=== PATIENT | male | born 1940 | race African-American/Black ===

== ENCOUNTER 2017-08-20 08:08 | Day surgery (SDC) | payer OTHER ==
[2017-08-20 08:36] VITALS: BMI 22.2
[2017-08-20 09:12] VITALS: TEMP 98.6
[2017-08-20 11:31] VITALS: BP 121/60; PULSE 76
== END 2017-08-20 10:40 | disposition home or self-care (01) ==
LOC: JASU-ENDO 08:08
PROVIDERS: ATTEND Internal Medicine Gastroenterology
PROC: 0DJ08ZZ Inspection of Upper Intestinal Tract, Via Natural or Artificial Opening Endoscopic (ICD-10-PCS; principal; 2017-08-20 09:00)
DX: D64.9 Anemia, unspecified (principal); R63.4 Abnormal weight loss; K44.9 Diaphragmatic hernia without obstruction or gangrene

== ENCOUNTER 2018-01-29 10:06 | Inpatient (IN) | payer OTHER ==
--- NOTE | 2018-01-29 10:24 | PDOC ---
History of Present Illness <Yosef Willis - Last Filed: 01/29/18 16:31> - General History Source: Patient Exam Limitations: No Limitations - History of Present Illness Initial Comments: 01/29/18 11:14 The patient is a 77 year old male, with a significant past medical history of BPH, HTN, HIV, anemia, hyperlipidemia, Hepatitis B, enlarged prostate s/p prostate surgery, who presents to the emergency department with hematuria for about 1 day. The patient reports having the onset of hus symptoms after shoveling snow outside. He notes having additional complaints of urinary frequency and urgency. He denies any lower back pain. He denies any recent fevers, chills, headache or dizziness. He denies any recent nausea, vomit, diarrhea or constipation. He denies any recent chest pain or shortness of breath. He denies any recent dysuria. Allergies: NKA Past surgical history: See HPI. 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 ) - Surgical History Abdominal Surgery: No Cardiac Surgery: No Lung Surgery: No Neurologic Surgery: No Orthopedic Surgery: Yes (KNEE ARTHROSCOPY) - Immunization History Immunization Up to Date: Yes - Suicide/Smoking/Psychosocial Hx Smoking History: Current every day smoker Have you smoked in the past 12 months: No Number of Cigarettes Smoked Daily: 4 Cigars Per Day: 0 Information on smoking cessation initiated: No 'Breaking Loose' booklet given: 01/07/18 Hx Alcohol Use: No Drug/Substance Use Hx: No Substance Use Type: None Hx Substance Use Treatment: No <Yosef Willis - Last Filed: 01/29/18 16:31> <Yuan Brewer - Last Filed: 01/29/18 16:43> - Past Medical History Allergies/Adverse Reactions: Allergies Allergy/AdvReac Type Severity Reaction Status Date / Time trimethoprim [From Bactrim] Allergy Mild Verified 01/29/18 10:10 sulfamethoxazole Allergy Verified 01/29/18 10:10 [From Bactrim] Home Medications: Ambulatory Orders Amlodipine Besylate [Norvasc -] 10 mg PO DAILY #30 tablet 12/19/17 Aspirin [ASA -] 81 mg PO DAILY #30 tab.chew 12/19/17 Cholecalciferol (Vitamin D3) [Vitamin D3] 2,000 unit PO DAILY #30 capsule Cyanocobalamin [Vitamin B12 -] 1,000 mcg PO DAILY #30 tablet 12/19/17 Efavirenz/Emtricitab/Tenofovir [Atripla Tablet -] 1 tab PO DAILY #30 tab Losartan Potassium [Cozaar -] 25 mg PO DAILY #30 tablet 12/19/17 Rosuvastatin Calcium [Crestor] 10 mg PO DAILY #30 tablet 12/19/17 Tamsulosin HCl [Flomax -] 0.4 mg PO DAILY #30 cap.er.24h 12/19/17 Review of Systems - Review of Systems Able to Perform ROS?: Yes Comments:: 01/29/18 11:14 CONSTITUTIONAL: No fever, no chills, no fatigue EYES: No visual changes ENT: No ear pain, no sore throat CARDIOVASCULAR: No chest pain, no palpitations RESPIRATORY: No cough, no SOB GI: No abdominal pain, no nausea, no vomiting, no constipation, no diarrhea GENITOURINARY: + hematuria. No dysuria. +frequency. MUSKULOSKELETAL: No backpain, no joint pain, no myalgias SKIN: No rash NEURO: No headache <Yuan Brewer - Last Filed: 01/29/18 16:43> *Physical Exam - Vital Signs Last Vital Signs Temp Pulse Resp BP Pulse Ox 97.4 F L 112 H 15 146/84 98 01/29/18 10:10 01/29/18 10:10 01/29/18 10:10 01/29/18 10:10 01/29/18 10:10 <Yosef Willis - Last Filed: 01/29/18 16:31> - Vital Signs Last Vital Signs Temp Pulse Resp BP Pulse Ox 97.4 F L 112 H 15 146/84 98 01/29/18 10:10 01/29/18 10:10 01/29/18 10:10 01/29/18 10:10 01/29/18 10:10 - Physical Exam Comments: 01/29/18 11:22 CONSTITUTIONAL: Well-appearing; well-nourished; in no apparent distress HEAD: Normocephalic; atraumatic EYES: PERRL; EOM intact ENMT: External appears normal; normal oropharynx NECK: Supple; non-tender; no cervical lymphadenopathy CARD: Normal S1, S2; no murmurs, rubs, or gallops RESP: Normal chest excursion with respiration; breath sounds clear and equal bilaterally; no wheezes, rhonchi, or rales ABD: Soft, non-distended; non-tender; no palpable organomegaly, no palpable hernias EXT: Normal ROM in all four extremities; non-tender to palpation; distal pulses intact SKIN: Warm, dry, no rash NEURO: No focal neurological deficiencies. <Yuan Brewer - Last Filed: 01/29/18 16:43> Heart Score/ECG Review - ECG Impressions Comment:: 01/29/18 16:42 EKG impressions reported by : Normal sinus rhythm at 66bpm NE interval 208 ms QTc 450 ms <Yuan Brewer - Last Filed: 01/29/18 16:43> ED Treatment Course - LABORATORY CBC & Chemistry Diagram: 01/29/18 11:21 01/29/18 11:21 <Yosef Willis - Last Filed: 01/29/18 16:31> - LABORATORY CBC & Chemistry Diagram: 01/29/18 11:21 01/29/18 11:21 <Yuan Brewer - Last Filed: 01/29/18 16:43> *DC/Admit/Observation/Transfer - Discharge Dispostion Admit: Yes <Yosef Willis - Last Filed: 01/29/18 16:31> - Attestations Scribe Attestion: 01/29/18 11:14 Documentation prepared by Yuan Brewer, acting as nurses medical assistants phlebotomists for Yosef Willis MD. <Yuan Brewer - Last Filed: 01/29/18 16:43> Diagnosis at time of Disposition: Bladder mass Urinary tract infection Qualifiers: Urinary tract infection type: acute cystitis Hematuria presence: with hematuria Qualified Code(s): N30.01 - Acute cystitis with hematuria Hematuria Qualifiers: Hematuria type: unspecified type Qualified Code(s): R31.9 - Hematuria, unspecified - Discharge Dispostion Condition at time of disposition: Fair
[2018-01-29] MEDS ORDERED: SODIUM CHLORIDE 1,000 ML IV STA (11:23)
[2018-01-29 12:03] LABS: BASO % 0.8 % (0-2.0); EOS % 0.2 % (0-4.5); HEMATOCRIT 34.6 % (35.4-49); HEMOGLOBIN 11.4 GM/dL (11.7-16.9); LYMPH % 15.6 % (8-40); MCH 27.5 pg (25.7-33.7); MCHC 32.9 g/dl (32.0-35.9); MEAN CELL VOLUME 83.7 fl (80-96); MEAN PLT VOLUME 7.8 fl (7.5-11.1); MONO % 4.5 % (3.8-10.2); NEUT % 78.9 % (42.8-82.8); PLATELET COUNT 187 K/MM3 (134-434); RBC 4.13 M/mm3 (4.00-5.60); WHITE BLOOD COUNT 4.9 K/mm3 (4.0-10.0)
[2018-01-29 12:05] LABS: PH,URINE 6.5 (5.0-8.0); URINE APPEARANCE CLEAR; URINE BILIRUBIN NEGATIVE (NEGATIVE); URINE BLOOD 3+ (NEGATIVE); URINE COLOR DK. RED; URINE GLUCOSE (UA) NEGATIVE (NEGATIVE); URINE KETONE NEGATIVE (NEGATIVE); URINE UROBILINOGEN 0.2 mg/dL (0.2-1.0)
[2018-01-29 12:09] LABS: INR 1.08 (0.82-1.09); PROTHROMBIN TIME (PATIENT) 12.2 SEC (9.98-11.88)
[2018-01-29 12:12] LABS: URINE LEUK ESTERASE 2+ (NEGATIVE); URINE NITRITE POSITIVE (NEGATIVE); URINE PROTEIN 2+ (NEGATIVE)
[2018-01-29 12:21] LABS: ALBUMIN 3.2 g/dl (3.4-5.0); ALK PHOS 71 U/L (45-117); ANION GAP 7 (8-16); BILIRUBIN,TOTAL 0.2 mg/dL (0.2-1.0); BLOOD UREA NITROGEN 27 mg/dL (7-18); CALCIUM 7.9 mg/dL (8.5-10.1); CHLORIDE 109 mmol/L (98-107); CO2 24 mmol/L (21-32); CREATININE 1.6 mg/dL (0.7-1.3); GLUCOSE,RANDOM 93 mg/dL (74-106); SGPT/ALT 17 U/L (12-78); SODIUM 140 mmol/L (136-145); TOT PROT 6.6 g/dl (6.4-8.2)
[2018-01-29 12:45] LABS: POTASSIUM 4.7 mmol/L (3.5-5.1); SGOT/AST 27 U/L (15-37)
[2018-01-29] MEDS ORDERED: CEFTRIAXONE 1 GM in DEXTROSE 5%-WATER - 50 ML IVPB ONE (14:40)
[2018-01-29] MEDS ORDERED: CEFTRIAXONE 1 GM/50 ML BAG ONE (15:27)
--- NOTE | 2018-01-29 16:13 | HP ---
<Kevin Man - Last Filed: 01/29/18 17:45> CHIEF COMPLAINT: blood in the urine PCP: Dr. Holland HISTORY OF PRESENT ILLNESS: The patient is a 77 yo m w/ PMH BPH, HTN, HIV (follows at [facility]) who comes into the ED c/o a 1 day history of hematuria. Patient states he was clearing snow off his car and noticed the blood when he come in to urinate. The patient had a similar episode a few years ago and was diagnosed with BPH. At that time, the patient underwent an unknown prostates surgery. The past episode was a gradual onset, however and the patient states that his current hematuria was acute onset. Patient also endorses urgency and frequency, but states that these symptoms have been present since his prostate surgery. The patient denies any trauma to the area any fevers, chills, Chest pain or shortness of breath. ER course was notable for: (1) Renal/bladder ultrasound showing a bladder mass measuring 3.5x3.2x2 (2) (3) Recent Travel: none PAST MEDICAL HISTORY: HLD Anemia HBV PAST SURGICAL HISTORY: prostate surgery 2 years ago Social History: Smoking: smokes 4 cigs per day x 40 years Alcohol: socially Drugs: denies Family History: none Allergies trimethoprim [From Bactrim] Allergy (Mild, Verified 01/29/18 10:10) VOMITING sulfamethoxazole [From Bactrim] Allergy (Verified 01/29/18 10:10) HOME MEDICATIONS: Home Medications Medication Instructions Recorded Amlodipine Besylate [Norvasc -] 10 mg PO DAILY #30 tablet 12/19/17 Aspirin [ASA -] 81 mg PO DAILY #30 tab.chew 12/19/17 Cholecalciferol (Vitamin D3) 2,000 unit PO DAILY #30 capsule 12/19/17 [Vitamin D3] Cyanocobalamin [Vitamin B12 -] 1,000 mcg PO DAILY #30 tablet 12/19/17 Efavirenz/Emtricitab/Tenofovir 1 tab PO DAILY #30 tab 12/19/17 [Atripla Tablet -] Losartan Potassium [Cozaar -] 25 mg PO DAILY #30 tablet 12/19/17 Rosuvastatin Calcium [Crestor] 10 mg PO DAILY #30 tablet 12/19/17 Tamsulosin HCl [Flomax -] 0.4 mg PO DAILY #30 cap.er.24h 12/19/17 REVIEW OF SYSTEMS CONSTITUTIONAL: Absent: fever, chills, diaphoresis, generalized weakness, malaise, loss of appetite, weight change HEENT: Absent: rhinorrhea, nasal congestion, throat pain, throat swelling, difficulty swallowing, mouth swelling, ear pain, eye pain, visual changes CARDIOVASCULAR: Absent: chest pain, syncope, palpitations, irregular heart rate, lightheadedness , peripheral edema RESPIRATORY: Absent: cough, shortness of breath, dyspnea with exertion, orthopnea, wheezing, stridor, hemoptysis GASTROINTESTINAL: Absent: abdominal pain, abdominal distension, nausea, vomiting, diarrhea, constipation, melena, hematochezia GENITOURINARY: Absent: dysuria, frequency, urgency, hesitancy, flank pain, genital pain MUSCULOSKELETAL: Absent: myalgia, arthralgia, joint swelling, back pain, neck pain SKIN: Absent: rash, itching, pallor HEMATOLOGIC/IMMUNOLOGIC: Absent: easy bleeding, easy bruising, lymphadenopathy, frequent infections ENDOCRINE: Absent: unexplained weight gain, unexplained weight loss, heat intolerance, cold intolerance NEUROLOGIC: Absent: headache, focal weakness or paresthesias, dizziness, unsteady gait, seizure, mental status changes, bladder or bowel incontinence PSYCHIATRIC: Absent: anxiety, depression, suicidal or homicidal ideation, hallucinations. PHYSICAL EXAMINATION Vital Signs - 24 hr 01/29/18 01/29/18 10:10 13:06 Temperature 97.4 F L 98.6 F Pulse Rate 112 H Pulse Rate [ 77 Left Apical] Respiratory 15 18 Rate Blood Pressure 146/84 Blood Pressure 118/67 [Left Arm] O2 Sat by Pulse 98 99 Oximetry (%) GENERAL: Awake, alert, and fully oriented, in no acute distress. HEAD: Normal with no signs of trauma. EYES: Pupils equal, round and reactive to light, extraocular movements intact, sclera anicteric, conjunctiva clear. No lid lag. LUNGS: Breath sounds equal, clear to auscultation bilaterally. No wheezes, and no crackles. No accessory muscle use. HEART: Regular rate and rhythm, normal S1 and S2 without murmur, rub or gallop. ABDOMEN: Soft, nontender, not distended, normoactive bowel sounds, no guarding, no rebound, no masses. No hepatomegaly or splenomegaly. LOWER EXTREMITIES: 2+ pulses, warm, well-perfused. No calf tenderness. No peripheral edema. NEUROLOGICAL: Cranial nerves II-X intact. Normal speech. Normal gait. GENITURINARY: Blood mixed with urine seen over the patient's penis and scrotum. No testicular masses felt. No tenderness to palpation. Genitalia are atraumatic. PSYCHIATRIC: Cooperative. Good eye contact. Appropriate mood and affect. SKIN: Warm, dry, normal turgor, no rashes or lesions noted, normal capillary refill. Laboratory Results - last 24 hr 01/29/18 01/29/18 01/29/18 10:37 11:21 11:21 WBC 4.9 RBC 4.13 Hgb 11.4 L Hct 34.6 L MCV 83.7 MCH 27.5 MCHC 32.9 RDW 17.0 H Plt Count 187 MPV 7.8 Neutrophils % 78.9 Lymphocytes % 15.6 Monocytes % 4.5 Eosinophils % 0.2 Basophils % 0.8 PT with INR 12.20 H INR 1.08 Sodium Potassium Chloride Carbon Dioxide Anion Gap BUN Creatinine Creat Clearance w eGFR Random Glucose Calcium Total Bilirubin AST ALT Alkaline Phosphatase Total Protein Albumin Urine Color Dk. red Urine Appearance Clear Urine pH 6.5 Ur Specific Union 1.025 Urine Protein 2+ H Urine Glucose (UA) Negative Urine Ketones Negative Urine Blood 3+ H Urine Nitrite Positive Urine Bilirubin Negative Urine Urobilinogen 0.2 Ur Leukocyte Esterase 2+ H Urine WBC (Auto) 2-5 Urine RBC (Auto) >100 Blood Type Antibody Screen 01/29/18 01/29/18 01/29/18 11:21 11:21 14:00 WBC RBC Hgb Hct MCV MCH MCHC RDW Plt Count MPV Neutrophils % Lymphocytes % Monocytes % Eosinophils % Basophils % PT with INR INR Sodium 140 Potassium 4.7 Chloride 109 H Carbon Dioxide 24 Anion Gap 7 L BUN 27 H Creatinine 1.6 H Creat Clearance w eGFR 42.35 Random Glucose 93 Calcium 7.9 L Total Bilirubin 0.2 D AST 27 D ALT 17 D Alkaline Phosphatase 71 Total Protein 6.6 Albumin 3.2 L Urine Color Urine Appearance Urine pH Ur Specific Union Urine Protein Urine Glucose (UA) Urine Ketones Urine Blood Urine Nitrite Urine Bilirubin Urine Urobilinogen Ur Leukocyte Esterase Urine WBC (Auto) Urine RBC (Auto) Blood Type Cancelled B POSITIVE Antibody Screen Cancelled Negative ASSESSMENT/PLAN: The patient is a 77 yo m w/ PMH BPH, HIV, HTN being admitted for hematuria and bladder mass #Bladder mass & painless hematuria likely 2/2 malignancy -urology consult -hold ASA -NPO past midnight -Hb at baseline, will monitor -s/p ceftriaxone in ED -patient unsure of home medications; attempted to reach pharmacy x2. Will try again in AM #HTN -normotensive -will restart home losartan 25 -will restart home norvasc 10 #HIV -will restart home atripla #BPH -c/w home flomax #FEN -NS @ 77 -lytes WNL -NPO past midnight #Prophylaxis -hold AC in light of active bleed -SCDs #Dispo -admit to med surg Visit type - Emergency Visit Emergency Visit: Yes Care time: The patient presented to the Emergency Department on the above date and was hospitalized for further evaluation of their emergent condition. - New Patient This patient is new to me today: Yes Date on this admission: 01/29/18 - Critical Care Critical Care patient: No Hospitalist Screening - Colonoscopy Questionnaire Colonoscopy Questionnaire: Colonoscopy Questionnaire - Patient: 50 - 75 years old and never had a screening colonoscopy: Unknown History of colon or rectal polyps, or CA: Unknown History of IBD, Crohn's disease or UC: Unknown History of abdominal radiation therapy as a child: Unknown - Relative: 1 with colon or rectal CA, or polyps at age 60 or younger: Unknown Colon or rectal CA diagnosed at age 45 or younger: Unknown Multiple relatives with colon or rectal CA: Unknown - Outcome: Screening Result: Negative Screen <Madelaine Wells - Last Filed: 01/29/18 20:08> Patient is seen and examined. Presented due to having hematuria, patient goes to HIV clinic [facility]. Urology was consulted. Renal US reported for having intrinsic bladder mass.can't r/o Transitional cell carcinoma since patient is a smoker as well. Vital Signs Temperature 97.7 F 01/29/18 18:58 Pulse Rate 69 01/29/18 18:58 Respiratory Rate 20 01/29/18 18:58 Blood Pressure 145/74 01/29/18 18:58 O2 Sat by Pulse Oximetry (%) 99 01/29/18 16:15 CBCD WBC 4.9 K/mm3 (4.0-10.0) 01/29/18 11:21 RBC 4.13 M/mm3 (4.00-5.60) 01/29/18 11:21 Hgb 11.4 GM/dL (11.7-16.9) L 01/29/18 11:21 Hct 34.6 % (35.4-49) L 01/29/18 11:21 MCV 83.7 fl (80-96) 01/29/18 11:21 MCHC 32.9 g/dl (32.0-35.9) 01/29/18 11:21 RDW 17.0 % (11.9-15.9) H 01/29/18 11:21 Plt Count 187 K/MM3 (134-434) 01/29/18 11:21 MPV 7.8 fl (7.5-11.1) 01/29/18 11:21 CMP Sodium 140 mmol/L (136-145) 01/29/18 11:21 Potassium 4.7 mmol/L (3.5-5.1) 01/29/18 11:21 Chloride 109 mmol/L (98-107) H 01/29/18 11:21 Carbon Dioxide 24 mmol/L (21-32) 01/29/18 11:21 Anion Gap 7 (8-16) L 01/29/18 11:21 BUN 27 mg/dL (7-18) H 01/29/18 11:21 Creatinine 1.6 mg/dL (0.7-1.3) H 01/29/18 11:21 Creat Clearance w eGFR 42.35 (>60) 01/29/18 11:21 Random Glucose 93 mg/dL (74-106) 01/29/18 11:21 Calcium 7.9 mg/dL (8.5-10.1) L 01/29/18 11:21 Total Bilirubin 0.2 mg/dL (0.2-1.0) D 01/29/18 11:21 AST 27 U/L (15-37) D 01/29/18 11:21 ALT 17 U/L (12-78) D 01/29/18 11:21 Alkaline Phosphatase 71 U/L (45-117) 01/29/18 11:21 Total Protein 6.6 g/dl (6.4-8.2) 01/29/18 11:21 Albumin 3.2 g/dl (3.4-5.0) L 01/29/18 11:21 Current Medications Generic Name Dose Route Start Last Admin Trade Name Shaina PRN Reason Stop Dose Admin Amlodipine Besylate 10 mg 01/30/18 10:00 Norvasc - PO DAILY [facility] Cyanocobalamin 1,000 mcg 01/30/18 10:00 Vitamin B12 - PO DAILY [facility] Sodium Chloride 1,000 mls @ 75 mls/hr 01/29/18 16:15 01/29/18 16:30 Normal Saline - IV 75 mls/hr ASDIR [facility] Administration Losartan Potassium 25 mg 01/30/18 10:00 Cozaar - PO DAILY [facility] Non-Formulary Medication 1 tab 01/30/18 10:00 Efavirenz/Emtricitab/Tenofovir PO DAILY [facility] Tamsulosin HCl 0.4 mg 01/30/18 08:30 Flomax - PO DAILY@0830 [facility] Home Medications Medication Instructions Recorded Amlodipine Besylate [Norvasc -] 10 mg PO DAILY #30 tablet 12/19/17 Aspirin [ASA -] 81 mg PO DAILY #30 tab.chew 12/19/17 Cholecalciferol (Vitamin D3) 2,000 unit PO DAILY #30 capsule 12/19/17 [Vitamin D3] Cyanocobalamin [Vitamin B12 -] 1,000 mcg PO DAILY #30 tablet 12/19/17 Efavirenz/Emtricitab/Tenofovir 1 tab PO DAILY #30 tab 12/19/17 [Atripla Tablet -] Losartan Potassium [Cozaar -] 25 mg PO DAILY #30 tablet 12/19/17 Rosuvastatin Calcium [Crestor] 10 mg PO DAILY #30 tablet 12/19/17 Tamsulosin HCl [Flomax -] 0.4 mg PO DAILY #30 cap.er.24h 12/19/17 Hospitalist Screening - Colonoscopy Questionnaire Colonoscopy Questionnaire: Colonoscopy Questionnaire
[2018-01-29] MEDS: SODIUM CHLORIDE 1,000 ML IV SCH (16:30)
[2018-01-29 18:34] VITALS: BMI 21.5
[2018-01-29 20:39] LABS: HEMATOCRIT 33.3 % (35.4-49); HEMOGLOBIN 10.5 GM/dL (11.7-16.9); MCH 26.8 pg (25.7-33.7); MCHC 31.6 g/dl (32.0-35.9); MEAN CELL VOLUME 84.8 fl (80-96); MEAN PLT VOLUME 7.7 fl (7.5-11.1); PLATELET COUNT 163 K/MM3 (134-434); RBC 3.93 M/mm3 (4.00-5.60); RDW 17.3 % (11.9-15.9); WHITE BLOOD COUNT 5.6 K/mm3 (4.0-10.0)
[2018-01-30] MEDS: SODIUM CHLORIDE 1,000 ML IV SCH ×2 (04:36→23:06)
[2018-01-30] MEDS ORDERED: INSULIN (NOVOLOG) ASPART 100 UNITS/ML 10ML VIAL ONE (06:38)
[2018-01-30 07:58] LABS: ALBUMIN 2.5 g/dl (3.4-5.0); ANION GAP 10 (8-16); BLOOD UREA NITROGEN 20 mg/dL (7-18); CALCIUM 7.4 mg/dL (8.5-10.1); CHLORIDE 111 mmol/L (98-107); CO2 22 mmol/L (21-32); CREATININE 1.3 mg/dL (0.7-1.3); GLUCOSE,RANDOM 87 mg/dL (74-106); MAGNESIUM 2.3 mg/dL (1.8-2.4); PHOSPHOROUS 2.4 mg/dL (2.5-4.9); POTASSIUM 4.7 mmol/L (3.5-5.1); SGOT/AST 16 U/L (15-37); SGPT/ALT 15 U/L (12-78); SODIUM 143 mmol/L (136-145)
[2018-01-30 08:00] LABS: INR 1.13 (0.82-1.09); PROTHROMBIN TIME (PATIENT) 12.8 SEC (9.98-11.88)
[2018-01-30 08:03] LABS: ALK PHOS 64 U/L (45-117); BILIRUBIN,TOTAL 0.6 mg/dL (0.2-1.0); TOT PROT 5.8 g/dl (6.4-8.2)
[2018-01-30 08:04] LABS: BASO % 0.5 % (0-2.0); EOS % 0.8 % (0-4.5); HEMATOCRIT 31.9 % (35.4-49); HEMOGLOBIN 10.2 GM/dL (11.7-16.9); LYMPH % 23.2 % (8-40); MCH 26.9 pg (25.7-33.7); MCHC 31.9 g/dl (32.0-35.9); MEAN CELL VOLUME 84.3 fl (80-96); MEAN PLT VOLUME 7.8 fl (7.5-11.1); MONO % 5.1 % (3.8-10.2); NEUT % 70.4 % (42.8-82.8); PLATELET COUNT 179 K/MM3 (134-434); RBC 3.79 M/mm3 (4.00-5.60); RDW 17.1 % (11.9-15.9)
[2018-01-30] MEDS ORDERED: PATIENT'S OWN MEDICATION (NON-FORMULARY) (Efavirenz/Emtricitab/Tenofovir 1 TAB) PO SCH (10:00)
--- NOTE | 2018-01-30 10:42 | CON.GU ---
Consult - History of Present Illness History of Present Illness: 77 yo male with h/o BPH s/p TURP approx 3 yrs ago. Now admitted with gross hematuria after shoveling. No flank pain. Sono shows possible bladder mass. Urine now clear - Past Medical History Cardio/Vascular: Yes: HTN, Hyperlipdemia Pulmonary: Yes: COPD Renal/: Yes: BPH Infectious Disease: Yes: HIV Musculoskeletal: Yes: Other (patella fracture) Endocrine: Yes: Other (thyroid goiter s/p needle aspiration) - Past Surgical History Past Surgical History: Yes: TURP - Alcohol/Substance Use Hx Alcohol Use: No History of Substance Use: reports: None - Smoking History Smoking history: Current every day smoker Have you smoked in the past 12 months: No Aproximately how many cigarettes per day: 4 - Social History Usual Living Arrangement: Other (with sister) ADL: Independent History of Recent Travel: No Home Medications - Allergies Allergies/Adverse Reactions: Allergies Allergy/AdvReac Type Severity Reaction Status Date / Time trimethoprim [From Bactrim] Allergy Mild Verified 01/29/18 10:10 sulfamethoxazole Allergy Verified 01/29/18 10:10 [From Bactrim] - Home Medications Home Medications: Ambulatory Orders Amlodipine Besylate [Norvasc -] 10 mg PO DAILY #30 tablet 12/19/17 Aspirin [ASA -] 81 mg PO DAILY #30 tab.chew 12/19/17 Cholecalciferol (Vitamin D3) [Vitamin D3] 2,000 unit PO DAILY #30 capsule Cyanocobalamin [Vitamin B12 -] 1,000 mcg PO DAILY #30 tablet 12/19/17 Efavirenz/Emtricitab/Tenofovir [Atripla Tablet -] 1 tab PO DAILY #30 tab Losartan Potassium [Cozaar -] 25 mg PO DAILY #30 tablet 12/19/17 Rosuvastatin Calcium [Crestor] 10 mg PO DAILY #30 tablet 12/19/17 Tamsulosin HCl [Flomax -] 0.4 mg PO DAILY #30 cap.er.24h 12/19/17 Review of Systems - Review of Systems Genitourinary: reports: Hematuria Physical Exam- Vital Signs: Vital Signs Temperature 97.5 F L 01/30/18 10:00 Pulse Rate 65 01/30/18 10:00 Respiratory Rate 18 01/30/18 10:00 Blood Pressure 121/57 01/30/18 10:00 O2 Sat by Pulse Oximetry (%) 97 01/29/18 21:00 Kidneys: Yes: WNL Labs: CBC, BMP 01/30/18 07:10 01/30/18 07:10 Imaging - Results Ultrasound: Report Reviewed Problem List - Problems (1) Hematuria Assessment/Plan: CT ordered Code(s): R31.9 - HEMATURIA, UNSPECIFIED Qualifiers: Hematuria type: unspecified type Qualified Code(s): R31.9 - Hematuria, unspecified
[2018-01-30] MEDS: TAMSULOSIN HCL 0.4 MG CAP.ER.24H (FP) PO SCH (14:20)
[2018-01-30] MEDS: CYANOCOBALAMIN 1,000 MCG TABLET (FP) PO SCH (14:20)
[2018-01-30] MEDS: amLODIPine BESYLATE 10 MG TABLET (FP) PO SCH (14:20)
[2018-01-30] MEDS: LOSARTAN POTASSIUM 25 MG TABLET PO SCH (14:20)
--- NOTE | 2018-01-30 17:18 | PN ---
<Kevin Man - Last Filed: 01/30/18 17:20> Physical Exam: SUBJECTIVE: Patient seen and examined at bedside. Patient feels better today. No new complaints. OBJECTIVE: Vital Signs Period Temp Pulse Resp BP Sys/Nunez Pulse Ox Last 24 Hr 97.4 F-98.6 F 65-74 18-20 104-156/50-76 97 GENERAL: The patient is awake, alert, and fully oriented, in no acute distress. NECK: Trachea midline, full range of motion, supple. LUNGS: Breath sounds equal, clear to auscultation bilaterally, no wheezes, no crackles, no accessory muscle use. HEART: Regular rate and rhythm, S1, S2 without murmur, rub or gallop. ABDOMEN: Soft, nontender, nondistended, normoactive bowel sounds, no guarding, no rebound, no hepatosplenomegaly, no masses. EXTREMITIES: 2+ pulses, warm, well-perfused, no edema. NEUROLOGICAL: Cranial nerves II through XII grossly intact. Normal speech, gait not observed. SKIN: Warm, dry, normal turgor, no rashes or lesions noted Laboratory Results - last 24 hr 01/29/18 01/30/18 01/30/18 20:00 07:10 07:10 WBC 5.6 5.0 RBC 3.93 L 3.79 L Hgb 10.5 L 10.2 L Hct 33.3 L 31.9 L MCV 84.8 84.3 MCH 26.8 26.9 MCHC 31.6 L 31.9 L RDW 17.3 H 17.1 H Plt Count 163 179 MPV 7.7 7.8 Neutrophils % 70.4 Lymphocytes % 23.2 D Monocytes % 5.1 Eosinophils % 0.8 D Basophils % 0.5 PT with INR 12.80 H INR 1.13 Sodium Potassium Chloride Carbon Dioxide Anion Gap BUN Creatinine Creat Clearance w eGFR Random Glucose Calcium Phosphorus Magnesium Total Bilirubin AST ALT Alkaline Phosphatase Total Protein Albumin 01/30/18 07:10 WBC RBC Hgb Hct MCV MCH MCHC RDW Plt Count MPV Neutrophils % Lymphocytes % Monocytes % Eosinophils % Basophils % PT with INR INR Sodium 143 Potassium 4.7 Chloride 111 H Carbon Dioxide 22 Anion Gap 10 BUN 20 H D Creatinine 1.3 Creat Clearance w eGFR 53.82 Random Glucose 87 Calcium 7.4 L Phosphorus 2.4 L Magnesium 2.3 Total Bilirubin 0.6 D AST 16 D ALT 15 Alkaline Phosphatase 64 Total Protein 5.8 L Albumin 2.5 L D Active Medications Generic Name Dose Route Start Last Admin Trade Name Shaina PRN Reason Stop Dose Admin Amlodipine Besylate 10 mg 01/30/18 10:00 01/30/18 14:20 Norvasc - PO 10 mg DAILY ELVIS Administration Cyanocobalamin 1,000 mcg 01/30/18 10:00 01/30/18 14:20 Vitamin B12 - PO 1,000 mcg DAILY ELVIS Administration Sodium Chloride 1,000 mls @ 75 mls/hr 01/29/18 16:15 01/30/18 04:36 Normal Saline - IV 75 mls/hr ASDIR ELVIS Administration Losartan Potassium 25 mg 01/30/18 10:00 01/30/18 14:20 Cozaar - PO 25 mg DAILY ELVIS Administration Non-Formulary Medication 1 tab 01/30/18 10:00 Efavirenz/Emtricitab/Tenofovir PO DAILY ELVIS Tamsulosin HCl 0.4 mg 01/30/18 08:30 01/30/18 14:20 Flomax - PO 0.4 mg DAILY@0830 ELVIS Administration ASSESSMENT/PLAN: The patient is a 77 yo m w/ PMH BPH, HIV, HTN being admitted for hematuria and bladder mass #Bladder mass & painless hematuria likely 2/2 malignancy -hold ASA -Hb at baseline, will monitor -CT AP shows enlarged prostate extending into bladder wall. -will f/u urology reccs #HTN -normotensive -will restart home losartan 25 -will restart home norvasc 10 #HIV -will restart home atripla #BPH -c/w home flomax #FEN -NS @ 75 -lytes WNL -sodium controlled diet #Prophylaxis -hold AC in light of active bleed -SCDs #Dispo -admit to med surg Visit type - Emergency Visit Emergency Visit: Yes ED Registration Date: 01/29/18 Care time: The patient presented to the Emergency Department on the above date and was hospitalized for further evaluation of their emergent condition. - New Patient This patient is new to me today: No - Critical Care Critical Care patient: No <Madelaine Wells - Last Filed: 01/30/18 19:27> Physical Exam: Patient seen and examined. Patient has less hematuria today, is ordered CT of abdomen to r/o renal mass/bladder mass. Seen By . Patient feels better today.NAD. Patient has a hx of HIV will get ID to see him, cardio was consulted as per request of for cardiac clearance. Vital Signs Temperature 97.6 F 01/30/18 18:56 Pulse Rate 73 01/30/18 18:56 Respiratory Rate 20 01/30/18 18:56 Blood Pressure 143/73 01/30/18 18:56 O2 Sat by Pulse Oximetry (%) 98 01/30/18 09:00 CBCD WBC 5.0 K/mm3 (4.0-10.0) 01/30/18 07:10 RBC 3.79 M/mm3 (4.00-5.60) L 01/30/18 07:10 Hgb 10.2 GM/dL (11.7-16.9) L 01/30/18 07:10 Hct 31.9 % (35.4-49) L 01/30/18 07:10 MCV 84.3 fl (80-96) 01/30/18 07:10 MCHC 31.9 g/dl (32.0-35.9) L 01/30/18 07:10 RDW 17.1 % (11.9-15.9) H 01/30/18 07:10 Plt Count 179 K/MM3 (134-434) 01/30/18 07:10 MPV 7.8 fl (7.5-11.1) 01/30/18 07:10 CMP Sodium 143 mmol/L (136-145) 01/30/18 07:10 Potassium 4.7 mmol/L (3.5-5.1) 01/30/18 07:10 Chloride 111 mmol/L (98-107) H 01/30/18 07:10 Carbon Dioxide 22 mmol/L (21-32) 01/30/18 07:10 Anion Gap 10 (8-16) 01/30/18 07:10 BUN 20 mg/dL (7-18) H D 01/30/18 07:10 Creatinine 1.3 mg/dL (0.7-1.3) 01/30/18 07:10 Creat Clearance w eGFR 53.82 (>60) 01/30/18 07:10 Random Glucose 87 mg/dL (74-106) 01/30/18 07:10 Calcium 7.4 mg/dL (8.5-10.1) L 01/30/18 07:10 Total Bilirubin 0.6 mg/dL (0.2-1.0) D 01/30/18 07:10 AST 16 U/L (15-37) D 01/30/18 07:10 ALT 15 U/L (12-78) 01/30/18 07:10 Alkaline Phosphatase 64 U/L (45-117) 01/30/18 07:10 Total Protein 5.8 g/dl (6.4-8.2) L 01/30/18 07:10 Albumin 2.5 g/dl (3.4-5.0) L D 01/30/18 07:10 Current Medications Generic Name Dose Route Start Last Admin Trade Name Freq PRN Reason Stop Dose Admin Amlodipine Besylate 10 mg 01/30/18 10:00 01/30/18 14:20 Norvasc - PO 10 mg DAILY ELVIS Administration Cyanocobalamin 1,000 mcg 01/30/18 10:00 01/30/18 14:20 Vitamin B12 - PO 1,000 mcg DAILY ELVIS Administration Sodium Chloride 1,000 mls @ 75 mls/hr 01/29/18 16:15 01/30/18 04:36 Normal Saline - IV 75 mls/hr ASDIR ELVIS Administration Losartan Potassium 25 mg 01/30/18 10:00 01/30/18 14:20 Cozaar - PO 25 mg DAILY ELVIS Administration Non-Formulary Medication 1 tab 01/30/18 10:00 Efavirenz/Emtricitab/Tenofovir PO DAILY [facility] Tamsulosin HCl 0.4 mg 01/30/18 08:30 01/30/18 14:20 Flomax - PO 0.4 mg DAILY@0830 ELVIS Administration Home Medications Medication Instructions Recorded Amlodipine Besylate [Norvasc -] 10 mg PO DAILY #30 tablet 12/19/17 Aspirin [ASA -] 81 mg PO DAILY #30 tab.chew 12/19/17 Cholecalciferol (Vitamin D3) 2,000 unit PO DAILY #30 capsule 12/19/17 [Vitamin D3] Cyanocobalamin [Vitamin B12 -] 1,000 mcg PO DAILY #30 tablet 12/19/17 Efavirenz/Emtricitab/Tenofovir 1 tab PO DAILY #30 tab 12/19/17 [Atripla Tablet -] Losartan Potassium [Cozaar -] 25 mg PO DAILY #30 tablet 12/19/17 Rosuvastatin Calcium [Crestor] 10 mg PO DAILY #30 tablet 12/19/17 Tamsulosin HCl [Flomax -] 0.4 mg PO DAILY #30 cap.er.24h 12/19/17
--- NOTE | 2018-01-31 07:41 | PN ---
Progress Note (short form) - Note Progress Note: ID Consult dictated Painless hematuria Hematuria resolved now Selected Entries 01/31/18 06:00 Temperature 98.0 F Pulse Rate 78 Respiratory 18 Rate Blood Pressure 145/73 Laboratory Tests 12/19/17 12/19/17 01/29/18 13:40 13:40 11:21 WBC Hgb Plt Count BUN Creatinine Creat Clearance w eGFR 42.35 Absolute CD4 [place] 256 L HIV-1 RNA (PCR) <20 01/30/18 01/30/18 07:10 07:10 WBC 5.0 Hgb 10.2 L Plt Count 179 BUN 20 H D Creatinine 1.3 Creat Clearance w eGFR 53.82 Absolute CD4 [place] HIV-1 RNA (PCR) Assessment HIV infection Hematuria resolved no ss lesions HPTN CKD Anemia ?blood loss UTI Plan Treat UTI with Ceftin 500mg bid Cystoscopy per urology Check urine c/s Patient will need to switch off Atripla to another more kidney "friendly" ART Keagan VELASCO Problem List - Problems (1) Hematuria Code(s): R31.9 - HEMATURIA, UNSPECIFIED Qualifiers: Hematuria type: unspecified type Qualified Code(s): R31.9 - Hematuria, unspecified (2) Anemia Code(s): D64.9 - ANEMIA, UNSPECIFIED (3) CKD (chronic kidney disease) Code(s): N18.9 - CHRONIC KIDNEY DISEASE, UNSPECIFIED (4) HIV (human immunodeficiency virus infection) Code(s): Z21 - ASYMPTOMATIC HUMAN IMMUNODEFICIENCY VIRUS INFECTION STATUS
[2018-01-31 08:40] LABS: HEMATOCRIT 32.3 % (35.4-49); HEMOGLOBIN 10.3 GM/dL (11.7-16.9); MCH 26.9 pg (25.7-33.7); MCHC 31.7 g/dl (32.0-35.9); MEAN CELL VOLUME 84.7 fl (80-96); MEAN PLT VOLUME 7.9 fl (7.5-11.1); PLATELET COUNT 176 K/MM3 (134-434); RBC 3.82 M/mm3 (4.00-5.60); RDW 16.8 % (11.9-15.9); WHITE BLOOD COUNT 4.5 K/mm3 (4.0-10.0)
--- NOTE | 2018-01-31 08:56 | CONS ---
DATE OF CONSULTATION: DATE OF DICTATION: 01/31/2018 HISTORY OF PRESENT ILLNESS: This is a 77-year-old male who we follow with known HIV infection for many years who was admitted to the hospital with a 1-day history of painless hematuria. He has an enlarged prostate and when he came in noted gross hematuria associated with urinary frequency and urgency. He has been afebrile here and was seen in consultation by Dr. Robison. A CAT scan of the pelvis showed an enlarged prostate but no mass lesions. Currently he has no Pang in place and seems to be voiding normally. The hematuria has completely cleared. A urine culture has 100,000 colonies of an organism to be determined. Again, he remains afebrile without chills, abdominal pain or other urinary complaints at the present time. PAST MEDICAL HISTORY: Includes BPH, hypertension, HIV, anemia, hyperlipidemia, hepatitis B, fibronodular goiter. ALLERGIES: BACTRIM. MEDICATIONS: Home: Amlodipine, Atripla, losartan, tamsulosin, Crestor. FAMILY HISTORY: Noncontributory. SOCIAL HISTORY: Denies current substance abuse. Current every day smoker. No travel. REVIEW OF SYSTEMS: Respiratory: No cough, shortness of breath. Cardiac: No chest pain, palpitations, syncope. Gastrointestinal: No abdominal pain, nausea, vomiting, weight loss, night sweats. Genitourinary: No dysuria, hematuria, urinary frequency. PHYSICAL EXAMINATION:General: He was an alert male in no acute distress. Vital Signs: Temperature 98.0, pulse 78, blood pressure 145/73, respirations 18. Neck: Supple. No adenopathy. Lungs: Clear to P & A. Heart: S1, S2, regular rhythm. No audible murmur. Abdomen: Soft, nontender, without hepatosplenomegaly. Extremities: No clubbing, cyanosis or edema. LABORATORY DATA: The white count was 5.0, hemoglobin 10.2, hematocrit 32, platelets of 179. BUN of 20, creatinine 1.3. Liver enzymes within normal limits. Recent PSA is 40.8. T-cells of 256. RPR nonreactive. HIV viral load less than 20. ASSESSMENT AND PLAN: A 77-year-old male, known human immunodeficiency virus positive, doing well from that standpoint, admitted with painless hematuria. Has been seen by Dr. Robison. Recent computed tomography scan of the abdomen performed here shows enlarged prostate with no evidence of mass lesions or obstructive uropathy, stones. Elevated prostate-specific antigen noted from August 04. Needs to be followed up. Has bacteria in the urine, possibly hematuria due to urinary tract infection. Would empirically treat him with Ceftin 500 mg p.o. b.i.d. for 14 days. Anemia needs to be followed up. Await Urology recommendations regarding need for cystoscopy in view of the fact that his hematuria has resolved. Will repeat his PSA level. CONSUELO CONNER M.D. [id number]
[2018-01-31 09:03] LABS: ANION GAP 6 (8-16); BLOOD UREA NITROGEN 19 mg/dL (7-18); CALCIUM 7.4 mg/dL (8.5-10.1); CHLORIDE 111 mmol/L (98-107); CO2 24 mmol/L (21-32); GLUCOSE,RANDOM 84 mg/dL (74-106); POTASSIUM 4.4 mmol/L (3.5-5.1); SODIUM 141 mmol/L (136-145)
[2018-01-31 09:09] LABS: CREATININE 1.2 mg/dL (0.7-1.3)
[2018-01-31] MEDS: CYANOCOBALAMIN 1,000 MCG TABLET (FP) PO SCH (09:23)
[2018-01-31] MEDS: TAMSULOSIN HCL 0.4 MG CAP.ER.24H (FP) PO SCH (09:23)
[2018-01-31] MEDS: LOSARTAN POTASSIUM 25 MG TABLET PO SCH (09:23)
[2018-01-31] MEDS: amLODIPine BESYLATE 10 MG TABLET (FP) PO SCH (09:24)
[2018-01-31] MEDS ORDERED: EMTRICITABINE 200MG/TENOFOVIR 300MG PO SCH ×2 (10:00→12:00)
[2018-01-31] MEDS ORDERED: EFAVIRENZ 200 MG CAPSULE PO SCH ×3 (10:00→12:00)
--- NOTE | 2018-01-31 11:22 | PN ---
Physical Exam: SUBJECTIVE: Patient seen and examined at bedside. Patient has no new complaints. He states that his urine continues to clear daily. No serene blood seen today. OBJECTIVE: Vital Signs Period Temp Pulse Resp BP Sys/Nuenz Pulse Ox Last 24 Hr 97.4 F-98.0 F 66-78 18-20 100-156/50-76 97 GENERAL: The patient is awake, alert, and fully oriented, in no acute distress. HEAD: Normal with no signs of trauma. LUNGS: Breath sounds equal, clear to auscultation bilaterally, no wheezes, no crackles, no accessory muscle use. HEART: Regular rate and rhythm, S1, S2 without murmur, rub or gallop. ABDOMEN: Soft, nontender, nondistended, normoactive bowel sounds, no guarding, no rebound, no hepatosplenomegaly, no masses. EXTREMITIES: 2+ pulses, warm, well-perfused, no edema. NEUROLOGICAL: Cranial nerves II through X grossly intact. Normal speech, gait not observed. SKIN: Warm, dry, normal turgor, no rashes or lesions noted Laboratory Results - last 24 hr 01/31/18 01/31/18 08:00 08:00 WBC 4.5 RBC 3.82 L Hgb 10.3 L Hct 32.3 L MCV 84.7 MCH 26.9 MCHC 31.7 L RDW 16.8 H Plt Count 176 MPV 7.9 Sodium 141 Potassium 4.4 Chloride 111 H Carbon Dioxide 24 Anion Gap 6 L BUN 19 H Creatinine 1.2 Random Glucose 84 Calcium 7.4 L Active Medications Generic Name Dose Route Start Last Admin Trade Name Freq PRN Reason Stop Dose Admin Amlodipine Besylate 10 mg 01/30/18 10:00 01/31/18 09:24 Norvasc - PO 10 mg DAILY ELVIS Administration Cefuroxime Axetil 500 mg 01/31/18 11:08 Ceftin - PO BID ELVIS Cyanocobalamin 1,000 mcg 01/30/18 10:00 01/31/18 09:23 Vitamin B12 - PO 1,000 mcg DAILY ELVIS Administration Efavirenz 600 mg 01/31/18 11:15 Sustiva - PO DAILY ELVIS Emtricitabine/Tenofovir 1 tab 01/31/18 12:00 Truvada PO DAILY ELVIS Sodium Chloride 1,000 mls @ 75 mls/hr 01/29/18 16:15 01/30/18 23:06 Normal Saline - IV 75 mls/hr ASDIR ELVIS Administration Losartan Potassium 25 mg 01/30/18 10:00 01/31/18 09:23 Cozaar - PO 25 mg DAILY ELVIS Administration Tamsulosin HCl 0.4 mg 01/30/18 08:30 01/31/18 09:23 Flomax - PO 0.4 mg DAILY@0830 ELVIS Administration ASSESSMENT/PLAN: The patient is a 77 yo m w/ PMH BPH, HIV, HTN being admitted for hematuria and bladder mass #Bladder mass & painless hematuria likely 2/2 malignancy -urine clearing today -CT AP shows enlarged prostate extending into bladder wall. -discussed the case w/ Dr. Robison; Patient ok for outpatient follow up #UTI -Urine culture growing unknown organism; will f/u final culture -ceftin 500 BID #HTN -normotensive -will restart home losartan 25 -will restart home norvasc 10 #HIV -c/w home atripla as per ID #BPH -c/w home flomax #FEN -NS @ 75 -lytes WNL -sodium controlled diet #Prophylaxis -hold AC in light of active bleed -SCDs #Dispo -admit to med surg -discharge planning after urine culture finalized Visit type - Emergency Visit Emergency Visit: Yes ED Registration Date: 01/29/18 Care time: The patient presented to the Emergency Department on the above date and was hospitalized for further evaluation of their emergent condition. - New Patient This patient is new to me today: No - Critical Care Critical Care patient: No
[2018-01-31] MEDS ORDERED: CEFUROXIME AXETIL 500 MG TABLET PO SCH ×2 (11:30→22:00)
--- NOTE | 2018-01-31 11:41 | PN ---
Progress Note (short form) - Note Progress Note: doing well hematuria has resolved Vital Signs Period Temp Pulse Resp BP Sys/Nunez Pulse Ox Last 24 Hr 97.4 F-98.9 F 66-80 18-20 100-156/50-76 97 cor-rrr lungs clear abd soft nt ext no edema CBC, BMP 01/31/18 08:00 01/31/18 08:00 Microbiology 01/29/18 10:37 Urine - Urine Clean Catch Urine Culture - Preliminary Pending Organism ct scan no definitive bladder mass, no stones, large prostate Current Medications Amlodipine Besylate (Norvasc -) 10 mg PO DAILY [facility] Last Admin: 01/31/18 09:24 Dose: 10 mg Cefuroxime Axetil (Ceftin -) 500 mg PO BID [facility] Cyanocobalamin (Vitamin B12 -) 1,000 mcg PO DAILY [facility] Last Admin: 01/31/18 09:23 Dose: 1,000 mcg Efavirenz (Sustiva -) 600 mg PO DAILY [facility] Emtricitabine/Tenofovir (Truvada) 1 tab PO DAILY [facility] Sodium Chloride (Normal Saline -) 1,000 mls @ 75 mls/hr IV ASDIR [facility] Last Admin: 01/30/18 23:06 Dose: 75 mls/hr Losartan Potassium (Cozaar -) 25 mg PO DAILY [facility] Last Admin: 01/31/18 09:23 Dose: 25 mg Tamsulosin HCl (Flomax -) 0.4 mg PO DAILY@0830 [facility] Last Admin: 01/31/18 09:23 Dose: 0.4 mg a/p hematuria- uti- on ceftin bph- he had prostate MRI done as outpt within the last year- followed by Dr Yung awajeffry urology f/u hiv- continue atripla- will plan switch off of viread as outpt in clinic after reviewing prior resistance tests
[2018-01-31] MEDS: SODIUM CHLORIDE 1,000 ML IV SCH (12:38)
[2018-01-31 15:19] VITALS: BP 161/73; PULSE 85; TEMP 98
--- NOTE | 2018-01-31 16:49 | DS ---
Physical Exam: SUBJECTIVE: See progress note from discharge date HOSPITAL COURSE: Date of Admission:01/29/18 The patient is a 77 yo m w/ PMH BPH, HIV, HTN who presented to the ED c/o a 1 day history of painless hematuria. In the ED, a renal/bladder ultrasound showed a possible bladder mass. The patient was admitted to the hospital for further workup. Urology was consulted. A urinalysis showed 3+blood, a positive leukocyte esterase and a positive nitrite. Infectious disease was consulted. The patient was treated with ceftin. A CT abdomen pelvis showed an enlarged prostate extending into the bladder, but no discrete bladder mass. The patient' s hematuria resolved and he was discharged home with Ceftin 500mg BID for 7 days. He was instructed to follow Date of Discharge: 01/31/18 Minutes to complete discharge: 40 <Kevin Man - Last Filed: 01/31/18 17:03> Physical Exam: Patient seen and examined with the resident. No further Hematuria noted. As per , ok to discharge the patient. Patient gets on and off intermittent hematuria, 6 months ago had a MRI of the prostate by Dr. Martinez ,sees in the office, patient has an appointment with this coming and will follow with the urologist office. <Madelaine Wells - Last Filed: 01/31/18 19:16> Discharge Summary Reason For Visit: HEMATURIA Current Active Problems Bladder mass (Acute) Hematuria (Acute) Urinary tract infection (Acute) - Home Medications Comprehensive Discharge Medication List: Ambulatory Orders Amlodipine Besylate [Norvasc -] 10 mg PO DAILY #30 tablet 12/19/17 Aspirin [ASA -] 81 mg PO DAILY #30 tab.chew 12/19/17 Cholecalciferol (Vitamin D3) [Vitamin D3] 2,000 unit PO DAILY #30 capsule Cyanocobalamin [Vitamin B12 -] 1,000 mcg PO DAILY #30 tablet 12/19/17 Efavirenz/Emtricitab/Tenofovir [Atripla Tablet -] 1 tab PO DAILY #30 tab Losartan Potassium [Cozaar -] 25 mg PO DAILY #30 tablet 12/19/17 Rosuvastatin Calcium [Crestor] 10 mg PO DAILY #30 tablet 12/19/17 Tamsulosin HCl [Flomax -] 0.4 mg PO DAILY #30 cap.er.24h 12/19/17 Cefuroxime Axetil [Ceftin -] 500 mg PO BID #15 tablet 01/31/18 <Kevin Man - Last Filed: 01/31/18 17:03> Current Active Problems Bladder mass (Acute) Hematuria (Acute) Urinary tract infection (Acute) - Home Medications Comprehensive Discharge Medication List: Ambulatory Orders Amlodipine Besylate [Norvasc -] 10 mg PO DAILY #30 tablet 12/19/17 Aspirin [ASA -] 81 mg PO DAILY #30 tab.chew 12/19/17 Cholecalciferol (Vitamin D3) [Vitamin D3] 2,000 unit PO DAILY #30 capsule Cyanocobalamin [Vitamin B12 -] 1,000 mcg PO DAILY #30 tablet 12/19/17 Efavirenz/Emtricitab/Tenofovir [Atripla Tablet -] 1 tab PO DAILY #30 tab Losartan Potassium [Cozaar -] 25 mg PO DAILY #30 tablet 12/19/17 Rosuvastatin Calcium [Crestor] 10 mg PO DAILY #30 tablet 12/19/17 Tamsulosin HCl [Flomax -] 0.4 mg PO DAILY #30 cap.er.24h 12/19/17 Cefuroxime Axetil [Ceftin -] 500 mg PO BID #15 tablet 01/31/18 <Madelaine eWlls - Last Filed: 01/31/18 19:16> Condition: Improved - Instructions Diet, Activity, Other Instructions: You were admitted for treatment of your hematuria. You were found to have a urinary tract infection. We are sending you home with a medication to help fight your infection. This medication in called Ceftin. You should take 500mg of this medication daily for the next 7 days. Please take all of your medication for the time study observer it is prescribed, even if you feel better. You can resume taking the rest of your home medications starting tomorrow. While you were in the hospital, you were found to have an enlarged prostate. You should follow up with Dr. Robison, a urologist, within one week of discharge. In formation for his office will be included in your discharge papers. Please call and make an appointment. You should also follow up with your primary care doctor, Dr. Holland, this . If you begin to feel chest pain, shortness of breath, if you develop worsening blood in your urine or burning on urination, please call your doctor or return to the emergency department. Referrals: Gerber Robison MD [Staff Physician] - 1 Week Yennifer Holland MD [Staff Physician] - 02/06/18 Disposition: HOME This patient is new to me today: No Emergency Visit: Yes ED Registration Date: 01/29/18 Care time: The patient presented to the Emergency Department on the above date and was hospitalized for further evaluation of their emergent condition. Critical Care patient: No - Discharge Referral Referred to [facility] Med [facility] No <Kevin Man - Last Filed: 01/31/18 17:03>
--- NOTE | 2018-02-03 12:12 | EKG ---
Test Reason : Blood Pressure : / mmHG Vent. Rate : 066 BPM Atrial Rate : 066 BPM P-R Int : 208 ms QRS Dur : 076 ms QT Int : 430 ms P-R-T Axes : 022 -29 015 degrees QTc Int : 450 ms NORMAL SINUS RHYTHM WITH SINUS ARRHYTHMIA INFERIOR INFARCT (CITED ON OR BEFORE 26-JUL-2014) ABNORMAL ECG WHEN COMPARED WITH ECG OF 26-JUL-2014 13:09, T WAVE VARIATION Confirmed by DOUG VELASCO, ALEJANDRO ([id number]) on 02/03/2018 12:11:56 PM Referred By: Confirmed By:ALEJANDRO CAMACHO MD
== END 2018-01-31 18:46 | disposition home or self-care (01) | DRG 690 ==
LOC: JER 10:06 → JERBED 16:32 → J5S 18:17
PROVIDERS: ADMIT Internal Medicine; ATTEND Internal Medicine
DX: N39.0 Urinary tract infection, site not specified (principal); B19.10 Unspecified viral hepatitis B without hepatic coma; I12.0 Hypertensive chronic kidney disease with stage 5 chronic kidney disease or end stage renal disease; N18.5 Chronic kidney disease, stage 5; D62 Acute posthemorrhagic anemia; N32.89 Other specified disorders of bladder; N40.1 Benign prostatic hyperplasia with lower urinary tract symptoms; H31.9 Unspecified disorder of choroid; N32.9 Bladder disorder, unspecified; Z21 Asymptomatic human immunodeficiency virus [HIV] infection status; N18.9 Chronic kidney disease, unspecified; E78.5 Hyperlipidemia, unspecified; D64.9 Anemia, unspecified; F17.210 Nicotine dependence, cigarettes, uncomplicated; D50.9 Iron deficiency anemia, unspecified; D51.9 Vitamin B12 deficiency anemia, unspecified; E04.9 Nontoxic goiter, unspecified
CPT/HCPCS: 36415; 71045-TC-FY; 74178-TC; 76775-TC; 76856-TC; 80048; 80053; 81003; 81015; 83735; 84100; 85025; 85027; 85610; 86850; 86900; 86901; 87086; 93005; 93010; 99283-25; J7030

== ENCOUNTER 2018-03-02 19:46 | Emergency (ER) | payer OTHER ==
[2018-03-02 20:06] VITALS: BP 113/54; PULSE 75; TEMP 97.6; BMI 18.1
--- NOTE | 2018-03-02 20:13 | PDOC ---
History of Present Illness <Lyn Rivers - Last Filed: 03/02/18 23:15> - General History Source: Patient, Old Records Exam Limitations: No Limitations - History of Present Illness Initial Comments: 03/02/18 20:43 The patient is 77 year old male with history of HIV, BPH, recent hospitalization for complicated UTI, s/p fulguration of the prostate , discharged to [facility] rehab 02/28, with salas catheter in place, who returns to the ED for several days of serene hematuria with associated suprapubic pain and generalized weakness. Pain is ranked 7/10. He denies any fever or chills. He generalized nausea, vomiting, or diarrhea. He denies testicular pain. He denies history of kidney stones. ID: Dr. Holland Urologist: Dr. 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 ) - Surgical History Abdominal Surgery: No Cardiac Surgery: No Lung Surgery: No Neurologic Surgery: No Orthopedic Surgery: Yes (KNEE ARTHROSCOPY) - Immunization History Immunization Up to Date: Yes - Suicide/Smoking/Psychosocial Hx Smoking History: Unknown if ever smoked Have you smoked in the past 12 months: No Number of Cigarettes Smoked Daily: 4 Cigars Per Day: 0 Information on smoking cessation initiated: No 'Breaking Loose' booklet given: 02/13/18 Hx Alcohol Use: No Drug/Substance Use Hx: No Substance Use Type: None Hx Substance Use Treatment: No <Lyn Rivers - Last Filed: 03/02/18 23:15> <Barbara White - Last Filed: 03/02/18 23:39> - Past Medical History Allergies/Adverse Reactions: Allergies Allergy/AdvReac Type Severity Reaction Status Date / Time Sulfa (Sulfonamide Allergy Intermediate Nausea Verified 03/02/18 20:05 Antibiotics) sulfamethoxazole Allergy Intermediate Nausea Verified 03/02/18 20:05 [From Bactrim] trimethoprim [From Bactrim] AdvReac Intermediate Nausea Verified 03/02/18 20:05 Home Medications: Ambulatory Orders Amlodipine Besylate [Norvasc -] 10 mg PO DAILY #30 tablet 12/19/17 Cholecalciferol (Vitamin D3) [Vitamin D3] 2,000 unit PO DAILY #30 capsule Cyanocobalamin [Vitamin B12 -] 1,000 mcg PO DAILY #30 tablet 12/19/17 Efavirenz/Emtricitab/Tenofovir [Atripla Tablet -] 1 tab PO DAILY #30 tab Losartan Potassium [Cozaar -] 25 mg PO DAILY #30 tablet 12/19/17 Rosuvastatin Calcium [Crestor] 10 mg PO DAILY #30 tablet 12/19/17 Tamsulosin HCl [Flomax -] 0.4 mg PO DAILY #30 cap.er.24h 12/19/17 levoFLOXacin [Levaquin -] 500 mg PO DAILY #7 tablet 03/02/18 Review of Systems - Review of Systems Able to Perform ROS?: Yes Comments:: 03/02/18 20:57 GENERAL/CONSTITUTIONAL: No fever or chills. HEAD, EYES, EARS, NOSE AND THROAT: No change in vision. No ear pain or discharge. No sore throat. CARDIOVASCULAR: No chest pain or shortness of breath. RESPIRATORY: No cough, wheezing, or hemoptysis. GASTROINTESTINAL: No nausea, vomiting, diarrhea or constipation. GENITOURINARY: +Suprapubic pain, hematuria. No dysuria, frequency. MUSCULOSKELETAL: No joint or muscle swelling or pain. No neck or back pain. SKIN: No rash NEUROLOGIC: No headache, vertigo, loss of consciousness, or change in strength/ sensation. ENDOCRINE: No increased thirst. No abnormal weight change. HEMATOLOGIC/LYMPHATIC: No anemia, easy bleeding, or history of blood clots. ALLERGIC/IMMUNOLOGIC: No hives or skin allergy. <Barbara White - Last Filed: 03/02/18 23:39> *Physical Exam - Vital Signs Last Vital Signs Temp Pulse Resp BP Pulse Ox 97.6 F 75 20 113/54 99 03/02/18 20:05 03/02/18 20:05 03/02/18 20:05 03/02/18 20:05 03/02/18 20:05 <Lyn Rivers - Last Filed: 03/02/18 23:15> - Vital Signs Last Vital Signs Temp Pulse Resp BP Pulse Ox 97.6 F 75 20 113/54 99 03/02/18 20:05 03/02/18 20:05 03/02/18 20:05 03/02/18 20:05 03/02/18 20:05 - Physical Exam Comments: 03/02/18 20:59 GENERAL: Awake, alert, and fully oriented, in no acute distress HEAD: No signs of trauma EYES: PERRLA, EOMI, sclera anicteric, conjunctiva clear ENT: Auricles normal inspection, hearing grossly normal, nares patent, oropharynx clear without exudates. Moist mucosa NECK: Normal ROM, supple, no lymphadenopathy, JVD, or masses LUNGS: Breath sounds equal, clear to auscultation bilaterally. No wheezes, and no crackles HEART: Regular rate and rhythm, normal S1 and S2, no murmurs, rubs or gallops ABDOMEN: +Suprapubic tenderness to palpation. Soft, normoactive bowel sounds. No guarding, no rebound. No masses. Serene hematuria coming from catheter. EXTREMITIES: Normal range of motion, no edema. No clubbing or cyanosis. No cords, erythema, or tenderness NEUROLOGICAL: Cranial nerves II through XII grossly intact. Normal speech, gait deferred. SKIN: Warm, Dry, normal turgor, no rashes or lesions noted. <Barbara White - Last Filed: 03/02/18 23:39> ED Treatment Course - LABORATORY CBC & Chemistry Diagram: 03/02/18 20:51 03/02/18 21:25 <Lyn Rivers - Last Filed: 03/02/18 23:15> - LABORATORY CBC & Chemistry Diagram: 03/02/18 20:51 03/02/18 21:25 <Barbara White - Last Filed: 03/02/18 23:39> Medical Decision Making - Medical Decision Making 03/02/18 20:27 Pt comes with hematuria from the [facility]. He has had this in the past. He was in our ER. Pt's hx is significant for HIV and enlarged prostate and fulguration procedure of the prostate on February 19 2018. Pt was placed in [facility] after the procedure. Pt is A+Ox3. He tells me that he is not sure what is causing the hematuria. He has slight burning and cystitis pain. He has no flank pain. He has no PMHx of kidney stones. We will check basic labs and UA and UCx Pt will either be admitted for consult in the AM, and treatment for UTI, or hw will return to [facility] id all lab testing is normal. 03/02/18 23:15 Pt's Hb/HCT stable. We will d/c pt back to the [facility] with levaquin, as he has an indwelling salas; he will follow at office. <Lyn Rivers - Last Filed: 03/02/18 23:15> - Medical Decision Making 03/02/18 22:19 Placed call to patient's urologist, Dr. Garzon, at [phone]. Awaiting callback. 03/02/18 22:53 Normal sinus rhythm at 61 bpm. Normal EKG. 03/02/18 23:[address] Cook, covering for Dr. Garzon <Barbara White - Last Filed: 03/02/18 23:39> *DC/Admit/Observation/Transfer - Discharge Dispostion Admit: No <Lyn Rivers - Last Filed: 03/02/18 23:15> - Attestations Scribe Attestion: 03/02/18 21:01 Documentation prepared by Barbara White, acting as phlebotomist medical lab assistant for Lyn Rivers MD. <Barbara White - Last Filed: 03/02/18 23:39> Diagnosis at time of Disposition: Hematuria, HIV (human immunodeficiency virus infection), Cystitis, Indwelling Salas catheter present - Discharge Dispostion Disposition: CARE HOME FACILITY Condition at time of disposition: Stable - Prescriptions Prescriptions: levoFLOXacin [Levaquin -] 500 mg PO DAILY #7 tablet - Referrals Referrals: Yennifer Holland MD [Primary Care Provider] -
[2018-03-02 20:57] LABS: BASO % 0.6 % (0-2.0); EOS % 1.5 % (0-4.5); HEMATOCRIT 29.5 % (35.4-49); HEMOGLOBIN 9.7 GM/dL (11.7-16.9); LYMPH % 12.7 % (8-40); MCH 28.5 pg (25.7-33.7); MCHC 32.9 g/dl (32.0-35.9); MEAN CELL VOLUME 86.7 fl (80-96); MEAN PLT VOLUME 7.5 fl (7.5-11.1); MONO % 4.2 % (3.8-10.2); PLATELET COUNT 369 K/MM3 (134-434); WHITE BLOOD COUNT 7.9 K/mm3 (4.0-10.0)
[2018-03-02 20:58] LABS: URINE APPEARANCE CLOUDY; URINE BILIRUBIN NEGATIVE (<2.0 mg/dL); URINE BLOOD 2+ (NEGATIVE); URINE COLOR RED; URINE GLUCOSE (UA) 1+ (NEGATIVE); URINE KETONE TRACE (NEGATIVE); URINE NITRITE NEGATIVE (NEGATIVE); URINE UROBILINOGEN NEGATIVE mg/dL (0.2-1.0)
[2018-03-02 20:59] LABS: URINE LEUK ESTERASE 1+ (NEGATIVE); URINE PROTEIN 2+ (NEGATIVE)
[2018-03-02 21:24] LABS: INR 1.12 (0.82-1.09); PROTHROMBIN TIME (PATIENT) 12.6 SEC (9.98-11.88)
[2018-03-02 21:58] LABS: ALBUMIN 1.8 g/dl (3.4-5.0); ALK PHOS 82 U/L (45-117); ANION GAP 5 (8-16); BLOOD UREA NITROGEN 22 mg/dL (7-18); CALCIUM 7.2 mg/dL (8.5-10.1); CHLORIDE 112 mmol/L (98-107); CO2 24 mmol/L (21-32); CREATININE 1.1 mg/dL (0.7-1.3); GLUCOSE,RANDOM 112 mg/dL (74-106); POTASSIUM 4.1 mmol/L (3.5-5.1); SGOT/AST 27 U/L (15-37); SGPT/ALT 28 U/L (12-78); SODIUM 141 mmol/L (136-145)
[2018-03-02 22:00] LABS: BILIRUBIN,TOTAL < 0.1 mg/dL (0.2-1.0)
[2018-03-02] MEDS ORDERED: SODIUM CHLORIDE 0.9% 500 ML INFUS.BAG IV ONE (22:18)
--- NOTE | 2018-03-06 07:42 | PDOC ---
Patient Follow-up (Call Back) - Post ED Follow - Up Condition at time of discharge: Stable Disposition at time of original discharge: RESIDENTIAL FACILITY Reason for Call Back: Abnwl. Microbiology (Urine culture shows enterococcal faecalis. Patient on Levaquin which is sensitive to the above. No further actions needed.)
== END 2018-03-03 00:41 ==
LOC: JER 19:46 → SUPCPDRO 19:46 → JER 03-03 00:41
DX: N30.01 Acute cystitis with hematuria (principal); Z21 Asymptomatic human immunodeficiency virus [HIV] infection status; Z96.0 Presence of urogenital implants; E53.8 Deficiency of other specified B group vitamins; Z87.440 Personal history of urinary (tract) infections; E04.9 Nontoxic goiter, unspecified
CPT/HCPCS: 36415; 71045-TC-FY; 80053; 81003; 81015; 85025; 85610; 85730; 87086; 87186; 99282-25

== ENCOUNTER 2018-03-09 18:00 | Inpatient (IN) | payer OTHER ==
--- NOTE | 2018-03-09 18:05 | PDOC ---
History of Present Illness <Jodi Hill - Last Filed: 03/09/18 23:43> - History of Present Illness Initial Comments: 03/09/18 18:10 Mr. Byers is a 77 yo male w/ pmh of HIV, BPH, HTN, HLD, recent visit for urinary bleeding 03/02, recent hospitalization for complicated UTI s/p fulguration of the prostate 02/19/18, discharged to [facility] rehab 02/28 with salas catheter in place who presents w/ serene painless bleeding into his catheter bag for the last day. He reports he otherwise feels fine and has no complaints. The patient denies chest pain, shortness of breath, headache and dizziness. Denies fever, chills, nausea, vomit, diarrhea and constipation. 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 ) - Surgical History Abdominal Surgery: No Cardiac Surgery: No Lung Surgery: No Neurologic Surgery: No Orthopedic Surgery: Yes (KNEE ARTHROSCOPY) - Immunization History Immunization Up to Date: Yes - Suicide/Smoking/Psychosocial Hx Smoking History: Unknown if ever smoked Have you smoked in the past 12 months: No Number of Cigarettes Smoked Daily: 4 Cigars Per Day: 0 'Breaking Loose' booklet given: 02/13/18 Hx Alcohol Use: No Drug/Substance Use Hx: No Substance Use Type: None Hx Substance Use Treatment: No <Angelo Rutledge - Last Filed: 03/09/18 23:48> - Past Medical History Allergies/Adverse Reactions: Allergies Allergy/AdvReac Type Severity Reaction Status Date / Time Sulfa (Sulfonamide Allergy Intermediate Nausea Verified 03/09/18 18:06 Antibiotics) sulfamethoxazole Allergy Intermediate Nausea Verified 03/09/18 18:06 [From Bactrim] trimethoprim [From Bactrim] AdvReac Intermediate Nausea Verified 03/09/18 18:06 Home Medications: Ambulatory Orders Amlodipine Besylate [Norvasc -] 10 mg PO DAILY 03/09/18 Cholecalciferol (Vitamin D3) [Vitamin D] 2,000 unit PO DAILY 03/09/18 Cran/Vitc/Mannose/Fos/Bromeln [Uti-Stat Liquid] 30 ml PO DAILY 03/09/18 Cyanocobalamin (Vitamin B-12) [Vitamin B12] 1,000 mcg PO DAILY 03/09/18 Efavirenz/Emtricitab/Tenofovir [Atripla -] 1 tab PO DAILY 03/09/18 Lactobacillus Acidophilus [Bacid -] 1 each PO TID 03/09/18 Losartan Potassium 25 mg PO DAILY 03/09/18 Rosuvastatin Calcium [Crestor] 10 mg PO DAILY 03/09/18 Tamsulosin HCl [Flomax] 0.4 mg PO DAILY 03/09/18 Review of Systems - Review of Systems Comments:: 03/09/18 22:56 GENERAL/CONSTITUTIONAL: No fever or chills. No weakness. HEAD, EYES, EARS, NOSE AND THROAT: No change in vision. No ear pain or discharge. No sore throat. CARDIOVASCULAR: No chest pain or shortness of breath RESPIRATORY: No cough, wheezing, or hemoptysis. GASTROINTESTINAL: No nausea, vomiting, diarrhea or constipation. GENITOURINARY: +Painless blood in to catheter as described. MUSCULOSKELETAL: No joint or muscle swelling or pain. No neck or back pain. SKIN: No rash NEUROLOGIC: No headache, vertigo, loss of consciousness, or change in strength/ sensation. ENDOCRINE: No increased thirst. No abnormal weight change ALLERGIC/IMMUNOLOGIC: No hives or skin allergy. <Angelo Rutledge - Last Filed: 03/09/18 23:48> *Physical Exam - Vital Signs Last Vital Signs Temp Pulse Resp BP Pulse Ox 98 F 95 H 18 107/58 100 03/09/18 18:05 03/09/18 18:05 03/09/18 18:05 03/09/18 18:05 03/09/18 18:05 <Jodi Hill - Last Filed: 03/09/18 23:43> - Physical Exam Comments: 03/09/18 22:59 GENERAL: Awake, alert, and fully oriented, in no acute distress HEAD: No signs of trauma, normocephalic, atraumatic EYES: PERRLA, EOMI, sclera anicteric, conjunctiva clear ENT: Auricles normal inspection, hearing grossly normal, nares patent, oropharynx clear without exudates. Moist mucosa NECK: Normal ROM, supple, no lymphadenopathy, JVD, or masses LUNGS: No distress, speaks full sentences, clear to auscultation bilaterally HEART: Regular rate and rhythm, normal S1 and S2, no murmurs, rubs or gallops, peripheral pulses normal and equal bilaterally. ABDOMEN: Soft, nontender, normoactive bowel sounds. No guarding, no rebound. No masses EXTREMITIES: Normal inspection, Normal range of motion, no edema. No clubbing or cyanosis. NEUROLOGICAL: Cranial nerves II through XII grossly intact. Normal speech, no focal sensorimotor deficits SKIN: Warm, Dry, normal turgor, no rashes or lesions noted. : Serene blood noted in catheter leg bag. <Angelo Rutledge - Last Filed: 03/09/18 23:48> ED Treatment Course - LABORATORY CBC & Chemistry Diagram: 03/09/18 19:05 03/09/18 19:05 - ADDITIONAL ORDERS Additional order review: Laboratory Results 03/09/18 03/09/18 21:00 19:05 Sodium 141 Potassium 5.2 H D Chloride 109 H Carbon Dioxide 24 Anion Gap 8 BUN 29 H D Creatinine 1.5 H D Creat Clearance w eGFR 45.62 Random Glucose 115 H Calcium 7.7 L Total Bilirubin 0.1 L AST 21 D ALT 24 Alkaline Phosphatase 94 Total Protein 5.6 L Albumin 1.9 L Blood Type B POSITIVE Antibody Screen Negative Crossmatch See Detail 03/09/18 19:05 RBC 2.58 L D MCV 82.9 MCHC 32.2 RDW 17.1 H MPV 7.0 L Neutrophils % 81.2 Lymphocytes % 11.8 Monocytes % 5.7 Eosinophils % 0.8 Basophils % 0.5 <Jodi Hill - Last Filed: 03/09/18 23:43> - LABORATORY CBC & Chemistry Diagram: 03/09/18 19:05 03/09/18 19:05 <Angelo Rutledge - Last Filed: 03/09/18 23:48> Medical Decision Making - Medical Decision Making 03/09/18 23:00 Mr. Byers is a 77 yo male w/ pmh as described who presents with serene blood in catheter. Attempted to irrigate bladder without success. Catheter changed. Basic labs ordered which revealed severe anemia as below to 6.9/21.4. Blood typed and patient consented for 2 units PRBCs for transfusion. Patient's urologist paged as well. 03/09/18 23:[address] Onofre's surface, discussed case with Dr. Doherty. Dr. Doherty aware and agreed with catheter change. Dr. Onofre will evaluate in AM. Admitting to hospitalist for further care. Laboratory Results - last 24 hr 03/09/18 03/09/18 03/09/18 19:05 19:05 21:00 WBC 10.4 H D RBC 2.58 L D Hgb 6.9 L* D Hct 21.4 L D MCV 82.9 MCH 26.7 MCHC 32.2 RDW 17.1 H Plt Count 467 H D MPV 7.0 L Neutrophils % 81.2 Lymphocytes % 11.8 Monocytes % 5.7 Eosinophils % 0.8 Basophils % 0.5 Sodium 141 Potassium 5.2 H D Chloride 109 H Carbon Dioxide 24 Anion Gap 8 BUN 29 H D Creatinine 1.5 H D Creat Clearance w eGFR 45.62 Random Glucose 115 H Calcium 7.7 L Total Bilirubin 0.1 L AST 21 D ALT 24 Alkaline Phosphatase 94 Total Protein 5.6 L Albumin 1.9 L Blood Type B POSITIVE Antibody Screen Negative Crossmatch See Detail 03/09/18 23:24 <Angelo Rutledge - Last Filed: 03/09/18 23:48> *DC/Admit/Observation/Transfer - Discharge Dispostion Admit: Yes <Jodi Hill - Last Filed: 03/09/18 23:43> - Discharge Dispostion Admit: Yes <Angelo Rutledge - Last Filed: 03/09/18 23:48> Diagnosis at time of Disposition: Indwelling Salas catheter present Hematuria Qualifiers: Hematuria type: gross Qualified Code(s): R31.0 - Gross hematuria Anemia Qualifiers: Anemia type: unspecified type Qualified Code(s): D64.9 - Anemia, unspecified - Referrals Referrals: Sheri Keita MD [Primary Care Provider] -
[2018-03-09 18:23] VITALS: BMI 20.1
[2018-03-09 19:41] LABS: BASO % 0.5 % (0-2.0); EOS % 0.8 % (0-4.5); HEMATOCRIT 21.4 % (35.4-49); LYMPH % 11.8 % (8-40); MCH 26.7 pg (25.7-33.7); MCHC 32.2 g/dl (32.0-35.9); MEAN CELL VOLUME 82.9 fl (80-96); MONO % 5.7 % (3.8-10.2); NEUT % 81.2 % (42.8-82.8); PLATELET COUNT 467 K/MM3 (134-434); RBC 2.58 M/mm3 (4.00-5.60); RDW 17.1 % (11.9-15.9); WHITE BLOOD COUNT 10.4 K/mm3 (4.0-10.0)
[2018-03-09 19:42] LABS: HEMOGLOBIN 6.9 GM/dL (11.7-16.9)
[2018-03-09 19:58] LABS: ALBUMIN 1.9 g/dl (3.4-5.0); ANION GAP 8 (8-16); BILIRUBIN,TOTAL 0.1 mg/dL (0.2-1.0); BLOOD UREA NITROGEN 29 mg/dL (7-18); CALCIUM 7.7 mg/dL (8.5-10.1); CHLORIDE 109 mmol/L (98-107); CO2 24 mmol/L (21-32); CREATININE 1.5 mg/dL (0.7-1.3); GLUCOSE,RANDOM 115 mg/dL (74-106); POTASSIUM 5.2 mmol/L (3.5-5.1); SGOT/AST 21 U/L (15-37); SGPT/ALT 24 U/L (12-78); SODIUM 141 mmol/L (136-145); TOT PROT 5.6 g/dl (6.4-8.2)
[2018-03-09 19:59] LABS: ALK PHOS 94 U/L (45-117)
[2018-03-09] MEDS ORDERED: LIDOCAINE HCL 2% JELLY (5 ML/TUBE) ONE ×2 (20:14→20:16)
--- NOTE | 2018-03-10 00:21 | PN ---
Teaching Attending Note Name of Resident: Frank Man ATTENDING PHYSICIAN STATEMENT I saw and evaluated the patient. I reviewed the resident's note and discussed the case with the resident. I agree with the resident's findings and plan as documented. SUBJECTIVE: 77 yo F with pmhx. of BPH, HTN, HIV ([facility]), HBV, Anemia, and HLD who presents with hematuria. States he has had bright red blood in his pang. Notes he saw urology last week. At that point, he stated he was told he has clots, but was unsure of why. Denies any lightheadedness, dizziness, or chest pain, pressure. No shortness of breath. No N, V, D. No fevers or chills. No Pelvic, flank pain. No abdominal pain, No black or bloody stools. OBJECTIVE: Physical: VS: Vital Signs Period Temp Pulse Resp BP Sys/Nunez Pulse Ox Last 24 Hr 98 F 95 18 107/58 100 GEN: NAD, Resting in bed, AA0X3 HEENT: NCAT, PERRL, Throat without erythema or exudates CARD: RRR S1, S2 RESP: CTAB ABD: BSx4, NTD to palpation EXT: - C/C/E : Pang in place draining bright red blood RECTAL: Deferred 1 CBCD WBC 10.4 K/mm3 (4.0-10.0) H D 03/09/18 19:05 RBC 2.58 M/mm3 (4.00-5.60) L D 03/09/18 19:05 Hgb 6.9 GM/dL (11.7-16.9) L* D 03/09/18 19:05 Hct 21.4 % (35.4-49) L D 03/09/18 19:05 MCV 82.9 fl (80-96) 03/09/18 19:05 MCHC 32.2 g/dl (32.0-35.9) 03/09/18 19:05 RDW 17.1 % (11.9-15.9) H 03/09/18 19:05 Plt Count 467 K/MM3 (134-434) H D 03/09/18 19:05 MPV 7.0 fl (7.5-11.1) L 03/09/18 19:05 CMP Sodium 141 mmol/L (136-145) 03/09/18 19:05 Potassium 5.2 mmol/L (3.5-5.1) H D 03/09/18 19:05 Chloride 109 mmol/L (98-107) H 03/09/18 19:05 Carbon Dioxide 24 mmol/L (21-32) 03/09/18 19:05 Anion Gap 8 (8-16) 03/09/18 19:05 BUN 29 mg/dL (7-18) H D 03/09/18 19:05 Creatinine 1.5 mg/dL (0.7-1.3) H D 03/09/18 19:05 Creat Clearance w eGFR 45.62 (>60) 03/09/18 19:05 Random Glucose 115 mg/dL (74-106) H 03/09/18 19:05 Calcium 7.7 mg/dL (8.5-10.1) L 03/09/18 19:05 Total Bilirubin 0.1 mg/dL (0.2-1.0) L 03/09/18 19:05 AST 21 U/L (15-37) D 03/09/18 19:05 ALT 24 U/L (12-78) 03/09/18 19:05 Alkaline Phosphatase 94 U/L (45-117) 03/09/18 19:05 Total Protein 5.6 g/dl (6.4-8.2) L 03/09/18 19:05 Albumin 1.9 g/dl (3.4-5.0) L 03/09/18 19:05 UA- PENDING EKG- PENDING Home Medications Medication Instructions Recorded Amlodipine Besylate [Norvasc -] 10 mg PO DAILY 03/09/18 Cholecalciferol (Vitamin D3) 2,000 unit PO DAILY 03/09/18 [Vitamin D] Cran/Vitc/Mannose/Fos/Bromeln 30 ml PO DAILY 03/09/18 [Uti-Stat Liquid] Cyanocobalamin (Vitamin B-12) 1,000 mcg PO DAILY 03/09/18 [Vitamin B12] Efavirenz/Emtricitab/Tenofovir 1 tab PO DAILY 03/09/18 [Atripla -] Lactobacillus Acidophilus [Bacid -] 1 each PO TID 03/09/18 Losartan Potassium 25 mg PO DAILY 03/09/18 Rosuvastatin Calcium [Crestor] 10 mg PO DAILY 03/09/18 Tamsulosin HCl [Flomax] 0.4 mg PO DAILY 03/09/18 ASSESSMENT AND PLAN: 77 yo F with pmhx. of BPH, HTN, HIV ([facility]), HBV, Anemia, and HLD who presents with hematuria. 1.) Normocytic Anemia/Hematuria - STAT Type & Screen - PRBC to keep HgB >7 - CBC Q 6 - Coags - HOLD ALL BP MEDS - consult 2.) HyperKalemia - Hold ARB - Monitor 3.) PING? CKD - U lytes - UA, UCX - Trend - Hold ARB 4.) HIV on HAART - Continue 5.) HLD - C/W Statin 6.) DVt PPx - Scds Place in Med-Tele
[2018-03-10] MEDS ORDERED: SODIUM POLYSTYRENE SULFONATE 15 GM/60 ML BOTTLE PO ONE (00:33)
--- NOTE | 2018-03-10 00:40 | HP ---
CHIEF COMPLAINT: hematuria HISTORY OF PRESENT ILLNESS: 77 yo F with pmhx. of BPH, HTN, HIV ([facility]), HBV, Anemia, HLD, and recent admission for complicated UTI, who presented from [facility] with serene, painless hematuria in salas bag. The patient is s/p flugration of the prostate with Dr. Garzon on 02/19. The patient's last hospital course was complicated by persistent hematuria and passage of numerous clots causing blockage of salas catheters leading to bladder distension. The patient required frequent irrigation of his catheter and several catheter replacements. In the ER he was found to have Hgb of 6.9. Patient's urologist was notified in the ED and patient had catheter changed. Patient denies dizziness, sob, chest pain, urinary symptoms, fevers, chills, nausea, vomiting. ER course was notable for: (1) 1 PRBC Recent Travel: n/a PAST MEDICAL HISTORY: per HPI Social History: Smokin cigs a day Alcohol: denies Drugs: denies Family History: Allergies Sulfa (Sulfonamide Antibiotics) Allergy (Intermediate, Verified 03/09/18 18:06) Nausea sulfamethoxazole [From Bactrim] Allergy (Intermediate, Verified 03/09/18 18:06) Nausea trimethoprim [From Bactrim] Adverse Reaction (Intermediate, Verified 03/09/18 18 :06) Nausea VOMITING HOME MEDICATIONS: Home Medications Medication Instructions Recorded Amlodipine Besylate [Norvasc -] 10 mg PO DAILY 03/09/18 Cholecalciferol (Vitamin D3) 2,000 unit PO DAILY 03/09/18 [Vitamin D] Cran/Vitc/Mannose/Fos/Bromeln 30 ml PO DAILY 03/09/18 [Uti-Stat Liquid] Cyanocobalamin (Vitamin B-12) 1,000 mcg PO DAILY 03/09/18 [Vitamin B12] Efavirenz/Emtricitab/Tenofovir 1 tab PO DAILY 03/09/18 [Atripla -] Lactobacillus Acidophilus [Bacid -] 1 each PO TID 03/09/18 Losartan Potassium 25 mg PO DAILY 03/09/18 Rosuvastatin Calcium [Crestor] 10 mg PO DAILY 03/09/18 Tamsulosin HCl [Flomax] 0.4 mg PO DAILY 03/09/18 REVIEW OF SYSTEMS CONSTITUTIONAL: Absent: fever, chills, diaphoresis, generalized weakness, malaise, loss of appetite, weight change HEENT: Absent: rhinorrhea, nasal congestion, throat pain, throat swelling, difficulty swallowing, mouth swelling, ear pain, eye pain, visual changes CARDIOVASCULAR: Absent: chest pain, syncope, palpitations, irregular heart rate, lightheadedness , peripheral edema RESPIRATORY: Absent: cough, shortness of breath, dyspnea with exertion, orthopnea, wheezing, stridor, hemoptysis GASTROINTESTINAL: Absent: abdominal pain, abdominal distension, nausea, vomiting, diarrhea, constipation, melena, hematochezia GENITOURINARY: Absent: dysuria, frequency, urgency, hesitancy, flank pain, genital pain MUSCULOSKELETAL: Absent: myalgia, arthralgia, joint swelling, back pain, neck pain SKIN: Absent: rash, itching, pallor HEMATOLOGIC/IMMUNOLOGIC: Absent: easy bleeding, easy bruising, lymphadenopathy, frequent infections ENDOCRINE: Absent: unexplained weight gain, unexplained weight loss, heat intolerance, cold intolerance NEUROLOGIC: Absent: headache, focal weakness or paresthesias, dizziness, unsteady gait, seizure, mental status changes, bladder or bowel incontinence PSYCHIATRIC: Absent: anxiety, depression, suicidal or homicidal ideation, hallucinations. PHYSICAL EXAMINATION Vital Signs - 24 hr 03/09/18 03/09/18 03/10/18 18:05 23:45 00:15 Temperature 98 F 97.7 F 97.6 F Pulse Rate 95 H Pulse Rate [ 101 H 93 H Left Radial] Respiratory 18 18 18 Rate Blood Pressure 107/58 Blood Pressure 114/61 112/56 [Left Arm] O2 Sat by Pulse 100 100 100 Oximetry (%) GENERAL: Awake, alert, and fully oriented, in no acute distress. EYES: extraocular movements intact, sclera anicteric, conjunctiva clear. EARS, NOSE, THROAT: oropharynx clear without exudates. Moist mucous membranes. NECK: supple without lymphadenopathy, JVD, or masses. LUNGS: Breath sounds equal, clear to auscultation bilaterally. No wheezes, and no crackles. HEART: Regular rate and rhythm, normal S1 and S2 without murmur, rub or gallop. ABDOMEN: Soft, nontender, not distended, normoactive bowel sounds, no guarding, no rebound, no masses. No hepatomegaly or splenomegaly. LOWER EXTREMITIES: 2+ pulses, warm, well-perfused. No calf tenderness. No peripheral edema. PSYCHIATRIC: Cooperative. Good eye contact. Appropriate mood and affect. Laboratory Results - last 24 hr 03/09/18 03/09/18 03/09/18 19:05 19:05 21:00 WBC 10.4 H D RBC 2.58 L D Hgb 6.9 L* D Hct 21.4 L D MCV 82.9 MCH 26.7 MCHC 32.2 RDW 17.1 H Plt Count 467 H D MPV 7.0 L Neutrophils % 81.2 Lymphocytes % 11.8 Monocytes % 5.7 Eosinophils % 0.8 Basophils % 0.5 Sodium 141 Potassium 5.2 H D Chloride 109 H Carbon Dioxide 24 Anion Gap 8 BUN 29 H D Creatinine 1.5 H D Creat Clearance w eGFR 45.62 Random Glucose 115 H Calcium 7.7 L Total Bilirubin 0.1 L AST 21 D ALT 24 Alkaline Phosphatase 94 Total Protein 5.6 L Albumin 1.9 L Blood Type B POSITIVE Antibody Screen Negative Crossmatch See Detail ASSESSMENT/PLAN: 77 yo F with pmhx. of BPH, HTN, HIV ([facility]), HBV, Anemia, and HLD who presents with hematuria. #Hematuria/Normocytic Anemia -2 units PRBC -PT/INR -Type and Screen -Urology consulted -Hematology consulted -FU am labs -FU U/A #PING -Gentle hydration -Urine lytes -FU U/A -Avoid nephrotoxins -hold ARB #Hyperkalemia -No EKG changes -Kayexlate -follow am Labs -Will monitor #HIV -cont HAART #HLD -Cont. statin #DVT Ppx - Scds Med-Tele Visit type - Emergency Visit Emergency Visit: Yes ED Registration Date: 03/09/18 Care time: The patient presented to the Emergency Department on the above date and was hospitalized for further evaluation of their emergent condition. - New Patient This patient is new to me today: Yes Date on this admission: 03/10/18 - Critical Care Critical Care patient: No Hospitalist Screening - Colonoscopy Questionnaire Colonoscopy Questionnaire: Colonoscopy Questionnaire - Patient: 50 - 75 years old and never had a screening colonoscopy: Unknown History of colon or rectal polyps, or CA: Unknown History of IBD, Crohn's disease or UC: Unknown History of abdominal radiation therapy as a child: Unknown - Relative: 1 with colon or rectal CA, or polyps at age 60 or younger: Unknown Colon or rectal CA diagnosed at age 45 or younger: Unknown Multiple relatives with colon or rectal CA: Unknown - Outcome: Screening Result: Negative Screen
[2018-03-10 01:09] LABS: INR 1.23 (0.82-1.09); PROTHROMBIN TIME (PATIENT) 13.9 SEC (9.98-11.88)
[2018-03-10 01:29] LABS: URINE APPEARANCE HAZY
[2018-03-10 01:32] LABS: URINE COLOR RED
[2018-03-10] MEDS: LACTOBACILLUS ACIDOPHILUS 1 TABLET PO SCH ×3 (06:15→20:59)
[2018-03-10] MEDS: TAMSULOSIN HCL 0.4 MG CAP.ER.24H (FP) PO SCH (08:32)
[2018-03-10] MEDS: CYANOCOBALAMIN 1,000 MCG TABLET (FP) PO SCH (09:25)
[2018-03-10] MEDS: CHOLECALCIFEROL (VITAMIN D3) 1,000 UNIT TABLET (FP) PO SCH (09:25)
[2018-03-10] MEDS ORDERED: PATIENT'S OWN MEDICATION (NON-FORMULARY) (Efavirenz/Emtricitab/Tenofovir 1 TAB) PO SCH (10:00)
[2018-03-10] MEDS ORDERED: PATIENT'S OWN MEDICATION (NON-FORMULARY) (Cran/Vitc/Mannose/Fos/Bromeln [Uti-Stat Liquid] PO SCH (10:00)
[2018-03-10 11:00] LABS: HEMATOCRIT 26.6 % (35.4-49); HEMOGLOBIN 8.9 GM/dL (11.7-16.9); MCH 28.3 pg (25.7-33.7); MCHC 33.3 g/dl (32.0-35.9); MEAN CELL VOLUME 84.8 fl (80-96); MEAN PLT VOLUME 7.2 fl (7.5-11.1); PLATELET COUNT 397 K/MM3 (134-434); RBC 3.13 M/mm3 (4.00-5.60); RDW 16.2 % (11.9-15.9)
--- NOTE | 2018-03-10 11:06 | EKG ---
Test Reason : Blood Pressure : / mmHG Vent. Rate : 093 BPM Atrial Rate : 093 BPM P-R Int : 176 ms QRS Dur : 080 ms QT Int : 384 ms P-R-T Axes : 019 -14 031 degrees QTc Int : 477 ms NORMAL SINUS RHYTHM INFERIOR INFARCT , AGE UNDETERMINED ANTERIOR INFARCT (CITED ON OR BEFORE 13-FEB-2018) ABNORMAL ECG WHEN COMPARED WITH ECG OF 13-FEB-2018 08:29, NO SIGNIFICANT CHANGE WAS FOUND Confirmed by ALEJANDRO CAMACHO MD ([id number]) on 03/10/2018 11:05:29 AM Referred By: Confirmed By:ALEJANDRO CAMACHO MD
[2018-03-10 11:13] LABS: INR 1.12 (0.82-1.09); PROTHROMBIN TIME (PATIENT) 12.7 SEC (9.98-11.88)
[2018-03-10] MEDS: EMTRICITABINE 200MG/TENOFOVIR 300MG PO SCH (11:17)
[2018-03-10 11:20] LABS: ACTIVATED PTT 16.6 SECONDS (26.9-34.4); ALBUMIN 1.9 g/dl (3.4-5.0); ANION GAP 10 (8-16); BLOOD UREA NITROGEN 31 mg/dL (7-18); CALCIUM 7.6 mg/dL (8.5-10.1); CHLORIDE 108 mmol/L (98-107); CO2 24 mmol/L (21-32); GLUCOSE,RANDOM 105 mg/dL (74-106); POTASSIUM 4.5 mmol/L (3.5-5.1); SODIUM 142 mmol/L (136-145)
[2018-03-10 11:23] LABS: ALK PHOS 94 U/L (45-117); BILIRUBIN,TOTAL 0.4 mg/dL (0.2-1.0); CREATININE 1.6 mg/dL (0.7-1.3); SGOT/AST 18 U/L (15-37); SGPT/ALT 22 U/L (12-78); TOT PROT 5.4 g/dl (6.4-8.2)
--- NOTE | 2018-03-10 12:13 | PN ---
Teaching Attending Note Name of Resident: Kevin Man ATTENDING PHYSICIAN STATEMENT I saw and evaluated the patient. I reviewed the resident's note and discussed the case with the resident. I agree with the resident's findings and plan as documented. SUBJECTIVE: No fever or chill. No abd pain, no N/V. denies using ASA after dc form [facility] last time. OBJECTIVE: NAD, AAOx3. slightly dry MM. no thrush. Cv: RRR, no MRG Lungs: CTAB Abd: soft, NT, ND , NL BS , bladder ball is palpated and percussed in suprapubic area. Ext: no edema salas with dark red blood ASSESSMENT AND PLAN: 77 y/o man with h/o HTN, BPH, HIV, HLP and recent admission for hematuria s/p cystoscopy and prostate fulguration and urinary retention who presented again form [place] with hematuria and light headedness and was found to have acute blood loss anemia 1- Acute symptomatic blood loss anemia: responded to transfusion . will monitor Hb this afternoon . 2- Hematuria : severe enough to cause acute drop in HB. Will need more details about possible prostate bx in past , PSA , findings on previous cystoscopy. - cont salas - uro consult - monitor Hb - bladder is palpated and percussed on exm. ? clogged salas, will bladder scan and flush - ? Amicar use again. - IVF - cont flomax 3- h/o HTN : hold losartan and norvasc as BP onlower side and with EFE 4- Efe: likely due to obstruction with clots and hypovolemia. - IVF , transfusion as needed. - cont salas 5- HIV: cont home meds 6- DVT PX : SCDs
--- NOTE | 2018-03-10 13:14 | PN ---
Progress Note (short form) - Note Progress Note: salas cath changed to [address], irrigated to clear. for OR 03/11/18
[2018-03-10] MEDS: SODIUM CHLORIDE 1,000 ML IV SCH (13:44)
--- NOTE | 2018-03-10 13:45 | PN ---
Physical Exam: SUBJECTIVE: Patient seen and examined at bedside. No new complaints. No events overnight. Pang bag with serene blood in it. OBJECTIVE: Vital Signs Period Temp Pulse Resp BP Sys/Nunez Pulse Ox Last 24 Hr 97.6 F-98.6 F 90-101 18-18 100-135/54-61 100-100 GENERAL: The patient is awake, alert, and fully oriented, in no acute distress. HEAD: Normal with no signs of trauma. NECK: Trachea midline, full range of motion, supple. LUNGS: Breath sounds equal, clear to auscultation bilaterally, no wheezes, no crackles, no accessory muscle use. HEART: Regular rate and rhythm, S1, S2 without murmur, rub or gallop. ABDOMEN: Soft, nontender, nondistended, normoactive bowel sounds, no guarding, no rebound. mild discomfort to palpation in suprapubic area. EXTREMITIES: 2+ pulses, warm, well-perfused, no edema. NEUROLOGICAL: Cranial nerves II through X grossly intact. Normal speech, gait not observed. PSYCH: Normal mood, normal affect. SKIN: Warm, dry, normal turgor, no rashes or lesions noted Laboratory Results - last 24 hr 03/09/18 03/09/18 03/09/18 19:05 19:05 21:00 WBC 10.4 H D RBC 2.58 L D Hgb 6.9 L* D Hct 21.4 L D MCV 82.9 MCH 26.7 MCHC 32.2 RDW 17.1 H Plt Count 467 H D MPV 7.0 L Neutrophils % 81.2 Lymphocytes % 11.8 Monocytes % 5.7 Eosinophils % 0.8 Basophils % 0.5 PT with INR INR PTT (Actin FS) Fibrinogen Sodium 141 Potassium 5.2 H D Chloride 109 H Carbon Dioxide 24 Anion Gap 8 BUN 29 H D Creatinine 1.5 H D Creat Clearance w eGFR 45.62 Random Glucose 115 H Calcium 7.7 L Total Bilirubin 0.1 L AST 21 D ALT 24 Alkaline Phosphatase 94 Total Protein 5.6 L Albumin 1.9 L Urine Color Urine Appearance Urine pH Ur Specific [place] Urine Protein Urine Glucose (UA) Urine Ketones Urine Blood Urine Nitrite Urine Bilirubin Urine Urobilinogen Ur Leukocyte Esterase Blood Type B POSITIVE Antibody Screen Negative Crossmatch See Detail 03/10/18 03/10/18 03/10/18 00:40 00:52 10:27 WBC 10.0 RBC 3.13 L D Hgb 8.9 L D Hct 26.6 L D MCV 84.8 MCH 28.3 MCHC 33.3 RDW 16.2 H Plt Count 397 MPV 7.2 L Neutrophils % Lymphocytes % Monocytes % Eosinophils % Basophils % PT with INR 13.90 H INR 1.23 H PTT (Actin FS) Fibrinogen Sodium Potassium Chloride Carbon Dioxide Anion Gap BUN Creatinine Creat Clearance w eGFR Random Glucose Calcium Total Bilirubin AST ALT Alkaline Phosphatase Total Protein Albumin Urine Color Red Urine Appearance Hazy Urine pH Ur Specific [place] Urine Protein Urine Glucose (UA) Urine Ketones Urine Blood Urine Nitrite Urine Bilirubin Urine Urobilinogen Ur Leukocyte Esterase Blood Type Antibody Screen Crossmatch 03/10/18 03/10/18 10:27 10:27 WBC RBC Hgb Hct MCV MCH MCHC RDW Plt Count MPV Neutrophils % Lymphocytes % Monocytes % Eosinophils % Basophils % PT with INR 12.70 H INR 1.12 PTT (Actin FS) 16.6 L D Fibrinogen 503.0 H Sodium 142 Potassium 4.5 Chloride 108 H Carbon Dioxide 24 Anion Gap 10 BUN 31 H Creatinine 1.6 H Creat Clearance w eGFR 42.35 Random Glucose 105 Calcium 7.6 L Total Bilirubin 0.4 D AST 18 ALT 22 Alkaline Phosphatase 94 Total Protein 5.4 L Albumin 1.9 L Urine Color Urine Appearance Urine pH Ur Specific [place] Urine Protein Urine Glucose (UA) Urine Ketones Urine Blood Urine Nitrite Urine Bilirubin Urine Urobilinogen Ur Leukocyte Esterase Blood Type Antibody Screen Crossmatch Active Medications Generic Name Dose Route Start Last Admin Trade Name Freq PRN Reason Stop Dose Admin Cholecalciferol 2,000 unit 03/10/18 10:00 03/10/18 09:25 Vitamin D3 - PO 2,000 unit DAILY ELVIS Administration Cyanocobalamin 1,000 mcg 03/10/18 10:00 03/10/18 09:25 Vitamin B12 - PO 1,000 mcg DAILY ELVIS Administration Efavirenz 600 mg 03/10/18 22:00 Sustiva - PO HS ELVIS Emtricitabine/Tenofovir 1 tab 03/10/18 10:00 03/10/18 11:17 Truvada PO 1 tab DAILY ELVIS Administration Sodium Chloride 1,000 mls @ 42 mls/hr 03/10/18 00:30 Normal Saline - IV ASDIR ELVIS Lactobacillus Acidophilus 1 tab 03/10/18 06:00 03/10/18 06:15 Bacid - PO 1 tab TID ELVIS Administration Rosuvastatin Calcium 10 mg 03/10/18 22:00 Crestor - PO HS ELVIS Tamsulosin HCl 0.4 mg 03/10/18 08:30 03/10/18 08:32 Flomax - PO 0.4 mg DAILY@0830 ELVIS Administration ASSESSMENT/PLAN: The patient is a 77 yo m w/ PMH BPH, HTN, HIV, previous episodes of hematuria s/ p flugration of the prostate who presents with serene painless hematuria again. #Hematuria/Acute blood loss anemia -s/p 2 units PRBC w/ adequate response -Per Dr. Watt: CBI placed and patient for OR 03/11 -Hematology consulted -UA has too much blood for adequate analysis. -NPO past midnight. #PING -NS @42 -Avoid nephrotoxic meds -Holding home Losartan 25mg #Hyperkalemia- resolved -K+ WNL on post transfusion labs #HIV -c/w home Atripla #HLD -c/w home crestor #Prophylaxis - SCDs #FEN -NS @ 42 -monitor lytes -Sodium controlled diet -NPO past midnight #Dispo -admit to tele; will transfer to med-surg as Hb stable. Visit type - Emergency Visit Emergency Visit: Yes ED Registration Date: 03/09/18 Care time: The patient presented to the Emergency Department on the above date and was hospitalized for further evaluation of their emergent condition. - New Patient This patient is new to me today: Yes Date on this admission: 03/10/18 - Critical Care Critical Care patient: No
--- NOTE | 2018-03-10 14:08 | CONSULT ---
Consult - text type - Consultation Consultation Note: Patient seen and examined 77 yo male w/ pmh of HIV, BPH, HTN, HLD, recent admission for hematuria 03/02, recent hospitalization for complicated UTI s/p fulguration of the prostate , discharged to [facility] rehab 02/28 with salas catheter in place who presents w/ serene painless bleeding for 1 day. He reports he otherwise feels fine and has no complaints. The patient denies chest pain, shortness of breath, headache and dizziness. Denies fever, chills, nausea, vomit, diarrhea and constipation. Allergies: Sulfa drugs, bactrim - Past Medical History Anemia: Yes (B12 DEFICIENCY,IRON DEFICIENCY ANEMIA) Disorders: Yes (PROSTATE) HTN: Yes Hypercholesterolemia: Yes Liver Disease: (HEP B) Thyroid Disease: Yes (goiter- s/p FNA- benign nodular goiter with cystic changes ) - Surgical History Orthopedic Surgery: Yes (KNEE ARTHROSCOPY) - Immunization History Immunization Up to Date: Yes - Suicide/Smoking/Psychosocial Hx Smoking History: Unknown if ever smoked - Past Medical History Allergies/Adverse Reactions: Allergies Allergy/AdvReac Type Severity Reaction Status Date / Time Sulfa (Sulfonamide Allergy Intermediate Nausea Verified 03/09/18 18:06 Antibiotics) sulfamethoxazole Allergy Intermediate Nausea Verified 03/09/18 18:06 [From Bactrim] trimethoprim [From Bactrim] AdvReac Intermediate Nausea Verified 03/09/18 18:06 Home Medications: Ambulatory Orders Amlodipine Besylate [Norvasc -] 10 mg PO DAILY 03/09/18 Cholecalciferol (Vitamin D3) [Vitamin D] 2,000 unit PO DAILY 03/09/18 Cran/Vitc/Mannose/Fos/Bromeln [Uti-Stat Liquid] 30 ml PO DAILY 03/09/18 Cyanocobalamin (Vitamin B-12) [Vitamin B12] 1,000 mcg PO DAILY 03/09/18 Efavirenz/Emtricitab/Tenofovir [Atripla -] 1 tab PO DAILY 03/09/18 Lactobacillus Acidophilus [Bacid -] 1 each PO TID 03/09/18 Losartan Potassium 25 mg PO DAILY 03/09/18 Rosuvastatin Calcium [Crestor] 10 mg PO DAILY 03/09/18 Tamsulosin HCl [Flomax] 0.4 mg PO DAILY 03/09/18 Active Medications Generic Name Dose Route Start Last Admin Trade Name Shaina PRN Reason Stop Dose Admin Aminocaproic Acid 4 gm 03/10/18 14:52 Amicar Injection - IVPB 03/10/18 14:53 ONCE ONE Aminocaproic Acid 1 gm 03/10/18 14:54 Amicar Injection - IVPB 03/10/18 14:55 ONCE ONE Cholecalciferol 2,000 unit 03/10/18 10:00 03/10/18 09:25 Vitamin D3 - PO 2,000 unit DAILY ELVIS Administration Cyanocobalamin 1,000 mcg 03/10/18 10:00 03/10/18 09:25 Vitamin B12 - PO 1,000 mcg DAILY ELVIS Administration Efavirenz 600 mg 03/10/18 22:00 Sustiva - PO HS ELVIS Emtricitabine/Tenofovir 1 tab 03/10/18 10:00 03/10/18 11:17 Truvada PO 1 tab DAILY ELVIS Administration Sodium Chloride 1,000 mls @ 42 mls/hr 03/10/18 00:30 03/10/18 13:44 Normal Saline - IV 42 mls/hr ASDIR ELVIS Administration Lactobacillus Acidophilus 1 tab 03/10/18 06:00 03/10/18 13:43 Bacid - PO 1 tab TID ELVIS Administration Rosuvastatin Calcium 10 mg 03/10/18 22:00 Crestor - PO HS ELVIS Tamsulosin HCl 0.4 mg 03/10/18 08:30 03/10/18 08:32 Flomax - PO 0.4 mg DAILY@0830 ELVIS Administration Last Vital Signs Temp Pulse Resp BP Pulse Ox 98.1 F 92 H 18 109/56 100 03/10/18 07:15 03/10/18 07:15 03/10/18 07:22 03/10/18 07:15 03/10/18 07:22 Cor: RSR, No murmurs, No gallops Lungs: Clear to P&A Abd: Soft, Normal bowel sounds, No organomegaly Ext:No significant edema Abnormal Lab Results 03/09/18 03/09/18 03/09/18 19:05 19:05 21:00 WBC 10.4 H D RBC 2.58 L D Hgb 6.9 L* D Hct 21.4 L D RDW 17.1 H Plt Count 467 H D MPV 7.0 L PT with INR INR PTT (Actin FS) Fibrinogen Potassium 5.2 H D Chloride 109 H BUN 29 H D Creatinine 1.5 H D Random Glucose 115 H Calcium 7.7 L Total Bilirubin 0.1 L Total Protein 5.6 L Albumin 1.9 L Crossmatch See Detail 03/10/18 03/10/18 03/10/18 00:40 10:27 10:27 WBC RBC 3.13 L D Hgb 8.9 L D Hct 26.6 L D RDW 16.2 H Plt Count MPV 7.2 L PT with INR 13.90 H INR 1.23 H PTT (Actin FS) Fibrinogen Potassium Chloride 108 H BUN 31 H Creatinine 1.6 H Random Glucose Calcium 7.6 L Total Bilirubin Total Protein 5.4 L Albumin 1.9 L Crossmatch 03/10/18 10:27 WBC RBC Hgb Hct RDW Plt Count MPV PT with INR 12.70 H INR PTT (Actin FS) 16.6 L D Fibrinogen 503.0 H Potassium Chloride BUN Creatinine Random Glucose Calcium Total Bilirubin Total Protein Albumin Crossmatch A/P 77 y/o patient with HIV, BPH, HTN, hyperlipidemia, comes in with recurrent hematuria Discussed with urology team To start amicar 4grams loading dose then 1g/hr. for 16 hrs. For OR possibly tomorrow discussed pros/cons of amicar with patient---rare theorteic risk of thrombotic complications with patient Given benefits/risks will proceed with amicar s/p 2 units PRBCs
[2018-03-10] MEDS ORDERED: AMINOCAPROIC ACID 5 GM/20 ML VIAL IVPB ONE ×2 (14:52→14:54)
[2018-03-10] MEDS ORDERED: SODIUM CHLORIDE IVPB ONE ×4 (16:00→17:00)
[2018-03-10] MEDS ORDERED: AMIKACIN SULFATE IVPB ONE (16:00)
[2018-03-10] MEDS ORDERED: AMINOCAPROIC ACID IVPB ONE ×3 (16:00→17:00)
[2018-03-10] MEDS ORDERED: PT OWN MED DRAWER 7, Y5N ONE (20:55)
[2018-03-10] MEDS ORDERED: ROSUVASTATIN CA 10 MG TABLET (FP) PO SCH (22:00)
[2018-03-10] MEDS ORDERED: EFAVIRENZ 600 MG TABLET PO SCH (22:00)
[2018-03-11] MEDS: LACTOBACILLUS ACIDOPHILUS 1 TABLET PO SCH ×2 (05:47→21:21)
[2018-03-11] MEDS: SODIUM CHLORIDE 1,000 ML IV SCH (05:51)
[2018-03-11 07:30] LABS: HEMATOCRIT 24.5 % (35.4-49); HEMOGLOBIN 8.2 GM/dL (11.7-16.9); MCH 28.1 pg (25.7-33.7); MCHC 33.5 g/dl (32.0-35.9); MEAN CELL VOLUME 84.1 fl (80-96); MEAN PLT VOLUME 6.8 fl (7.5-11.1); PLATELET COUNT 374 K/MM3 (134-434); RBC 2.91 M/mm3 (4.00-5.60); RDW 16.2 % (11.9-15.9); WHITE BLOOD COUNT 8.6 K/mm3 (4.0-10.0)
[2018-03-11 07:45] LABS: INR 1.18 (0.82-1.09); PROTHROMBIN TIME (PATIENT) 13.3 SEC (9.7-13.0)
[2018-03-11 07:48] LABS: ACTIVATED PTT 26.3 SECONDS (26.9-34.4)
[2018-03-11 07:59] LABS: CHLORIDE 114 mmol/L (98-107); POTASSIUM 4.3 mmol/L (3.5-5.1); SODIUM 144 mmol/L (136-145)
[2018-03-11 08:06] LABS: ALBUMIN 1.7 g/dl (3.4-5.0); ALK PHOS 85 U/L (45-117); ANION GAP 6 (8-16); BILIRUBIN,TOTAL 0.2 mg/dL (0.2-1.0); BLOOD UREA NITROGEN 26 mg/dL (7-18); CALCIUM 7.1 mg/dL (8.5-10.1); CO2 24 mmol/L (21-32); CREATININE 1.2 mg/dL (0.7-1.3); GLUCOSE,RANDOM 93 mg/dL (74-106); SGOT/AST 16 U/L (15-37); SGPT/ALT 18 U/L (12-78); TOT PROT 4.8 g/dl (6.4-8.2)
[2018-03-11] MEDS: CYANOCOBALAMIN 1,000 MCG TABLET (FP) PO SCH (09:26)
[2018-03-11] MEDS: EMTRICITABINE 200MG/TENOFOVIR 300MG PO SCH (09:26)
[2018-03-11] MEDS: TAMSULOSIN HCL 0.4 MG CAP.ER.24H (FP) PO SCH (09:26)
[2018-03-11] MEDS: CHOLECALCIFEROL (VITAMIN D3) 1,000 UNIT TABLET (FP) PO SCH (09:27)
[2018-03-11] MEDS ORDERED: LIDOCAINE HCL/PF 2% SDV 5ML VIAL ONE (12:54)
[2018-03-11] MEDS ORDERED: PROPOFOL 20 ML ONE (12:55)
[2018-03-11] MEDS ORDERED: ceFAZolin SODIUM 1 GM VIAL IVPB ONE (13:05)
[2018-03-11] MEDS ORDERED: ceFAZolin SODIUM 1 GM VIAL ONE (13:05)
[2018-03-11] MEDS ORDERED: DEXAMETHASONE SOD PHOSPHATE 4 MG/1 ML VIAL ONE (13:16)
[2018-03-11] MEDS ORDERED: PHENYLEPHRINE HCL 10 MG/1 ML SINGLE DOSE VIAL ONE (13:19)
[2018-03-11] MEDS ORDERED: SODIUM CHLORIDE 1,000 ML IV SCH (14:36)
[2018-03-11] MEDS ORDERED: AMINOCAPROIC ACID 5 GM/20 ML VIAL IVPB SCH ×2 (16:00)
[2018-03-11 16:07] LABS: BASO % 0.5 % (0-2.0); EOS % 0.5 % (0-4.5); HEMATOCRIT 26.5 % (35.4-49); HEMOGLOBIN 8.6 GM/dL (11.7-16.9); LYMPH % 7.9 % (8-40); MCH 27.6 pg (25.7-33.7); MCHC 32.4 g/dl (32.0-35.9); MEAN CELL VOLUME 85.2 fl (80-96); MEAN PLT VOLUME 7.1 fl (7.5-11.1); MONO % 2.7 % (3.8-10.2); NEUT % 88.4 % (42.8-82.8); PLATELET COUNT 367 K/MM3 (134-434); RBC 3.11 M/mm3 (4.00-5.60); RDW 16.3 % (11.9-15.9); WHITE BLOOD COUNT 12.6 K/mm3 (4.0-10.0)
[2018-03-11 16:45] LABS: ANION GAP 5 (8-16); BLOOD UREA NITROGEN 23 mg/dL (7-18); CALCIUM 7.2 mg/dL (8.5-10.1); CHLORIDE 114 mmol/L (98-107); CO2 23 mmol/L (21-32); GLUCOSE,RANDOM 111 mg/dL (74-106); POTASSIUM 4.4 mmol/L (3.5-5.1); SODIUM 142 mmol/L (136-145)
[2018-03-11 16:46] LABS: CREATININE 1.2 mg/dL (0.7-1.3)
[2018-03-11] MEDS ORDERED: SODIUM CHLORIDE IVPB ONE ×2 (18:00→18:15)
[2018-03-11] MEDS ORDERED: AMINOCAPROIC ACID IVPB ONE ×2 (18:00→18:15)
[2018-03-11] MEDS: DEXTROSE 5%-0.45% SALINE 1,000 ML IV SCH (18:10)
--- NOTE | 2018-03-11 18:14 | PN ---
Teaching Attending Note Name of Resident: Kevin Man ATTENDING PHYSICIAN STATEMENT I saw and evaluated the patient. I reviewed the resident's note and discussed the case with the resident. I agree with the resident's findings and plan as documented. SUBJECTIVE: No fever or chills. no abd pain, no N/V OBJECTIVE: NAD, AAOx3. Cv: RRR, no MRG Lungs: CTAB Abd: soft, ND , NL BS , TTP in LLQ and suprapubic area. no rebound tenderness or guarding Ext: no edema salas with pink urine ASSESSMENT AND PLAN: 77 y/o man with h/o HTN, BPH, HIV, HLP and recent admission for hematuria s/p cystoscopy and prostate fulguration and urinary retention who presented again form [place] with hematuria and light headedness and was found to have acute blood loss anemia 1- Acute symptomatic blood loss anemia: responded to transfusion . stable HB 2- Hematuria : s/p cystocopy today and shaving of prostate. no h/o prostate cancer on previous biopsies. - cont salas - on Amicar - monitor Hb - gentle hydration 3- h/o HTN : cont to hold losartan and norvasc. can resume norvasc in am if BP rises . 4- Efe: likely due to obstruction with clots and hypovolemia. - IVF , transfusion as needed. - cont salas 5- HIV: cont home meds 6- DVT PX : SCDs DC tele DISPO: HLOC.
--- NOTE | 2018-03-11 19:57 | PN ---
Physical Exam: SUBJECTIVE: Patient seen and examined at bedside. No new complaints. Pang draining cranberry-juice colored urine. OBJECTIVE: Vital Signs Period Temp Pulse Resp BP Sys/Nunez Pulse Ox Last 24 Hr 97 F-98.3 F 72-94 15-20 100-155/54-78 95-100 GENERAL: The patient is awake, alert, and fully oriented, in no acute distress. HEAD: Normal with no signs of trauma. NECK: Trachea midline, full range of motion, supple. LUNGS: Breath sounds equal, clear to auscultation bilaterally, no wheezes, no crackles, no accessory muscle use. HEART: Regular rate and rhythm, S1, S2 without murmur, rub or gallop. ABDOMEN: Soft, nontender, nondistended, normoactive bowel sounds, no guarding, no rebound. mild discomfort to palpation in suprapubic area. EXTREMITIES: 2+ pulses, warm, well-perfused, no edema. NEUROLOGICAL: Cranial nerves II through X grossly intact. Normal speech, gait not observed. PSYCH: Normal mood, normal affect. SKIN: Warm, dry, normal turgor, no rashes or lesions noted Laboratory Results - last 24 hr 03/11/18 03/11/18 03/11/18 07:10 07:10 07:10 WBC 8.6 RBC 2.91 L Hgb 8.2 L Hct 24.5 L MCV 84.1 MCH 28.1 MCHC 33.5 RDW 16.2 H Plt Count 374 MPV 6.8 L Neutrophils % Lymphocytes % Monocytes % Eosinophils % Basophils % PT with INR 13.30 H INR 1.18 H PTT (Actin FS) 26.3 L D Sodium 144 Potassium 4.3 Chloride 114 H Carbon Dioxide 24 Anion Gap 6 L BUN 26 H Creatinine 1.2 D Creat Clearance w eGFR 59.02 Random Glucose 93 Calcium 7.1 L Total Bilirubin 0.2 D AST 16 ALT 18 Alkaline Phosphatase 85 Total Protein 4.8 L Albumin 1.7 L 03/11/18 03/11/18 15:10 15:10 WBC 12.6 H D RBC 3.11 L Hgb 8.6 L Hct 26.5 L MCV 85.2 MCH 27.6 MCHC 32.4 RDW 16.3 H Plt Count 367 MPV 7.1 L Neutrophils % 88.4 H Lymphocytes % 7.9 L D Monocytes % 2.7 L Eosinophils % 0.5 Basophils % 0.5 PT with INR INR PTT (Actin FS) Sodium 142 Potassium 4.4 Chloride 114 H Carbon Dioxide 23 Anion Gap 5 L BUN 23 H Creatinine 1.2 Creat Clearance w eGFR Random Glucose 111 H Calcium 7.2 L Total Bilirubin AST ALT Alkaline Phosphatase Total Protein Albumin Active Medications Generic Name Dose Route Start Last Admin Trade Name Freq PRN Reason Stop Dose Admin Cholecalciferol 2,000 unit 03/12/18 10:00 Vitamin D3 - PO DAILY [facility] Cyanocobalamin 1,000 mcg 03/12/18 10:00 Vitamin B12 - PO DAILY ELVIS Efavirenz 600 mg 03/11/18 22:00 Sustiva - PO HS [facility] Emtricitabine/Tenofovir 1 tab 03/12/18 10:00 Truvada PO DAILY [facility] Fentanyl 25 mcg 03/11/18 14:36 Sublimaze Injection - IVPUSH [id number] PRN PAIN-PACU ORDER X 4 DOSES ONLY Dextrose/Sodium Chloride 1,000 mls @ 125 mls/hr 03/11/18 14:30 03/11/18 18:10 D5-1/2ns - IV 125 mls/hr ASDIR ELVIS Administration Aminocaproic Acid 12 gm/ 1,048 mls @ 87.333 mls/hr 03/12/18 12:00 Sodium Chloride IVPB 03/12/18 23:59 ONCE ONE Aminocaproic Acid 16 gm/ 1,064 mls @ 66.5 mls/hr 03/11/18 18:15 Sodium Chloride IVPB 03/12/18 10:14 ONCE ONE Lactobacillus Acidophilus 1 tab 03/11/18 22:00 Bacid - PO TID ELVIS Rosuvastatin Calcium 10 mg 03/11/18 22:00 Crestor - PO HS ELVIS Tamsulosin HCl 0.4 mg 03/12/18 08:30 Flomax - PO DAILY@0830 [facility] ASSESSMENT/PLAN: The patient is a 77 yo m w/ PMH BPH, HTN, HIV, previous episodes of hematuria s/ p flugration of the prostate who presents with serene painless hematuria again. #Hematuria/Acute blood loss anemia -s/p cystoscopy w/ shaving of the prostate w/ Dr. Lobato. -Hematology consulted, started Amicar as this helped last admission -f/u AM CBC #PING- resolving -NS @42 -Avoid nephrotoxic meds -Holding home Losartan 25mg -will restart if patient becomes hypertensive #Hyperkalemia- resolved -K+ WNL on post transfusion labs #HIV -c/w home Atripla #HLD -c/w home crestor #Prophylaxis - SCDs #FEN -D5 1/2NS @125 -monitor lytes -regular diet #Dispo -admit to med-surg. Visit type - Emergency Visit Emergency Visit: Yes ED Registration Date: 03/09/18 Care time: The patient presented to the Emergency Department on the above date and was hospitalized for further evaluation of their emergent condition. - New Patient This patient is new to me today: No - Critical Care Critical Care patient: No - Discharge Referral Referred to [facility] Med P.C[facility] No
--- NOTE | 2018-03-11 20:17 | PN ---
Progress Note (short form) - Note Progress Note: Patient seen and examined c/o rigors/chills Last Vital Signs Temp Pulse Resp BP Pulse Ox 97 F L 83 20 132/68 95 03/11/18 17:51 03/11/18 17:51 03/11/18 17:51 03/11/18 17:51 03/11/18 17:51 Cor: RSR, No murmurs, No gallops Lungs: Clear to P&A Abd: Soft, Normal bowel sounds, No organomegaly Ext:No significant edema Abnormal Lab Results 03/11/18 03/11/18 03/11/18 07:10 07:10 07:10 WBC RBC 2.91 L Hgb 8.2 L Hct 24.5 L RDW 16.2 H MPV 6.8 L Neutrophils % Lymphocytes % Monocytes % PT with INR 13.30 H INR 1.18 H PTT (Actin FS) 26.3 L D Chloride 114 H Anion Gap 6 L BUN 26 H Random Glucose Calcium 7.1 L Total Protein 4.8 L Albumin 1.7 L 03/11/18 03/11/18 15:10 15:10 WBC 12.6 H D RBC 3.11 L Hgb 8.6 L Hct 26.5 L RDW 16.3 H MPV 7.1 L Neutrophils % 88.4 H Lymphocytes % 7.9 L D Monocytes % 2.7 L PT with INR INR PTT (Actin FS) Chloride 114 H Anion Gap 5 L BUN 23 H Random Glucose 111 H Calcium 7.2 L Total Protein Albumin Active Medications Generic Name Dose Route Start Last Admin Trade Name Freq PRN Reason Stop Dose Admin Cholecalciferol 2,000 unit 03/12/18 10:00 Vitamin D3 - PO DAILY ELVIS Cyanocobalamin 1,000 mcg 03/12/18 10:00 Vitamin B12 - PO DAILY ELVIS Efavirenz 600 mg 03/11/18 22:00 Sustiva - PO HS ELVIS Emtricitabine/Tenofovir 1 tab 03/12/18 10:00 Truvada PO DAILY ELVIS Fentanyl 25 mcg 03/11/18 14:36 Sublimaze Injection - IVPUSH [id number] PRN PAIN-PACU ORDER X 4 DOSES ONLY Dextrose/Sodium Chloride 1,000 mls @ 125 mls/hr 03/11/18 14:30 03/11/18 18:10 D5-1/2ns - IV 125 mls/hr ASDIR ELVIS Administration Aminocaproic Acid 12 gm/ 1,048 mls @ 87.333 mls/hr 03/12/18 12:00 Sodium Chloride IVPB 03/12/18 23:59 ONCE ONE Aminocaproic Acid 16 gm/ 1,064 mls @ 66.5 mls/hr 03/11/18 18:15 Sodium Chloride IVPB 03/12/18 10:14 ONCE ONE Lactobacillus Acidophilus 1 tab 03/11/18 22:00 Bacid - PO TID ELVIS Rosuvastatin Calcium 10 mg 03/11/18 22:00 Crestor - PO HS ELVIS Tamsulosin HCl 0.4 mg 03/12/18 08:30 Flomax - PO DAILY@0830 ELVIS A/P 77 y/o patient with HIV, BPH, HTN, hyperlipidemia, comes in with recurrent hematuria s/p cystoscopy/TURP today continue amicar chills/shakes --check cultures/ID consult/empiric zosyn
[2018-03-11 20:25] LABS: HEMATOCRIT 25.2 % (35.4-49); HEMOGLOBIN 8.2 GM/dL (11.7-16.9); MCH 27.8 pg (25.7-33.7); MCHC 32.7 g/dl (32.0-35.9); PLATELET COUNT 395 K/MM3 (134-434); RBC 2.97 M/mm3 (4.00-5.60); RDW 16.5 % (11.9-15.9); WHITE BLOOD COUNT 13.4 K/mm3 (4.0-10.0)
[2018-03-11] MEDS ORDERED: PIPERACILLIN/TAZOB 3.375 GM 3.375 GM in DEXTROSE 5%-WATER - 50 ML IVPB SCH (20:30)
[2018-03-11] MEDS ORDERED: PT OWN MED DRAWER 7, Y5N ONE (21:08)
[2018-03-11] MEDS ORDERED: PIPERACILLIN/TAZOBACTAM 3.375 GM VIAL IVPB ONE (21:09)
[2018-03-11] MEDS ORDERED: DEXTROSE 5%-WATER - 50 ML IVPB ONE (21:09)
[2018-03-11] MEDS: ROSUVASTATIN CA 10 MG TABLET (FP) PO SCH (21:21)
[2018-03-11] MEDS: PIPERACILLIN/TAZOB 3.375 GM 3.375 GM in DEXTROSE 5%-WATER - 50 ML IVPB SCH (21:21)
[2018-03-11] MEDS: EFAVIRENZ 600 MG TABLET PO SCH (21:22)
[2018-03-12] MEDS ORDERED: DEXTROSE 5%-WATER - 50 ML IVPB ONE (00:58)
[2018-03-12] MEDS ORDERED: PIPERACILLIN/TAZOBACTAM 3.375 GM VIAL IVPB ONE (00:58)
[2018-03-12] MEDS: PIPERACILLIN/TAZOB 3.375 GM 3.375 GM in DEXTROSE 5%-WATER - 50 ML IVPB SCH (01:26)
[2018-03-12] MEDS: LACTOBACILLUS ACIDOPHILUS 1 TABLET PO SCH ×3 (05:45→22:39)
[2018-03-12 08:14] LABS: BASO % 0.3 % (0-2.0); EOS % 0.4 % (0-4.5); HEMATOCRIT 23.1 % (35.4-49); HEMOGLOBIN 7.6 GM/dL (11.7-16.9); LYMPH % 7.8 % (8-40); MCH 27.8 pg (25.7-33.7); MCHC 32.7 g/dl (32.0-35.9); MEAN PLT VOLUME 6.8 fl (7.5-11.1); MONO % 5.3 % (3.8-10.2); NEUT % 86.2 % (42.8-82.8); PLATELET COUNT 342 K/MM3 (134-434); RBC 2.72 M/mm3 (4.00-5.60); RDW 16.6 % (11.9-15.9); WHITE BLOOD COUNT 11.6 K/mm3 (4.0-10.0)
[2018-03-12 08:26] LABS: ANION GAP 5 (8-16); BLOOD UREA NITROGEN 21 mg/dL (7-18); CALCIUM 7.1 mg/dL (8.5-10.1); CHLORIDE 115 mmol/L (98-107); CO2 22 mmol/L (21-32); GLUCOSE,RANDOM 98 mg/dL (74-106); POTASSIUM 4.5 mmol/L (3.5-5.1); SODIUM 142 mmol/L (136-145)
[2018-03-12 08:27] LABS: CREATININE 1.4 mg/dL (0.7-1.3)
--- NOTE | 2018-03-12 08:45 | PN ---
Progress Note (short form) - Note Progress Note: ID Full note dictated Hematuria post recent fulguration prostate Hematology note seen Selected Entries 03/12/18 06:06 Temperature 98.5 F Pulse Rate 90 Respiratory 20 Rate Blood Pressure 113/63 Laboratory Tests 12/19/17 12/19/17 03/11/18 13:40 13:40 15:10 WBC Hgb Hct Plt Count BUN 23 H Creatinine 1.2 Absolute CD4 [place] 256 L HIV-1 RNA (PCR) <20 03/12/18 03/12/18 07:40 07:40 WBC 11.6 H Hgb 7.6 L Hct 23.1 L Plt Count 342 BUN Pending Creatinine Pending Absolute CD4 [place] HIV-1 RNA (PCR) Assessment HIV infected male on ART painless hematuria post procedure. Unsure if infection an issue now but reasonable to treat until we get urine culture back. Avoid Zosyn secondary bleeding risk Cefepime instead Keagan VELASCO Problem List - Problems (1) Hematuria Code(s): R31.9 - HEMATURIA, UNSPECIFIED Qualifiers: Hematuria type: gross Qualified Code(s): R31.0 - Gross hematuria (2) Indwelling Pang catheter present Code(s): Z96.0 - PRESENCE OF UROGENITAL IMPLANTS (3) Urinary tract infection Code(s): N39.0 - URINARY TRACT INFECTION, SITE NOT SPECIFIED Qualifiers: Urinary tract infection type: acute cystitis Hematuria presence: with hematuria Qualified Code(s): N30.01 - Acute cystitis with hematuria (4) HIV (human immunodeficiency virus infection) Code(s): Z21 - ASYMPTOMATIC HUMAN IMMUNODEFICIENCY VIRUS INFECTION STATUS
--- NOTE | 2018-03-12 09:30 | CONS ---
DATE OF CONSULTATION: DATE OF DICTATION: 03/12/2018 HISTORY OF PRESENT ILLNESS: This is a 77-year-old male with known longstanding HIV infection who was admitted with the chief complaint of gross hematuria through a Pang catheter. The patient has a history of BPH, hypertension, HIV, hyperlipidemia and is status post a recent admission for hematuria earlier in February. He had been seen by our service and empirically treated with oral antibiotics at that time. A urine culture was contaminated and blood cultures were no growth. Subsequently had fulguration of the prostate on February 19, 2018, and had been discharged to [facility] on February 28 with a Pang catheter in place. He is brought now with a 1- to 2-day history of gross painless hematuria through the catheter. He has been seen by Dr. Guevara of Hematology and is placed on Amicar. He has no fever. He was also placed on Zosyn by Dr. Guevara and I am asked to see him for treatment of possible urinary tract infection. PAST MEDICAL HISTORY: Includes HIV, on Atripla, undetectable viral load, December 2017, with T-cells above 200, hyperlipidemia, history of benign nodular goiter, iron deficiency anemia. MEDICATIONS: Amlodipine; Atripla; losartan; Crestor; Flomax. ALLERGIES: To SULFA. SOCIAL HISTORY: Former smoker. No history of ETOH. FAMILY HISTORY: Reviewed and noncontributory. REVIEW OF SYSTEMS:Respiratory: No cough, shortness of breath. Cardiac: No chest pain, palpitations, syncope. Gastrointestinal: No abdominal pain, nausea, vomiting, diarrhea. Genitourinary: Gross hematuria through the Pang catheter. PHYSICAL EXAMINATION:General: Revealed an alert male who was ill appearing, though afebrile. Vital Signs: His temperature was 98.5, pulse 90, blood pressure 130/63, respirations 20. Neck: Supple without adenopathy. Lungs: Clear to percussion and auscultation. Heart: S1, S2. Regular rhythm without audible murmur. Abdomen: Positive bowel sounds, soft, nontender, without organomegaly. Some mild lower quadrant suprapubic tenderness noted. ASSESSMENT: A 77-year-old male, HIV infection well treated with current antiretroviral therapy, presents with gross hematuria through his Pang catheter following recent prostate fulguration, early February. The patient is afebrile. Minimally elevated white blood cell count may be secondary to urinary bleeding itself. Dr. Guevara has started him on Zosyn. RECOMMENDATIONS: I will discontinue the Zosyn and will treat him empirically for possible UTI with cefepime and await urine culture. He probably can be switched to oral antibiotic. Note that his most recent urine culture dated March 02 had Enterococcus faecalis. Will place him on a combination of cefepime and oral amoxicillin. CONSUELO CONNER M.D. SHUKRI/[id number]
[2018-03-12] MEDS ORDERED: PT OWN MED DRAWER 7, Y5N ONE ×2 (10:26→22:35)
[2018-03-12] MEDS: CEFEPIME HCL/D5W 1 GM/50 ML BAG IVPB SCH ×2 (10:36→18:38)
[2018-03-12] MEDS: TAMSULOSIN HCL 0.4 MG CAP.ER.24H (FP) PO SCH (10:36)
[2018-03-12] MEDS: CHOLECALCIFEROL (VITAMIN D3) 1,000 UNIT TABLET (FP) PO SCH (10:37)
[2018-03-12] MEDS: AMOXICILLIN 250 MG CAPSULE PO SCH ×2 (10:38→22:47)
[2018-03-12] MEDS: CYANOCOBALAMIN 1,000 MCG TABLET (FP) PO SCH (10:38)
[2018-03-12] MEDS: EMTRICITABINE 200MG/TENOFOVIR 300MG PO SCH (10:38)
--- NOTE | 2018-03-12 11:35 | PN ---
Progress Note (short form) - Note Progress Note: urine clear on cbi continue cbi possible trial of void 03/13
[2018-03-12] MEDS ORDERED: AMINOCAPROIC ACID IVPB ONE (12:00)
[2018-03-12] MEDS ORDERED: SODIUM CHLORIDE IVPB ONE (12:00)
--- NOTE | 2018-03-12 12:58 | PN ---
Teaching Attending Note Name of Resident: Kevin Man ATTENDING PHYSICIAN STATEMENT I saw and evaluated the patient. I reviewed the resident's note and discussed the case with the resident. I agree with the resident's findings and plan as documented. SUBJECTIVE: Patient has no complaints. OBJECTIVE: Vital Signs Period Temp Pulse Resp BP Sys/Nunez Pulse Ox Last 24 Hr 97 F-98.5 F 72-93 15-20 113-155/58-78 95-100 HEART: S1S2, RRR LUNGS: Clear ABDOMEN: Soft, non-tender, non-distended, normal BS EXTREMITIES: No edema Laboratory Results - last 24 hr 03/11/18 03/11/18 03/11/18 15:10 15:10 18:50 WBC 12.6 H D 13.4 H RBC 3.11 L 2.97 L Hgb 8.6 L 8.2 L Hct 26.5 L 25.2 L MCV 85.2 85.0 MCH 27.6 27.8 MCHC 32.4 32.7 RDW 16.3 H 16.5 H Plt Count 367 395 MPV 7.1 L 7.0 L Neutrophils % 88.4 H Lymphocytes % 7.9 L D Monocytes % 2.7 L Eosinophils % 0.5 Basophils % 0.5 Sodium 142 Potassium 4.4 Chloride 114 H Carbon Dioxide 23 Anion Gap 5 L BUN 23 H Creatinine 1.2 Random Glucose 111 H Calcium 7.2 L 03/12/18 03/12/18 07:40 07:40 WBC 11.6 H RBC 2.72 L Hgb 7.6 L Hct 23.1 L MCV 85.0 MCH 27.8 MCHC 32.7 RDW 16.6 H Plt Count 342 MPV 6.8 L Neutrophils % 86.2 H Lymphocytes % 7.8 L Monocytes % 5.3 D Eosinophils % 0.4 Basophils % 0.3 Sodium 142 Potassium 4.5 Chloride 115 H Carbon Dioxide 22 Anion Gap 5 L BUN 21 H Creatinine 1.4 H Random Glucose 98 Calcium 7.1 L Current Medications Generic Name Dose Route Start Last Admin Trade Name Freq PRN Reason Stop Dose Admin Amoxicillin 750 mg 03/12/18 10:00 03/12/18 10:38 Amoxicillin - PO 750 mg BID ELVIS Administration Cholecalciferol 2,000 unit 03/12/18 10:00 03/12/18 10:37 Vitamin D3 - PO 2,000 unit DAILY ELVIS Administration Cyanocobalamin 1,000 mcg 03/12/18 10:00 03/12/18 10:38 Vitamin B12 - PO 1,000 mcg DAILY ELVIS Administration Efavirenz 600 mg 03/11/18 22:00 03/11/18 21:22 Sustiva - PO 600 mg HS ELVIS Administration Emtricitabine/Tenofovir 1 tab 03/12/18 10:00 03/12/18 10:38 Truvada PO 1 tab DAILY ELVIS Administration Dextrose/Sodium Chloride 1,000 mls @ 125 mls/hr 03/11/18 14:30 03/11/18 18:10 D5-1/2ns - IV 125 mls/hr ASDIR ELVIS Administration Aminocaproic Acid 12 gm/ 1,048 mls @ 87.333 mls/hr 03/12/18 12:00 Sodium Chloride IVPB 03/12/18 23:59 ONCE ONE Cefepime HCl 1 gm in 50 mls @ 100 mls/hr 03/12/18 10:00 03/12/18 10:36 Maxipime 1 Gm Premix Ivpb IVPB 100 mls/hr Q8H-IV ELVIS Administration Protocol Lactobacillus Acidophilus 1 tab 03/11/18 22:00 03/12/18 05:45 Bacid - PO 1 tab TID ELVIS Administration Rosuvastatin Calcium 10 mg 03/11/18 22:00 03/11/18 21:21 Crestor - PO 10 mg HS ELVIS Administration Tamsulosin HCl 0.4 mg 03/12/18 08:30 03/12/18 10:36 Flomax - PO 0.4 mg DAILY@0830 ELVIS Administration ASSESSMENT AND PLAN: This is a 77 year old man with a history of hematuria, BPH, HTN, hyperlipidemia , HIV, recent fulguration of prostate who presented to the ED with hematuria. 1. Hematuria secondary to prostate bleeding - s/p fulguration of prostate 02/19 - s/p TURP 03/11 - Continue CBI - urine is clearing - Continue Amicar - Trial of void tomorrow 2. Acute blood loss anemia secondary to hematuria - Transfused 2 units PRBCs - Continue to monitor hemoglobin 3. Possible UTI - Continue Cefepime, Amoxicillin 4. BPH - Continue Flomax 5. Acute kidney injury - Creatinine stable 6. HIV - Continue Truvada, Sustiva 7. HTN - Cozaar held secondary to PING, hypotesion - Norvasc held secondary to hypotension 8. Hyperlipidemia - Continue Crestor
--- NOTE | 2018-03-12 15:34 | PN ---
Progress Note (short form) - Note Progress Note: Post op day#1.S/p Cystoscopy with TURP under [place] uneventful.Patient stable.No any anesthesia related problem.Patient Dc from the anesthesia care.
[2018-03-12] MEDS: DEXTROSE 5%-0.45% SALINE 1,000 ML IV SCH (16:01)
--- NOTE | 2018-03-12 21:01 | PN ---
Physical Exam: SUBJECTIVE: Patient seen and examined at bedside. s/p shaving of the prostate . No new complaints. Pain controlled. Urine pink in salas bag. OBJECTIVE: Vital Signs Period Temp Pulse Resp BP Sys/Nunez Pulse Ox Last 24 Hr 97.7 F-98.5 F 80-90 18-20 103-120/45-82 96-96 GENERAL: The patient is awake, alert, and fully oriented, in no acute distress. HEAD: Normal with no signs of trauma. NECK: Trachea midline, full range of motion, supple. LUNGS: Breath sounds equal, clear to auscultation bilaterally, no wheezes, no crackles, no accessory muscle use. HEART: Regular rate and rhythm, S1, S2 without murmur, rub or gallop. ABDOMEN: Soft, nontender, nondistended, normoactive bowel sounds, no guarding, no rebound. mild discomfort to palpation in suprapubic area. EXTREMITIES: 2+ pulses, warm, well-perfused, no edema. NEUROLOGICAL: Cranial nerves II through X grossly intact. Normal speech, gait not observed. PSYCH: Normal mood, normal affect. SKIN: Warm, dry, normal turgor, no rashes or lesions noted Laboratory Results - last 24 hr 03/12/18 03/12/18 07:40 07:40 WBC 11.6 H RBC 2.72 L Hgb 7.6 L Hct 23.1 L MCV 85.0 MCH 27.8 MCHC 32.7 RDW 16.6 H Plt Count 342 MPV 6.8 L Neutrophils % 86.2 H Lymphocytes % 7.8 L Monocytes % 5.3 D Eosinophils % 0.4 Basophils % 0.3 Sodium 142 Potassium 4.5 Chloride 115 H Carbon Dioxide 22 Anion Gap 5 L BUN 21 H Creatinine 1.4 H Random Glucose 98 Calcium 7.1 L Active Medications Generic Name Dose Route Start Last Admin Trade Name Freq PRN Reason Stop Dose Admin Amoxicillin 750 mg 03/12/18 10:03/12/18 10:38 Amoxicillin - PO 750 mg BID ELVIS Administration Cholecalciferol 2,000 unit 03/12/18 10:03/12/18 10:37 Vitamin D3 - PO 2,000 unit DAILY ELVIS Administration Cyanocobalamin 1,000 mcg 03/12/18 10:03/12/18 10:38 Vitamin B12 - PO 1,000 mcg DAILY ELVIS Administration Efavirenz 600 mg 03/11/18 22:00 03/11/18 21:22 Sustiva - PO 600 mg HS ELVIS Administration Emtricitabine/Tenofovir 1 tab 03/12/18 10:00 03/12/18 10:38 Truvada PO 1 tab DAILY ELVIS Administration Dextrose/Sodium Chloride 1,000 mls @ 125 mls/hr 03/11/18 14:30 03/12/18 16:01 D5-1/2ns - IV Not Given ASDIR ELVIS Aminocaproic Acid 12 gm/ 1,048 mls @ 87.333 mls/hr 03/12/18 12:00 03/12/18 16 :01 Sodium Chloride IVPB 03/12/18 23:59 87.333 mls/hr ONCE ONE Administration Cefepime HCl 1 gm in 50 mls @ 100 mls/hr 03/12/18 10:00 03/12/18 18:38 Maxipime 1 Gm Premix Ivpb IVPB 100 mls/hr Q8H-IV ELVIS Administration Protocol Lactobacillus Acidophilus 1 tab 03/11/18 22:00 03/12/18 14:01 Bacid - PO 1 tab TID ELVIS Administration Rosuvastatin Calcium 10 mg 03/11/18 22:00 03/11/18 21:21 Crestor - PO 10 mg HS ELVIS Administration Tamsulosin HCl 0.4 mg 03/12/18 08:30 03/12/18 10:36 Flomax - PO 0.4 mg DAILY@0830 ELVIS Administration ASSESSMENT/PLAN: The patient is a 77 yo m w/ PMH BPH, HTN, HIV, previous episodes of hematuria s/ p flugration of the prostate who presents with serene painless hematuria again. #Hematuria/Acute blood loss anemia -s/p cystoscopy w/ shaving of the prostate w/ Dr. Lobato. -Hematology consulted, started Amicar as this helped last admission -monitor H/H closely #PING- resolving -IVF -Avoid nephrotoxic meds -Holding home Losartan 25mg -will restart if patient becomes hypertensive #Hyperkalemia- resolved #HIV -c/w home Atripla #HLD -c/w home crestor #Prophylaxis - SCDs #FEN -D5 1/2NS @125 -monitor lytes -regular diet #Dispo -admit to med-surg. Visit type - Emergency Visit Emergency Visit: Yes ED Registration Date: 03/09/18 Care time: The patient presented to the Emergency Department on the above date and was hospitalized for further evaluation of their emergent condition. - New Patient This patient is new to me today: No - Critical Care Critical Care patient: No
--- NOTE | 2018-03-12 21:46 | PN ---
Progress Note (short form) - Note Progress Note: Patient seen and examined Continues on CBI and amicar Decrease hematuria Last Vital Signs Temp Pulse Resp BP Pulse Ox 98.4 F 80 20 120/82 96 03/12/18 19:20 03/12/18 19:20 03/12/18 19:20 03/12/18 19:20 03/12/18 09:00 Cor: RSR, No murmurs, No gallops Lungs: decreased breath sounds and poor inspiratory effort Abd: Soft, Normal bowel sounds, No organomegaly Ext:No significant edema Skin: No rashes, Integument intact salas catheter - no fresh blood, dried blood along catheter edges CBC, BMP 03/12/18 07:40 03/12/18 07:40 Current Medications Generic Name Dose Route Start Last Admin Trade Name Freq PRN Reason Stop Dose Admin Amoxicillin 750 mg 03/12/18 10:00 03/12/18 10:38 Amoxicillin - PO 750 mg BID ELVIS Administration Cholecalciferol 2,000 unit 03/12/18 10:00 03/12/18 10:37 Vitamin D3 - PO 2,000 unit DAILY ELVIS Administration Cyanocobalamin 1,000 mcg 03/12/18 10:00 03/12/18 10:38 Vitamin B12 - PO 1,000 mcg DAILY ELVIS Administration Efavirenz 600 mg 03/11/18 22:00 03/11/18 21:22 Sustiva - PO 600 mg HS ELVIS Administration Emtricitabine/Tenofovir 1 tab 03/12/18 10:00 03/12/18 10:38 Truvada PO 1 tab DAILY ELVIS Administration Dextrose/Sodium Chloride 1,000 mls @ 125 mls/hr 03/11/18 14:30 03/12/18 16:01 D5-1/2ns - IV Not Given ASDIR ELVIS Aminocaproic Acid 12 gm/ 1,048 mls @ 87.333 mls/hr 03/12/18 12:00 03/12/18 16 :01 Sodium Chloride IVPB 03/12/18 23:59 87.333 mls/hr ONCE ONE Administration Cefepime HCl 1 gm in 50 mls @ 100 mls/hr 03/12/18 10:00 03/12/18 18:38 Maxipime 1 Gm Premix Ivpb IVPB 100 mls/hr Q8H-IV ELVIS Administration Protocol Lactobacillus Acidophilus 1 tab 03/11/18 22:00 03/12/18 14:01 Bacid - PO 1 tab TID ELVIS Administration Rosuvastatin Calcium 10 mg 03/11/18 22:00 03/11/18 21:21 Crestor - PO 10 mg HS ELVIS Administration Tamsulosin HCl 0.4 mg 03/12/18 08:30 03/12/18 10:36 Flomax - PO 0.4 mg DAILY@0830 ELVIS Administration Impression: Hematuria Amicar drip Anemia Suggest decrease Amicar drip to 8mg daily ( or 2 mg p.o. qid) Transfuse packed cells if furter decrease in Hct.
[2018-03-12] MEDS: ROSUVASTATIN CA 10 MG TABLET (FP) PO SCH (22:39)
[2018-03-12] MEDS: EFAVIRENZ 600 MG TABLET PO SCH (22:40)
[2018-03-13] MEDS: CEFEPIME HCL/D5W 1 GM/50 ML BAG IVPB SCH ×2 (02:17→10:39)
[2018-03-13] MEDS: DEXTROSE 5%-0.45% SALINE 1,000 ML IV SCH ×2 (05:49→22:30)
[2018-03-13] MEDS: LACTOBACILLUS ACIDOPHILUS 1 TABLET PO SCH ×3 (05:55→21:08)
[2018-03-13 08:26] LABS: HEMATOCRIT 20.9 % (35.4-49); MCH 28.1 pg (25.7-33.7); MEAN CELL VOLUME 85.1 fl (80-96); MEAN PLT VOLUME 6.6 fl (7.5-11.1); PLATELET COUNT 306 K/MM3 (134-434); RBC 2.46 M/mm3 (4.00-5.60); RDW 16.6 % (11.9-15.9); WHITE BLOOD COUNT 9.6 K/mm3 (4.0-10.0)
[2018-03-13 08:39] LABS: HEMOGLOBIN 6.9 GM/dL (11.7-16.9)
--- NOTE | 2018-03-13 08:55 | PN ---
Progress Note (short form) - Note Progress Note: POD #2 Alert. Resting in position of comfort. eating breakfast. CBI held. Urine in line remains clear. Denies n/v/f/c, CP, SOB, flank pain. Last Vital Signs Temp Pulse Resp BP Pulse Ox 98.7 F 84 21 100/60 97 03/13/18 02:00 03/13/18 02:00 03/13/18 02:00 03/13/18 02:00 03/12/18 22:00 CBC 03/13/18 07:00 Gen: nad Abd: soft. nt. nd. Neg CVAT : 3-way CBI in place. Line clear. Problem List - Problems (1) BPH with elevated PSA Assessment/Plan: POD #2 s/p Cysto/TURP 3-way salas/cbi discontinued Trial of void in progress Transfuse 2 PRBC (ordered) Monitor H/H No further Urology intervention - reconsult PRN Cont medical management Above plan discussed with Dr. Lobato and agrees. Code(s): N40.0 - BENIGN PROSTATIC HYPERPLASIA WITHOUT LOWER URINRY TRACT SYMP; R97.2 - ELEVATED PROSTATE SPECIFIC ANTIGEN [PSA] * DO NOT USE * (2) Hematuria Code(s): R31.9 - HEMATURIA, UNSPECIFIED Qualifiers: Hematuria type: gross Qualified Code(s): R31.0 - Gross hematuria
[2018-03-13 09:04] LABS: ANION GAP 5 (8-16); BLOOD UREA NITROGEN 16 mg/dL (7-18); CALCIUM 7.5 mg/dL (8.5-10.1); CHLORIDE 114 mmol/L (98-107); CO2 21 mmol/L (21-32); CREATININE 1.1 mg/dL (0.7-1.3); GLUCOSE,RANDOM 104 mg/dL (74-106); POTASSIUM 4.4 mmol/L (3.5-5.1); SODIUM 140 mmol/L (136-145)
[2018-03-13] MEDS ORDERED: SODIUM CHLORIDE IVPB STA (09:36)
[2018-03-13] MEDS ORDERED: AMINOCAPROIC ACID IVPB STA (09:36)
[2018-03-13] MEDS: TAMSULOSIN HCL 0.4 MG CAP.ER.24H (FP) PO SCH (09:41)
[2018-03-13] MEDS: CHOLECALCIFEROL (VITAMIN D3) 1,000 UNIT TABLET (FP) PO SCH (09:41)
[2018-03-13] MEDS: CYANOCOBALAMIN 1,000 MCG TABLET (FP) PO SCH (09:42)
[2018-03-13] MEDS: EMTRICITABINE 200MG/TENOFOVIR 300MG PO SCH (09:42)
[2018-03-13] MEDS: AMOXICILLIN 250 MG CAPSULE PO SCH ×2 (09:44→21:06)
--- NOTE | 2018-03-13 11:05 | PN ---
Progress Note, Physician Chief Complaint: ID Day 2 surgery TURP Pang removed ( 3way) - Current Medication List Current Medications: Active Medications Amoxicillin (Amoxicillin -) 750 mg PO BID [facility] Last Admin: 03/13/18 09:44 Dose: 750 mg Cholecalciferol (Vitamin D3 -) 2,000 unit PO DAILY [facility] Last Admin: 03/13/18 09:41 Dose: 2,000 unit Cyanocobalamin (Vitamin B12 -) 1,000 mcg PO DAILY [facility] Last Admin: 03/13/18 09:42 Dose: 1,000 mcg Efavirenz (Sustiva -) [address] [facility] Last Admin: 03/12/18 22:40 Dose: 600 mg Emtricitabine/Tenofovir (Truvada) 1 tab PO DAILY [facility] Last Admin: 03/13/18 09:42 Dose: 1 tab Dextrose/Sodium Chloride (D5-1/2ns -) 1,000 mls @ 125 mls/hr IV ASDIR [facility] Last Admin: 03/13/18 05:49 Dose: 125 mls/hr Cefepime HCl (Maxipime 1 Gm Premix Ivpb) 1 gm in 50 mls @ 100 mls/hr IVPB Q8H- IV [facility] PRN Reason: Protocol Last Admin: 03/13/18 10:39 Dose: 100 mls/hr Aminocaproic Acid 8 gm/ Sodium (Chloride) 532 mls @ 66.5 mls/hr IVPB ASDIR STA Stop: 03/13/18 17:35 Lactobacillus Acidophilus (Bacid -) 1 tab PO TID [facility] Last Admin: 03/13/18 05:55 Dose: 1 tab Rosuvastatin Calcium (Crestor -) [address] [facility] Last Admin: 03/12/18 22:39 Dose: 10 mg Tamsulosin HCl (Flomax -) 0.4 mg PO DAILY@0830 [facility] Last Admin: 03/13/18 09:41 Dose: 0.4 mg - Objective Vital Signs: Vital Signs Temperature 98.7 F 03/13/18 02:00 Pulse Rate 84 03/13/18 02:00 Respiratory Rate 21 03/13/18 02:00 Blood Pressure 100/60 03/13/18 02:00 O2 Sat by Pulse Oximetry (%) 97 03/12/18 22:00 HENT: Yes: WNL, Atraumatic Neck: Yes: Supple Cardiovascular: Yes: S1, S2 Respiratory: Yes: WNL, Regular, CTA Bilaterally Gastrointestinal: Yes: Soft. No: Tenderness Labs: CBC, BMP 03/13/18 07:00 03/13/18 07:00 INR, PTT INR 1.18 (0.82-1.09) H 03/11/18 07:10 Fibrinogen 503.0 mg/dL (238-498) H 03/10/18 10:27 Problem List - Problems (1) Hematuria Code(s): R31.9 - HEMATURIA, UNSPECIFIED Qualifiers: Hematuria type: gross Qualified Code(s): R31.0 - Gross hematuria (2) Indwelling Pang catheter present Code(s): Z96.0 - PRESENCE OF UROGENITAL IMPLANTS (3) Urinary tract infection Code(s): N39.0 - URINARY TRACT INFECTION, SITE NOT SPECIFIED Qualifiers: Urinary tract infection type: acute cystitis Hematuria presence: with hematuria Qualified Code(s): N30.01 - Acute cystitis with hematuria (4) HIV (human immunodeficiency virus infection) Code(s): Z21 - ASYMPTOMATIC HUMAN IMMUNODEFICIENCY VIRUS INFECTION STATUS Assessment/Plan Assessment S/P fulgaration of prostate presents with bleeding to [facility] Had TURP 2 days ago NO sign of infection though no urine c/s obtained Plan Can change to oral antibiotic ceftin 500mg bid for 5 days Keagan VELASCO
[2018-03-13 16:19] LABS: URINE APPEARANCE SLCLOUDY; URINE BILIRUBIN NEGATIVE (<2.0 mg/dL); URINE BLOOD 3+ (NEGATIVE); URINE COLOR LTYELLOW; URINE GLUCOSE (UA) 1+ (NEGATIVE); URINE KETONE NEGATIVE (NEGATIVE); URINE NITRITE NEGATIVE (NEGATIVE); URINE UROBILINOGEN NEGATIVE mg/dL (0.2-1.0)
[2018-03-13 16:21] LABS: URINE LEUK ESTERASE 3+ (NEGATIVE); URINE PROTEIN 2+ (NEGATIVE)
[2018-03-13 16:25] LABS: EPI CELLS RARE /HPF (FEW); URINE BACTERIA RARE /hpf (NONE SEEN); URINE MUCUS RARE; YEAST RARE
[2018-03-13] MEDS ORDERED: AMINOCAPROIC ACID IVPB ONE (18:00)
[2018-03-13] MEDS ORDERED: AMINOCAPROIC ACID 500 MG TABLET PO SCH (18:00)
[2018-03-13] MEDS ORDERED: SODIUM CHLORIDE IVPB ONE (18:00)
--- NOTE | 2018-03-13 19:01 | PN ---
Teaching Attending Note Name of Resident: Kevin Man ATTENDING PHYSICIAN STATEMENT I saw and evaluated the patient. I reviewed the resident's note and discussed the case with the resident. I agree with the resident's findings and plan as documented. SUBJECTIVE: Patient reports having diarrhea. OBJECTIVE: Vital Signs Period Temp Pulse Resp BP Sys/Nunez Pulse Ox Last 24 Hr 97.9 F-98.7 F 78-86 18-21 100-121/56-82 97 HEART: S1S2, RRR LUNGS: Clear ABDOMEN: Soft, non-tender, non-distended, normal BS EXTREMITIES: No edema Laboratory Results - last 24 hr 03/09/18 03/13/18 03/13/18 21:00 07:00 07:00 WBC 9.6 RBC 2.46 L Hgb 6.9 L* Hct 20.9 L MCV 85.1 MCH 28.1 MCHC 33.0 RDW 16.6 H Plt Count 306 MPV 6.6 L Sodium 140 Potassium 4.4 Chloride 114 H Carbon Dioxide 21 Anion Gap 5 L BUN 16 D Creatinine 1.1 D Random Glucose 104 Calcium 7.5 L Urine Color Urine Appearance Urine pH Ur Specific [place] Urine Protein Urine Glucose (UA) Urine Ketones Urine Blood Urine Nitrite Urine Bilirubin Urine Urobilinogen Ur Leukocyte Esterase Urine WBC (Auto) Urine RBC (Auto) Ur Epithelial Cells Urine Bacteria Urine Mucus Urine Yeast Blood Type B POSITIVE Antibody Screen Negative Crossmatch See Detail 03/13/18 03/13/18 09:35 15:00 WBC RBC Hgb Hct MCV MCH MCHC RDW Plt Count MPV Sodium Potassium Chloride Carbon Dioxide Anion Gap BUN Creatinine Random Glucose Calcium Urine Color Ltyellow Urine Appearance Slcloudy Urine pH 6.0 Ur Specific [place] 1.014 Urine Protein 2+ H Urine Glucose (UA) 1+ H Urine Ketones Negative Urine Blood 3+ H Urine Nitrite Negative Urine Bilirubin Negative Urine Urobilinogen Negative Ur Leukocyte Esterase 3+ H D Urine WBC (Auto) 161 Urine RBC (Auto) 214 Ur Epithelial Cells Rare Urine Bacteria Rare Urine Mucus Rare Urine Yeast Rare Blood Type B POSITIVE Antibody Screen Negative Crossmatch See Detail Current Medications Generic Name Dose Route Start Last Admin Trade Name Freq PRN Reason Stop Dose Admin Aminocaproic Acid 2,000 mg 03/13/18 18:00 Amicar - PO Q6HPO ELVIS Amoxicillin 750 mg 03/12/18 10:00 03/13/18 09:44 Amoxicillin - PO 750 mg BID ELVIS Administration Cefuroxime Axetil 500 mg 03/13/18 22:00 Ceftin - PO BID ELVIS Cholecalciferol 2,000 unit 03/12/18 10:00 03/13/18 09:41 Vitamin D3 - PO 2,000 unit DAILY ELVIS Administration Cyanocobalamin 1,000 mcg 03/12/18 10:00 03/13/18 09:42 Vitamin B12 - PO 1,000 mcg DAILY ELVIS Administration Efavirenz 600 mg 03/11/18 22:00 03/12/18 22:40 Sustiva - PO 600 mg HS ELVIS Administration Emtricitabine/Tenofovir 1 tab 03/12/18 10:00 03/13/18 09:42 Truvada PO 1 tab DAILY ELVIS Administration Dextrose/Sodium Chloride 1,000 mls @ 125 mls/hr 03/11/18 14:30 03/13/18 05:49 D5-1/2ns - IV 125 mls/hr ASDIR ELVIS Administration Lactobacillus Acidophilus 1 tab 03/11/18 22:00 03/13/18 13:48 Bacid - PO 1 tab TID ELVIS Administration Rosuvastatin Calcium 10 mg 03/11/18 22:00 03/12/18 22:39 Crestor - PO 10 mg HS ELVIS Administration Tamsulosin HCl 0.4 mg 03/12/18 08:30 03/13/18 09:41 Flomax - PO 0.4 mg DAILY@0830 ELVIS Administration ASSESSMENT AND PLAN: This is a 77 year old man with a history of hematuria, BPH, HTN, hyperlipidemia , HIV, recent fulguration of prostate who presented to the ED with hematuria. 1. Acute blood loss anemia secondary to hematuria from prostate bleeding - s/p fulguration of prostate 02/19 - s/p TURP 03/11 - CBI discontinued and catheter removed - Transfused 2 units PRBCs this admission - Being transfused additional 2 units PRBCs today - Continue Amicar 2. Possible UTI - Antibiotics changed to Ceftin 4. BPH - Continue Flomax 5. Acute kidney injury - Improved 6. Stage 3 CKD 7. HIV - Continue Truvada, Sustiva 8. HTN - Cozaar held secondary to PING, hypotesion - Norvasc held secondary to hypotension 9. Hyperlipidemia - Continue Crestor 10. Disposition - Plan for discharge to subacute rehab (? return to [facility]) possibly tomorrow
[2018-03-13] MEDS: AMINOCAPROIC ACID 500 MG TABLET PO SCH (19:13)
[2018-03-13 19:35] LABS: MAGNESIUM 1.9 mg/dL (1.8-2.4); POTASSIUM 4.3 mmol/L (3.5-5.1)
--- NOTE | 2018-03-13 20:44 | PN ---
Physical Exam: SUBJECTIVE: Patient seen and examined at bedside. no new complaints. No events overnight. urology removed Pang this AM. Will start voiding trial. OBJECTIVE: Vital Signs Period Temp Pulse Resp BP Sys/Nunez Pulse Ox Last 24 Hr 97.9 F-98.7 F 78-86 18-21 100-121/56-76 97 GENERAL: The patient is awake, alert, and fully oriented, in no acute distress. HEAD: Normal with no signs of trauma. NECK: Trachea midline, full range of motion, supple. LUNGS: Breath sounds equal, clear to auscultation bilaterally, no wheezes, no crackles, no accessory muscle use. HEART: Regular rate and rhythm, S1, S2 without murmur, rub or gallop. ABDOMEN: Soft, nontender, nondistended, normoactive bowel sounds, no guarding, no rebound. mild discomfort to palpation in suprapubic area. EXTREMITIES: 2+ pulses, warm, well-perfused, no edema. NEUROLOGICAL: Cranial nerves II through X grossly intact. Normal speech, gait not observed. PSYCH: Normal mood, normal affect. SKIN: Warm, dry, normal turgor, no rashes or lesions noted Laboratory Results - last 24 hr 03/09/18 03/13/18 03/13/18 21:00 07:00 07:00 WBC 9.6 RBC 2.46 L Hgb 6.9 L* Hct 20.9 L MCV 85.1 MCH 28.1 MCHC 33.0 RDW 16.6 H Plt Count 306 MPV 6.6 L Sodium 140 Potassium 4.4 Chloride 114 H Carbon Dioxide 21 Anion Gap 5 L BUN 16 D Creatinine 1.1 D Random Glucose 104 Calcium 7.5 L Magnesium Urine Color Urine Appearance Urine pH Ur Specific [place] Urine Protein Urine Glucose (UA) Urine Ketones Urine Blood Urine Nitrite Urine Bilirubin Urine Urobilinogen Ur Leukocyte Esterase Urine WBC (Auto) Urine RBC (Auto) Ur Epithelial Cells Urine Bacteria Urine Mucus Urine Yeast Blood Type B POSITIVE Antibody Screen Negative Crossmatch See Detail 03/13/18 03/13/18 03/13/18 09:35 15:00 18:50 WBC RBC Hgb Hct MCV MCH MCHC RDW Plt Count MPV Sodium Potassium 4.3 Chloride Carbon Dioxide Anion Gap BUN Creatinine Random Glucose Calcium Magnesium 1.9 Urine Color Ltyellow Urine Appearance Slcloudy Urine pH 6.0 Ur Specific [place] 1.014 Urine Protein 2+ H Urine Glucose (UA) 1+ H Urine Ketones Negative Urine Blood 3+ H Urine Nitrite Negative Urine Bilirubin Negative Urine Urobilinogen Negative Ur Leukocyte Esterase 3+ H D Urine WBC (Auto) 161 Urine RBC (Auto) 214 Ur Epithelial Cells Rare Urine Bacteria Rare Urine Mucus Rare Urine Yeast Rare Blood Type B POSITIVE Antibody Screen Negative Crossmatch See Detail Active Medications Generic Name Dose Route Start Last Admin Trade Name Freq PRN Reason Stop Dose Admin Aminocaproic Acid 2,000 mg 03/13/18 18:00 03/13/18 19:13 Amicar - PO 2,000 mg Q6HPO ELVIS Administration Amoxicillin 750 mg 03/12/18 10:00 03/13/18 09:44 Amoxicillin - PO 750 mg BID ELVIS Administration Cefuroxime Axetil 500 mg 03/13/18 22:00 Ceftin - PO BID ELVIS Cholecalciferol 2,000 unit 03/12/18 10:00 03/13/18 09:41 Vitamin D3 - PO 2,000 unit DAILY ELVIS Administration Cyanocobalamin 1,000 mcg 03/12/18 10:00 03/13/18 09:42 Vitamin B12 - PO 1,000 mcg DAILY ELVIS Administration Efavirenz 600 mg 03/11/18 22:00 03/12/18 22:40 Sustiva - PO 600 mg HS ELVIS Administration Emtricitabine/Tenofovir 1 tab 03/12/18 10:00 03/13/18 09:42 Truvada PO 1 tab DAILY ELVIS Administration Dextrose/Sodium Chloride 1,000 mls @ 125 mls/hr 03/11/18 14:30 03/13/18 05:49 D5-1/2ns - IV 125 mls/hr ASDIR ELVIS Administration Lactobacillus Acidophilus 1 tab 03/11/18 22:00 03/13/18 13:48 Bacid - PO 1 tab TID ELVIS Administration Rosuvastatin Calcium 10 mg 03/11/18 22:00 03/12/18 22:39 Crestor - PO 10 mg HS ELVIS Administration Tamsulosin HCl 0.4 mg 03/12/18 08:30 03/13/18 09:41 Flomax - PO 0.4 mg DAILY@0830 ELVIS Administration ASSESSMENT/PLAN: The patient is a 77 yo m w/ PMH BPH, HTN, HIV, previous episodes of hematuria s/ p flugration of the prostate who presents with serene painless hematuria again. #Hematuria/Acute blood loss anemia -s/p cystoscopy w/ shaving of the prostate w/ Dr. Lobato (POD1). -Hematology consulted, On Amicar 8G PO Q6H. Plan to taper dose 8g -> 6g ->4g -AM Hb 6.8. s/p 2 units prbc (4 units total this admission) #PING- resolved -IVF -Avoid nephrotoxic meds -Holding home Losartan 25mg -will restart if patient becomes hypertensive #Hyperkalemia- resolved #HIV -c/w home Atripla #HLD -c/w home crestor #Prophylaxis - SCDs #FEN -D5 1/2NS @125 -monitor lytes -regular diet #Dispo -admit to med-surg. Visit type - Emergency Visit Emergency Visit: Yes ED Registration Date: 03/09/18 Care time: The patient presented to the Emergency Department on the above date and was hospitalized for further evaluation of their emergent condition. - New Patient This patient is new to me today: No - Critical Care Critical Care patient: No
[2018-03-13] MEDS ORDERED: PT OWN MED DRAWER 7, Y5N ONE (20:50)
[2018-03-13] MEDS: EFAVIRENZ 600 MG TABLET PO SCH (21:07)
[2018-03-13] MEDS: ROSUVASTATIN CA 10 MG TABLET (FP) PO SCH (21:07)
[2018-03-13] MEDS: CEFUROXIME AXETIL 500 MG TABLET PO SCH (21:12)
--- NOTE | 2018-03-13 23:42 | PN ---
Progress Note (short form) - Note Progress Note: Patient seen and examined feels better Last Vital Signs Temp Pulse Resp BP Pulse Ox 98 F 63 20 120/60 99 03/13/18 22:43 03/13/18 22:43 03/13/18 22:43 03/13/18 22:43 03/13/18 21:00 Cor: RSR, No murmurs, No gallops Lungs: Clear to P&A Abd: Soft, Normal bowel sounds, No organomegaly Ext:No significant edema Abnormal Lab Results 03/09/18 03/13/18 03/13/18 21:00 07:00 07:00 RBC 2.46 L Hgb 6.9 L* Hct 20.9 L RDW 16.6 H MPV 6.6 L Chloride 114 H Anion Gap 5 L Calcium 7.5 L Urine Protein Urine Glucose (UA) Urine Blood Ur Leukocyte Esterase Crossmatch See Detail 03/13/18 03/13/18 09:35 15:00 RBC Hgb Hct RDW MPV Chloride Anion Gap Calcium Urine Protein 2+ H Urine Glucose (UA) 1+ H Urine Blood 3+ H Ur Leukocyte Esterase 3+ H D Crossmatch See Detail Home Medication List Medication Instructions Recorded Confirmed Type Amlodipine Besylate [Norvasc -] 10 mg PO DAILY 03/09/18 03/09/18 History Cholecalciferol (Vitamin D3) 2,000 unit PO DAILY 03/09/18 03/09/18 History [Vitamin D] Cran/Vitc/Mannose/Fos/Bromeln 30 ml PO DAILY 03/09/18 03/09/18 History [Uti-Stat Liquid] Cyanocobalamin (Vitamin B-12) 1,000 mcg PO DAILY 03/09/18 03/09/18 History [Vitamin B12] Efavirenz/Emtricitab/Tenofovir 1 tab PO DAILY 03/09/18 03/09/18 History [Atripla -] Lactobacillus Acidophilus [Bacid -] 1 each PO TID 03/09/18 03/09/18 History Losartan Potassium 25 mg PO DAILY 03/09/18 03/09/18 History Rosuvastatin Calcium [Crestor] 10 mg PO DAILY 03/09/18 03/09/18 History Tamsulosin HCl [Flomax] 0.4 mg PO DAILY 03/09/18 03/09/18 History Active Medications Generic Name Dose Route Start Last Admin Trade Name Shaina PRN Reason Stop Dose Admin Aminocaproic Acid 2,000 mg 03/13/18 18:00 03/13/18 19:13 Amicar - PO 2,000 mg Q6HPO ELVIS Administration Amoxicillin 750 mg 03/12/18 10:00 03/13/18 21:06 Amoxicillin - PO 750 mg BID ELVIS Administration Cefuroxime Axetil 500 mg 03/13/18 22:00 03/13/18 21:12 Ceftin - PO 500 mg BID ELVIS Administration Cholecalciferol 2,000 unit 03/12/18 10:00 03/13/18 09:41 Vitamin D3 - PO 2,000 unit DAILY ELVIS Administration Cyanocobalamin 1,000 mcg 03/12/18 10:00 03/13/18 09:42 Vitamin B12 - PO 1,000 mcg DAILY ELVIS Administration Efavirenz 600 mg 03/11/18 22:00 03/13/18 21:07 Sustiva - PO 600 mg HS ELVIS Administration Emtricitabine/Tenofovir 1 tab 03/12/18 10:00 03/13/18 09:42 Truvada PO 1 tab DAILY ELVIS Administration Dextrose/Sodium Chloride 1,000 mls @ 125 mls/hr 03/11/18 14:30 03/13/18 05:49 D5-1/2ns - IV 125 mls/hr ASDIR ELVIS Administration Lactobacillus Acidophilus 1 tab 03/11/18 22:00 03/13/18 21:08 Bacid - PO 1 tab TID ELVIS Administration Rosuvastatin Calcium 10 mg 03/11/18 22:00 03/13/18 21:07 Crestor - PO 10 mg HS ELVIS Administration Tamsulosin HCl 0.4 mg 03/12/18 08:30 03/13/18 09:41 Flomax - PO 0.4 mg DAILY@0830 ELVIS Administration A/P 77 y/o patient with HIV, BPH, HTN, hyperlipidemia, comes in with recurrent hematuria s/p cystoscopy/TURP continue amicar---switched to PO 2g continue ceftin
[2018-03-14] MEDS ORDERED: PT OWN MED DRAWER 7, Y5N ONE ×7 (00:42→21:08)
[2018-03-14] MEDS: AMINOCAPROIC ACID 500 MG TABLET PO SCH ×4 (00:48→17:49)
[2018-03-14 02:21] LABS: HEMATOCRIT 27.2 % (35.4-49); HEMOGLOBIN 9.3 GM/dL (11.7-16.9); MCHC 34.1 g/dl (32.0-35.9); MEAN PLT VOLUME 6.9 fl (7.5-11.1); PLATELET COUNT 287 K/MM3 (134-434); RBC 3.32 M/mm3 (4.00-5.60); RDW 16.9 % (11.9-15.9); WHITE BLOOD COUNT 8.1 K/mm3 (4.0-10.0)
[2018-03-14] MEDS: LACTOBACILLUS ACIDOPHILUS 1 TABLET PO SCH ×3 (06:20→21:10)
[2018-03-14] MEDS: DEXTROSE 5%-0.45% SALINE 1,000 ML IV SCH ×2 (06:26→17:49)
[2018-03-14 08:16] LABS: BASO % 0.3 % (0-2.0); EOS % 3.7 % (0-4.5); HEMATOCRIT 28.3 % (35.4-49); HEMOGLOBIN 9.5 GM/dL (11.7-16.9); MCH 27.4 pg (25.7-33.7); MCHC 33.6 g/dl (32.0-35.9); MEAN CELL VOLUME 81.7 fl (80-96); MEAN PLT VOLUME 6.5 fl (7.5-11.1); MONO % 5.9 % (3.8-10.2); NEUT % 78.1 % (42.8-82.8); PLATELET COUNT 294 K/MM3 (134-434); RBC 3.46 M/mm3 (4.00-5.60); RDW 17.1 % (11.9-15.9); WHITE BLOOD COUNT 7.3 K/mm3 (4.0-10.0)
[2018-03-14 08:28] LABS: INR 1.24 (0.82-1.09)
[2018-03-14 08:31] LABS: ACTIVATED PTT 28.7 SECONDS (26.9-34.4)
[2018-03-14] MEDS: TAMSULOSIN HCL 0.4 MG CAP.ER.24H (FP) PO SCH (08:33)
[2018-03-14 08:59] LABS: ANION GAP 6 (8-16); BLOOD UREA NITROGEN 13 mg/dL (7-18); CALCIUM 7.4 mg/dL (8.5-10.1); CHLORIDE 109 mmol/L (98-107); CO2 22 mmol/L (21-32); GLUCOSE,RANDOM 97 mg/dL (74-106); POTASSIUM 3.9 mmol/L (3.5-5.1); SODIUM 137 mmol/L (136-145)
[2018-03-14] MEDS: AMOXICILLIN 250 MG CAPSULE PO SCH (10:11)
[2018-03-14] MEDS: CYANOCOBALAMIN 1,000 MCG TABLET (FP) PO SCH (10:11)
[2018-03-14] MEDS: CHOLECALCIFEROL (VITAMIN D3) 1,000 UNIT TABLET (FP) PO SCH (10:11)
[2018-03-14] MEDS: EMTRICITABINE 200MG/TENOFOVIR 300MG PO SCH (10:11)
[2018-03-14] MEDS: CEFUROXIME AXETIL 500 MG TABLET PO SCH ×2 (10:12→21:12)
--- NOTE | 2018-03-14 12:36 | PN ---
Progress Note (short form) - Note Progress Note: Patient seen and examined Pang out Small volumes of relatively clear urine No significant pain or dysuria Last Vital Signs Temp Pulse Resp BP Pulse Ox 97.6 F 72 16 130/65 99 03/14/18 08:25 03/14/18 08:25 03/14/18 08:25 03/14/18 08:25 03/13/18 21:00 Edentulous Lungs- poor inspiratory effort Cor-RSR Abdomen soft Ext- negative CBC, BMP 03/14/18 07:25 03/14/18 07:25 Current Medications Generic Name Dose Route Start Last Admin Trade Name Freq PRN Reason Stop Dose Admin Aminocaproic Acid 2,000 mg 03/13/18 18:00 03/14/18 06:21 Amicar - PO 2,000 mg Q6HPO ELVIS Administration Amoxicillin 750 mg 03/12/18 10:00 03/14/18 10:11 Amoxicillin - PO 750 mg BID ELVIS Administration Cefuroxime Axetil 500 mg 03/13/18 22:00 03/14/18 10:12 Ceftin - PO 500 mg BID ELVIS Administration Cholecalciferol 2,000 unit 03/12/18 10:00 03/14/18 10:11 Vitamin D3 - PO 2,000 unit DAILY ELVIS Administration Cyanocobalamin 1,000 mcg 03/12/18 10:00 03/14/18 10:11 Vitamin B12 - PO 1,000 mcg DAILY ELVIS Administration Efavirenz 600 mg 03/11/18 22:00 03/13/18 21:07 Sustiva - PO 600 mg HS ELVIS Administration Emtricitabine/Tenofovir 1 tab 03/12/18 10:00 03/14/18 10:11 Truvada PO 1 tab DAILY ELVIS Administration Dextrose/Sodium Chloride 1,000 mls @ 125 mls/hr 03/11/18 14:30 03/14/18 06:26 D5-1/2ns - IV 125 mls/hr ASDIR ELVIS Administration Lactobacillus Acidophilus 1 tab 03/11/18 22:00 03/14/18 06:20 Bacid - PO 1 tab TID ELVIS Administration Rosuvastatin Calcium 10 mg 03/11/18 22:00 03/13/18 21:07 Crestor - PO 10 mg HS ELVIS Administration Tamsulosin HCl 0.4 mg 03/12/18 08:30 03/14/18 08:33 Flomax - PO 0.4 mg DAILY@0830 ELVIS Administration Impression: s/p cysto Hematuria Anemia HIV HPL Antibiotics Plan: Continue taper of amicar--2 gm q 8h beginning on .
--- NOTE | 2018-03-14 15:26 | PATH ---
Surgical Pathology Report Patient Name: REGINA AYALA Med. Rec. #: [id number] /Age/Gender: 1940 (Age: 77) / M Account: [id number] Location: [address] [place] [address] Taken: 03/11/2018 Received: 03/12/2018 Reported: 03/14/2018 Physicians: Richard Reddy M.D. Specimen(s) Received TISSUE OF PROSTATE Clinical History Hematuria Final Diagnosis PROSTATE, TRANSURETHRAL RESECTION OF PROSTATE: BENIGN PROSTATIC TISSUE WITH MARKED ACUTE AND CHRONIC INFLAMMATION, SQUAMOUS METAPLASIA, REACTIVE CHANGES, GLANDULAR AND STROMAL HYPERPLASIA. Electronically Signed Cecy Odonnell M.D. Gross Description Received in formalin labeled "prostate tissue," is a 10 g, 7.5 x 6.5 x 0.6 cm aggregate of neal, irregular, firm to rubbery portion of tissue admixed with blood clot, consistent with prostate tissue. A sales representative leather goods portion is submitted in 8 cassettes. /03/12/2018 [facility]03/12/2018
--- NOTE | 2018-03-14 18:26 | PN ---
Teaching Attending Note Name of Resident: Kevin Man ATTENDING PHYSICIAN STATEMENT I saw and evaluated the patient. I reviewed the resident's note and discussed the case with the resident. I agree with the resident's findings and plan as documented. SUBJECTIVE: Patient is happy that he has no further blood in the urine. He denies any complaints. He had an episode of diarrhea yesterday but that has resolved. OBJECTIVE: Last Vital Signs Temp Pulse Resp BP Pulse Ox 97.5 F L 71 18 127/63 99 03/14/18 18:00 03/14/18 18:00 03/14/18 18:00 03/14/18 18:00 03/14/18 09:00 Awake, alert, oriented, NAD chest clear heart rr no M abd soft and NT extrem no edema Laboratory Results - last 24 hr 03/13/18 03/14/18 03/14/18 18:50 01:50 07:25 WBC 8.1 7.3 RBC 3.32 L D 3.46 L Hgb 9.3 L D 9.5 L Hct 27.2 L D 28.3 L MCV 82.0 81.7 MCH 28.0 27.4 MCHC 34.1 33.6 RDW 16.9 H 17.1 H Plt Count 287 294 MPV 6.9 L 6.5 L Neutrophils % 78.1 Lymphocytes % 12.0 D Monocytes % 5.9 Eosinophils % 3.7 D Basophils % 0.3 PT with INR INR PTT (Actin FS) Sodium Potassium 4.3 Chloride Carbon Dioxide Anion Gap BUN Creatinine Random Glucose Calcium Magnesium 1.9 03/14/18 03/14/18 07:25 07:25 WBC RBC Hgb Hct MCV MCH MCHC RDW Plt Count MPV Neutrophils % Lymphocytes % Monocytes % Eosinophils % Basophils % PT with INR 14.00 H INR 1.24 H PTT (Actin FS) 28.7 Sodium 137 Potassium 3.9 Chloride 109 H Carbon Dioxide 22 Anion Gap 6 L BUN 13 Creatinine 1.0 Random Glucose 97 Calcium 7.4 L Magnesium Current Medications Generic Name Dose Route Start Last Admin Trade Name Freq PRN Reason Stop Dose Admin Aminocaproic Acid 2,000 mg 03/13/18 18:00 03/14/18 17:49 Amicar - PO 2,000 mg Q6HPO ELVIS Administration Cefuroxime Axetil 500 mg 03/13/18 22:00 03/14/18 10:12 Ceftin - PO 500 mg BID ELVIS Administration Cholecalciferol 2,000 unit 03/12/18 10:00 03/14/18 10:11 Vitamin D3 - PO 2,000 unit DAILY ELVIS Administration Cyanocobalamin 1,000 mcg 03/12/18 10:00 03/14/18 10:11 Vitamin B12 - PO 1,000 mcg DAILY ELVIS Administration Efavirenz 600 mg 03/11/18 22:00 03/13/18 21:07 Sustiva - PO 600 mg HS ELVIS Administration Emtricitabine/Tenofovir 1 tab 03/12/18 10:00 03/14/18 10:11 Truvada PO 1 tab DAILY ELVIS Administration Dextrose/Sodium Chloride 1,000 mls @ 125 mls/hr 03/11/18 14:30 03/14/18 17:49 D5-1/2ns - IV Not Given ASDIR ELVIS Lactobacillus Acidophilus 1 tab 03/11/18 22:00 03/14/18 13:45 Bacid - PO 1 tab TID ELVIS Administration Rosuvastatin Calcium 10 mg 03/11/18 22:00 03/13/18 21:07 Crestor - PO 10 mg HS ELVIS Administration Tamsulosin HCl 0.4 mg 03/12/18 08:30 03/14/18 08:33 Flomax - PO 0.4 mg DAILY@0830 ELVIS Administration ASSESSMENT AND PLAN: 77 y/o man with admission for recurrent hematuria. Now doing much better post TURP and on amicar. Pang has been out and he is passing clear urine. 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
--- NOTE | 2018-03-14 20:57 | PN ---
Physical Exam: SUBJECTIVE: Patient seen and examined at bedside. No new complaints, no events overnight. OBJECTIVE: Vital Signs Period Temp Pulse Resp BP Sys/Nunez Pulse Ox Last 24 Hr 97.5 F-98.1 F 63-74 16-20 112-130/52-65 99-99 GENERAL: The patient is awake, alert, and fully oriented, in no acute distress. HEAD: Normal with no signs of trauma. NECK: Trachea midline, full range of motion, supple. LUNGS: Breath sounds equal, clear to auscultation bilaterally, no wheezes, no crackles, no accessory muscle use. HEART: Regular rate and rhythm, S1, S2 without murmur, rub or gallop. ABDOMEN: Soft, nontender, nondistended, normoactive bowel sounds, no guarding, no rebound. mild discomfort to palpation in suprapubic area. EXTREMITIES: 2+ pulses, warm, well-perfused, no edema. NEUROLOGICAL: Cranial nerves II through X grossly intact. Normal speech, gait not observed. PSYCH: Normal mood, normal affect. SKIN: Warm, dry, normal turgor, no rashes or lesions noted Laboratory Results - last 24 hr 03/14/18 03/14/18 03/14/18 01:50 07:25 07:25 WBC 8.1 7.3 RBC 3.32 L D 3.46 L Hgb 9.3 L D 9.5 L Hct 27.2 L D 28.3 L MCV 82.0 81.7 MCH 28.0 27.4 MCHC 34.1 33.6 RDW 16.9 H 17.1 H Plt Count 287 294 MPV 6.9 L 6.5 L Neutrophils % 78.1 Lymphocytes % 12.0 D Monocytes % 5.9 Eosinophils % 3.7 D Basophils % 0.3 PT with INR 14.00 H INR 1.24 H PTT (Actin FS) 28.7 Sodium Potassium Chloride Carbon Dioxide Anion Gap BUN Creatinine Random Glucose Calcium 03/14/18 07:25 WBC RBC Hgb Hct MCV MCH MCHC RDW Plt Count MPV Neutrophils % Lymphocytes % Monocytes % Eosinophils % Basophils % PT with INR INR PTT (Actin FS) Sodium 137 Potassium 3.9 Chloride 109 H Carbon Dioxide 22 Anion Gap 6 L BUN 13 Creatinine 1.0 Random Glucose 97 Calcium 7.4 L Active Medications Generic Name Dose Route Start Last Admin Trade Name Freq PRN Reason Stop Dose Admin Aminocaproic Acid 2,000 mg 03/13/18 18:00 03/14/18 17:49 Amicar - PO 2,000 mg Q6HPO ELVIS Administration Cefuroxime Axetil 500 mg 03/13/18 22:00 03/14/18 10:12 Ceftin - PO 500 mg BID ELVIS Administration Cholecalciferol 2,000 unit 03/12/18 10:00 03/14/18 10:11 Vitamin D3 - PO 2,000 unit DAILY ELVIS Administration Cyanocobalamin 1,000 mcg 03/12/18 10:00 03/14/18 10:11 Vitamin B12 - PO 1,000 mcg DAILY ELVIS Administration Efavirenz 600 mg 03/11/18 22:00 03/13/18 21:07 Sustiva - PO 600 mg HS ELVIS Administration Emtricitabine/Tenofovir 1 tab 03/12/18 10:00 03/14/18 10:11 Truvada PO 1 tab DAILY ELVIS Administration Dextrose/Sodium Chloride 1,000 mls @ 125 mls/hr 03/11/18 14:30 03/14/18 17:49 D5-1/2ns - IV Not Given ASDIR ELVIS Lactobacillus Acidophilus 1 tab 03/11/18 22:00 03/14/18 13:45 Bacid - PO 1 tab TID ELVIS Administration Rosuvastatin Calcium 10 mg 03/11/18 22:00 03/13/18 21:07 Crestor - PO 10 mg HS ELVIS Administration Tamsulosin HCl 0.4 mg 03/12/18 08:30 03/14/18 08:33 Flomax - PO 0.4 mg DAILY@0830 ELVIS Administration ASSESSMENT/PLAN: The patient is a 77 yo m w/ PMH BPH, HTN, HIV, previous episodes of hematuria s/ p flugration of the prostate who presents with serene painless hematuria again. #Hematuria/Acute blood loss anemia -s/p cystoscopy w/ shaving of the prostate w/ Dr. Lobato (POD2). -Hematology consulted, On Amicar 2g PO Q6H. Will taper to 2g TID tomorrow for 2 days, Then 2g BID for 2 days, Then 2g daily for 2 days. -AM Hb 6.8. s/p 2 units prbc (4 units total this admission) #PING- resolved -IVF -Avoid nephrotoxic meds -Holding home Losartan 25mg -will restart if patient becomes hypertensive #Hyperkalemia- resolved #HIV -c/w home Atripla #HLD -c/w home crestor #Prophylaxis - SCDs #FEN -D5 1/2NS @125 -monitor lytes -regular diet #Dispo -admit to med-surg. Visit type - Emergency Visit Emergency Visit: Yes ED Registration Date: 03/09/18 Care time: The patient presented to the Emergency Department on the above date and was hospitalized for further evaluation of their emergent condition. - New Patient This patient is new to me today: No - Critical Care Critical Care patient: No
[2018-03-14] MEDS: ROSUVASTATIN CA 10 MG TABLET (FP) PO SCH (21:11)
[2018-03-14] MEDS: EFAVIRENZ 600 MG TABLET PO SCH (21:12)
[2018-03-15] MEDS: AMINOCAPROIC ACID 500 MG TABLET PO SCH ×4 (00:05→22:18)
[2018-03-15] MEDS: DEXTROSE 5%-0.45% SALINE 1,000 ML IV SCH (00:09)
[2018-03-15] MEDS ORDERED: PT OWN MED DRAWER 7, Y5N ONE ×5 (05:49→22:51)
[2018-03-15] MEDS: LACTOBACILLUS ACIDOPHILUS 1 TABLET PO SCH ×3 (05:58→22:17)
[2018-03-15 06:53] LABS: HEMATOCRIT 27.3 % (35.4-49); HEMOGLOBIN 9.5 GM/dL (11.7-16.9); MCH 28.2 pg (25.7-33.7); MCHC 34.9 g/dl (32.0-35.9); MEAN PLT VOLUME 6.7 fl (7.5-11.1); PLATELET COUNT 289 K/MM3 (134-434); RBC 3.37 M/mm3 (4.00-5.60); RDW 17.3 % (11.9-15.9); WHITE BLOOD COUNT 8.1 K/mm3 (4.0-10.0)
[2018-03-15 07:20] LABS: ANION GAP 5 (8-16); BLOOD UREA NITROGEN 12 mg/dL (7-18); CALCIUM 7.1 mg/dL (8.5-10.1); CHLORIDE 113 mmol/L (98-107); CO2 21 mmol/L (21-32); GLUCOSE,RANDOM 99 mg/dL (74-106); MAGNESIUM 1.7 mg/dL (1.8-2.4); SODIUM 139 mmol/L (136-145)
[2018-03-15 07:23] LABS: CREATININE 0.8 mg/dL (0.7-1.3)
--- NOTE | 2018-03-15 09:45 | PN ---
Physical Exam: SUBJECTIVE: Patient seen and examined Patient is comfortable, wants to go home, no further bleed. OBJECTIVE: Vital Signs Temperature 97.4 F L 03/15/18 06:00 Pulse Rate 71 03/15/18 06:00 Respiratory Rate 18 03/15/18 06:00 Blood Pressure 112/57 03/15/18 06:00 O2 Sat by Pulse Oximetry (%) 98 03/14/18 22:00 GENERAL: The patient is awake, alert, and fully oriented, in no acute distress. HEAD: Normal with no signs of trauma. EYES: PERRL, extraocular movements intact, sclera anicteric, conjunctiva clear. ENT: Ears normal, oropharynx clear without exudates, moist mucous membranes. NECK: Trachea midline, full range of motion, supple. LUNGS: Breath sounds equal, clear to auscultation bilaterally, no wheezes, no crackles, no accessory muscle use. HEART: Regular rate and rhythm, S1, S2 without murmur, rub or gallop. ABDOMEN: Soft, nontender, nondistended, normoactive bowel sounds, no guarding, no rebound, no hepatosplenomegaly, no masses. EXTREMITIES: 2+ pulses, warm, well-perfused, no edema. NEUROLOGICAL: Cranial nerves II through XII grossly intact. Normal speech, gait not observed. PSYCH: Normal mood, normal affect. SKIN: Warm, dry, normal turgor, no rashes or lesions noted CBCD WBC 8.1 K/mm3 (4.0-10.0) 03/15/18 06:20 RBC 3.37 M/mm3 (4.00-5.60) L 03/15/18 06:20 Hgb 9.5 GM/dL (11.7-16.9) L 03/15/18 06:20 Hct 27.3 % (35.4-49) L 03/15/18 06:20 MCV 81.0 fl (80-96) 03/15/18 06:20 MCHC 34.9 g/dl (32.0-35.9) 03/15/18 06:20 RDW 17.3 % (11.9-15.9) H 03/15/18 06:20 Plt Count 289 K/MM3 (134-434) 03/15/18 06:20 MPV 6.7 fl (7.5-11.1) L 03/15/18 06:20 CMP Sodium 139 mmol/L (136-145) 03/15/18 06:20 Potassium 4.0 mmol/L (3.5-5.1) 03/15/18 06:20 Chloride 113 mmol/L (98-107) H 03/15/18 06:20 Carbon Dioxide 21 mmol/L (21-32) 03/15/18 06:20 Anion Gap 5 (8-16) L 03/15/18 06:20 BUN 12 mg/dL (7-18) 03/15/18 06:20 Creatinine 0.8 mg/dL (0.7-1.3) 03/15/18 06:20 Creat Clearance w eGFR 59.02 (>60) 03/11/18 07:10 Random Glucose 99 mg/dL (74-106) 03/15/18 06:20 Calcium 7.1 mg/dL (8.5-10.1) L 03/15/18 06:20 Total Bilirubin 0.2 mg/dL (0.2-1.0) D 03/11/18 07:10 AST 16 U/L (15-37) 03/11/18 07:10 ALT 18 U/L (12-78) 03/11/18 07:10 Alkaline Phosphatase 85 U/L (45-117) 03/11/18 07:10 Total Protein 4.8 g/dl (6.4-8.2) L 03/11/18 07:10 Albumin 1.7 g/dl (3.4-5.0) L 03/11/18 07:10 Active Medications Generic Name Dose Route Start Last Admin Trade Name Freq PRN Reason Stop Dose Admin Aminocaproic Acid 2,000 mg 03/15/18 06:00 03/15/18 05:58 Amicar - PO 03/16/18 22:01 2,000 mg TID ELVIS Administration Cefuroxime Axetil 500 mg 03/13/18 22:00 03/14/18 21:12 Ceftin - PO 500 mg BID ELVIS Administration Cholecalciferol 2,000 unit 03/12/18 10:00 03/14/18 10:11 Vitamin D3 - PO 2,000 unit DAILY ELVIS Administration Cyanocobalamin 1,000 mcg 03/12/18 10:00 03/14/18 10:11 Vitamin B12 - PO 1,000 mcg DAILY ELVIS Administration Efavirenz 600 mg 03/11/18 22:00 03/14/18 21:12 Sustiva - PO 600 mg HS ELVIS Administration Emtricitabine/Tenofovir 1 tab 03/12/18 10:00 03/14/18 10:11 Truvada PO 1 tab DAILY ELVIS Administration Dextrose/Sodium Chloride 1,000 mls @ 125 mls/hr 03/11/18 14:30 03/15/18 00:09 D5-1/2ns - IV 125 mls/hr ASDIR ELVIS Administration Lactobacillus Acidophilus 1 tab 03/11/18 22:00 03/15/18 05:58 Bacid - PO 1 tab TID ELVIS Administration Rosuvastatin Calcium 10 mg 03/11/18 22:00 03/14/18 21:11 Crestor - PO 10 mg HS ELVIS Administration Tamsulosin HCl 0.4 mg 03/12/18 08:30 03/14/18 08:33 Flomax - PO 0.4 mg DAILY@0830 ELVIS Administration Microbiology 03/11/18 21:24 Blood - Peripheral Venous Blood Culture - Preliminary NO GROWTH OBTAINED AFTER 96 HOURS, INCUBATION TO CONTINUE FOR 1 DAYS. 03/11/18 20:50 Blood - Peripheral Venous Blood Culture - Preliminary NO GROWTH OBTAINED AFTER 96 HOURS, INCUBATION TO CONTINUE FOR 1 DAYS. 03/13/18 15:00 Urine - Urine Clean Catch Urine Culture - Final Contaminated: Please Repeat ASSESSMENT AND PLAN: 77 y/o man with admission for recurrent hematuria. Now doing much better post TURP and on amicar. Pang has been out and he is passing clear urine. # Acute blood loss anemia due to having hematuria s/p 2 units of PRBCs , on amicar for control of hematuria, will taper over the next 6 days at home, 2g tid x 2 d, than bid x 2 d, then qd x 2d # UTI, repaet UA with many WBC, 3+ LE , await culture results # BPH on flomax # PING improved, creat down to 1.0 # HIV controlled follow with Dr. Holland # HTN meds held in setting of bleed, can restart on discharge # HLD on crestor Patient requesting discharge home rather than to SNF will get PT to reevaluate the patient, and VNS Visit type - Emergency Visit Emergency Visit: Yes ED Registration Date: 03/09/18 Care time: The patient presented to the Emergency Department on the above date and was hospitalized for further evaluation of their emergent condition. - New Patient This patient is new to me today: Yes Date on this admission: 03/15/18 - Critical Care Critical Care patient: No - Discharge Referral Referred to [facility] No
[2018-03-15] MEDS: CYANOCOBALAMIN 1,000 MCG TABLET (FP) PO SCH (10:14)
[2018-03-15] MEDS: EMTRICITABINE 200MG/TENOFOVIR 300MG PO SCH (10:14)
[2018-03-15] MEDS: CHOLECALCIFEROL (VITAMIN D3) 1,000 UNIT TABLET (FP) PO SCH (10:14)
[2018-03-15] MEDS: TAMSULOSIN HCL 0.4 MG CAP.ER.24H (FP) PO SCH (10:14)
[2018-03-15] MEDS: CEFUROXIME AXETIL 500 MG TABLET PO SCH ×2 (10:15→22:18)
--- NOTE | 2018-03-15 12:28 | PN ---
Progress Note (short form) - Note Progress Note: Patient seen and examined Pang out he reports clear urine No blood Vital Signs Period Temp Pulse Resp BP Sys/Nunez Pulse Ox Last 24 Hr 97.4 F-98.4 F 71-76 18-18 112-138/57-67 98 Edentulous Lungs- poor inspiratory effort Abdomen soft Ext- negative CBC, BMP 03/15/18 06:20 03/15/18 06:20 Current Medications Generic Name Dose Route Start Last Admin Trade Name Freq PRN Reason Stop Dose Admin Aminocaproic Acid 2,000 mg 03/15/18 06:00 03/15/18 05:58 Amicar - PO 03/16/18 22:01 2,000 mg TID ELVIS Administration Cefuroxime Axetil 500 mg 03/13/18 22:00 03/15/18 10:15 Ceftin - PO 500 mg BID ELVIS Administration Cholecalciferol 2,000 unit 03/12/18 10:00 03/15/18 10:14 Vitamin D3 - PO 2,000 unit DAILY ELVIS Administration Cyanocobalamin 1,000 mcg 03/12/18 10:00 03/15/18 10:14 Vitamin B12 - PO 1,000 mcg DAILY ELVIS Administration Efavirenz 600 mg 03/11/18 22:00 03/14/18 21:12 Sustiva - PO 600 mg HS ELVIS Administration Emtricitabine/Tenofovir 1 tab 03/12/18 10:00 03/15/18 10:14 Truvada PO 1 tab DAILY ELVIS Administration Dextrose/Sodium Chloride 1,000 mls @ 125 mls/hr 03/11/18 14:30 03/15/18 00:09 D5-1/2ns - IV 125 mls/hr ASDIR ELVIS Administration Lactobacillus Acidophilus 1 tab 03/11/18 22:00 03/15/18 05:58 Bacid - PO 1 tab TID ELVIS Administration Rosuvastatin Calcium 10 mg 03/11/18 22:00 03/14/18 21:11 Crestor - PO 10 mg HS ELVIS Administration Tamsulosin HCl 0.4 mg 03/12/18 08:30 03/15/18 10:14 Flomax - PO 0.4 mg DAILY@0830 ELVIS Administration Impression: s/p cysto Hematuria Anemia HIV HPL Antibiotics Plan: Continue taper of amicar--2 gm q 8h beginning on .
[2018-03-15] MEDS: ROSUVASTATIN CA 10 MG TABLET (FP) PO SCH (22:17)
[2018-03-15] MEDS: EFAVIRENZ 600 MG TABLET PO SCH (22:19)
[2018-03-16] MEDS ORDERED: PT OWN MED DRAWER 7, Y5N ONE ×2 (05:41→09:53)
[2018-03-16] MEDS: LACTOBACILLUS ACIDOPHILUS 1 TABLET PO SCH ×3 (06:10→22:36)
[2018-03-16] MEDS: AMINOCAPROIC ACID 500 MG TABLET PO SCH ×3 (06:11→22:36)
[2018-03-16 08:45] LABS: BASO % 0.5 % (0-2.0); EOS % 5.4 % (0-4.5); HEMATOCRIT 29.5 % (35.4-49); HEMOGLOBIN 10.1 GM/dL (11.7-16.9); LYMPH % 16.1 % (8-40); MCH 28.1 pg (25.7-33.7); MCHC 34.1 g/dl (32.0-35.9); MEAN CELL VOLUME 82.2 fl (80-96); MEAN PLT VOLUME 6.5 fl (7.5-11.1); MONO % 5.9 % (3.8-10.2); NEUT % 72.1 % (42.8-82.8); PLATELET COUNT 324 K/MM3 (134-434); RBC 3.59 M/mm3 (4.00-5.60); RDW 16.7 % (11.9-15.9); WHITE BLOOD COUNT 7.9 K/mm3 (4.0-10.0)
[2018-03-16] MEDS: CHOLECALCIFEROL (VITAMIN D3) 1,000 UNIT TABLET (FP) PO SCH (10:06)
[2018-03-16] MEDS: TAMSULOSIN HCL 0.4 MG CAP.ER.24H (FP) PO SCH (10:06)
[2018-03-16] MEDS: CYANOCOBALAMIN 1,000 MCG TABLET (FP) PO SCH (10:06)
[2018-03-16] MEDS: EMTRICITABINE 200MG/TENOFOVIR 300MG PO SCH (10:07)
[2018-03-16] MEDS: CEFUROXIME AXETIL 500 MG TABLET PO SCH ×2 (10:07→22:36)
--- NOTE | 2018-03-16 18:13 | PN ---
Progress Note (short form) - Note Progress Note: Patient is comfortable with no acute distress. No further Hematuria Vital Signs Temperature 98.6 F 03/16/18 13:47 Pulse Rate 88 03/16/18 13:47 Respiratory Rate 20 03/16/18 06:00 Blood Pressure 111/63 03/16/18 13:47 O2 Sat by Pulse Oximetry (%) 98 03/15/18 21:00 GENERAL: The patient is awake, alert, and fully oriented, in no acute distress. HEAD: Normal with no signs of trauma. EYES: PERRL, extraocular movements intact, sclera anicteric, conjunctiva clear. ENT: Ears normal, oropharynx clear without exudates, moist mucous membranes. NECK: Trachea midline, full range of motion, supple. LUNGS: Breath sounds equal, clear to auscultation bilaterally, no wheezes, no crackles, no accessory muscle use. HEART: Regular rate and rhythm, S1, S2 without murmur, rub or gallop. ABDOMEN: Soft, nontender, nondistended, normoactive bowel sounds, no guarding, no rebound, no hepatosplenomegaly, no masses. EXTREMITIES: 2+ pulses, warm, well-perfused, no edema. NEUROLOGICAL: Cranial nerves II through XII grossly intact. Normal speech, gait not observed. PSYCH: Normal mood, normal affect. SKIN: Warm, dry, normal turgor, no rashes or lesions noted CBCD WBC 7.9 K/mm3 (4.0-10.0) 03/16/18 08:23 RBC 3.59 M/mm3 (4.00-5.60) L 03/16/18 08:23 Hgb 10.1 GM/dL (11.7-16.9) L 03/16/18 08:23 Hct 29.5 % (35.4-49) L 03/16/18 08:23 MCV 82.2 fl (80-96) 03/16/18 08:23 MCHC 34.1 g/dl (32.0-35.9) 03/16/18 08:23 RDW 16.7 % (11.9-15.9) H 03/16/18 08:23 Plt Count 324 K/MM3 (134-434) 03/16/18 08:23 MPV 6.5 fl (7.5-11.1) L 03/16/18 08:23 CMP Sodium 139 mmol/L (136-145) 03/15/18 06:20 Potassium 4.0 mmol/L (3.5-5.1) 03/15/18 06:20 Chloride 113 mmol/L (98-107) H 03/15/18 06:20 Carbon Dioxide 21 mmol/L (21-32) 03/15/18 06:20 Anion Gap 5 (8-16) L 03/15/18 06:20 BUN 12 mg/dL (7-18) 03/15/18 06:20 Creatinine 0.8 mg/dL (0.7-1.3) 03/15/18 06:20 Creat Clearance w eGFR 59.02 (>60) 03/11/18 07:10 Random Glucose 99 mg/dL (74-106) 03/15/18 06:20 Calcium 7.1 mg/dL (8.5-10.1) L 03/15/18 06:20 Total Bilirubin 0.2 mg/dL (0.2-1.0) D 03/11/18 07:10 AST 16 U/L (15-37) 03/11/18 07:10 ALT 18 U/L (12-78) 03/11/18 07:10 Alkaline Phosphatase 85 U/L (45-117) 03/11/18 07:10 Total Protein 4.8 g/dl (6.4-8.2) L 03/11/18 07:10 Albumin 1.7 g/dl (3.4-5.0) L 03/11/18 07:10 Current Medications Generic Name Dose Route Start Last Admin Trade Name Shaina PRN Reason Stop Dose Admin Aminocaproic Acid 2,000 mg 03/15/18 06:00 03/16/18 13:31 Amicar - PO 03/16/18 22:01 2,000 mg TID ELVIS Administration Cefuroxime Axetil 500 mg 03/13/18 22:00 03/16/18 10:07 Ceftin - PO 500 mg BID ELVIS Administration Cholecalciferol 2,000 unit 03/12/18 10:00 03/16/18 10:06 Vitamin D3 - PO 2,000 unit DAILY ELVIS Administration Cyanocobalamin 1,000 mcg 03/12/18 10:00 04/29/18 10:06 Vitamin B12 - PO 1,000 mcg DAILY ELVIS Administration Efavirenz 600 mg 03/11/18 22:00 03/15/18 22:19 Sustiva - PO 600 mg HS ELVIS Administration Emtricitabine/Tenofovir 1 tab 03/12/18 10:00 03/16/18 10:07 Truvada PO 1 tab DAILY ELVIS Administration Dextrose/Sodium Chloride 1,000 mls @ 125 mls/hr 03/11/18 14:30 03/15/18 00:09 D5-1/2ns - IV 125 mls/hr ASDIR ELVIS Administration Lactobacillus Acidophilus 1 tab 03/11/18 22:00 03/16/18 13:31 Bacid - PO 1 tab TID ELVIS Administration Rosuvastatin Calcium 10 mg 03/11/18 22:00 03/15/18 22:17 Crestor - PO 10 mg HS ELVIS Administration Tamsulosin HCl 0.4 mg 03/12/18 08:30 03/16/18 10:06 Flomax - PO 0.4 mg DAILY@0830 ELVIS Administration Home Medications Medication Instructions Recorded Amlodipine Besylate [Norvasc -] 10 mg PO DAILY 03/09/18 Cholecalciferol (Vitamin D3) 2,000 unit PO DAILY 03/09/18 [Vitamin D3] Cran/Vitc/Mannose/Fos/Bromeln 30 ml PO DAILY 03/09/18 [Uti-Stat Liquid] Cyanocobalamin (Vitamin B-12) 1,000 mcg PO DAILY 03/09/18 [Vitamin B12] Efavirenz/Emtricitab/Tenofovir 1 tab PO DAILY 03/09/18 [Atripla Tablet -] Lactobacillus Acidophilus [Bacid -] 1 each PO TID 03/09/18 Losartan Potassium 25 mg PO DAILY 03/09/18 Rosuvastatin Calcium [Crestor] 10 mg PO DAILY 03/09/18 Tamsulosin HCl [Flomax] 0.4 mg PO DAILY 03/09/18 Aminocaproic Acid [Amicar -] See Taper PO ASDIR #48 tablet 03/14/18 Cefuroxime Axetil [Ceftin -] 500 mg PO BID 5 Days #9 tablet 03/14/18 Microbiology 03/11/18 21:24 Blood - Peripheral Venous Blood Culture - Preliminary NO GROWTH OBTAINED AFTER 96 HOURS, INCUBATION TO CONTINUE FOR 1 DAYS. 03/11/18 20:50 Blood - Peripheral Venous Blood Culture - Preliminary NO GROWTH OBTAINED AFTER 96 HOURS, INCUBATION TO CONTINUE FOR 1 DAYS. 03/13/18 15:00 Urine - Urine Clean Catch Urine Culture - Final Contaminated: Please Repeat ASSESSMENT AND PLAN: 77 y/o man with admission for recurrent hematuria. Now doing much better post TURP and on amicar. Pang has been out and he is passing clear urine. # Acute blood loss anemia due to having hematuria s/p 2 units of PRBCs , on amicar now, continue to control hematuria, will taper over the next 6 days at home, 2g tid x 2 d, than bid x 2 d, then qd x 2d # UTI, repeat UA with many WBC, 3+ LE , culture is pending # BPH on flomax # PING improved # HIV controlled follow with Dr. Holland # HTN meds held in setting of bleed, can restart on discharge # HLD on crestor Patient requesting discharge home rather than to SNF will get PT to reevaluate the patient, and discharge him home with VNS , if able to ambulate Visit type - Emergency Visit Emergency Visit: Yes ED Registration Date: 03/09/18 Care time: The patient presented to the Emergency Department on the above date and was hospitalized for further evaluation of their emergent condition. - New Patient This patient is new to me today: No - Critical Care Critical Care patient: No - Discharge Referral Referred to [facility] Med P.C.: No
[2018-03-16] MEDS: ROSUVASTATIN CA 10 MG TABLET (FP) PO SCH (22:35)
[2018-03-16] MEDS: EFAVIRENZ 600 MG TABLET PO SCH (22:37)
[2018-03-17] MEDS: LACTOBACILLUS ACIDOPHILUS 1 TABLET PO SCH ×2 (05:27→13:20)
[2018-03-17 07:42] LABS: BASO % 0.7 % (0-2.0); EOS % 4.7 % (0-4.5); HEMATOCRIT 28.6 % (35.4-49); HEMOGLOBIN 9.7 GM/dL (11.7-16.9); LYMPH % 16.1 % (8-40); MCH 27.8 pg (25.7-33.7); MCHC 33.8 g/dl (32.0-35.9); MEAN CELL VOLUME 82.1 fl (80-96); MEAN PLT VOLUME 6.6 fl (7.5-11.1); MONO % 6.7 % (3.8-10.2); NEUT % 71.8 % (42.8-82.8); PLATELET COUNT 310 K/MM3 (134-434); RBC 3.48 M/mm3 (4.00-5.60); RDW 17.2 % (11.9-15.9); WHITE BLOOD COUNT 7.6 K/mm3 (4.0-10.0)
[2018-03-17] MEDS: TAMSULOSIN HCL 0.4 MG CAP.ER.24H (FP) PO SCH (08:36)
[2018-03-17 09:52] VITALS: BP 108/57; PULSE 88; TEMP 98.2
[2018-03-17] MEDS ORDERED: PT OWN MED DRAWER 7, Y5N ONE (10:34)
[2018-03-17] MEDS: CYANOCOBALAMIN 1,000 MCG TABLET (FP) PO SCH (10:36)
[2018-03-17] MEDS: CHOLECALCIFEROL (VITAMIN D3) 1,000 UNIT TABLET (FP) PO SCH (10:36)
[2018-03-17] MEDS: CEFUROXIME AXETIL 500 MG TABLET PO SCH (10:38)
[2018-03-17] MEDS: EMTRICITABINE 200MG/TENOFOVIR 300MG PO SCH (10:40)
--- NOTE | 2018-03-17 19:44 | DS ---
Physical Exam: Patient is comfortable wants to go home. Vital Signs Temperature 98.2 F 03/17/18 09:50 Pulse Rate 88 03/17/18 09:50 Respiratory Rate 20 03/17/18 09:50 Blood Pressure 108/57 03/17/18 09:50 O2 Sat by Pulse Oximetry (%) 99 03/17/18 09:00 CBCD WBC 7.6 K/mm3 (4.0-10.0) 03/17/18 07:26 RBC 3.48 M/mm3 (4.00-5.60) L 03/17/18 07:26 Hgb 9.7 GM/dL (11.7-16.9) L 03/17/18 07:26 Hct 28.6 % (35.4-49) L 03/17/18 07:26 MCV 82.1 fl (80-96) 03/17/18 07:26 MCHC 33.8 g/dl (32.0-35.9) 03/17/18 07:26 RDW 17.2 % (11.9-15.9) H 03/17/18 07:26 Plt Count 310 K/MM3 (134-434) 03/17/18 07:26 MPV 6.6 fl (7.5-11.1) L 03/17/18 07:26 CMP Sodium 139 mmol/L (136-145) 03/15/18 06:20 Potassium 4.0 mmol/L (3.5-5.1) 03/15/18 06:20 Chloride 113 mmol/L (98-107) H 03/15/18 06:20 Carbon Dioxide 21 mmol/L (21-32) 03/15/18 06:20 Anion Gap 5 (8-16) L 03/15/18 06:20 BUN 12 mg/dL (7-18) 03/15/18 06:20 Creatinine 0.8 mg/dL (0.7-1.3) 03/15/18 06:20 Creat Clearance w eGFR 59.02 (>60) 03/11/18 07:10 Random Glucose 99 mg/dL (74-106) 03/15/18 06:20 Calcium 7.1 mg/dL (8.5-10.1) L 03/15/18 06:20 Total Bilirubin 0.2 mg/dL (0.2-1.0) D 03/11/18 07:10 AST 16 U/L (15-37) 03/11/18 07:10 ALT 18 U/L (12-78) 03/11/18 07:10 Alkaline Phosphatase 85 U/L (45-117) 03/11/18 07:10 Total Protein 4.8 g/dl (6.4-8.2) L 03/11/18 07:10 Albumin 1.7 g/dl (3.4-5.0) L 03/11/18 07:10 Home Medications Medication Instructions Recorded Amlodipine Besylate [Norvasc -] 10 mg PO DAILY 03/09/18 Cholecalciferol (Vitamin D3) 2,000 unit PO DAILY 03/09/18 [Vitamin D3] Cran/Vitc/Mannose/Fos/Bromeln 30 ml PO DAILY 03/09/18 [Uti-Stat Liquid] Cyanocobalamin (Vitamin B-12) 1,000 mcg PO DAILY 03/09/18 [Vitamin B12] Efavirenz/Emtricitab/Tenofovir 1 tab PO DAILY 03/09/18 [Atripla Tablet -] Lactobacillus Acidophilus [Bacid -] 1 each PO TID 03/09/18 Losartan Potassium 25 mg PO DAILY 03/09/18 Rosuvastatin Calcium [Crestor] 10 mg PO DAILY 03/09/18 Tamsulosin HCl [Flomax] 0.4 mg PO DAILY 03/09/18 Cefuroxime Axetil [Cefuroxime] 500 mg PO BID #4 tablet 03/17/18 <Madelaine Wells - Last Filed: 03/17/18 21:04> Physical Exam: SUBJECTIVE: Patient seen and examined at bedside. No new complaints. No events overnight. OBJECTIVE: Vital Signs Period Temp Pulse Resp BP Sys/Nunez Pulse Ox Last 24 Hr 98.2 F-98.8 F 73-88 18-20 97-147/45-70 99-99 PHYSICAL EXAM GENERAL: The patient is awake, alert, and fully oriented, in no acute distress. HEAD: Normal with no signs of trauma. NECK: Trachea midline, full range of motion, supple. LUNGS: Breath sounds equal, clear to auscultation bilaterally, no wheezes, no crackles, no accessory muscle use. HEART: Regular rate and rhythm, S1, S2 without murmur, rub or gallop. ABDOMEN: Soft, nontender, nondistended, normoactive bowel sounds, no guarding, no rebound. EXTREMITIES: 2+ pulses, warm, well-perfused, no edema. NEUROLOGICAL: Cranial nerves II through X grossly intact. Normal speech, gait not observed. PSYCH: Normal mood, normal affect. SKIN: Warm, dry, normal turgor, no rashes or lesions noted LABS Laboratory Results - last 24 hr 03/17/18 07:26 WBC 7.6 RBC 3.48 L Hgb 9.7 L Hct 28.6 L MCV 82.1 MCH 27.8 MCHC 33.8 RDW 17.2 H Plt Count 310 MPV 6.6 L Neutrophils % 71.8 Lymphocytes % 16.1 Monocytes % 6.7 Eosinophils % 4.7 H Basophils % 0.7 HOSPITAL COURSE: Date of Admission:03/09/18 The patient is a 77 yo m w/ PMH BPH, HTN, HIV, HBV, Anemia, HLD with recent admission for serene hematuria (d/c w/ salas in place) who presents from [facility] again c/o serene hematuria in his salas bag. The patient was found to have a Hb of 6.9 in the ED and was given 2 u PRBC. The patient was admitted for further workup and treatment. Urology was consulted. Hematology was consulted. Infectious disease was consulted. The patient was treated with Amicar, Zosyn and cefepime. He underwent cystoscopy with prostate shaving with Dr. Yung on 03/11. He tolerated the procedure well. His post-procedure course was complicated with continued bleeding necessitating another 2 units PRBC (total 4 this admission) for a Hb 6.9. A UA showed 161 WBC and 3+ leukocyte esterase. The patient improved on daily Amicar IV and PO. His bleeding stopped, his salas catheter was removed and he voided spontaneously. He was discharged home with a prescription for Cefepime 500mg BID for 2 days. He was also prescribed a PO Amicar taper, but this medication was verbally called into the pharmacy and therefore does not appear on the patient's discharge paperwork. The patient was instructed to follow up with his primary care physician as well as his urologist and a shopping inspector. Date of Discharge: 03/17/18 Minutes to complete discharge: 80 <Fafalak,Kevin - Last Filed: 03/18/18 21:23> Discharge Summary - Home Medications Comprehensive Discharge Medication List: Ambulatory Orders Amlodipine Besylate [Norvasc -] 10 mg PO DAILY 03/09/18 Cholecalciferol (Vitamin D3) [Vitamin D3] 2,000 unit PO DAILY 03/09/18 Cran/Vitc/Mannose/Fos/Bromeln [Uti-Stat Liquid] 30 ml PO DAILY 03/09/18 Cyanocobalamin (Vitamin B-12) [Vitamin B12] 1,000 mcg PO DAILY 03/09/18 Efavirenz/Emtricitab/Tenofovir [Atripla Tablet -] 1 tab PO DAILY 03/09/18 Lactobacillus Acidophilus [Bacid -] 1 each PO TID 03/09/18 Losartan Potassium 25 mg PO DAILY 03/09/18 Rosuvastatin Calcium [Crestor] 10 mg PO DAILY 03/09/18 Tamsulosin HCl [Flomax] 0.4 mg PO DAILY 03/09/18 Cefuroxime Axetil [Cefuroxime] 500 mg PO BID #4 tablet 03/17/18 <Madelaine Wells - Last Filed: 03/17/18 21:04> Reason For Visit: HEMATURIA - Home Medications Comprehensive Discharge Medication List: Ambulatory Orders Amlodipine Besylate [Norvasc -] 10 mg PO DAILY 03/09/18 Cholecalciferol (Vitamin D3) [Vitamin D3] 2,000 unit PO DAILY 03/09/18 Cran/Vitc/Mannose/Fos/Bromeln [Uti-Stat Liquid] 30 ml PO DAILY 03/09/18 Cyanocobalamin (Vitamin B-12) [Vitamin B12] 1,000 mcg PO DAILY 03/09/18 Efavirenz/Emtricitab/Tenofovir [Atripla Tablet -] 1 tab PO DAILY 03/09/18 Lactobacillus Acidophilus [Bacid -] 1 each PO TID 03/09/18 Losartan Potassium 25 mg PO DAILY 03/09/18 Rosuvastatin Calcium [Crestor] 10 mg PO DAILY 03/09/18 Tamsulosin HCl [Flomax] 0.4 mg PO DAILY 03/09/18 Cefuroxime Axetil [Cefuroxime] 500 mg PO BID #4 tablet 03/17/18 <Kevin Man - Last Filed: 03/18/18 21:23> Condition: Improved - Instructions Diet, Activity, Other Instructions: You were admitted for blood in your urine. You underwent a prostate procedure with Dr. Fox on 03/11/18. Please do NOT take aspirin until you speak with your shopping inspector, Dr. Guevara ( blood doctor) We are sending you home on some medications to help stop the bleeding in your urine. This medication is called Amicar. You should take this medication according to the following regimen: On 03/17 take 2g of Amicar in the evening, (4 pills) On 03/18, take 2g of Amicar twice per day (4 pills in the morning and 4 pills at night). On 03/19 and 03/20, take 2g of Amicar daily (4 pills once a day for 2 days). This prescription has been called into your pharmacy. We are also sending your home on an antibiotic to fight an infection in your urine. You should take 500mg of Cefuroxime twice per day for a total of 5 days. You got your first dose this morning (today is day 3 of 5). Please pick pulling machine tender your antibiotics and take a dose this evening, then twice per day for the next 2 days. You should resume taking the rest of your medication as prescribed except for aspirin. You should follow up with your primary care physician within one week of discharge home. You should follow up with a shopping inspector (blood doctor) within one week of discharge home. Information for Dr. Guevara has been included in your discharge paperwork. Please call to make an appointment. You should follow up with your urologist, Dr. Yung, within one week of discharge home. If you begin to experience chest pain, shortness of breath, recurring hematuria or dizziness, please call your doctor or return to the emergency department. Referrals: Sheri Keita MD [Primary Care Provider] - Paola Orozco MD [Staff Physician] - Sergio Yung MD [Staff Physician] - Disposition: VNS/HOME HEALTH CARE This patient is new to me today: No Emergency Visit: Yes ED Registration Date: 03/09/18 Care time: The patient presented to the Emergency Department on the above date and was hospitalized for further evaluation of their emergent condition. Critical Care patient: No - Discharge Referral Referred to [facility] Med P.C.: No <Fafalak,Kevin - Last Filed: 03/18/18 21:23>
--- NOTE | 2018-04-02 08:50 | OP ---
DATE OF OPERATION: 03/11/2018 PREOPERATIVE DIAGNOSES: Benign prostatic hypertrophy and urinary retention. POSTOPERATIVE DIAGNOSES: Benign prostatic hypertrophy and urinary retention. SURGEON: Sergio Yung MD PROCEDURE: Cystoscopy, transurethral resection of prostate. ANESTHESIA: General. ANESTHESIOLOGIST: Justice Tamez MD ESTIMATED BLOOD LOSS: 50 mL. FINDINGS: Obstructive prostate. PREOPERATIVE INDICATIONS: The patient is a 77-year-old male with a very large prostate who has urinary retention. He comes to the OR for TURP. OPERATION: Patient brought to the OR, placed on the table in the supine position. Given general anesthesia and IV antibiotics and placed in the modified lithotomy position. The groin was prepped and draped sterilely. Cystoscopy was performed. The distal urethra and urinary sphincter were intact. There was a very large prostate which was essentially hard to navigate initially. The camera was passed into the bladder. Both UOs were seen and there was trabeculation throughout. No tumors or stones were seen. Using the bipolar resectoscope the obstructive tissue was resected from the bladder neck to the area just proximal to the verumontanum. The tissue was vaporized as well as some of the tissue being resected. Any pieces were sent for histopathological diagnosis. At the end of the procedure the prostate fossa was open and the bleeding was controlled. The scope was removed. A 3-way Pang catheter was left in place for postoperative irrigation. SERGIO YUNG M.D. [id number]
== END 2018-03-17 14:33 | disposition home health service (06) | DRG 713 ==
LOC: JER 18:00 → JERBED 23:43 → J4W 03-10 01:24 → J6S 03-11 15:34
PROVIDERS: ADMIT Internal Medicine; ATTEND Internal Medicine
PROC: 30233N1 Transfusion of Nonautologous Red Blood Cells into Peripheral Vein, Percutaneous Approach (ICD-10-PCS; 2018-03-09)
PROC: 0VT08ZZ Resection of Prostate, Via Natural or Artificial Opening Endoscopic (ICD-10-PCS; principal; 2018-03-11 12:30)
DX: N40.0 Benign prostatic hyperplasia without lower urinary tract symptoms (principal); N17.9 Acute kidney failure, unspecified; D62 Acute posthemorrhagic anemia; N39.0 Urinary tract infection, site not specified; I10 Essential (primary) hypertension; E78.5 Hyperlipidemia, unspecified; E87.5 Hyperkalemia; Z21 Asymptomatic human immunodeficiency virus [HIV] infection status; I12.9 Hypertensive chronic kidney disease with stage 1 through stage 4 chronic kidney disease, or unspecified chronic kidney disease; N18.3 Chronic kidney disease, stage 3 (moderate)
CPT/HCPCS: 36415; 36430; 80048; 80053; 81003; 81015; 83735; 84132; 85025; 85027; 85384; 85610; 85730; 86850; 86900; 86901; 86922; 87040; 87086; 88305-TC; 93005; 93010; 94010; 94760; 97116-GP; 97161-GP; 99285-25; J7030; P9038; P9058

== ENCOUNTER 2018-04-14 07:58 | Inpatient (IN) | payer OTHER ==
--- NOTE | 2018-04-14 08:48 | EKG ---
Test Reason : Blood Pressure : / mmHG Vent. 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
[2018-04-14 09:10] LABS: BASO % 0.5 % (0-2.0); EOS % 0.7 % (0-4.5); HEMATOCRIT 30.4 % (35.4-49); HEMOGLOBIN 9.6 GM/dL (11.7-16.9); LYMPH % 16.4 % (8-40); MCH 24.7 pg (25.7-33.7); MCHC 31.5 g/dl (32.0-35.9); MEAN CELL VOLUME 78.5 fl (80-96); MEAN PLT VOLUME 7.7 fl (7.5-11.1); MONO % 5.1 % (3.8-10.2); NEUT % 77.3 % (42.8-82.8); PLATELET COUNT 251 K/MM3 (134-434); RBC 3.87 M/mm3 (4.00-5.60); RDW 18.2 % (11.9-15.9); WHITE BLOOD COUNT 5.2 K/mm3 (4.0-10.0)
--- NOTE | 2018-04-14 09:21 | PDOC ---
History of Present Illness - History of Present Illness Initial Comments: Urology: Dr. Yung <Brad Juarez - Last Filed: 04/14/18 11:11> - History of Present Illness Initial Comments: 04/14/18 09:17 "The patient is a 77 year old male, with a significant PMH of BPH (s/p TURP 03/11), HIV on HAART, hepatitis B, COPD, anemia, HTN, hyperlipidemia, and goiter who presents to the emergency department with hematuria beginning approximately yesterday. The patient states he has been noticing bright red blood with his urine each time he urinates, about 3 episodes within the past 48 hours. He also notes associated lightheadedness over the past day. The patient states he had a few days of hematuria after his TURP on 03/11/18 which had resolved until yesterday. The patient denies any dysuria, urinary frequency, urgency, or incontinence. Denies any difficulty voiding. Pt DENIES rectal bleeding or dark tarry stools. The patient denies chest pain, shortness of breath, headache and dizziness. Denies fever, chills, nausea, vomit, diarrhea and constipation. Allergies: NKA Past surgical history: TURP. Social history: Former smoker (quit 1 month ago). No reported alcohol or drug use. PCP/ID: Dr. Holland " <Edu Shea - Last Filed: 04/14/18 12:47> - General Chief Complaint: Rectal Bleed Stated Complaint: RECTAL BLEEDING, LIGHTHEADED Time Seen by Provider: 04/14/18 08:04 Past History <Brad Juarez - Last Filed: 04/14/18 11:11> - Past Medical History Anemia: Yes (B12 DEFICIENCY,IRON DEFICIENCY ANEMIA) Asthma: No Cancer: No Cardiac Disorders: No CVA: No COPD: No CHF: No Dementia: No Diabetes: No GI Disorders: No Disorders: Yes (PROSTATE) HTN: Yes Hypercholesterolemia: Yes Liver Disease: (HEP B) Seizures: No Thyroid Disease: Yes (goiter- s/p FNA- benign nodular goiter with cystic changes ) - Surgical History Abdominal Surgery: No Appendectomy: No Cardiac Surgery: No Cholecystectomy: No Lung Surgery: No Neurologic Surgery: No Orthopedic Surgery: Yes (KNEE ARTHROSCOPY) - Immunization History Immunization Up to Date: Yes - Suicide/Smoking/Psychosocial Hx Smoking History: Former smoker Have you smoked in the past 12 months: No Number of Cigarettes Smoked Daily: 4 If you are a former smoker, when did you quit?: 1 MONTH Cigars Per Day: 0 Information on smoking cessation initiated: No 'Breaking Loose' booklet given: 02/13/18 Hx Alcohol Use: No Drug/Substance Use Hx: No Substance Use Type: None Hx Substance Use Treatment: No <Ou,Edu - Last Filed: 04/14/18 12:47> - Past Medical History Allergies/Adverse Reactions: Allergies Allergy/AdvReac Type Severity Reaction Status Date / Time Sulfa (Sulfonamide Allergy Intermediate Nausea Verified 04/14/18 08:24 Antibiotics) sulfamethoxazole Allergy Intermediate Nausea Verified 04/14/18 08:24 [From Bactrim] trimethoprim [From Bactrim] AdvReac Intermediate Nausea Verified 04/14/18 08:24 Home Medications: Ambulatory Orders Amlodipine Besylate [Norvasc -] 10 mg PO DAILY 03/09/18 Cholecalciferol (Vitamin D3) [Vitamin D3] 2,000 unit PO DAILY 03/09/18 Cran/Vitc/Mannose/Fos/Bromeln [Uti-Stat Liquid] 30 ml PO DAILY 03/09/18 Cyanocobalamin (Vitamin B-12) [Vitamin B12] 1,000 mcg PO DAILY 03/09/18 Efavirenz/Emtricitab/Tenofovir [Atripla Tablet -] 1 tab PO DAILY 03/09/18 Lactobacillus Acidophilus [Bacid -] 1 each PO TID 03/09/18 Losartan Potassium 25 mg PO DAILY 03/09/18 Rosuvastatin Calcium [Crestor] 10 mg PO DAILY 03/09/18 Tamsulosin HCl [Flomax] 0.4 mg PO DAILY 03/09/18 Cefuroxime Axetil [Cefuroxime] 500 mg PO BID #4 tablet 03/17/18 Review of Systems - Review of Systems Comments:: 04/14/18 09:20 "GENERAL/CONSTITUTIONAL: No fever or chills. No weakness. HEAD, EYES, EARS, NOSE AND THROAT: No change in vision. No ear pain or discharge. No sore throat. CARDIOVASCULAR: No chest pain or shortness of breath. RESPIRATORY: No cough, wheezing, or hemoptysis. GASTROINTESTINAL: No nausea, vomiting, diarrhea or constipation. GENITOURINARY: (+) Hematuria. No dysuria, frequency, urgency. MUSCULOSKELETAL: No joint or muscle swelling or pain. No neck or back pain. SKIN: No rash NEUROLOGIC: (+) Lightheadedness. No headache, vertigo, loss of consciousness, or change in strength. ENDOCRINE: No increased thirst. No abnormal weight change. HEMATOLOGIC/LYMPHATIC: No anemia, easy bleeding, or history of blood clots. ALLERGIC/IMMUNOLOGIC: No hives or skin allergy. " <Edu Shea - Last Filed: 04/14/18 12:47> *Physical Exam - Vital Signs Last Vital Signs Temp Pulse Resp BP Pulse Ox 84 16 110/55 100 04/14/18 08:00 04/14/18 08:00 04/14/18 08:00 04/14/18 08:00 <Brad Juarez - Last Filed: 04/14/18 11:11> - Vital Signs Last Vital Signs Temp Pulse Resp BP Pulse Ox 84 16 110/55 100 04/14/18 08:00 04/14/18 08:00 04/14/18 08:00 04/14/18 08:00 - Physical Exam Comments: 04/14/18 09:20 "GENERAL: Awake, alert, and fully oriented, in no acute distress. HEAD: No signs of trauma EYES: PERRLA, EOMI, sclera anicteric, conjunctiva clear ENT: Auricles normal inspection, hearing grossly normal, nares patent, oropharynx clear without exudates. Moist mucosa NECK: Nontender, no stepoffs, Normal ROM, supple, no lymphadenopathy, JVD, or masses LUNGS: Breath sounds equal, clear to auscultation bilaterally. No wheezes, and no crackles HEART: Regular rate and rhythm, normal S1 and S2, no murmurs, rubs or gallops ABDOMEN: Soft, nontender, normoactive bowel sounds. No guarding, no rebound. No masses EXTREMITIES: Normal range of motion, no edema. No clubbing or cyanosis. No cords , erythema, or tenderness NEUROLOGICAL: Cranial nerves II through XII intact. 5/5 strength and sensation in all extremities, Normal speech, normal gait, normal cerebellar function SKIN: Warm, Dry, normal turgor, no rashes or lesions noted. " <Edu Shea - Last Filed: 04/14/18 12:47> ED Treatment Course - LABORATORY CBC & Chemistry Diagram: 04/14/18 08:38 04/14/18 08:38 - ADDITIONAL ORDERS Additional order review: Laboratory Results 04/14/18 04/14/18 04/14/18 08:38 08:38 08:38 PT with INR 11.80 INR 1.04 PTT (Actin FS) 27.9 Sodium Cancelled Potassium Cancelled Chloride Cancelled Carbon Dioxide Cancelled Anion Gap Cancelled BUN Cancelled Creatinine Cancelled Creat Clearance w eGFR Cancelled Random Glucose Cancelled Calcium Cancelled Total Bilirubin Cancelled AST Cancelled ALT Cancelled Alkaline Phosphatase Cancelled Creatine Kinase Troponin I Total Protein Cancelled Albumin Cancelled Blood Type B POSITIVE Antibody Screen Negative 04/14/18 08:38 PT with INR INR PTT (Actin FS) Sodium 142 Potassium 4.6 Chloride 113 H Carbon Dioxide 24 Anion Gap 5 L BUN 31 H D Creatinine 1.8 H D Creat Clearance w eGFR 36.97 Random Glucose 117 H Calcium 8.1 L Total Bilirubin 0.2 AST 18 ALT 13 D Alkaline Phosphatase 108 D Creatine Kinase 43 Troponin I < 0.02 D Total Protein 6.3 L D Albumin 2.4 L D Blood Type Antibody Screen 04/14/18 08:38 RBC 3.87 L MCV 78.5 L MCHC 31.5 L RDW 18.2 H MPV 7.7 D Neutrophils % 77.3 Lymphocytes % 16.4 Monocytes % 5.1 Eosinophils % 0.7 D Basophils % 0.5 <Brad Juarez - Last Filed: 04/14/18 11:11> - LABORATORY CBC & Chemistry Diagram: 04/14/18 08:38 04/14/18 08:38 <Edu Shea - Last Filed: 04/14/18 12:47> Medical Decision Making - Medical Decision Making 04/14/18 09:20 77 M with hematuria s/p TURP last month. Also with lightheadedness. Will check for anemia. - Labs, UA, UCx - Discuss with Dr. Yung, pt's urologist <Edu Shea - Last Filed: 04/14/18 12:47> *DC/Admit/Observation/Transfer - Attestations Scribe Attestion: 04/14/18 11:11 Documentation prepared by Brad Juarez, acting as medical management specialist for Edu Shea MD. <Brad Juarez - Last Filed: 04/14/18 11:11> - Discharge Dispostion Decision to Admit order: Yes - Attestations Physician Attestion: 04/14/18 12:47 I, Dr. Edu Shea MD, attest that this document has been prepared under my direction and personally reviewed by me in its entirety. I further attest, that it accurately reflects all work, treatment, procedures and medical decision -making performed by me. <Edu Shea - Last Filed: 04/14/18 12:47> Diagnosis at time of Disposition: Hematuria - Referrals Referrals: Yennifer Holland MD [Primary Care Provider] - - Patient Instructions - Post Discharge Activity
[2018-04-14 09:31] LABS: ACTIVATED PTT 27.9 SECONDS (26.9-34.4); INR 1.04 (0.82-1.09); PROTHROMBIN TIME (PATIENT) 11.8 SEC (9.7-13.0)
[2018-04-14 09:40] LABS: ALBUMIN 2.4 g/dl (3.4-5.0); ANION GAP 5 (8-16); BILIRUBIN,TOTAL 0.2 mg/dL (0.2-1.0); BLOOD UREA NITROGEN 31 mg/dL (7-18); CALCIUM 8.1 mg/dL (8.5-10.1); CHLORIDE 113 mmol/L (98-107); CO2 24 mmol/L (21-32); CREATININE 1.8 mg/dL (0.7-1.3); GLUCOSE,RANDOM 117 mg/dL (74-106); POTASSIUM 4.6 mmol/L (3.5-5.1); SGOT/AST 18 U/L (15-37); SGPT/ALT 13 U/L (12-78); SODIUM 142 mmol/L (136-145); TOT PROT 6.3 g/dl (6.4-8.2)
[2018-04-14 09:42] LABS: ALK PHOS 108 U/L (45-117)
[2018-04-14] MEDS ORDERED: SODIUM CHLORIDE 1,000 ML IV STA (10:16)
[2018-04-14 11:44] LABS: URINE APPEARANCE CLOUDY; URINE BILIRUBIN NEGATIVE (<2.0 mg/dL); URINE BLOOD 3+ (NEGATIVE); URINE COLOR AMBER; URINE GLUCOSE (UA) NEGATIVE (NEGATIVE); URINE KETONE NEGATIVE (NEGATIVE); URINE NITRITE POSITIVE (NEGATIVE); URINE UROBILINOGEN NEGATIVE mg/dL (0.2-1.0)
[2018-04-14 11:47] LABS: URINE LEUK ESTERASE 2+ (NEGATIVE); URINE PROTEIN 2+ (NEGATIVE)
[2018-04-14] MEDS ORDERED: CEFTRIAXONE 1 GM in DEXTROSE 5%-WATER - 100 ML IVPB ONE (12:23)
[2018-04-14] MEDS ORDERED: CEFTRIAXONE 1 GM/50 ML BAG ONE (13:02)
--- NOTE | 2018-04-14 14:07 | HP ---
Admitting History and Physical - Primary Care Physician PCP: Delgado Carroll - Admission Chief Complaint: hematuria History of Present Illness: 77 year old male, with a significant PMH of BPH (s/p TURP 03/11/18), HIV on HAART , hepatitis B, COPD, anemia, HTN, hyperlipidemia, and goiter who presents to the emergency department with hematuria beginning approximately yesterday. The patient states he has been noticing bright red blood with his urine each time he urinates, about 3 episodes within the past 48 hours. He also notes associated lightheadedness over the past day. The patient states he had a few days of hematuria after his TURP on 03/11/18 which had resolved until yesterday. The patient denies any dysuria, urinary frequency, urgency, or incontinence. Denies any difficulty voiding. Pt DENIES rectal bleeding or dark tarry stools. - Past Medical History Cardiovascular: Yes: HTN, Hyperlipdemia Pulmonary: Yes: COPD Renal/: Yes: BPH, Hematuria, UTI Heme/Onc: Yes: B12 Deficiency Infectious Disease: Yes: HIV Musculoskeletal: Yes: Other (patella fracture) Endocrine: Yes: Other (thyroid goiter s/p needle aspiration) - Past Surgical History Past Surgical History: Yes: TURP - Smoking History Smoking history: Former smoker Have you smoked in the past 12 months: No Aproximately how many cigarettes per day: 4 If you are a former smoker, when did you quit?: 1 MONTH - Alcohol/Substance Use Hx Alcohol Use: No History of Substance Use: reports: None - Social History ADL: Independent History of Recent Travel: No Home Medications - Allergies Allergies/Adverse Reactions: Allergies Allergy/AdvReac Type Severity Reaction Status Date / Time Sulfa (Sulfonamide Allergy Intermediate Nausea Verified 04/14/18 08:24 Antibiotics) sulfamethoxazole Allergy Intermediate Nausea Verified 04/14/18 08:24 [From Bactrim] trimethoprim [From Bactrim] AdvReac Intermediate Nausea Verified 04/14/18 08:24 - Home Medications Home Medications: Ambulatory Orders Amlodipine Besylate [Norvasc -] 10 mg PO DAILY 03/09/18 Cholecalciferol (Vitamin D3) [Vitamin D3] 2,000 unit PO DAILY 03/09/18 Cran/Vitc/Mannose/Fos/Bromeln [Uti-Stat Liquid] 30 ml PO DAILY 03/09/18 Cyanocobalamin (Vitamin B-12) [Vitamin B12] 1,000 mcg PO DAILY 03/09/18 Efavirenz/Emtricitab/Tenofovir [Atripla Tablet -] 1 tab PO DAILY 03/09/18 Lactobacillus Acidophilus [Bacid -] 1 each PO TID 03/09/18 Losartan Potassium 25 mg PO DAILY 03/09/18 Rosuvastatin Calcium [Crestor] 10 mg PO DAILY 03/09/18 Tamsulosin HCl [Flomax] 0.4 mg PO DAILY 03/09/18 Cefuroxime Axetil [Cefuroxime] 500 mg PO BID #4 tablet 03/17/18 Physical Examination Vital Signs: Vital Signs Temperature Pulse Rate 84 04/14/18 13:42 Respiratory Rate 16 04/14/18 13:42 Blood Pressure 108/64 04/14/18 13:42 O2 Sat by Pulse Oximetry (%) 99 04/14/18 13:42 Constitutional: Yes: No Distress HENT: Yes: Atraumatic Neck: Yes: Supple Cardiovascular: Yes: Regular Rate and Rhythm Respiratory: Yes: CTA Bilaterally Gastrointestinal: Yes: Normal Bowel Sounds Extremities: Yes: WNL Neurological: Yes: Alert, Oriented Labs: CBC, BMP 04/14/18 08:38 04/14/18 08:38 Problem List - Problems (1) Hematuria Assessment/Plan: serene blood , pain less will monitor get urology input Code(s): R31.9 - HEMATURIA, UNSPECIFIED (2) PING (acute kidney injury) Code(s): N17.9 - ACUTE KIDNEY FAILURE, UNSPECIFIED (3) S/P TURP Assessment/Plan: a month ago Code(s): Z90.79 - ACQUIRED ABSENCE OF OTHER GENITAL ORGAN(S) (4) HIV (human immunodeficiency virus infection) Assessment/Plan: continue meds Code(s): Z21 - ASYMPTOMATIC HUMAN IMMUNODEFICIENCY VIRUS INFECTION STATUS (5) HTN (hypertension) Assessment/Plan: on meds stable Code(s): I10 - ESSENTIAL (PRIMARY) HYPERTENSION Assessment/Plan Laboratory Tests 04/14/18 04/14/18 04/14/18 08:38 08:38 08:38 WBC 5.2 D RBC 3.87 L Hgb 9.6 L Hct 30.4 L MCV 78.5 L MCH 24.7 L D MCHC 31.5 L RDW 18.2 H Plt Count 251 MPV 7.7 D Neutrophils % 77.3 Lymphocytes % 16.4 Monocytes % 5.1 Eosinophils % 0.7 D Basophils % 0.5 Nucleated RBC % 0 PT with INR 11.80 INR 1.04 PTT (Actin FS) 27.9 Sodium 142 Potassium 4.6 Chloride 113 H Carbon Dioxide 24 Anion Gap 5 L BUN 31 H D Creatinine 1.8 H D Creat Clearance w eGFR 36.97 Random Glucose 117 H Calcium 8.1 L Total Bilirubin 0.2 AST 18 ALT 13 D Alkaline Phosphatase 108 D Creatine Kinase 43 Troponin I < 0.02 D Total Protein 6.3 L D Albumin 2.4 L D Urine Color Urine Appearance Urine pH Ur Specific [place] Urine Protein Urine Glucose (UA) Urine Ketones Urine Blood Urine Nitrite Urine Bilirubin Urine Urobilinogen Ur Leukocyte Esterase Urine WBC (Auto) Urine RBC (Auto) Blood Type Antibody Screen 04/14/18 04/14/18 04/14/18 08:38 08:38 11:15 WBC RBC Hgb Hct MCV MCH MCHC RDW Plt Count MPV Neutrophils % Lymphocytes % Monocytes % Eosinophils % Basophils % Nucleated RBC % PT with INR INR PTT (Actin FS) Sodium Cancelled Potassium Cancelled Chloride Cancelled Carbon Dioxide Cancelled Anion Gap Cancelled BUN Cancelled Creatinine Cancelled Creat Clearance w eGFR Cancelled Random Glucose Cancelled Calcium Cancelled Total Bilirubin Cancelled AST Cancelled ALT Cancelled Alkaline Phosphatase Cancelled Creatine Kinase Troponin I Total Protein Cancelled Albumin Cancelled Urine Color [place] Urine Appearance Cloudy Urine pH 6.0 Ur Specific [place] 1.017 Urine Protein 2+ H Urine Glucose (UA) Negative Urine Ketones Negative Urine Blood 3+ H Urine Nitrite Positive Urine Bilirubin Negative Urine Urobilinogen Negative Ur Leukocyte Esterase 2+ H Urine WBC (Auto) 168 Urine RBC (Auto) 7163 Blood Type B POSITIVE Antibody Screen Negative Active Medications Generic Name Dose Route Start Last Admin Trade Name Freq PRN Reason Stop Dose Admin Amlodipine Besylate 10 mg 04/15/18 10:00 Norvasc - PO DAILY [facility] Cyanocobalamin 1,000 mcg 04/15/18 10:00 Vitamin B12 - PO DAILY [facility] Efavirenz 600 mg 04/15/18 10:00 Sustiva - PO DAILY [facility] Emtricitabine/Tenofovir 1 tab 04/15/18 10:00 Truvada PO DAILY [facility] Losartan Potassium 25 mg 04/15/18 10:00 Cozaar - PO DAILY [facility] Rosuvastatin Calcium 10 mg 04/14/18 22:00 Crestor - PO HS [facility] Tamsulosin HCl 0.4 mg 04/14/18 14:15 04/14/18 15:51 Flomax - PO Not Given DAILY [facility]
[2018-04-14 15:28] VITALS: BMI 18.8
[2018-04-14] MEDS: TAMSULOSIN HCL 0.4 MG CAP.ER.24H (FP) PO SCH (15:51)
[2018-04-14] MEDS: ROSUVASTATIN CA 10 MG TABLET (FP) PO SCH (22:00)
[2018-04-15] MEDS: SODIUM CHLORIDE 1,000 ML IV SCH ×2 (06:24→17:06)
[2018-04-15 08:32] LABS: BASO % 0.8 % (0-2.0); EOS % 0.9 % (0-4.5); HEMATOCRIT 27.6 % (35.4-49); HEMOGLOBIN 8.5 GM/dL (11.7-16.9); LYMPH % 20.3 % (8-40); MCH 24.3 pg (25.7-33.7); MCHC 30.9 g/dl (32.0-35.9); MEAN CELL VOLUME 78.7 fl (80-96); MEAN PLT VOLUME 7.3 fl (7.5-11.1); MONO % 3.5 % (3.8-10.2); NEUT % 74.5 % (42.8-82.8); PLATELET COUNT 214 K/MM3 (134-434); RBC 3.51 M/mm3 (4.00-5.60); RDW 17.8 % (11.9-15.9); WHITE BLOOD COUNT 5.4 K/mm3 (4.0-10.0)
[2018-04-15 08:50] LABS: CHLORIDE 115 mmol/L (98-107); POTASSIUM 4.6 mmol/L (3.5-5.1); SODIUM 143 mmol/L (136-145)
[2018-04-15 09:03] LABS: ALBUMIN 2.1 g/dl (3.4-5.0); ALK PHOS 98 U/L (45-117); ANION GAP 3 (8-16); BILIRUBIN,TOTAL 0.3 mg/dL (0.2-1.0); BLOOD UREA NITROGEN 24 mg/dL (7-18); CALCIUM 7.6 mg/dL (8.5-10.1); CO2 25 mmol/L (21-32); CREATININE 1.2 mg/dL (0.7-1.3); GLUCOSE,RANDOM 90 mg/dL (74-106); SGOT/AST 17 U/L (15-37); SGPT/ALT 11 U/L (12-78); TOT PROT 5.5 g/dl (6.4-8.2)
[2018-04-15] MEDS ORDERED: PATIENT'S OWN MEDICATION (NON-FORMULARY) (Efavirenz/Emtricitab/Tenofovir 1 TAB) PO SCH (10:00)
[2018-04-15] MEDS: LOSARTAN POTASSIUM 25 MG TABLET PO SCH (11:35)
[2018-04-15] MEDS: amLODIPine BESYLATE 10 MG TABLET (FP) PO SCH (11:36)
[2018-04-15] MEDS: TAMSULOSIN HCL 0.4 MG CAP.ER.24H (FP) PO SCH (11:36)
[2018-04-15] MEDS: EMTRICITABINE 200MG/TENOFOVIR 300MG PO SCH (11:36)
[2018-04-15] MEDS: EFAVIRENZ 600 MG TABLET PO SCH (11:36)
[2018-04-15] MEDS: CYANOCOBALAMIN 1,000 MCG TABLET (FP) PO SCH (11:37)
--- NOTE | 2018-04-15 13:22 | CON.GU ---
Consult Consult Specialty:: Referred by:: medicine Reason for Consultation:: gross hematuria - History of Present Illness Chief Complaint: gross hematuria History of Present Illness: 77 year old male with a history of BPH and gross hematuria who was having the same problem about six weeks ago and underwent a TURP. He was doing well after that until a couple of days ago when he restarted gross hematuria. He denies and pain or fevers and is voiding well. Path on TURP was benign - History Source History Provided By: Patient, Medical Record Limitations to Obtaining History: No Limitations - Past Medical History Cardio/Vascular: Yes: HTN, Hyperlipdemia Pulmonary: Yes: COPD Renal/: Yes: BPH, Hematuria, UTI Infectious Disease: Yes: HIV Musculoskeletal: Yes: Other (patella fracture) Endocrine: Yes: Other (thyroid goiter s/p needle aspiration) - Past Surgical History Past Surgical History: Yes: TURP - Alcohol/Substance Use Hx Alcohol Use: No History of Substance Use: reports: None - Smoking History Smoking history: Former smoker Have you smoked in the past 12 months: No Aproximately how many cigarettes per day: 4 If you are a former smoker, when did you quit?: 1 MONTH - Social History Usual Living Arrangement: Other (with sister) ADL: Independent History of Recent Travel: No Home Medications - Allergies Allergies/Adverse Reactions: Allergies Allergy/AdvReac Type Severity Reaction Status Date / Time Sulfa (Sulfonamide Allergy Intermediate Nausea Verified 04/14/18 08:24 Antibiotics) sulfamethoxazole Allergy Intermediate Nausea Verified 04/14/18 08:24 [From Bactrim] trimethoprim [From Bactrim] AdvReac Intermediate Nausea Verified 04/14/18 08:24 - Home Medications Home Medications: Ambulatory Orders Amlodipine Besylate [Norvasc -] 10 mg PO DAILY 03/09/18 Cholecalciferol (Vitamin D3) [Vitamin D3] 2,000 unit PO DAILY 03/09/18 Cran/Vitc/Mannose/Fos/Bromeln [Uti-Stat Liquid] 30 ml PO DAILY 03/09/18 Cyanocobalamin (Vitamin B-12) [Vitamin B12] 1,000 mcg PO DAILY 03/09/18 Efavirenz/Emtricitab/Tenofovir [Atripla Tablet -] 1 tab PO DAILY 03/09/18 Lactobacillus Acidophilus [Bacid -] 1 each PO TID 03/09/18 Losartan Potassium 25 mg PO DAILY 03/09/18 Rosuvastatin Calcium [Crestor] 10 mg PO DAILY 03/09/18 Tamsulosin HCl [Flomax] 0.4 mg PO DAILY 03/09/18 Cefuroxime Axetil [Cefuroxime] 500 mg PO BID #4 tablet 03/17/18 Review of Systems - Review of Systems Constitutional: denies: Chills, Fever Genitourinary: reports: Hematuria. denies: Burning, Dysuria, Flank Pain, Frequency, Incontinence Physical Exam- Vital Signs: Vital Signs Temperature 98.2 F 04/15/18 11:31 Pulse Rate 72 04/15/18 11:31 Respiratory Rate 20 04/15/18 11:31 Blood Pressure 124/60 04/15/18 11:31 O2 Sat by Pulse Oximetry (%) 99 04/15/18 09:00 Constitutional: Yes: Well Nourished, No Distress, Calm Cardiovascular: Yes: WNL, Regular Rate and Rhythm Respiratory: Yes: WNL, Regular, CTA Bilaterally Gastrointestinal: Yes: WNL, Normal Bowel Sounds Renal/: Yes: Hematuria. No: Bladder Distention, CVA Tenderness - Left, CVA Tenderness - Right, Pang Present Labs: CBC, BMP 04/15/18 06:43 04/15/18 06:43 Problem List - Problems (1) Hematuria Assessment/Plan: gross hematuria secondary to BPH. Start on antibiotics. He is voiding on his own,. Code(s): R31.9 - HEMATURIA, UNSPECIFIED
--- NOTE | 2018-04-15 13:28 | PN ---
Progress Note (short form) - Note Progress Note: ID consult dictated imp/reccd recurrent hematuria-painless, no fevers, no dysuria s/p cystoscopy and TURP 03/11- path no malignancy noted required heme evaluation last admission hiv stable - on art d/w Dr Santos- doubt infection, urine culture back- will hold on antibiotics at this time continue art suggest hematology evaluation if hematuria persists Problem List - Problems (1) Hematuria Code(s): R31.9 - HEMATURIA, UNSPECIFIED (2) HIV (human immunodeficiency virus infection) Code(s): Z21 - ASYMPTOMATIC HUMAN IMMUNODEFICIENCY VIRUS INFECTION STATUS
[2018-04-15] MEDS: FINASTERIDE 5 MG TABLET (FP) PO SCH (14:02)
--- NOTE | 2018-04-15 14:57 | CONS ---
INFECTIOUS DISEASE CONSULTATION DATE OF CONSULTATION: DATE OF DICTATION: 04/15/2018 REQUESTING PHYSICIAN: Delgado Carroll MD This is a 77-year-old man who I know well from [facility]. I follow him for his HIV disease which is very stable. He has good T cells, and his viral load is suppressed. He has been in the hospital multiple times since January of this year. He was originally hospitalized for 48 hours with hematuria. That resolved. Readmitted again at the end of January for 2 weeks, again with hematuria, discharged. Seen 48 hours later in the ER and admitted 1 week later again for recurrent hematuria. He had enterococcus in his urine once in February. Otherwise, he has never had a white count, never had a fever, and is stable. He underwent cystoscopy and TURP [address] Yung. Pathology was notable for BPH with acute and chronic inflammation. He required Amicar postoperatively and was discharged home with resolution of his hematuria. He reports he was doing well until this weekend when he started having recurrent hematuria. It has been painless. He has had no associated fevers or chills. He otherwise feels fine. The symptoms persisted, and he came to the ER. PAST MEDICAL HISTORY: Notable for history of BPH. He has had multiple prostate biopsies. He has a history of B12 deficiency, COPD, hypertension, hypercholesterolemia, hepatitis B, BPH, multinodular goiter status post FNA with benign cytology, history of knee arthroscopy, TURP in 2014, and again now in February 2018. He has had upper and lower endoscopy recently, his workup for anemia, vitamin D deficiency, status post fall off a ladder in which he sustained a fracture to his patella. ALLERGIES: He is allergic to BACTRIM. SOCIAL HISTORY: He is a former smoker. He lives with his sister. There is no history of any recent substance use. He is an active smoker. MEDICATIONS AN OUTPATIENT: Include Crestor, losartan, Bacid, Atripla, vitamin B12, UTI-Stat liquid, vitamin D, Flomax, and amlodipine. REVIEW OF SYSTEMS: He denies any diarrhea. He denies any dysuria. He is able to void. He has no pain. He has no back pain either. PHYSICAL EXAMINATION: General: He is awake and alert. Vital Signs: Temperature is 98.2. Pulse is 72. Blood pressure 124/60. Respiratory rate is 20. HEENT: He is normocephalic. His eyes are anicteric. Neck: Supple. Lungs: Clear to auscultation. Heart: Regular rate and rhythm. Abdomen: Soft, nontender. He has no CVA or suprapubic pain. Extremities: Without edema. LABORATORY DATA: Labs are notable for a white count of 5.4, hemoglobin 8.5, platelets are 214. INR is 1. BUN was 31 and creatinine 1.8 on admission; this morning, 24 and 1.2. LFTs are normal. Urinalysis shows 3+ blood, 2+ leukocyte esterase with both red cells and white cells. Blood cultures are pending, with a contaminated urine. In summary, this is a 77-year-old man admitted with painless hematuria. I would recommend management per Urology. I discussed this case with Dr. Yung. He received a dose of ceftriaxone. We will hold further antibiotics at this time. I doubt he has any infection. Would continue his ART for his stable HIV. He required evaluation last admission. If hematuria persists, would recommend hematology evaluation. INDIGO KINCAID M.D. [id number]
--- NOTE | 2018-04-15 16:38 | CONSULT ---
Consult Consult Specialty:: Nephrology Reason for Consultation:: PING - History of Present Illness Chief Complaint: hematuria History of Present Illness: Pt is a 77 year old male with pmhx of HIV, BPH, Hep B, COPD, anemia, HTN, and HLD who presents to the ER with gross hematuria. He denies any pain on urination. He says that the urine is pink and he he did pass a few clots. He denies fevers or chills. He was found to be in renal failure and I was called to evaluate him. He denies history of CKD although he has had abnormal creatinine value in the past. He denies nsaid use. - History Source History Provided By: Patient - Past Medical History Cardio/Vascular: Yes: HTN, Hyperlipdemia Pulmonary: Yes: COPD Renal/: Yes: BPH, Hematuria, UTI Infectious Disease: Yes: HIV Musculoskeletal: Yes: Other (patella fracture) Endocrine: Yes: Other (thyroid goiter s/p needle aspiration) - Past Surgical History Past Surgical History: Yes: TURP - Alcohol/Substance Use Hx Alcohol Use: No History of Substance Use: reports: None - Smoking History Smoking history: Former smoker Have you smoked in the past 12 months: No Aproximately how many cigarettes per day: 4 If you are a former smoker, when did you quit?: 1 MONTH - Social History Usual Living Arrangement: Other (with sister) ADL: Independent History of Recent Travel: No Home Medications - Allergies Allergies/Adverse Reactions: Allergies Allergy/AdvReac Type Severity Reaction Status Date / Time Sulfa (Sulfonamide Allergy Intermediate Nausea Verified 04/14/18 08:24 Antibiotics) sulfamethoxazole Allergy Intermediate Nausea Verified 04/14/18 08:24 [From Bactrim] trimethoprim [From Bactrim] AdvReac Intermediate Nausea Verified 04/14/18 08:24 - Home Medications Home Medications: Ambulatory Orders Amlodipine Besylate [Norvasc -] 10 mg PO DAILY 03/09/18 Cholecalciferol (Vitamin D3) [Vitamin D3] 2,000 unit PO DAILY 03/09/18 Cran/Vitc/Mannose/Fos/Bromeln [Uti-Stat Liquid] 30 ml PO DAILY 03/09/18 Cyanocobalamin (Vitamin B-12) [Vitamin B12] 1,000 mcg PO DAILY 03/09/18 Efavirenz/Emtricitab/Tenofovir [Atripla Tablet -] 1 tab PO DAILY 03/09/18 Lactobacillus Acidophilus [Bacid -] 1 each PO TID 03/09/18 Losartan Potassium 25 mg PO DAILY 03/09/18 Rosuvastatin Calcium [Crestor] 10 mg PO DAILY 03/09/18 Tamsulosin HCl [Flomax] 0.4 mg PO DAILY 03/09/18 Cefuroxime Axetil [Cefuroxime] 500 mg PO BID #4 tablet 03/17/18 Family Disease History - Family Disease History Family History: Denies Review of Systems - Review of Systems Constitutional: reports: No Symptoms Eyes: reports: No Symptoms HENT: reports: No Symptoms Neck: reports: No Symptoms Cardiovascular: reports: No Symptoms Respiratory: reports: No Symptoms Gastrointestinal: reports: No Symptoms Genitourinary: reports: Hematuria. denies: Dysuria, Flank Pain Musculoskeletal: reports: No Symptoms Integumentary: reports: No Symptoms Neurological: reports: No Symptoms Endocrine: reports: No Symptoms Psychiatric: reports: No Symptoms Physical Exam Vital Signs: Vital Signs Temperature 98.2 F 04/15/18 14:30 Pulse Rate 91 H 04/15/18 14:30 Respiratory Rate 18 04/15/18 14:30 Blood Pressure 87/51 04/15/18 14:30 O2 Sat by Pulse Oximetry (%) 99 04/15/18 09:00 Constitutional: Yes: Calm Eyes: Yes: Conjunctiva Clear HENT: Yes: Atraumatic Neck: Yes: Supple Cardiovascular: Yes: S1, S2 Respiratory: Yes: CTA Bilaterally Gastrointestinal: Yes: Normal Bowel Sounds, Soft Renal/: Yes: Hematuria Breast(s): Yes: WNL Musculoskeletal: Yes: WNL Edema: No Neurological: Yes: Oriented Psychiatric: Yes: Oriented Labs: CBC, BMP 04/15/18 06:43 04/15/18 06:43 Laboratory Tests 02/20/18 02/22/18 03/09/18 06:30 06:30 19:05 Hgb BUN Creatinine 1.5 H D 1.3 1.5 H D Urine Protein Urine Blood 03/10/18 03/14/18 03/15/18 10:27 07:25 06:20 Hgb BUN Creatinine 1.6 H 1.0 0.8 Urine Protein Urine Blood 04/14/18 04/14/18 04/14/18 08:38 08:38 11:15 Hgb 9.6 L BUN Creatinine 1.8 H D Urine Protein 2+ H Urine Blood 3+ H 04/15/18 04/15/18 06:43 06:43 Hgb 8.5 L D BUN 24 H D Creatinine 1.2 D Urine Protein Urine Blood Problem List - Problems (1) Hematuria Code(s): R31.9 - HEMATURIA, UNSPECIFIED (2) PING (acute kidney injury) Code(s): N17.9 - ACUTE KIDNEY FAILURE, UNSPECIFIED (3) BPH with elevated PSA Code(s): N40.0 - BENIGN PROSTATIC HYPERPLASIA WITHOUT LOWER URINRY TRACT SYMP; R97.2 - ELEVATED PROSTATE SPECIFIC ANTIGEN [PSA] * DO NOT USE * Assessment/Plan Current Medications Generic Name Dose Route Start Last Admin Trade Name Freq PRN Reason Stop Dose Admin Amlodipine Besylate 10 mg 04/15/18 10:00 04/15/18 11:36 Norvasc - PO 10 mg DAILY ELVIS Administration Cyanocobalamin 1,000 mcg 04/15/18 10:00 04/15/18 11:37 Vitamin B12 - PO 1,000 mcg DAILY ELVIS Administration Efavirenz 600 mg 04/15/18 10:00 04/15/18 11:36 Sustiva - PO 600 mg DAILY ELVIS Administration Emtricitabine/Tenofovir 1 tab 04/15/18 10:00 04/15/18 11:36 Truvada PO 1 tab DAILY ELVIS Administration Finasteride 5 mg 04/15/18 13:30 04/15/18 14:02 Proscar - PO 5 mg DAILY ELVIS Administration Sodium Chloride 1,000 mls @ 75 mls/hr 04/14/18 22:30 04/15/18 06:24 Normal Saline - IV 75 mls/hr ASDIR ELVIS Administration Losartan Potassium 25 mg 04/15/18 10:00 04/15/18 11:35 Cozaar - PO 25 mg DAILY ELVIS Administration Rosuvastatin Calcium 10 mg 04/14/18 22:00 04/14/18 22:00 Crestor - PO Not Given HS ELVIS Tamsulosin HCl 0.4 mg 04/14/18 14:15 04/15/18 11:36 Flomax - PO 0.4 mg DAILY ELVIS Administration Impression 1. PING 2. HIV 3. hematuria 4. Hep B 5. BPH 6. COPD 7. HTN 8. 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
[2018-04-15 17:48] LABS: URINE APPEARANCE CLOUDY; URINE BILIRUBIN NEGATIVE (<2.0 mg/dL); URINE BLOOD 3+ (NEGATIVE); URINE GLUCOSE (UA) 1+ (NEGATIVE); URINE KETONE NEGATIVE (NEGATIVE); URINE LEUK ESTERASE TRACE (NEGATIVE); URINE NITRITE NEGATIVE (NEGATIVE); URINE UROBILINOGEN NEGATIVE mg/dL (0.2-1.0)
[2018-04-15 17:51] LABS: URINE PROTEIN 2+ (NEGATIVE)
[2018-04-15 17:52] LABS: URINE COLOR RED
--- NOTE | 2018-04-15 18:32 | PN ---
Progress Note, Physician History of Present Illness: still has hematuria no pain - Current Medication List Current Medications: Active Medications Amlodipine Besylate (Norvasc -) 10 mg PO DAILY [facility] Last Admin: 04/15/18 11:36 Dose: 10 mg Cyanocobalamin (Vitamin B12 -) 1,000 mcg PO DAILY [facility] Last Admin: 04/15/18 11:37 Dose: 1,000 mcg Efavirenz (Sustiva -) 600 mg PO DAILY [facility] Last Admin: 04/15/18 11:36 Dose: 600 mg Emtricitabine/Tenofovir (Truvada) 1 tab PO DAILY [facility] Last Admin: 04/15/18 11:36 Dose: 1 tab Finasteride (Proscar -) 5 mg PO DAILY [facility] Last Admin: 04/15/18 14:02 Dose: 5 mg Sodium Chloride (Normal Saline -) 1,000 mls @ 75 mls/hr IV ASDIR [facility] Last Admin: 04/15/18 17:06 Dose: 75 mls/hr Losartan Potassium (Cozaar -) 25 mg PO DAILY [facility] Last Admin: 04/15/18 11:35 Dose: 25 mg Rosuvastatin Calcium (Crestor -) 10 mg PO HS [facility] Last Admin: 04/14/18 22:00 Dose: Not Given Tamsulosin HCl (Flomax -) 0.4 mg PO DAILY [facility] Last Admin: 04/15/18 11:36 Dose: 0.4 mg - Objective Vital Signs: Vital Signs Temperature 98.2 F 04/15/18 14:30 Pulse Rate 91 H 04/15/18 14:30 Respiratory Rate 18 04/15/18 14:30 Blood Pressure 87/51 04/15/18 14:30 O2 Sat by Pulse Oximetry (%) 99 04/15/18 09:00 Constitutional: Yes: No Distress HENT: Yes: Atraumatic Neck: Yes: Supple Cardiovascular: Yes: Regular Rate and Rhythm Respiratory: Yes: CTA Bilaterally Gastrointestinal: Yes: Normal Bowel Sounds Extremities: Yes: WNL Neurological: Yes: Alert, Oriented Labs: CBC, BMP 04/15/18 06:43 04/15/18 06:43 INR, PTT INR 1.04 (0.82-1.09) 04/14/18 08:38 Problem List - Problems (1) Hematuria Assessment/Plan: still going on urology note reviewed will get hematology involved to r/o any bleedin disorder Code(s): R31.9 - HEMATURIA, UNSPECIFIED (2) PING (acute kidney injury) Code(s): N17.9 - ACUTE KIDNEY FAILURE, UNSPECIFIED (3) S/P TURP Assessment/Plan: a month ago Code(s): Z90.79 - ACQUIRED ABSENCE OF OTHER GENITAL ORGAN(S) (4) HIV (human immunodeficiency virus infection) Assessment/Plan: continue meds Code(s): Z21 - ASYMPTOMATIC HUMAN IMMUNODEFICIENCY VIRUS INFECTION STATUS (5) HTN (hypertension) Assessment/Plan: on meds stable Code(s): I10 - ESSENTIAL (PRIMARY) HYPERTENSION
[2018-04-15] MEDS: ROSUVASTATIN CA 10 MG TABLET (FP) PO SCH (21:18)
[2018-04-16 07:16] LABS: HEMATOCRIT 25.7 % (35.4-49); HEMOGLOBIN 8.2 GM/dL (11.7-16.9); MCHC 32.1 g/dl (32.0-35.9); MEAN CELL VOLUME 77.8 fl (80-96); MEAN PLT VOLUME 7.3 fl (7.5-11.1); PLATELET COUNT 204 K/MM3 (134-434); RDW 17.7 % (11.9-15.9); WHITE BLOOD COUNT 5.7 K/mm3 (4.0-10.0)
[2018-04-16 08:02] LABS: CHLORIDE 113 mmol/L (98-107); POTASSIUM 4.6 mmol/L (3.5-5.1); SODIUM 139 mmol/L (136-145)
[2018-04-16 08:23] LABS: ANION GAP 6 (8-16); BLOOD UREA NITROGEN 21 mg/dL (7-18); CALCIUM 7.1 mg/dL (8.5-10.1); CO2 20 mmol/L (21-32); GLUCOSE,RANDOM 91 mg/dL (74-106)
[2018-04-16] MEDS ORDERED: PT OWN MED DRAWER 7, Y5N ONE (10:43)
[2018-04-16] MEDS: SODIUM CHLORIDE 1,000 ML IV SCH ×2 (10:46→10:51)
[2018-04-16] MEDS: amLODIPine BESYLATE 10 MG TABLET (FP) PO SCH (10:51)
[2018-04-16] MEDS: TAMSULOSIN HCL 0.4 MG CAP.ER.24H (FP) PO SCH (10:51)
[2018-04-16] MEDS: LOSARTAN POTASSIUM 25 MG TABLET PO SCH (10:51)
[2018-04-16] MEDS: EMTRICITABINE 200MG/TENOFOVIR 300MG PO SCH (10:52)
[2018-04-16] MEDS: FINASTERIDE 5 MG TABLET (FP) PO SCH (10:52)
[2018-04-16] MEDS: EFAVIRENZ 600 MG TABLET PO SCH (10:52)
[2018-04-16] MEDS: CYANOCOBALAMIN 1,000 MCG TABLET (FP) PO SCH (10:52)
--- NOTE | 2018-04-16 12:39 | PN ---
Progress Note, Physician History of Present Illness: Pt seen and examined at bedside. He is awake and alert. He denies shortness of breath. - Current Medication List Current Medications: Active Medications Amlodipine Besylate (Norvasc -) 10 mg PO DAILY [facility] Last Admin: 04/16/18 10:51 Dose: 10 mg Cyanocobalamin (Vitamin B12 -) 1,000 mcg PO DAILY [facility] Last Admin: 04/16/18 10:52 Dose: 1,000 mcg Efavirenz (Sustiva -) 600 mg PO DAILY [facility] Last Admin: 04/16/18 10:52 Dose: 600 mg Emtricitabine/Tenofovir (Truvada) 1 tab PO DAILY [facility] Last Admin: 04/16/18 10:52 Dose: 1 tab Finasteride (Proscar -) 5 mg PO DAILY [facility] Last Admin: 04/16/18 10:52 Dose: 5 mg Sodium Chloride (Normal Saline -) 1,000 mls @ 75 mls/hr IV ASDIR [facility] Last Admin: 04/16/18 10:51 Dose: 75 mls/hr Losartan Potassium (Cozaar -) 25 mg PO DAILY [facility] Last Admin: 04/16/18 10:51 Dose: 25 mg Rosuvastatin Calcium (Crestor -) 10 mg PO HS [facility] Last Admin: 04/15/18 21:18 Dose: 10 mg Tamsulosin HCl (Flomax -) 0.4 mg PO DAILY [facility] Last Admin: 04/16/18 10:51 Dose: 0.4 mg - Objective Vital Signs: Vital Signs Temperature 98.2 F 04/16/18 07:13 Pulse Rate 75 04/16/18 07:13 Respiratory Rate 20 04/16/18 07:13 Blood Pressure 118/60 04/16/18 07:13 O2 Sat by Pulse Oximetry (%) 96 04/15/18 21:00 Constitutional: Yes: Calm Eyes: Yes: Conjunctiva Clear HENT: Yes: Atraumatic Neck: Yes: Supple Cardiovascular: Yes: S1, S2 Respiratory: Yes: CTA Bilaterally Gastrointestinal: Yes: WNL Genitourinary: Yes: WNL Musculoskeletal: Yes: WNL Edema: No Neurological: Yes: Oriented Psychiatric: Yes: Oriented Labs: CBC, BMP 04/16/18 06:00 04/16/18 06:00 INR, PTT INR 1.04 (0.82-1.09) 04/14/18 08:38 Problem List - Problems (1) Hematuria Code(s): R31.9 - HEMATURIA, UNSPECIFIED (2) PING (acute kidney injury) Code(s): N17.9 - ACUTE KIDNEY FAILURE, UNSPECIFIED (3) BPH with elevated PSA Code(s): N40.0 - BENIGN PROSTATIC HYPERPLASIA WITHOUT LOWER URINRY TRACT SYMP; R97.2 - ELEVATED PROSTATE SPECIFIC ANTIGEN [PSA] * DO NOT USE * Assessment/Plan Current Medications Generic Name Dose Route Start Last Admin Trade Name Freq PRN Reason Stop Dose Admin Amlodipine Besylate 10 mg 04/15/18 10:00 04/16/18 10:51 Norvasc - PO 10 mg DAILY ELVIS Administration Cyanocobalamin 1,000 mcg 04/15/18 10:00 04/16/18 10:52 Vitamin B12 - PO 1,000 mcg DAILY ELVIS Administration Efavirenz 600 mg 04/15/18 10:00 04/16/18 10:52 Sustiva - PO 600 mg DAILY ELVIS Administration Emtricitabine/Tenofovir 1 tab 04/15/18 10:00 04/16/18 10:52 Truvada PO 1 tab DAILY ELVIS Administration Finasteride 5 mg 04/15/18 13:30 04/16/18 10:52 Proscar - PO 5 mg DAILY ELVIS Administration Sodium Chloride 1,000 mls @ 75 mls/hr 04/14/18 22:30 04/16/18 10:51 Normal Saline - IV 75 mls/hr ASDIR ELVIS Administration Losartan Potassium 25 mg 04/15/18 10:00 04/16/18 10:51 Cozaar - PO 25 mg DAILY ELVIS Administration Rosuvastatin Calcium 10 mg 04/14/18 22:00 04/15/18 21:18 Crestor - PO 10 mg HS ELVIS Administration Tamsulosin HCl 0.4 mg 04/14/18 14:15 04/16/18 10:51 Flomax - PO 0.4 mg DAILY ELVIS Administration Impression 1. PING 2. HIV 3. hematuria 4. Hep B 5. BPH 6. COPD 7. HTN 8. 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
--- NOTE | 2018-04-16 15:18 | PN ---
Progress Note (short form) - Note Progress Note: still with gross heamturia no fevers no flank or suprapubic pain sono with very large prostate Vital Signs Period Temp Pulse Resp BP Sys/Nunez Pulse Ox Last 24 Hr 97.8 F-99.3 F 70-88 18-20 83-118/42-67 96 cor-rrr lungs clear abd soft,nt ext no edema CBC, BMP 04/16/18 06:00 04/16/18 06:00 Microbiology 04/14/18 15:35 Blood - Peripheral Venous Blood Culture - Preliminary NO GROWTH OBTAINED AFTER 24 HOURS, INCUBATION TO CONTINUE FOR 4 DAYS. 04/14/18 15:35 Blood - Peripheral Venous Blood Culture - Preliminary NO GROWTH OBTAINED AFTER 24 HOURS, INCUBATION TO CONTINUE FOR 4 DAYS. 04/14/18 11:15 Urine - Urine Clean Catch Urine Culture - Final Contaminated: Please Repeat imp/reccd recurrent hematuria-painless, no fevers, no dysuria s/p cystoscopy and TURP 03/11- path no malignancy noted required heme evaluation last admission hiv stable - on art d/w Dr Santos- doubt infection, urine culture back- will hold on antibiotics at this time continue art suggest hematology evaluation if hematuria persists anemia secondary to hematuria Problem List - Problems (1) Hematuria Code(s): R31.9 - HEMATURIA, UNSPECIFIED (2) HIV (human immunodeficiency virus infection) Code(s): Z21 - ASYMPTOMATIC HUMAN IMMUNODEFICIENCY VIRUS INFECTION STATUS
--- NOTE | 2018-04-16 17:41 | PN ---
Progress Note (short form) - Note Progress Note: Hematology consult. Known from previous admissions: Recurrent Hematuria. Chart reviewed Patient seen and examined continues to have hematuria. Hgb trending down. Feels weak and fatigued Cor: RSR, No murmurs, No gallops Lungs: decreased breath sounds and poor inspiratory effort Abd: Soft, Normal bowel sounds, No organomegaly Ext:No significant edema Skin: No rashes, Integument intact Bloody urine: in the urinal next to bed side. Last Vital Signs Temp Pulse Resp BP Pulse Ox 98.2 F 88 20 84/42 96 04/16/18 13:55 04/16/18 13:55 04/16/18 13:55 04/16/18 13:55 04/15/18 21:00 CBC, BMP 04/16/18 06:00 04/16/18 06:00 Current Medications Generic Name Dose Route Start Last Admin Trade Name Freq PRN Reason Stop Dose Admin Amlodipine Besylate 10 mg 04/15/18 10:00 04/16/18 10:51 Norvasc - PO 10 mg DAILY ELVIS Administration Cyanocobalamin 1,000 mcg 04/15/18 10:00 04/16/18 10:52 Vitamin B12 - PO 1,000 mcg DAILY ELVIS Administration Efavirenz 600 mg 04/15/18 10:00 04/16/18 10:52 Sustiva - PO 600 mg DAILY ELVIS Administration Emtricitabine/Tenofovir 1 tab 04/15/18 10:00 04/16/18 10:52 Truvada PO 1 tab DAILY ELVIS Administration Finasteride 5 mg 04/15/18 13:30 04/16/18 10:52 Proscar - PO 5 mg DAILY ELVIS Administration Sodium Chloride 1,000 mls @ 75 mls/hr 04/14/18 22:30 04/16/18 10:51 Normal Saline - IV 75 mls/hr ASDIR ELVIS Administration Losartan Potassium 25 mg 04/15/18 10:00 04/16/18 10:51 Cozaar - PO 25 mg DAILY ELVIS Administration Rosuvastatin Calcium 10 mg 04/14/18 22:00 04/15/18 21:18 Crestor - PO 10 mg HS ELVIS Administration Tamsulosin HCl 0.4 mg 04/14/18 14:15 04/16/18 10:51 Flomax - PO 0.4 mg DAILY ELVIS Administration Hematuria Anemia HIV Severely enlarged prostate Last coags/fibrinogen reviewed ,CBC with no thrombocytopenia-- seems less likely for him to have a inherent/acquired bleeding disorder. to maintain hemostasis/maintain Hgb transfuse today. from the am (post blood work) will start amicar. Will order in the am: Dosin gm q 8h 2g of Amicar q12h x1days Then 2g/day for 2 days f/u
--- NOTE | 2018-04-16 18:36 | PN ---
Progress Note, Physician - Current Medication List Current Medications: Active Medications Amlodipine Besylate (Norvasc -) 10 mg PO DAILY [facility] Last Admin: 04/16/18 10:51 Dose: 10 mg Cyanocobalamin (Vitamin B12 -) 1,000 mcg PO DAILY [facility] Last Admin: 04/16/18 10:52 Dose: 1,000 mcg Efavirenz (Sustiva -) 600 mg PO DAILY [facility] Last Admin: 04/16/18 10:52 Dose: 600 mg Emtricitabine/Tenofovir (Truvada) 1 tab PO DAILY [facility] Last Admin: 04/16/18 10:52 Dose: 1 tab Finasteride (Proscar -) 5 mg PO DAILY [facility] Last Admin: 04/16/18 10:52 Dose: 5 mg Sodium Chloride (Normal Saline -) 1,000 mls @ 75 mls/hr IV ASDIR [facility] Last Admin: 04/16/18 10:51 Dose: 75 mls/hr Losartan Potassium (Cozaar -) 25 mg PO DAILY [facility] Last Admin: 04/16/18 10:51 Dose: 25 mg Rosuvastatin Calcium (Crestor -) 10 mg PO HS [facility] Last Admin: 04/15/18 21:18 Dose: 10 mg Tamsulosin HCl (Flomax -) 0.4 mg PO DAILY [facility] Last Admin: 04/16/18 10:51 Dose: 0.4 mg - Objective Vital Signs: Vital Signs Temperature 98.2 F 04/16/18 13:55 Pulse Rate 88 04/16/18 13:55 Respiratory Rate 20 04/16/18 13:55 Blood Pressure 84/42 04/16/18 13:55 O2 Sat by Pulse Oximetry (%) 96 04/15/18 21:00 Constitutional: Yes: No Distress HENT: Yes: Atraumatic Neck: Yes: Supple Cardiovascular: Yes: Regular Rate and Rhythm Respiratory: Yes: CTA Bilaterally Gastrointestinal: Yes: Normal Bowel Sounds Extremities: Yes: WNL Neurological: Yes: Alert, Oriented Labs: CBC, BMP 04/16/18 06:00 04/16/18 06:00 INR, PTT INR 1.04 (0.82-1.09) 04/14/18 08:38 Problem List - Problems (1) Hematuria Assessment/Plan: heme consult noted amicar ordered for patient Code(s): R31.9 - HEMATURIA, UNSPECIFIED (2) PING (acute kidney injury) Code(s): N17.9 - ACUTE KIDNEY FAILURE, UNSPECIFIED (3) S/P TURP Assessment/Plan: a month ago Code(s): Z90.79 - ACQUIRED ABSENCE OF OTHER GENITAL ORGAN(S) (4) HIV (human immunodeficiency virus infection) Assessment/Plan: continue meds Code(s): Z21 - ASYMPTOMATIC HUMAN IMMUNODEFICIENCY VIRUS INFECTION STATUS (5) HTN (hypertension) Code(s): I10 - ESSENTIAL (PRIMARY) HYPERTENSION
[2018-04-17] MEDS: ROSUVASTATIN CA 10 MG TABLET (FP) PO SCH ×2 (04:52→21:58)
[2018-04-17 07:03] LABS: BASO % 0.3 % (0-2.0); EOS % 1.4 % (0-4.5); HEMOGLOBIN 9.5 GM/dL (11.7-16.9); LYMPH % 18.8 % (8-40); MCH 25.8 pg (25.7-33.7); MCHC 32.6 g/dl (32.0-35.9); MEAN CELL VOLUME 79.1 fl (80-96); MEAN PLT VOLUME 7.4 fl (7.5-11.1); MONO % 4.9 % (3.8-10.2); NEUT % 74.6 % (42.8-82.8); PLATELET COUNT 193 K/MM3 (134-434); RBC 3.67 M/mm3 (4.00-5.60); RDW 17.3 % (11.9-15.9); WHITE BLOOD COUNT 6.7 K/mm3 (4.0-10.0)
[2018-04-17 07:21] LABS: INR 1.07 (0.82-1.09); PROTHROMBIN TIME (PATIENT) 12.1 SEC (9.7-13.0)
[2018-04-17 07:24] LABS: ACTIVATED PTT 26.6 SECONDS (26.9-34.4)
[2018-04-17] MEDS: amLODIPine BESYLATE 10 MG TABLET (FP) PO SCH (10:50)
[2018-04-17] MEDS: TAMSULOSIN HCL 0.4 MG CAP.ER.24H (FP) PO SCH (10:50)
[2018-04-17] MEDS: FINASTERIDE 5 MG TABLET (FP) PO SCH (10:50)
[2018-04-17] MEDS: CYANOCOBALAMIN 1,000 MCG TABLET (FP) PO SCH (10:51)
[2018-04-17] MEDS: LOSARTAN POTASSIUM 25 MG TABLET PO SCH (10:51)
[2018-04-17] MEDS: EFAVIRENZ 600 MG TABLET PO SCH (10:52)
[2018-04-17] MEDS: EMTRICITABINE 200MG/TENOFOVIR 300MG PO SCH (10:52)
[2018-04-17] MEDS: AMINOCAPROIC ACID 500 MG TABLET PO SCH ×3 (12:00→21:59)
--- NOTE | 2018-04-17 12:05 | PN ---
Progress Note, Physician Chief Complaint: ID Off antibiotic No fever still has gross hematuria - Current Medication List Current Medications: Active Medications Aminocaproic Acid (Amicar -) 2,000 mg PO TID [facility] Amlodipine Besylate (Norvasc -) 10 mg PO DAILY [facility] Last Admin: 04/17/18 10:50 Dose: 10 mg Cyanocobalamin (Vitamin B12 -) 1,000 mcg PO DAILY [facility] Last Admin: 04/17/18 10:51 Dose: 1,000 mcg Efavirenz (Sustiva -) 600 mg PO DAILY [facility] Last Admin: 04/17/18 10:52 Dose: 600 mg Emtricitabine/Tenofovir (Truvada) 1 tab PO DAILY [facility] Last Admin: 04/17/18 10:52 Dose: 1 tab Finasteride (Proscar -) 5 mg PO DAILY [facility] Last Admin: 04/17/18 10:50 Dose: 5 mg Sodium Chloride (Normal Saline -) 1,000 mls @ 75 mls/hr IV ASDIR [facility] Last Admin: 04/16/18 10:51 Dose: 75 mls/hr Losartan Potassium (Cozaar -) 25 mg PO DAILY [facility] Last Admin: 04/17/18 10:51 Dose: 25 mg Rosuvastatin Calcium (Crestor -) 10 mg PO HS [facility] Last Admin: 04/17/18 04:52 Dose: 10 mg Tamsulosin HCl (Flomax -) 0.4 mg PO DAILY [facility] Last Admin: 04/17/18 10:50 Dose: 0.4 mg - Objective Vital Signs: Vital Signs Temperature 98.4 F 04/17/18 06:00 Pulse Rate 78 04/17/18 06:00 Respiratory Rate 20 04/17/18 06:00 Blood Pressure 104/52 04/17/18 06:00 O2 Sat by Pulse Oximetry (%) 96 04/16/18 21:00 Constitutional: Yes: No Distress Neck: Yes: WNL, Supple Cardiovascular: Yes: S1, S2 Respiratory: Yes: WNL, Regular, CTA Bilaterally Gastrointestinal: Yes: WNL, Normal Bowel Sounds, Soft. No: Tenderness, Tenderness, Epigastrium Genitourinary: Yes: Hematuria Labs: CBC, BMP 04/17/18 06:20 04/16/18 06:00 INR, PTT INR 1.07 (0.82-1.09) 04/17/18 06:20 Fibrinogen 291.0 mg/dL (238-498) D 04/17/18 06:20 Assessment/Plan Microbiology 04/14/18 11:15 Urine - Urine Clean Catch Urine Culture - Final Contaminated: Please Repeat 04/14/18 15:35 Blood - Peripheral Venous Blood Culture - Preliminary NO GROWTH OBTAINED AFTER 48 HOURS, INCUBATION TO CONTINUE FOR 3 DAYS. 04/14/18 15:35 Blood - Peripheral Venous Blood Culture - Preliminary NO GROWTH OBTAINED AFTER 48 HOURS, INCUBATION TO CONTINUE FOR 3 DAYS. Laboratory Tests 04/16/18 04/17/18 06:00 06:20 WBC 6.7 RBC 3.67 L Hct 29.0 L Plt Count 193 BUN 21 H Creatinine 1.0 Assessment Gross hematuria No signs of active infection no urinary complaints Plan From ID standpoint not much more to add Continue ART as ordered Keagan VELASCO
--- NOTE | 2018-04-17 14:14 | PN ---
Progress Note, Physician History of Present Illness: Pt seen and examined at bedside. He is awake and alert. He still has gross hematuria. - Current Medication List Current Medications: Active Medications Aminocaproic Acid (Amicar -) 2,000 mg PO TID [facility] Last Admin: 04/17/18 12:00 Dose: 2,000 mg Amlodipine Besylate (Norvasc -) 10 mg PO DAILY [facility] Last Admin: 04/17/18 10:50 Dose: 10 mg Cyanocobalamin (Vitamin B12 -) 1,000 mcg PO DAILY [facility] Last Admin: 04/17/18 10:51 Dose: 1,000 mcg Efavirenz (Sustiva -) 600 mg PO DAILY [facility] Last Admin: 04/17/18 10:52 Dose: 600 mg Emtricitabine/Tenofovir (Truvada) 1 tab PO DAILY [facility] Last Admin: 04/17/18 10:52 Dose: 1 tab Finasteride (Proscar -) 5 mg PO DAILY [facility] Last Admin: 04/17/18 10:50 Dose: 5 mg Sodium Chloride (Normal Saline -) 1,000 mls @ 75 mls/hr IV ASDIR [facility] Last Admin: 04/16/18 10:51 Dose: 75 mls/hr Losartan Potassium (Cozaar -) 25 mg PO DAILY [facility] Last Admin: 04/17/18 10:51 Dose: 25 mg Rosuvastatin Calcium (Crestor -) 10 mg PO HS [facility] Last Admin: 04/17/18 04:52 Dose: 10 mg Tamsulosin HCl (Flomax -) 0.4 mg PO DAILY [facility] Last Admin: 04/17/18 10:50 Dose: 0.4 mg - Objective Vital Signs: Vital Signs Temperature 98.5 F 04/17/18 09:00 Pulse Rate 70 04/17/18 09:00 Respiratory Rate 18 04/17/18 09:00 Blood Pressure 126/60 04/17/18 09:00 O2 Sat by Pulse Oximetry (%) 96 04/17/18 09:00 Constitutional: Yes: Calm Eyes: Yes: Conjunctiva Clear HENT: Yes: Atraumatic Neck: Yes: Supple Cardiovascular: Yes: S1, S2 Respiratory: Yes: CTA Bilaterally Gastrointestinal: Yes: Soft Genitourinary: Yes: Hematuria Musculoskeletal: Yes: WNL Edema: No Neurological: Yes: Oriented Psychiatric: Yes: Oriented Labs: CBC, BMP 04/17/18 06:20 04/16/18 06:00 INR, PTT INR 1.07 (0.82-1.09) 04/17/18 06:20 Fibrinogen 291.0 mg/dL (238-498) D 04/17/18 06:20 Problem List - Problems (1) Hematuria Code(s): R31.9 - HEMATURIA, UNSPECIFIED (2) PING (acute kidney injury) Code(s): N17.9 - ACUTE KIDNEY FAILURE, UNSPECIFIED (3) BPH with elevated PSA Code(s): N40.0 - BENIGN PROSTATIC HYPERPLASIA WITHOUT LOWER URINRY TRACT SYMP; R97.2 - ELEVATED PROSTATE SPECIFIC ANTIGEN [PSA] * DO NOT USE * Assessment/Plan Current Medications Generic Name Dose Route Start Last Admin Trade Name Freq PRN Reason Stop Dose Admin Aminocaproic Acid 2,000 mg 04/17/18 11:11 04/17/18 12:00 Amicar - PO 2,000 mg TID ELVIS Administration Amlodipine Besylate 10 mg 04/15/18 10:00 04/17/18 10:50 Norvasc - PO 10 mg DAILY ELVIS Administration Cyanocobalamin 1,000 mcg 04/15/18 10:00 04/17/18 10:51 Vitamin B12 - PO 1,000 mcg DAILY ELVIS Administration Efavirenz 600 mg 04/15/18 10:00 04/17/18 10:52 Sustiva - PO 600 mg DAILY ELVIS Administration Emtricitabine/Tenofovir 1 tab 04/15/18 10:00 04/17/18 10:52 Truvada PO 1 tab DAILY ELVIS Administration Finasteride 5 mg 04/15/18 13:30 04/17/18 10:50 Proscar - PO 5 mg DAILY ELVIS Administration Sodium Chloride 1,000 mls @ 75 mls/hr 04/14/18 22:30 04/16/18 10:51 Normal Saline - IV 75 mls/hr ASDIR ELVIS Administration Losartan Potassium 25 mg 04/15/18 10:00 04/17/18 10:51 Cozaar - PO 25 mg DAILY ELVIS Administration Rosuvastatin Calcium 10 mg 04/14/18 22:00 04/17/18 04:52 Crestor - PO 10 mg HS ELVIS Administration Tamsulosin HCl 0.4 mg 04/14/18 14:15 04/17/18 10:50 Flomax - PO 0.4 mg DAILY ELVIS Administration Impression 1. PING 2. HIV 3. hematuria 4. Hep B 5. BPH 6. COPD 7. HTN 8. anemia Plan - pt has persistent hematuria - urology follow up - check bmp to evaluate renal function - renal function had stabilized yesterday - will follow - can raymon neal for now Dr Cary
--- NOTE | 2018-04-17 17:44 | PN ---
Progress Note (short form) - Note Progress Note: Hematology consult. continues to have hematuria Cor: RSR, No murmurs, No gallops Lungs: decreased breath sounds and poor inspiratory effort Abd: Soft, Normal bowel sounds, No organomegaly Ext:No significant edema Skin: No rashes, Integument intact Bloody urine: in the urinal next to bed side. Last Vital Signs Temp Pulse Resp BP Pulse Ox 98.2 F 88 20 84/42 96 04/16/18 13:55 04/16/18 13:55 04/16/18 13:55 04/16/18 13:55 04/15/18 21:00 CBC, BMP 04/16/18 06:00 04/16/18 06:00 Current Medications Generic Name Dose Route Start Last Admin Trade Name Freq PRN Reason Stop Dose Admin Amlodipine Besylate 10 mg 04/15/18 10:00 04/16/18 10:51 Norvasc - PO 10 mg DAILY ELVIS Administration Cyanocobalamin 1,000 mcg 04/15/18 10:00 04/16/18 10:52 Vitamin B12 - PO 1,000 mcg DAILY ELVIS Administration Efavirenz 600 mg 04/15/18 10:00 04/16/18 10:52 Sustiva - PO 600 mg DAILY ELVIS Administration Emtricitabine/Tenofovir 1 tab 04/15/18 10:00 04/16/18 10:52 Truvada PO 1 tab DAILY ELVIS Administration Finasteride 5 mg 04/15/18 13:30 04/16/18 10:52 Proscar - PO 5 mg DAILY ELVIS Administration Sodium Chloride 1,000 mls @ 75 mls/hr 04/14/18 22:30 04/16/18 10:51 Normal Saline - IV 75 mls/hr ASDIR ELVIS Administration Losartan Potassium 25 mg 04/15/18 10:00 04/16/18 10:51 Cozaar - PO 25 mg DAILY ELVIS Administration Rosuvastatin Calcium 10 mg 04/14/18 22:00 04/15/18 21:18 Crestor - PO 10 mg HS ELVIS Administration Tamsulosin HCl 0.4 mg 04/14/18 14:15 04/16/18 10:51 Flomax - PO 0.4 mg DAILY ELVIS Administration Hematuria Anemia HIV Severely enlarged prostate Last coags/fibrinogen reviewed ,CBC with no thrombocytopenia-- seems less likely for him to have a inherent/acquired bleeding disorder. to maintain hemostasis/maintain Hgb transfusion received yesterday started amicar today Dosin gm q 8h 2g of Amicar q12h x1days Then 2g/day for 2 days f/u
--- NOTE | 2018-04-17 17:57 | PN ---
Progress Note, Physician History of Present Illness: still has hematuria but better - Current Medication List Current Medications: Active Medications Aminocaproic Acid (Amicar -) 2,000 mg PO TID [facility] Last Admin: 04/17/18 16:08 Dose: 2,000 mg Amlodipine Besylate (Norvasc -) 10 mg PO DAILY [facility] Last Admin: 04/17/18 10:50 Dose: 10 mg Cyanocobalamin (Vitamin B12 -) 1,000 mcg PO DAILY [facility] Last Admin: 04/17/18 10:51 Dose: 1,000 mcg Efavirenz (Sustiva -) 600 mg PO DAILY [facility] Last Admin: 04/17/18 10:52 Dose: 600 mg Emtricitabine/Tenofovir (Truvada) 1 tab PO DAILY [facility] Last Admin: 04/17/18 10:52 Dose: 1 tab Finasteride (Proscar -) 5 mg PO DAILY [facility] Last Admin: 04/17/18 10:50 Dose: 5 mg Sodium Chloride (Normal Saline -) 1,000 mls @ 75 mls/hr IV ASDIR [facility] Last Admin: 04/16/18 10:51 Dose: 75 mls/hr Losartan Potassium (Cozaar -) 25 mg PO DAILY [facility] Last Admin: 04/17/18 10:51 Dose: 25 mg Rosuvastatin Calcium (Crestor -) 10 mg PO HS [facility] Last Admin: 04/17/18 04:52 Dose: 10 mg Tamsulosin HCl (Flomax -) 0.4 mg PO DAILY [facility] Last Admin: 04/17/18 10:50 Dose: 0.4 mg - Objective Vital Signs: Vital Signs Temperature 98.5 F 04/17/18 17:06 Pulse Rate 76 04/17/18 17:06 Respiratory Rate 20 04/17/18 17:06 Blood Pressure 116/55 04/17/18 17:06 O2 Sat by Pulse Oximetry (%) 96 04/17/18 10:00 Constitutional: Yes: No Distress HENT: Yes: Atraumatic Neck: Yes: Supple Cardiovascular: Yes: Regular Rate and Rhythm Respiratory: Yes: CTA Bilaterally Gastrointestinal: Yes: Normal Bowel Sounds Extremities: Yes: WNL Neurological: Yes: Alert, Oriented Labs: CBC, BMP 04/17/18 06:20 04/16/18 06:00 INR, PTT INR 1.07 (0.82-1.09) 04/17/18 06:20 Fibrinogen 291.0 mg/dL (238-498) D 04/17/18 06:20 Problem List - Problems (1) Hematuria Assessment/Plan: improving will monitor Code(s): R31.9 - HEMATURIA, UNSPECIFIED (2) PING (acute kidney injury) Code(s): N17.9 - ACUTE KIDNEY FAILURE, UNSPECIFIED (3) S/P TURP Assessment/Plan: a month ago Code(s): Z90.79 - ACQUIRED ABSENCE OF OTHER GENITAL ORGAN(S) (4) HIV (human immunodeficiency virus infection) Assessment/Plan: continue meds Code(s): Z21 - ASYMPTOMATIC HUMAN IMMUNODEFICIENCY VIRUS INFECTION STATUS (5) HTN (hypertension) Assessment/Plan: on meds stable Code(s): I10 - ESSENTIAL (PRIMARY) HYPERTENSION
[2018-04-18] MEDS: SODIUM CHLORIDE 1,000 ML IV SCH (05:51)
[2018-04-18] MEDS: AMINOCAPROIC ACID 500 MG TABLET PO SCH ×3 (05:53→21:07)
[2018-04-18 08:38] LABS: CHLORIDE 107 mmol/L (98-107); POTASSIUM 4.7 mmol/L (3.5-5.1); SODIUM 136 mmol/L (136-145)
[2018-04-18 08:42] LABS: ANION GAP 7 (8-16); BLOOD UREA NITROGEN 24 mg/dL (7-18); CALCIUM 7.7 mg/dL (8.5-10.1); CO2 22 mmol/L (21-32); CREATININE 1.1 mg/dL (0.7-1.3); GLUCOSE,RANDOM 86 mg/dL (74-106)
[2018-04-18] MEDS: LOSARTAN POTASSIUM 25 MG TABLET PO SCH (10:44)
[2018-04-18] MEDS: amLODIPine BESYLATE 10 MG TABLET (FP) PO SCH (10:44)
[2018-04-18] MEDS ORDERED: PT OWN MED DRAWER 7, Y5N ONE ×3 (10:46→21:21)
[2018-04-18] MEDS: TAMSULOSIN HCL 0.4 MG CAP.ER.24H (FP) PO SCH (10:48)
[2018-04-18] MEDS: EFAVIRENZ 600 MG TABLET PO SCH (10:48)
[2018-04-18] MEDS: FINASTERIDE 5 MG TABLET (FP) PO SCH (10:48)
[2018-04-18] MEDS: EMTRICITABINE 200MG/TENOFOVIR 300MG PO SCH (10:49)
[2018-04-18] MEDS: CYANOCOBALAMIN 1,000 MCG TABLET (FP) PO SCH (10:49)
--- NOTE | 2018-04-18 16:34 | PN ---
Progress Note, Physician History of Present Illness: Pt seen and examined at bedside. He is awake and alert. He is still having hematuria. - Current Medication List Current Medications: Active Medications Aminocaproic Acid (Amicar -) 2,000 mg PO TID [facility] Last Admin: 04/18/18 13:02 Dose: 2,000 mg Amlodipine Besylate (Norvasc -) 10 mg PO DAILY [facility] Last Admin: 04/18/18 10:44 Dose: Not Given Cyanocobalamin (Vitamin B12 -) 1,000 mcg PO DAILY [facility] Last Admin: 04/18/18 10:49 Dose: 1,000 mcg Efavirenz (Sustiva -) 600 mg PO DAILY [facility] Last Admin: 04/18/18 10:48 Dose: 600 mg Emtricitabine/Tenofovir (Truvada) 1 tab PO DAILY [facility] Last Admin: 04/18/18 10:49 Dose: 1 tab Finasteride (Proscar -) 5 mg PO DAILY [facility] Last Admin: 04/18/18 10:48 Dose: 5 mg Sodium Chloride (Normal Saline -) 1,000 mls @ 75 mls/hr IV ASDIR [facility] Last Admin: 04/18/18 05:51 Dose: Not Given Losartan Potassium (Cozaar -) 25 mg PO DAILY [facility] Last Admin: 04/18/18 10:44 Dose: Not Given Rosuvastatin Calcium (Crestor -) 10 mg PO HS [facility] Last Admin: 04/17/18 21:58 Dose: 10 mg Tamsulosin HCl (Flomax -) 0.4 mg PO DAILY [facility] Last Admin: 04/18/18 10:48 Dose: 0.4 mg - Objective Vital Signs: Vital Signs Temperature 98.7 F 04/18/18 15:33 Pulse Rate 78 04/18/18 15:33 Respiratory Rate 22 04/18/18 15:33 Blood Pressure 118/50 04/18/18 15:33 O2 Sat by Pulse Oximetry (%) 96 04/18/18 09:00 Constitutional: Yes: Calm Eyes: Yes: Conjunctiva Clear HENT: Yes: Atraumatic Neck: Yes: Supple Cardiovascular: Yes: S1, S2 Respiratory: Yes: CTA Bilaterally Gastrointestinal: Yes: Soft Genitourinary: Yes: Hematuria Musculoskeletal: Yes: WNL Edema: No Integumentary: Yes: WNL Neurological: Yes: Oriented Psychiatric: Yes: Oriented Labs: CBC, BMP 04/17/18 06:20 04/18/18 06:30 INR, PTT INR 1.07 (0.82-1.09) 04/17/18 06:20 Fibrinogen 291.0 mg/dL (238-498) D 04/17/18 06:20 Problem List - Problems (1) Hematuria Code(s): R31.9 - HEMATURIA, UNSPECIFIED (2) PING (acute kidney injury) Code(s): N17.9 - ACUTE KIDNEY FAILURE, UNSPECIFIED (3) BPH with elevated PSA Code(s): N40.0 - BENIGN PROSTATIC HYPERPLASIA WITHOUT LOWER URINRY TRACT SYMP; R97.2 - ELEVATED PROSTATE SPECIFIC ANTIGEN [PSA] * DO NOT USE * Assessment/Plan Current Medic Current Medications Generic Name Dose Route Start Last Admin Trade Name Freq PRN Reason Stop Dose Admin Aminocaproic Acid 2,000 mg 04/17/18 11:11 04/18/18 13:02 Amicar - PO 2,000 mg TID ELVIS Administration Amlodipine Besylate 10 mg 04/15/18 10:00 04/18/18 10:44 Norvasc - PO Not Given DAILY ELVIS Cyanocobalamin 1,000 mcg 04/15/18 10:00 04/18/18 10:49 Vitamin B12 - PO 1,000 mcg DAILY ELVIS Administration Efavirenz 600 mg 04/15/18 10:00 04/18/18 10:48 Sustiva - PO 600 mg DAILY ELVIS Administration Emtricitabine/Tenofovir 1 tab 04/15/18 10:00 04/18/18 10:49 Truvada PO 1 tab DAILY ELVIS Administration Finasteride 5 mg 04/15/18 13:30 04/18/18 10:48 Proscar - PO 5 mg DAILY ELVIS Administration Sodium Chloride 1,000 mls @ 75 mls/hr 04/14/18 22:30 04/18/18 05:51 Normal Saline - IV Not Given ASDIR ELVIS Losartan Potassium 25 mg 04/15/18 10:00 04/18/18 10:44 Cozaar - PO Not Given DAILY ELVIS Rosuvastatin Calcium 10 mg 04/14/18 22:00 04/17/18 21:58 Crestor - PO 10 mg HS ELVIS Administration Tamsulosin HCl 0.4 mg 04/14/18 14:15 04/18/18 10:48 Flomax - PO 0.4 mg DAILY ELVIS Administration Impression 1. PING 2. HIV 3. hematuria 4. Hep B 5. BPH 6. COPD 7. HTN 8. anemia Plan - urology follow up - renal function is stable - monitor urine output - will follow - can raymon Cary
--- NOTE | 2018-04-18 19:05 | PN ---
Progress Note, Physician History of Present Illness: hematuria much better - Current Medication List Current Medications: Active Medications Aminocaproic Acid (Amicar -) 2,000 mg PO TID [facility] Last Admin: 04/18/18 13:02 Dose: 2,000 mg Amlodipine Besylate (Norvasc -) 10 mg PO DAILY [facility] Last Admin: 04/18/18 10:44 Dose: Not Given Cyanocobalamin (Vitamin B12 -) 1,000 mcg PO DAILY [facility] Last Admin: 04/18/18 10:49 Dose: 1,000 mcg Efavirenz (Sustiva -) 600 mg PO DAILY [facility] Last Admin: 04/18/18 10:48 Dose: 600 mg Emtricitabine/Tenofovir (Truvada) 1 tab PO DAILY [facility] Last Admin: 04/18/18 10:49 Dose: 1 tab Finasteride (Proscar -) 5 mg PO DAILY [facility] Last Admin: 04/18/18 10:48 Dose: 5 mg Sodium Chloride (Normal Saline -) 1,000 mls @ 75 mls/hr IV ASDIR [facility] Last Admin: 04/18/18 05:51 Dose: Not Given Losartan Potassium (Cozaar -) 25 mg PO DAILY [facility] Last Admin: 04/18/18 10:44 Dose: Not Given Rosuvastatin Calcium (Crestor -) 10 mg PO HS [facility] Last Admin: 04/17/18 21:58 Dose: 10 mg Tamsulosin HCl (Flomax -) 0.4 mg PO DAILY [facility] Last Admin: 04/18/18 10:48 Dose: 0.4 mg - Objective Vital Signs: Vital Signs Temperature 97.5 F L 04/18/18 17:01 Pulse Rate 79 04/18/18 17:01 Respiratory Rate 20 04/18/18 17:01 Blood Pressure 113/58 04/18/18 17:01 O2 Sat by Pulse Oximetry (%) 96 04/18/18 09:00 Constitutional: Yes: No Distress HENT: Yes: Atraumatic Neck: Yes: Supple Cardiovascular: Yes: Regular Rate and Rhythm Respiratory: Yes: CTA Bilaterally Gastrointestinal: Yes: Normal Bowel Sounds Extremities: Yes: WNL Neurological: Yes: Alert, Oriented Labs: CBC, BMP 04/17/18 06:20 04/18/18 06:30 INR, PTT INR 1.07 (0.82-1.09) 04/17/18 06:20 Fibrinogen 291.0 mg/dL (238-498) D 04/17/18 06:20 Problem List - Problems (1) Hematuria Assessment/Plan: improving will monitor on amicar Code(s): R31.9 - HEMATURIA, UNSPECIFIED (2) PING (acute kidney injury) Assessment/Plan: cr wnl Code(s): N17.9 - ACUTE KIDNEY FAILURE, UNSPECIFIED (3) S/P TURP Code(s): Z90.79 - ACQUIRED ABSENCE OF OTHER GENITAL ORGAN(S) (4) HIV (human immunodeficiency virus infection) Assessment/Plan: continue meds Code(s): Z21 - ASYMPTOMATIC HUMAN IMMUNODEFICIENCY VIRUS INFECTION STATUS (5) HTN (hypertension) Assessment/Plan: on meds stable Code(s): I10 - ESSENTIAL (PRIMARY) HYPERTENSION
--- NOTE | 2018-04-18 19:37 | PN ---
Progress Note (short form) - Note Progress Note: PAtient seen and examined hematuria present but decreasing Last Vital Signs Temp Pulse Resp BP Pulse Ox 97.5 F L 79 20 113/58 96 04/18/18 17:01 04/18/18 17:04/18/18 17:04/18/18 17:04/18/18 09:00 Cor: RSR, No murmurs, No gallops Lungs: Clear to P&A Abd: Soft, Normal bowel sounds, No organomegaly Ext:No significant edema Abnormal Lab Results 04/18/18 06:30 Anion Gap 7 L BUN 24 H Calcium 7.7 L Home Medication List Medication Instructions Recorded Confirmed Type Amlodipine Besylate [Norvasc -] 10 mg PO DAILY 03/09/18 04/14/18 History Cholecalciferol (Vitamin D3) 2,000 unit PO DAILY 03/09/18 04/14/18 History [Vitamin D3] Cran/Vitc/Mannose/Fos/Bromeln 30 ml PO DAILY 03/09/18 04/14/18 History [Uti-Stat Liquid] Cyanocobalamin (Vitamin B-12) 1,000 mcg PO DAILY 03/09/18 04/14/18 History [Vitamin B12] Efavirenz/Emtricitab/Tenofovir 1 tab PO DAILY 03/09/18 04/14/18 History [Atripla Tablet -] Lactobacillus Acidophilus [Bacid -] 1 each PO TID 03/09/18 04/14/18 History Losartan Potassium 25 mg PO DAILY 03/09/18 04/14/18 History Rosuvastatin Calcium [Crestor] 10 mg PO DAILY 03/09/18 04/14/18 History Tamsulosin HCl [Flomax] 0.4 mg PO DAILY 03/09/18 04/14/18 History Active Medications Generic Name Dose Route Start Last Admin Trade Name Freq PRN Reason Stop Dose Admin Aminocaproic Acid 2,000 mg 04/17/18 11:11 04/18/18 13:02 Amicar - PO 2,000 mg TID ELVIS Administration Amlodipine Besylate 10 mg 04/15/18 10:00 04/18/18 10:44 Norvasc - PO Not Given DAILY ELVIS Cyanocobalamin 1,000 mcg 04/15/18 10:00 04/18/18 10:49 Vitamin B12 - PO 1,000 mcg DAILY ELVIS Administration Efavirenz 600 mg 04/15/18 10:00 04/18/18 10:48 Sustiva - PO 600 mg DAILY ELVIS Administration Emtricitabine/Tenofovir 1 tab 04/15/18 10:00 04/18/18 10:49 Truvada PO 1 tab DAILY ELVIS Administration Finasteride 5 mg 04/15/18 13:30 04/18/18 10:48 Proscar - PO 5 mg DAILY ELVIS Administration Losartan Potassium 25 mg 04/15/18 10:00 04/18/18 10:44 Cozaar - PO Not Given DAILY ELVIS Rosuvastatin Calcium 10 mg 04/14/18 22:00 04/17/18 21:58 Crestor - PO 10 mg HS ELVIS Administration Tamsulosin HCl 0.4 mg 04/14/18 14:15 04/18/18 10:48 Flomax - PO 0.4 mg DAILY ELVIS Administration A/P Hematuria Anemia HIV Severely enlarged prostate Last coags/fibrinogen reviewed ,CBC with no thrombocytopenia-- seems less likely for him to have a inherent/acquired bleeding disorder. on amicar 2g Q 6hrs. continue for now and taper according to clinical course
[2018-04-18] MEDS ORDERED: AMINOCAPROIC ACID 500 MG TABLET PO SCH ×2 (20:30→20:45)
[2018-04-18] MEDS: ROSUVASTATIN CA 10 MG TABLET (FP) PO SCH (21:06)
[2018-04-19] MEDS ORDERED: PT OWN MED DRAWER 7, Y5N ONE ×3 (05:32→14:16)
[2018-04-19 08:18] LABS: BASO % 0.2 % (0-2.0); EOS % 1.6 % (0-4.5); HEMATOCRIT 29.8 % (35.4-49); HEMOGLOBIN 9.7 GM/dL (11.7-16.9); MCH 25.9 pg (25.7-33.7); MCHC 32.4 g/dl (32.0-35.9); MEAN CELL VOLUME 79.8 fl (80-96); MEAN PLT VOLUME 7.3 fl (7.5-11.1); MONO % 6.3 % (3.8-10.2); NEUT % 66.9 % (42.8-82.8); PLATELET COUNT 221 K/MM3 (134-434); RBC 3.74 M/mm3 (4.00-5.60); RDW 18.2 % (11.9-15.9); WHITE BLOOD COUNT 6.7 K/mm3 (4.0-10.0)
[2018-04-19 08:19] LABS: INR 1.08 (0.82-1.09); PROTHROMBIN TIME (PATIENT) 12.2 SEC (9.7-13.0)
[2018-04-19 08:20] LABS: CHLORIDE 106 mmol/L (98-107); POTASSIUM 4.9 mmol/L (3.5-5.1); SODIUM 137 mmol/L (136-145)
[2018-04-19 08:22] LABS: ACTIVATED PTT 26.1 SECONDS (26.9-34.4)
[2018-04-19 08:31] LABS: ALK PHOS 85 U/L (45-117); ANION GAP 5 (8-16); BILIRUBIN,TOTAL 0.1 mg/dL (0.2-1.0); BLOOD UREA NITROGEN 19 mg/dL (7-18); CO2 26 mmol/L (21-32); CREATININE 1.1 mg/dL (0.7-1.3); GLUCOSE,RANDOM 84 mg/dL (74-106); SGOT/AST 21 U/L (15-37); SGPT/ALT 16 U/L (12-78); TOT PROT 5.2 g/dl (6.4-8.2)
--- NOTE | 2018-04-19 09:52 | PN ---
Progress Note (short form) - Note Progress Note: RENAL Pt is awake and alert no complaint urine is clear Last Vital Signs Temp Pulse Resp BP Pulse Ox 98.4 F 72 20 121/65 96 04/19/18 05:59 04/19/18 05:59 04/19/18 05:59 04/19/18 05:59 04/18/18 21:00 lungs clear cvs s1s2 rr abd soft ext no edema neuro a+ox3 CBC, BMP 04/19/18 07:00 04/19/18 07:00 Impression 1. IPNG resolved 2. HIV 3. s/p gross hematuria from TURP 4. Hep B 5. BPH 6. COPD 7. HTN 8. anemia Plan - urology follow up - renal function is stable - monitor urine output - can cont cozaar - would keep hydrated MV
[2018-04-19] MEDS: FINASTERIDE 5 MG TABLET (FP) PO SCH (10:19)
[2018-04-19] MEDS: TAMSULOSIN HCL 0.4 MG CAP.ER.24H (FP) PO SCH (10:19)
[2018-04-19] MEDS: LOSARTAN POTASSIUM 25 MG TABLET PO SCH (10:19)
[2018-04-19] MEDS: amLODIPine BESYLATE 10 MG TABLET (FP) PO SCH (10:19)
[2018-04-19] MEDS: EFAVIRENZ 600 MG TABLET PO SCH (10:20)
[2018-04-19] MEDS: EMTRICITABINE 200MG/TENOFOVIR 300MG PO SCH (10:20)
[2018-04-19] MEDS: CYANOCOBALAMIN 1,000 MCG TABLET (FP) PO SCH (10:20)
[2018-04-19] MEDS: AMINOCAPROIC ACID 500 MG TABLET PO SCH ×3 (10:21→21:52)
[2018-04-19 10:26] LABS: CALCIUM 7.9 mg/dL (8.5-10.1)
--- NOTE | 2018-04-19 15:49 | PN ---
Progress Note, Physician History of Present Illness: hematuria much better - Current Medication List Current Medications: Active Medications Aminocaproic Acid (Amicar -) 2,000 mg PO QID [facility] Last Admin: 04/19/18 14:19 Dose: 2,000 mg Amlodipine Besylate (Norvasc -) 10 mg PO DAILY [facility] Last Admin: 04/19/18 10:19 Dose: 10 mg Cyanocobalamin (Vitamin B12 -) 1,000 mcg PO DAILY [facility] Last Admin: 04/19/18 10:20 Dose: 1,000 mcg Efavirenz (Sustiva -) 600 mg PO DAILY [facility] Last Admin: 04/19/18 10:20 Dose: 600 mg Emtricitabine/Tenofovir (Truvada) 1 tab PO DAILY [facility] Last Admin: 04/19/18 10:20 Dose: 1 tab Finasteride (Proscar -) 5 mg PO DAILY [facility] Last Admin: 04/19/18 10:19 Dose: 5 mg Losartan Potassium (Cozaar -) 25 mg PO DAILY [facility] Last Admin: 04/19/18 10:19 Dose: 25 mg Rosuvastatin Calcium (Crestor -) 10 mg PO HS [facility] Last Admin: 04/18/18 21:06 Dose: 10 mg Tamsulosin HCl (Flomax -) 0.4 mg PO DAILY [facility] Last Admin: 04/19/18 10:19 Dose: 0.4 mg - Objective Vital Signs: Vital Signs Temperature 98.2 F 04/19/18 10:02 Pulse Rate 66 04/19/18 10:02 Respiratory Rate 20 04/19/18 10:02 Blood Pressure 106/52 04/19/18 10:02 O2 Sat by Pulse Oximetry (%) 98 04/19/18 09:51 Constitutional: Yes: No Distress HENT: Yes: Atraumatic Neck: Yes: Supple Cardiovascular: Yes: Regular Rate and Rhythm Respiratory: Yes: CTA Bilaterally Gastrointestinal: Yes: Normal Bowel Sounds Extremities: Yes: WNL Edema: No Peripheral Pulses WNL: Yes Neurological: Yes: Alert, Oriented Labs: CBC, BMP 04/19/18 07:00 04/19/18 07:00 INR, PTT INR 1.08 (0.82-1.09) 04/19/18 07:00 Fibrinogen 291.0 mg/dL (238-498) 04/19/18 07:00 Problem List - Problems (1) Hematuria Assessment/Plan: improving will monitor on amicar Code(s): R31.9 - HEMATURIA, UNSPECIFIED (2) PING (acute kidney injury) Assessment/Plan: cr wnl Code(s): N17.9 - ACUTE KIDNEY FAILURE, UNSPECIFIED (3) S/P TURP Assessment/Plan: a month ago Code(s): Z90.79 - ACQUIRED ABSENCE OF OTHER GENITAL ORGAN(S) (4) HIV (human immunodeficiency virus infection) Assessment/Plan: continue meds Code(s): Z21 - ASYMPTOMATIC HUMAN IMMUNODEFICIENCY VIRUS INFECTION STATUS (5) HTN (hypertension) Assessment/Plan: on meds stable Code(s): I10 - ESSENTIAL (PRIMARY) HYPERTENSION
--- NOTE | 2018-04-19 16:13 | PN ---
Progress Note (short form) - Note Progress Note: Patient seen in follow up. No new complaints. No significant events overnight. Voiding spontaneously, reports that urine is now clear. Inpatient Meds reviewed. Current Medications Generic Name Dose Route Start Last Admin Trade Name Shaina PRN Reason Stop Dose Admin Aminocaproic Acid 2,000 mg 04/18/18 20:54 04/19/18 14:19 Amicar - PO 2,000 mg QID ELVIS Administration Amlodipine Besylate 10 mg 04/15/18 10:00 04/19/18 10:19 Norvasc - PO 10 mg DAILY ELVIS Administration Cyanocobalamin 1,000 mcg 04/15/18 10:00 04/19/18 10:20 Vitamin B12 - PO 1,000 mcg DAILY ELVIS Administration Efavirenz 600 mg 04/15/18 10:00 04/19/18 10:20 Sustiva - PO 600 mg DAILY ELVIS Administration Emtricitabine/Tenofovir 1 tab 04/15/18 10:00 04/19/18 10:20 Truvada PO 1 tab DAILY ELVIS Administration Finasteride 5 mg 04/15/18 13:30 04/19/18 10:19 Proscar - PO 5 mg DAILY ELVIS Administration Losartan Potassium 25 mg 04/15/18 10:00 04/19/18 10:19 Cozaar - PO 25 mg DAILY ELVIS Administration Rosuvastatin Calcium 10 mg 04/14/18 22:00 04/18/18 21:06 Crestor - PO 10 mg HS ELVIS Administration Tamsulosin HCl 0.4 mg 04/14/18 14:15 04/19/18 10:19 Flomax - PO 0.4 mg DAILY ELVIS Administration On Examination: Last Vital Signs Temp Pulse Resp BP Pulse Ox 98.2 F 66 20 106/52 98 04/19/18 10:02 04/19/18 10:02 04/19/18 10:02 04/19/18 10:02 04/19/18 09:51 General: In no acute distress, lying comfortably in bed. Extremities: No pallor or icterus. Chest: breathing comfortably. Abdomen: Non-distended, non-tender, no palpable organomegaly. Neuro: Alert, oriented, non-focal. Labs: CBC, BMP 04/19/18 07:00 04/19/18 07:00 Assessment. Hematuria now resolved. Will taper Amicar. Iron deficient anemia - will address with IV iron while admitted.
[2018-04-19] MEDS ORDERED: IRON SUCROSE INJECTION 200 MG in SODIUM CHLORIDE 240 ML IVPB ONE (16:15)
[2018-04-19] MEDS ORDERED: IRON SUCROSE INJECTION 200 MG in SODIUM CHLORIDE 90 ML IVPB ONE (16:43)
[2018-04-19] MEDS: ROSUVASTATIN CA 10 MG TABLET (FP) PO SCH (21:52)
[2018-04-20] MEDS: AMINOCAPROIC ACID 500 MG TABLET PO SCH ×3 (05:56→21:42)
[2018-04-20] MEDS ORDERED: PT OWN MED DRAWER 7, Y5N ONE ×2 (09:17→13:43)
[2018-04-20] MEDS: TAMSULOSIN HCL 0.4 MG CAP.ER.24H (FP) PO SCH (09:19)
[2018-04-20] MEDS: CYANOCOBALAMIN 1,000 MCG TABLET (FP) PO SCH (09:19)
[2018-04-20] MEDS: EMTRICITABINE 200MG/TENOFOVIR 300MG PO SCH (09:19)
[2018-04-20] MEDS: FINASTERIDE 5 MG TABLET (FP) PO SCH (09:19)
[2018-04-20] MEDS: EFAVIRENZ 600 MG TABLET PO SCH (09:20)
[2018-04-20] MEDS: LOSARTAN POTASSIUM 25 MG TABLET PO SCH (11:02)
[2018-04-20] MEDS: amLODIPine BESYLATE 10 MG TABLET (FP) PO SCH (11:02)
--- NOTE | 2018-04-20 11:05 | PN ---
Progress Note (short form) - Note Progress Note: RENAL Pt is awake and alert no complaint urine is clear Last Vital Signs Temp Pulse Resp BP Pulse Ox 98.6 F 66 20 110/58 97 04/20/18 05:47 04/20/18 05:47 04/20/18 05:47 04/20/18 05:47 04/19/18 21:00 lungs clear cvs s1s2 rr abd soft ext no edema neuro a+ox3 04/19/18 07:00 04/19/18 07:00 Current Medications Generic Name Dose Route Start Last Admin Trade Name Shaina PRN Reason Stop Dose Admin Aminocaproic Acid 1,000 mg 04/19/18 22:00 04/20/18 05:56 Amicar - PO 1,000 mg TID ELVIS Administration Amlodipine Besylate 10 mg 04/15/18 10:00 04/20/18 11:02 Norvasc - PO Not Given DAILY ELVIS Cyanocobalamin 1,000 mcg 04/15/18 10:00 04/20/18 09:19 Vitamin B12 - PO 1,000 mcg DAILY ELVIS Administration Efavirenz 600 mg 04/15/18 10:00 04/20/18 09:20 Sustiva - PO 600 mg DAILY ELVIS Administration Emtricitabine/Tenofovir 1 tab 04/15/18 10:00 04/20/18 09:19 Truvada PO 1 tab DAILY ELVIS Administration Finasteride 5 mg 04/15/18 13:30 04/20/18 09:19 Proscar - PO 5 mg DAILY ELVIS Administration Losartan Potassium 25 mg 04/15/18 10:00 04/20/18 11:02 Cozaar - PO Not Given DAILY LEVIS Rosuvastatin Calcium 10 mg 04/14/18 22:00 04/19/18 21:52 Crestor - PO 10 mg HS ELVIS Administration Tamsulosin HCl 0.4 mg 04/14/18 14:15 04/20/18 09:19 Flomax - PO 0.4 mg DAILY ELVIS Administration Impression 1. PING resolved 2. HIV 3. s/p gross hematuria from TURP 4. Hep B 5. BPH 6. COPD 7. HTN 8. anemia Plan - urology follow up - renal function is stable - monitor urine output - can cont cozaar - would keep hydrated - would need to discuss renal biopsy given proteinuria and hematuria MV
[2018-04-20] MEDS: ROSUVASTATIN CA 10 MG TABLET (FP) PO SCH (21:42)
--- NOTE | 2018-04-20 22:06 | PN ---
Progress Note, Physician History of Present Illness: urine is clear now - Current Medication List Current Medications: Active Medications Aminocaproic Acid (Amicar -) 1,000 mg PO TID [facility] Last Admin: 04/20/18 21:42 Dose: 1,000 mg Amlodipine Besylate (Norvasc -) 10 mg PO DAILY [facility] Last Admin: 04/20/18 11:02 Dose: Not Given Cyanocobalamin (Vitamin B12 -) 1,000 mcg PO DAILY [facility] Last Admin: 04/20/18 09:19 Dose: 1,000 mcg Efavirenz (Sustiva -) 600 mg PO DAILY [facility] Last Admin: 04/20/18 09:20 Dose: 600 mg Emtricitabine/Tenofovir (Truvada) 1 tab PO DAILY [facility] Last Admin: 04/20/18 09:19 Dose: 1 tab Finasteride (Proscar -) 5 mg PO DAILY [facility] Last Admin: 04/20/18 09:19 Dose: 5 mg Losartan Potassium (Cozaar -) 25 mg PO DAILY [facility] Last Admin: 04/20/18 11:02 Dose: Not Given Rosuvastatin Calcium (Crestor -) 10 mg PO [facility] Last Admin: 04/20/18 21:42 Dose: 10 mg Tamsulosin HCl (Flomax -) 0.4 mg PO DAILY [facility] Last Admin: 04/20/18 09:19 Dose: 0.4 mg - Objective Vital Signs: Vital Signs Temperature 97.5 F L 04/20/18 20:54 Pulse Rate 87 04/20/18 20:54 Respiratory Rate 20 04/20/18 20:54 Blood Pressure 98/50 04/20/18 20:54 O2 Sat by Pulse Oximetry (%) 100 04/20/18 09:00 Constitutional: Yes: No Distress HENT: Yes: Atraumatic Neck: Yes: Supple Cardiovascular: Yes: Regular Rate and Rhythm Respiratory: Yes: CTA Bilaterally Gastrointestinal: Yes: Normal Bowel Sounds Extremities: Yes: WNL Neurological: Yes: Alert, Oriented Labs: CBC, BMP 04/19/18 07:00 04/19/18 07:00 INR, PTT INR 1.08 (0.82-1.09) 04/19/18 07:00 Fibrinogen 291.0 mg/dL (238-498) 04/19/18 07:00 Problem List - Problems (1) Hematuria Assessment/Plan: NEED HEMATOLOGY TO TAPER AND SUGGEST TAPERING DOSE PT IS READY TO BE DC Code(s): R31.9 - HEMATURIA, UNSPECIFIED (2) PING (acute kidney injury) Assessment/Plan: cr wnl Code(s): N17.9 - ACUTE KIDNEY FAILURE, UNSPECIFIED (3) S/P TURP Assessment/Plan: a month ago Code(s): Z90.79 - ACQUIRED ABSENCE OF OTHER GENITAL ORGAN(S) (4) HIV (human immunodeficiency virus infection) Assessment/Plan: continue meds Code(s): Z21 - ASYMPTOMATIC HUMAN IMMUNODEFICIENCY VIRUS INFECTION STATUS (5) HTN (hypertension) Assessment/Plan: on meds stable Code(s): I10 - ESSENTIAL (PRIMARY) HYPERTENSION (6) Anemia Assessment/Plan: PT NEED IRON IV VS PO NEED TO KNOW FROM HEMATOLOGY Code(s): D64.9 - ANEMIA, UNSPECIFIED Qualifiers: Anemia type: unspecified type Qualified Code(s): D64.9 - Anemia, unspecified
[2018-04-21] MEDS: AMINOCAPROIC ACID 500 MG TABLET PO SCH (05:23)
[2018-04-21 08:28] LABS: BASO % 0.6 % (0-2.0); LYMPH % 23.9 % (8-40); MCH 25.9 pg (25.7-33.7); MCHC 32.3 g/dl (32.0-35.9); MEAN CELL VOLUME 80.2 fl (80-96); MEAN PLT VOLUME 7.5 fl (7.5-11.1); MONO % 4.1 % (3.8-10.2); NEUT % 70.4 % (42.8-82.8); PLATELET COUNT 293 K/MM3 (134-434); RBC 4.24 M/mm3 (4.00-5.60); WHITE BLOOD COUNT 9.4 K/mm3 (4.0-10.0)
[2018-04-21 09:06] LABS: CHLORIDE 106 mmol/L (98-107); POTASSIUM 4.5 mmol/L (3.5-5.1); SODIUM 138 mmol/L (136-145)
[2018-04-21 09:16] LABS: ALBUMIN 2.5 g/dl (3.4-5.0); ALK PHOS 110 U/L (45-117); ANION GAP 7 (8-16); BILIRUBIN,TOTAL 0.3 mg/dL (0.2-1.0); BLOOD UREA NITROGEN 19 mg/dL (7-18); CO2 25 mmol/L (21-32); CREATININE 1.4 mg/dL (0.7-1.3); GLUCOSE,RANDOM 99 mg/dL (74-106); SGOT/AST 26 U/L (15-37); SGPT/ALT 23 U/L (12-78); TOT PROT 6.3 g/dl (6.4-8.2)
[2018-04-21] MEDS ORDERED: PT OWN MED DRAWER 7, Y5N ONE (10:34)
[2018-04-21] MEDS: LOSARTAN POTASSIUM 25 MG TABLET PO SCH (10:41)
[2018-04-21] MEDS: amLODIPine BESYLATE 10 MG TABLET (FP) PO SCH (10:42)
[2018-04-21] MEDS: TAMSULOSIN HCL 0.4 MG CAP.ER.24H (FP) PO SCH (10:42)
[2018-04-21] MEDS: FINASTERIDE 5 MG TABLET (FP) PO SCH (10:42)
[2018-04-21] MEDS: EFAVIRENZ 600 MG TABLET PO SCH (10:43)
[2018-04-21] MEDS: CYANOCOBALAMIN 1,000 MCG TABLET (FP) PO SCH (10:43)
[2018-04-21] MEDS: EMTRICITABINE 200MG/TENOFOVIR 300MG PO SCH (10:43)
--- NOTE | 2018-04-21 14:45 | PN ---
Progress Note, Physician History of Present Illness: Pt seen and examined at bedside. He is dressed and is asking to go home. He denies hematuria. He denies shortness of breath. - Current Medication List Current Medications: Active Medications Aminocaproic Acid (Amicar -) 1,000 mg PO BID [facility] Amlodipine Besylate (Norvasc -) 10 mg PO DAILY [facility] Last Admin: 04/21/18 10:42 Dose: 10 mg Cyanocobalamin (Vitamin B12 -) 1,000 mcg PO DAILY [facility] Last Admin: 04/21/18 10:43 Dose: 1,000 mcg Efavirenz (Sustiva -) 600 mg PO DAILY [facility] Last Admin: 04/21/18 10:43 Dose: 600 mg Emtricitabine/Tenofovir (Truvada) 1 tab PO DAILY [facility] Last Admin: 04/21/18 10:43 Dose: 1 tab Finasteride (Proscar -) 5 mg PO DAILY [facility] Last Admin: 04/21/18 10:42 Dose: 5 mg Losartan Potassium (Cozaar -) 25 mg PO DAILY [facility] Last Admin: 04/21/18 10:41 Dose: 25 mg Rosuvastatin Calcium (Crestor -) 10 mg PO HS [facility] Last Admin: 04/20/18 21:42 Dose: 10 mg Tamsulosin HCl (Flomax -) 0.4 mg PO DAILY [facility] Last Admin: 04/21/18 10:42 Dose: 0.4 mg - Objective Vital Signs: Vital Signs Temperature 97 F L 04/21/18 10:00 Pulse Rate 71 04/21/18 10:00 Respiratory Rate 20 04/21/18 10:00 Blood Pressure 125/58 04/21/18 10:00 O2 Sat by Pulse Oximetry (%) 98 04/21/18 09:00 Constitutional: Yes: Calm Eyes: Yes: Conjunctiva Clear HENT: Yes: Atraumatic Neck: Yes: Supple Cardiovascular: Yes: S1, S2 Respiratory: Yes: CTA Bilaterally Gastrointestinal: Yes: WNL Genitourinary: Yes: WNL Musculoskeletal: Yes: WNL Edema: No Neurological: Yes: Oriented Psychiatric: Yes: Oriented Labs: CBC, BMP 04/21/18 07:42 04/21/18 07:42 INR, PTT INR 1.08 (0.82-1.09) 04/19/18 07:00 Fibrinogen 291.0 mg/dL (238-498) 04/19/18 07:00 Problem List - Problems (1) Hematuria Code(s): R31.9 - HEMATURIA, UNSPECIFIED (2) PING (acute kidney injury) Code(s): N17.9 - ACUTE KIDNEY FAILURE, UNSPECIFIED (3) BPH with elevated PSA Code(s): N40.0 - BENIGN PROSTATIC HYPERPLASIA WITHOUT LOWER URINRY TRACT SYMP; R97.2 - ELEVATED PROSTATE SPECIFIC ANTIGEN [PSA] * DO NOT USE * Assessment/Plan Current Medications Generic Name Dose Route Start Last Admin Trade Name Freq PRN Reason Stop Dose Admin Aminocaproic Acid 1,000 mg 04/21/18 22:00 Amicar - PO BID [facility] Amlodipine Besylate 10 mg 04/15/18 10:00 04/21/18 10:42 Norvasc - PO 10 mg DAILY [facility] Administration Cyanocobalamin 1,000 mcg 04/15/18 10:00 04/21/18 10:43 Vitamin B12 - PO 1,000 mcg DAILY [facility] Administration Efavirenz 600 mg 04/15/18 10:00 04/21/18 10:43 Sustiva - PO 600 mg DAILY [facility] Administration Emtricitabine/Tenofovir 1 tab 04/15/18 10:00 04/21/18 10:43 Truvada PO 1 tab DAILY [facility] Administration Finasteride 5 mg 04/15/18 13:30 04/21/18 10:42 Proscar - PO 5 mg DAILY [facility] Administration Losartan Potassium 25 mg 04/15/18 10:00 04/21/18 10:41 Cozaar - PO 25 mg DAILY [facility] Administration Rosuvastatin Calcium 10 mg 04/14/18 22:00 04/20/18 21:42 Crestor - PO 10 mg HS [facility] Administration Tamsulosin HCl 0.4 mg 04/14/18 14:15 04/21/18 10:42 Flomax - PO 0.4 mg DAILY [facility] Administration Impression 1. PING 2. HIV 3. hematuria 4. Hep B 5. BPH 6. COPD 7. HTN 8. 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
[2018-04-21 17:13] VITALS: BP 100/48; PULSE 94; TEMP 98.2
--- NOTE | 2018-04-21 18:32 | PN ---
Progress Note (short form) - Note Progress Note: PAtient seen and examined hematuria resolved Last Vital Signs Temp Pulse Resp BP Pulse Ox 98.2 F 94 H 100 H 100/48 98 04/21/18 16:25 04/21/18 16:25 04/21/18 16:25 04/21/18 16:25 04/21/18 09:00 Cor: RSR, No murmurs, No gallops Lungs: Clear to P&A Abd: Soft, Normal bowel sounds, No organomegaly Ext:No significant edema Abnormal Lab Results 04/21/18 04/21/18 07:42 07:42 Hgb 11.0 L D Hct 34.0 L RDW 19.0 H Anion Gap 7 L BUN 19 H Creatinine 1.4 H D Calcium 8.0 L Total Protein 6.3 L D Albumin 2.5 L D Home Medication List Medication Instructions Recorded Confirmed Type Amlodipine Besylate [Norvasc -] 10 mg PO DAILY 03/09/18 04/14/18 History Cholecalciferol (Vitamin D3) 2,000 unit PO DAILY 03/09/18 04/14/18 History [Vitamin D3] Cran/Vitc/Mannose/Fos/Bromeln 30 ml PO DAILY 03/09/18 04/14/18 History [Uti-Stat Liquid] Cyanocobalamin (Vitamin B-12) 1,000 mcg PO DAILY 03/09/18 04/14/18 History [Vitamin B12] Efavirenz/Emtricitab/Tenofovir 1 tab PO DAILY 03/09/18 04/14/18 History [Atripla Tablet -] Lactobacillus Acidophilus [Bacid -] 1 each PO TID 03/09/18 04/14/18 History Losartan Potassium 25 mg PO DAILY 03/09/18 04/14/18 History Rosuvastatin Calcium [Crestor] 10 mg PO DAILY 03/09/18 04/14/18 History Tamsulosin HCl [Flomax] 0.4 mg PO DAILY 03/09/18 04/14/18 History Active Medications Generic Name Dose Route Start Last Admin Trade Name Freq PRN Reason Stop Dose Admin Aminocaproic Acid 1,000 mg 04/21/18 22:00 Amicar - PO BID [facility] Amlodipine Besylate 10 mg 04/15/18 10:00 04/21/18 10:42 Norvasc - PO 10 mg DAILY [facility] Administration Cyanocobalamin 1,000 mcg 04/15/18 10:00 04/21/18 10:43 Vitamin B12 - PO 1,000 mcg DAILY [facility] Administration Efavirenz 600 mg 04/15/18 10:00 04/21/18 10:43 Sustiva - PO 600 mg DAILY [facility] Administration Emtricitabine/Tenofovir 1 tab 04/15/18 10:00 04/21/18 10:43 Truvada PO 1 tab DAILY [facility] Administration Finasteride 5 mg 04/15/18 13:30 04/21/18 10:42 Proscar - PO 5 mg DAILY [facility] Administration Losartan Potassium 25 mg 04/15/18 10:00 04/21/18 10:41 Cozaar - PO 25 mg DAILY [facility] Administration Rosuvastatin Calcium 10 mg 04/14/18 22:00 04/20/18 21:42 Crestor - PO 10 mg HS [facility] Administration Tamsulosin HCl 0.4 mg 04/14/18 14:15 04/21/18 10:42 Flomax - PO 0.4 mg DAILY [facility] Administration A/P Hematuria Anemia HIV Severely enlarged prostate Last coags nl /fibrinogen nl ,CBC with no thrombocytopenia-- seems less likely for him to have a inherent/acquired bleeding disorder. Hgb 11 today Amicar tapered from 2g Q 6h to 1g bid to stop f/u with renal team regarding creatinine f/u with urology/PMD and us as outpatient
--- NOTE | 2018-04-21 18:59 | DS ---
Physical Examination Vital Signs: Vital Signs Temperature 98.2 F 04/21/18 16:25 Pulse Rate 94 H 04/21/18 16:25 Respiratory Rate 100 H 04/21/18 16:25 Blood Pressure 100/48 04/21/18 16:25 O2 Sat by Pulse Oximetry (%) 98 04/21/18 09:00 Constitutional: Yes: No Distress HENT: Yes: Atraumatic Neck: Yes: Supple Cardiovascular: Yes: Regular Rate and Rhythm Respiratory: Yes: CTA Bilaterally Gastrointestinal: Yes: Normal Bowel Sounds Extremities: Yes: WNL Neurological: Yes: Alert, Oriented Labs: CBC, BMP 04/21/18 07:42 04/21/18 07:42 Discharge Summary Reason For Visit: HEMATURIA Current Active Problems Hematuria (Acute) - Instructions Referrals: Yennifer Holland MD [Primary Care Provider] - - Home Medications Comprehensive Discharge Medication List: Ambulatory Orders Amlodipine Besylate [Norvasc -] 10 mg PO DAILY 03/09/18 Cholecalciferol (Vitamin D3) [Vitamin D3] 2,000 unit PO DAILY 03/09/18 Cran/Vitc/Mannose/Fos/Bromeln [Uti-Stat Liquid] 30 ml PO DAILY 03/09/18 Cyanocobalamin (Vitamin B-12) [Vitamin B12] 1,000 mcg PO DAILY 03/09/18 Efavirenz/Emtricitab/Tenofovir [Atripla Tablet -] 1 tab PO DAILY 03/09/18 Lactobacillus Acidophilus [Bacid -] 1 each PO TID 03/09/18 Losartan Potassium 25 mg PO DAILY 03/09/18 Rosuvastatin Calcium [Crestor] 10 mg PO DAILY 03/09/18 Tamsulosin HCl [Flomax] 0.4 mg PO DAILY 03/09/18 Cefuroxime Axetil [Cefuroxime] 500 mg PO BID #4 tablet 03/17/18 tn home
[2018-04-21] MEDS ORDERED: AMINOCAPROIC ACID 500 MG TABLET PO SCH (22:00)
== END 2018-04-21 19:46 | disposition home or self-care (01) | DRG 699 ==
LOC: JER 07:58 → JERBED 12:48 → J8W 13:47 → OBSVTOIN 14:09
PROVIDERS: ADMIT Internal Medicine; ATTEND Internal Medicine
DX: N99.89 Other postprocedural complications and disorders of genitourinary system (principal); N17.9 Acute kidney failure, unspecified; Z21 Asymptomatic human immunodeficiency virus [HIV] infection status; I10 Essential (primary) hypertension; N40.0 Benign prostatic hyperplasia without lower urinary tract symptoms; J44.9 Chronic obstructive pulmonary disease, unspecified; R31.0 Gross hematuria; E78.5 Hyperlipidemia, unspecified; D50.9 Iron deficiency anemia, unspecified; Y83.9 Surgical procedure, unspecified as the cause of abnormal reaction of the patient, or of later complication, without mention of misadventure at the time of the procedure
CPT/HCPCS: 36415; 36430; 76775-TC; 76856-TC; 80048; 80053; 81003; 81015; 82436; 82550; 82570; 83540; 84133; 84300; 84484; 85025; 85027; 85384; 85610; 85730; 86850; 86900; 86901; 86922; 87040; 87086; 93005; 93010; 99282-25; G0378; J1756; J7030; P9038; P9058

== ENCOUNTER 2018-04-24 04:47 | Inpatient (IN) | payer OTHER ==
--- NOTE | 2018-04-24 05:10 | PDOC ---
History of Present Illness - General Chief Complaint: Hematuria Stated Complaint: BLOOD IN URINE Time Seen by Provider: 04/24/18 04:53 History Source: Patient - History of Present Illness Initial Comments: 04/24/18 05:26 77 year old male with gross hematuria since this morning, painless in nature. patient was d/patt on 04/21 for hematuria. patient reports slight lightheadedness. denies NVD, abdominal pain, flank pain, chest pain, fever/ chills PMH of BPH (s/p TURP 03/11/18), HIV on HAART, hepatitis B, COPD, anemia, HTN, hyperlipidemia, and goiter Past History - Past Medical History Allergies/Adverse Reactions: Allergies Allergy/AdvReac Type Severity Reaction Status Date / Time Sulfa (Sulfonamide Allergy Intermediate Nausea Verified 04/24/18 04:53 Antibiotics) sulfamethoxazole Allergy Intermediate Nausea Verified 04/24/18 04:53 [From Bactrim] trimethoprim [From Bactrim] AdvReac Intermediate Nausea Verified 04/24/18 04:53 Home Medications: Ambulatory Orders Amlodipine Besylate [Norvasc -] 10 mg PO DAILY 03/09/18 Cholecalciferol (Vitamin D3) [Vitamin D3] 2,000 unit PO DAILY 03/09/18 Cran/Vitc/Mannose/Fos/Bromeln [Uti-Stat Liquid] 30 ml PO DAILY 03/09/18 Cyanocobalamin (Vitamin B-12) [Vitamin B12] 1,000 mcg PO DAILY 03/09/18 Efavirenz/Emtricitab/Tenofovir [Atripla Tablet -] 1 tab PO DAILY 03/09/18 Lactobacillus Acidophilus [Bacid -] 1 each PO TID 03/09/18 Losartan Potassium 25 mg PO DAILY 03/09/18 Rosuvastatin Calcium [Crestor] 10 mg PO DAILY 03/09/18 Tamsulosin HCl [Flomax] 0.4 mg PO DAILY 03/09/18 Cefuroxime Axetil [Cefuroxime] 500 mg PO BID #4 tablet 03/17/18 Anemia: Yes (B12 DEFICIENCY,IRON DEFICIENCY ANEMIA) Disorders: Yes (PROSTATE) HTN: Yes Hypercholesterolemia: Yes Liver Disease: (HEP B) Thyroid Disease: Yes (goiter- s/p FNA- benign nodular goiter with cystic changes ) - Surgical History Orthopedic Surgery: Yes (KNEE ARTHROSCOPY) - Immunization History Immunization Up to Date: Yes - Suicide/Smoking/Psychosocial Hx Smoking History: Never smoked Have you smoked in the past 12 months: No Number of Cigarettes Smoked Daily: 4 If you are a former smoker, when did you quit?: 1 MONTH Cigars Per Day: 0 Information on smoking cessation initiated: No 'Breaking Loose' booklet given: 02/13/18 Hx Alcohol Use: No Drug/Substance Use Hx: No Substance Use Type: None Hx Substance Use Treatment: No Review of Systems - Review of Systems Able to Perform ROS?: Yes Is the patient limited Greek proficient: No : Yes: Hematuria *Physical Exam - Vital Signs Last Vital Signs Temp Pulse Resp BP Pulse Ox 97.4 F L 96 H 18 129/73 98 04/24/18 04:53 04/24/18 04:53 04/24/18 04:53 04/24/18 04:53 04/24/18 04:53 - Physical Exam General Appearance: Yes: Appropriately Dressed Respiratory/Chest: positive: Normal Breath Sounds Gastrointestinal/Abdominal: positive: Normal Bowel Sounds, Soft. negative: Tender Extremity: positive: Normal Capillary Refill, Normal Inspection, Normal Range of Motion Integumentary: positive: Normal Color, Dry, Warm Neurologic: positive: Fully Oriented, Alert, Normal Mood/Affect Progress Note - Progress Note Progress Note: A: hematuria P: cbc cmp pt/ptt Ua urine culture Medical Decision Making - Medical Decision Making 04/24/18 06:[address] coronado. pending call back. *DC/Admit/Observation/Transfer Diagnosis at time of Disposition: Hematuria Qualifiers: Hematuria type: gross Qualified Code(s): R31.0 - Gross hematuria - Referrals - Patient Instructions - Post Discharge Activity
[2018-04-24 07:09] LABS: BASO % 1.1 % (0-2.0); HEMATOCRIT 26.9 % (35.4-49); HEMOGLOBIN 8.6 GM/dL (11.7-16.9); LYMPH % 18.2 % (8-40); MCH 25.8 pg (25.7-33.7); MCHC 31.8 g/dl (32.0-35.9); MEAN CELL VOLUME 81.3 fl (80-96); MEAN PLT VOLUME 7.4 fl (7.5-11.1); MONO % 4.1 % (3.8-10.2); NEUT % 75.6 % (42.8-82.8); PLATELET COUNT 279 K/MM3 (134-434); RBC 3.31 M/mm3 (4.00-5.60); RDW 19.6 % (11.9-15.9); RETICULOCYTES 3.38 % (0.5-1.5); WHITE BLOOD COUNT 7.1 K/mm3 (4.0-10.0)
[2018-04-24 07:23] LABS: INR 1.06 (0.82-1.09)
[2018-04-24 07:26] LABS: ACTIVATED PTT 21.5 SECONDS (26.9-34.4)
[2018-04-24 07:35] LABS: URINE APPEARANCE TURBID; URINE COLOR RED
[2018-04-24 07:42] LABS: ALBUMIN 2.2 g/dl (3.4-5.0); ANION GAP 6 (8-16); BILIRUBIN,TOTAL 0.3 mg/dL (0.2-1.0); BLOOD UREA NITROGEN 29 mg/dL (7-18); CALCIUM 7.7 mg/dL (8.5-10.1); CHLORIDE 107 mmol/L (98-107); CO2 24 mmol/L (21-32); CREATININE 1.3 mg/dL (0.7-1.3); GLUCOSE,RANDOM 96 mg/dL (74-106); SGPT/ALT 22 U/L (12-78); SODIUM 137 mmol/L (136-145); TOT PROT 5.6 g/dl (6.4-8.2)
[2018-04-24 07:42] LABS: URINE BLOOD 4+ (NEGATIVE)
[2018-04-24 07:43] LABS: ALK PHOS 81 U/L (45-117)
[2018-04-24 07:43] LABS: URINE BACTERIA RARE /hpf (NONE SEEN)
--- NOTE | 2018-04-24 07:50 | PDOC ---
*Physical Exam - Vital Signs Last Vital Signs Temp Pulse Resp BP Pulse Ox 97.4 F L 96 H 18 129/73 98 04/24/18 04:53 04/24/18 04:53 04/24/18 04:53 04/24/18 04:53 04/24/18 04:53 Heart Score/ECG Review - ECG Intrepretation Rhythm: Regular Rhythm (rate 83 normal sinus rhythm) ED Treatment Course - LABORATORY CBC & Chemistry Diagram: 04/24/18 06:30 04/24/18 06:30 - ADDITIONAL ORDERS Additional order review: Laboratory Results 04/24/18 04/24/18 06:40 06:30 PT with INR 12.00 INR 1.06 PTT (Actin FS) 21.5 L Urine Color Red Urine Appearance Turbid Urine pH Shift Lab Technician Ur Specific Basile Shift Lab Technician Urine Protein Shift Lab Technician Urine Glucose (UA) Shift Lab Technician Urine Ketones Shift Lab Technician Urine Blood 4+ H Urine Nitrite Shift Lab Technician Urine Bilirubin Shift Lab Technician Urine Urobilinogen Shift Lab Technician Ur Leukocyte Esterase Shift Lab Technician Urine WBC (Auto) 8-10 Urine RBC (Auto) >100 Urine Bacteria Rare 04/24/18 06:30 RBC 3.31 L D MCV 81.3 MCHC 31.8 L RDW 19.6 H MPV 7.4 L Neutrophils % 75.6 Lymphocytes % 18.2 D Monocytes % 4.1 Eosinophils % 1.0 Basophils % 1.1 Medical Decision Making - Medical Decision Making 04/24/18 07:49 Pt received in sign out from LIDIA [email or web address]. Pt with BPH and followed by Dr rai for urology. Pt today with hematuria and is asymptomatic.Hx of TURP. VSS. Laboratory Tests 04/17/18 04/19/18 04/21/18 06:20 07:00 07:42 Hgb 9.5 L D 9.7 L 11.0 L D Hct 29.8 L 34.0 L Retic Count INR Urine Blood Urine RBC (Auto) 04/24/18 04/24/18 04/24/18 06:30 06:30 06:40 Hgb 8.6 L D Hct 26.9 L D Retic Count 3.38 H D INR 1.06 Urine Blood 4+ H Urine RBC (Auto) >100 Will contact urology to discuss plan. 04/24/18 08:[address] ribera and will scope pt tomorrow in the OR. Consult placed to pts pcp dr frank and microblog sent to hospitaist 04/24/18 09:55 . Case discussed with hospitalist and will admit to [facility] inpatient *DC/Admit/Observation/Transfer Diagnosis at time of Disposition: Hematuria Qualifiers: Hematuria type: gross Qualified Code(s): R31.0 - Gross hematuria - Discharge Dispostion Decision to Admit order: Yes - Referrals Referrals: ON STAFF,NOT [Primary Care Provider] - - Patient Instructions - Post Discharge Activity
[2018-04-24 08:20] LABS: POTASSIUM 5.7 mmol/L (3.5-5.1); SGOT/AST 39 U/L (15-37)
--- NOTE | 2018-04-24 10:06 | HP ---
CHIEF COMPLAINT: " Bright red blood in urine with clots " PCP: Dr. Holland Urologist: Dr. Yung HISTORY OF PRESENT ILLNESS: Patient is a 77 year old male presented to the ED with the chief complaint of " Bright red blood in urine with clots " since 4 am this morning. As per the patient, he was discharged from [facility] 2 days ago, didn't have hematuria until this morning, hence came in to the ED for further evaluation. Denies any urinary symptoms- no urgency, increased frequency, dysuria, urinary incontinence, bladder distention. Denies chest pain, sob, cough, palpitation, abdominal pain, nausea or vomiting. Bowel habit normal. Sleep/Appetite normal. Patient has had h/o painless hematuria due to BPH, TURP was done in 02/2018. Was admitted at [facility] on 04/14/18-04/21/18 for the same problem. Was anemic requiring Blood transfusion last admission. Has had cystoscopy in the past. USG was done on 04/15/18 showed enlarged prostate. Abdominal CT with contrast was done on 01/30 showed right hepatic hemangioma and enlarged prostate. Last positive urine culture 03/02/18 Enterococcus- pansensitive; Positive urine culture for Citrobacter on 11/04/2014 resistant to Ampicillin. As per the ED physician, Dr. Yung will do a cystoscopy tomorrow for the evaluation of hematuria. ER course was notable for: (1) Afebrile, Hypotensive to 109/46 mmHg, Hyperkalemic to 5.7; Urine- Blood 4+ ; > 100 RBC (2) EKG: Normal sinus, no significant ST or T wave changes (3) IV NS @ 83 mls/hr Recent Travel: None PAST MEDICAL HISTORY: BPH s/p TURP 02/2018; previous episodes of hematuria s/p flugration of the prostate Anemia requiring Blood transfusion, HIV on HAART, HTN, HLD, Goitre. PAST SURGICAL HISTORY: TURP Social History: Smoking: Active smoker; Smokes about 1 pack every 3 days; started smoking at age 20 yrs. Alcohol: Occasional; last drink was yesterday-1 glass of beer Drugs: Denies Family History: Non contributory Allergies Sulfa (Sulfonamide Antibiotics) Allergy (Intermediate, Verified 04/24/18 04:53) Nausea sulfamethoxazole [From Bactrim] Allergy (Intermediate, Verified 04/24/18 04:53) Nausea trimethoprim [From Bactrim] Adverse Reaction (Intermediate, Verified 04/24/18 04 :53) Nausea VOMITING HOME MEDICATIONS: Home Medications Medication Instructions Recorded Amlodipine Besylate [Norvasc -] 10 mg PO DAILY 03/09/18 Cholecalciferol (Vitamin D3) 2,000 unit PO DAILY 03/09/18 [Vitamin D3] Cyanocobalamin (Vitamin B-12) 1,000 mcg PO DAILY 03/09/18 [Vitamin B12] Efavirenz/Emtricitab/Tenofovir 1 tab PO DAILY 03/09/18 [Atripla Tablet -] Losartan Potassium 25 mg PO DAILY 03/09/18 Rosuvastatin Calcium [Crestor] 10 mg PO DAILY 03/09/18 Tamsulosin HCl [Flomax] 0.4 mg PO DAILY 03/09/18 REVIEW OF SYSTEMS CONSTITUTIONAL: Absent: fever, chills, diaphoresis, generalized weakness, malaise, loss of appetite, weight change HEENT: Absent: rhinorrhea, nasal congestion, throat pain, throat swelling, difficulty swallowing, mouth swelling, ear pain, eye pain, visual changes CARDIOVASCULAR: Absent: chest pain, syncope, palpitations, irregular heart rate, lightheadedness , peripheral edema RESPIRATORY: Absent: cough, shortness of breath, dyspnea with exertion, orthopnea, wheezing, stridor, hemoptysis GASTROINTESTINAL: Absent: abdominal pain, abdominal distension, nausea, vomiting, diarrhea, constipation, melena, hematochezia GENITOURINARY: Present: hematuria Absent: dysuria, frequency, urgency, hesitancy, flank pain, genital pain MUSCULOSKELETAL: Absent: myalgia, arthralgia, joint swelling, back pain, neck pain SKIN: Absent: rash, itching, pallor HEMATOLOGIC/IMMUNOLOGIC: Absent: easy bleeding, easy bruising, lymphadenopathy, frequent infections ENDOCRINE: Absent: unexplained weight gain, unexplained weight loss, heat intolerance, cold intolerance NEUROLOGIC: Absent: headache, focal weakness or paresthesias, dizziness, unsteady gait, seizure, mental status changes, bladder or bowel incontinence PSYCHIATRIC: Absent: anxiety, depression, suicidal or homicidal ideation, hallucinations. PHYSICAL EXAMINATION Vital Signs - 24 hr 04/24/18 04/24/18 04/24/18 04:53 09:43 10:00 Temperature 97.4 F L Pulse Rate 96 H Pulse Rate [ 85 Radial] Respiratory 18 20 Rate Blood Pressure 129/73 Blood Pressure 109/46 [Left Arm] O2 Sat by Pulse 98 100 96 Oximetry (%) GENERAL: Elderly male, Awake, alert, and fully oriented, in no acute distress. HEAD: Normal with no signs of trauma. EYES: EOM intact, Pallor +, no icterus. EARS, NOSE, THROAT: Ears normal. Moist mucous membranes. NECK: Supple. LUNGS: Breath sounds equal, clear to auscultation bilaterally. No wheezes, and no crackles. No accessory muscle use. HEART: Regular rate and rhythm, normal S1 and S2 with soft systolic murmur. ABDOMEN: Soft, nontender, not distended, normoactive bowel sounds, no guarding, no rebound, no masses. No hepatomegaly or splenomegaly. MUSCULOSKELETAL: Normal range of motion at all joints. No bony deformities or tenderness. No CVA tenderness. UPPER EXTREMITIES: 2+ pulses, warm, well-perfused. No cyanosis. No clubbing. No peripheral edema. LOWER EXTREMITIES: 2+ pulses, warm, well-perfused. No calf tenderness. No peripheral edema. NEUROLOGICAL: No facial droop, Cranial nerves II-XII intact. Normal speech. Gait not observed. PSYCHIATRIC: Cooperative. Good eye contact. Appropriate mood and affect. SKIN: Warm, dry, normal turgor, no rashes or lesions noted, normal capillary refill. Laboratory Results - last 24 hr 04/24/18 04/24/18 04/24/18 06:30 06:30 06:30 WBC 7.1 RBC 3.31 L D Hgb 8.6 L D Hct 26.9 L D MCV 81.3 MCH 25.8 MCHC 31.8 L RDW 19.6 H Plt Count 279 MPV 7.4 L Absolute Neuts (auto) 5.4 Neutrophils % 75.6 Lymphocytes % 18.2 D Monocytes % 4.1 Eosinophils % 1.0 Basophils % 1.1 Nucleated RBC % 0 Retic Count 3.38 H D PT with INR 12.00 INR 1.06 PTT (Actin FS) 21.5 L Sodium 137 Potassium 5.7 H D Chloride 107 Carbon Dioxide 24 Anion Gap 6 L BUN 29 H D Creatinine 1.3 Creat Clearance w eGFR 53.82 Random Glucose 96 Calcium 7.7 L Total Bilirubin 0.3 AST 39 H D ALT 22 Alkaline Phosphatase 81 D Total Protein 5.6 L Albumin 2.2 L Urine Color Urine Appearance Urine pH Ur Specific [place] Urine Protein Urine Glucose (UA) Urine Ketones Urine Blood Urine Nitrite Urine Bilirubin Urine Urobilinogen Ur Leukocyte Esterase Urine WBC (Auto) Urine RBC (Auto) Urine Bacteria Blood Type Antibody Screen 04/24/18 04/24/18 06:30 06:40 WBC RBC Hgb Hct MCV MCH MCHC RDW Plt Count MPV Absolute Neuts (auto) Neutrophils % Lymphocytes % Monocytes % Eosinophils % Basophils % Nucleated RBC % Retic Count PT with INR INR PTT (Actin FS) Sodium Potassium Chloride Carbon Dioxide Anion Gap BUN Creatinine Creat Clearance w eGFR Random Glucose Calcium Total Bilirubin AST ALT Alkaline Phosphatase Total Protein Albumin Urine Color Red Urine Appearance Turbid Urine pH Telecommunications Specialist Ur Specific [place] Telecommunications Specialist Urine Protein Telecommunications Specialist Urine Glucose (UA) Telecommunications Specialist Urine Ketones Telecommunications Specialist Urine Blood 4+ H Urine Nitrite Telecommunications Specialist Urine Bilirubin Telecommunications Specialist Urine Urobilinogen Telecommunications Specialist Ur Leukocyte Esterase Telecommunications Specialist Urine WBC (Auto) 8-10 Urine RBC (Auto) >100 Urine Bacteria Rare Blood Type B POSITIVE Antibody Screen Negative Imaging: USG was done on 04/15/18 showed enlarged prostate. Abdominal CT with contrast was done on 01/30/18 showed right hepatic hemangioma and enlarged prostate. Micro: Last positive urine culture 03/02/18 Enterococcus- pansensitive; Positive urine culture for Citrobacter on 11/04/2014 resistant to Ampicillin. ASSESSMENT/PLAN: The patient is a 77 year old male with significant PMH of BPH s/p TURP 02/2018; previous episodes of hematuria s/p flugration of the prostate; Anemia requiring Blood transfusion, HIV on HAART, HTN, HLD, Goitre who presented to the ED with serene painless hematuria. # Painless Hematuria likely due to BPH c/o hematuria with blood clots, had TURP done on 03/05 No other urinary complaints On arrival, he is afebrile, hypotensive, UA 4 + blood Admitted in Med-Surg IV NS @ 83 mls/hr Dr. Lobato consult requested NPO after midnight for possible cystoscopy tomorrow morning Watch for urinary retention Continue Flomax # Acute blood loss normocytic anemia likely secondary to hematuria H/H 8.6/26.9 (baseline Hb 12). Last admission required Blood transfusion and Aminocaproic acid Will repeat CBC at 1 pm and transfuse as needed Type and screen sent # Hyperkalemia without EKG changes K- 5.7, will repeat plasma potassium at 1pm Hold Losartan for today # Hypertension but now Hypotensive likely due to inadequate PO intake Start IV NS @ 83 mls/hr Will hold Losartan and Amlodipine for today # HIV on HAART therapy Take Atripla (we do not have it in the pharmacy), has been substituted with Tenofovir/Emtricitabine and Efavirenz Dr. Holland consult requested # Hyperlipidemia continue home Crestor # FEN IV NS @ 83 mls/hr Electrolytes WNL Sodium controlled diet, NPO after midnight for possible cystoscopy. # Prophylaxis For DVT: On SCD's no anticogulants due to anemia and hematuria For GI: Not indicated # Code Status: Full Code # Dispo Admit to Med-Surg. Duration of stay unknown. Illness, Investigation and Plan of care explained to the patient. He verbalized understanding. Case discussed with Dr. Jean Baptiste. Visit type - Emergency Visit Emergency Visit: Yes ED Registration Date: 04/24/18 Care time: The patient presented to the Emergency Department on the above date and was hospitalized for further evaluation of their emergent condition. - New Patient This patient is new to me today: Yes Date on this admission: 04/24/18 - Critical Care Critical Care patient: No Hospitalist Screening - Colonoscopy Questionnaire Colonoscopy Questionnaire: Colonoscopy Questionnaire - Patient: 50 - 75 years old and never had a screening colonoscopy: Unknown History of colon or rectal polyps, or CA: Unknown History of IBD, Crohn's disease or UC: Unknown History of abdominal radiation therapy as a child: Unknown - Relative: 1 with colon or rectal CA, or polyps at age 60 or younger: Unknown Colon or rectal CA diagnosed at age 45 or younger: Unknown Multiple relatives with colon or rectal CA: Unknown - Outcome: Screening Result: Negative Screen
[2018-04-24] MEDS ORDERED: PT OWN MED DRAWER 7, Y5N ONE (10:17)
[2018-04-24] MEDS ORDERED: amLODIPine BESYLATE 5 MG TABLET (FP) ONE (10:18)
[2018-04-24] MEDS: SODIUM CHLORIDE 1,000 ML IV SCH ×3 (10:30→18:49)
[2018-04-24] MEDS: amLODIPine BESYLATE 10 MG TABLET (FP) PO SCH (10:30)
--- NOTE | 2018-04-24 11:26 | EKG ---
Test Reason : Blood Pressure : / mmHG Vent. Rate : 083 BPM Atrial Rate : 083 BPM P-R Int : 186 ms QRS Dur : 082 ms QT Int : 404 ms P-R-T Axes : 052 -26 049 degrees QTc Int : 474 ms NORMAL SINUS RHYTHM INFERIOR INFARCT (CITED ON OR BEFORE 26-JUL-2014) ANTERIOR INFARCT (CITED ON OR BEFORE 13-FEB-2018) ABNORMAL ECG WHEN COMPARED WITH ECG OF 14-APR-2018 08:24, PREMATURE VENTRICULAR COMPLEXES ARE NO LONGER PRESENT Confirmed by MICHELLE HOGAN MD ([id number]) on 04/24/2018 11:25:51 AM Referred By: Confirmed By:MICHELLE HOGAN MD
--- NOTE | 2018-04-24 11:42 | PN ---
Teaching Attending Note Name of Resident: Mihaela Epps ATTENDING PHYSICIAN STATEMENT I saw and evaluated the patient. I reviewed the resident's note and discussed the case with the resident. I agree with the resident's findings and plan as documented. SUBJECTIVE: This is a 77 year old man with a history of BPH, anemia secondary to prostate bleeding, TURP, HTN, hyperlipidemia, HIV who comes to the ED complaining of bloody urine with clots. He denies fever, chills, dysuria, urinary frequency, flank pain. He was recently admitted for hematuria, PING and was treated with Amicar. He says hematuria had cleared by discharge 3 days ago. OBJECTIVE: Vital Signs Period Temp Pulse Resp BP Sys/Nunez Pulse Ox Last 24 Hr 97.4 F 85-96 18-20 109-129/46-73 96-100 HEART: S1S2, RRR LUNGS: Clear ABDOMEN: Soft, non-tender, non-distended, normal BS EXTREMITIES: No edema Laboratory Tests 04/24/18 04/24/18 04/24/18 06:30 06:30 06:30 WBC 7.1 RBC 3.31 L D Hgb 8.6 L D Hct 26.9 L D MCV 81.3 MCH 25.8 MCHC 31.8 L RDW 19.6 H Plt Count 279 MPV 7.4 L Absolute Neuts (auto) 5.4 Neutrophils % 75.6 Lymphocytes % 18.2 D Monocytes % 4.1 Eosinophils % 1.0 Basophils % 1.1 Nucleated RBC % 0 Retic Count 3.38 H D PT with INR 12.00 INR 1.06 PTT (Actin FS) 21.5 L Sodium 137 Potassium 5.7 H D Chloride 107 Carbon Dioxide 24 Anion Gap 6 L BUN 29 H D Creatinine 1.3 Creat Clearance w eGFR 53.82 Random Glucose 96 Calcium 7.7 L Total Bilirubin 0.3 AST 39 H D ALT 22 Alkaline Phosphatase 81 D Total Protein 5.6 L Albumin 2.2 L Urine Color Urine Appearance Urine pH Ur Specific [place] Urine Protein Urine Glucose (UA) Urine Ketones Urine Blood Urine Nitrite Urine Bilirubin Urine Urobilinogen Ur Leukocyte Esterase Urine WBC (Auto) Urine RBC (Auto) Urine Bacteria Blood Type Antibody Screen 04/24/18 04/24/18 06:30 06:40 WBC RBC Hgb Hct MCV MCH MCHC RDW Plt Count MPV Absolute Neuts (auto) Neutrophils % Lymphocytes % Monocytes % Eosinophils % Basophils % Nucleated RBC % Retic Count PT with INR INR PTT (Actin FS) Sodium Potassium Chloride Carbon Dioxide Anion Gap BUN Creatinine Creat Clearance w eGFR Random Glucose Calcium Total Bilirubin AST ALT Alkaline Phosphatase Total Protein Albumin Urine Color Red Urine Appearance Turbid Urine pH Technical Document Writer Ur Specific [place] Technical Document Writer Urine Protein Technical Document Writer Urine Glucose (UA) Technical Document Writer Urine Ketones Technical Document Writer Urine Blood 4+ H Urine Nitrite Technical Document Writer Urine Bilirubin Technical Document Writer Urine Urobilinogen Technical Document Writer Ur Leukocyte Esterase Technical Document Writer Urine WBC (Auto) 8-10 Urine RBC (Auto) >100 Urine Bacteria Rare Blood Type B POSITIVE Antibody Screen Negative Home Medications Medication Instructions Recorded Amlodipine Besylate [Norvasc -] 10 mg PO DAILY 03/09/18 Cholecalciferol (Vitamin D3) 2,000 unit PO DAILY 03/09/18 [Vitamin D3] Cyanocobalamin (Vitamin B-12) 1,000 mcg PO DAILY 03/09/18 [Vitamin B12] Efavirenz/Emtricitab/Tenofovir 1 tab PO DAILY 03/09/18 [Atripla Tablet -] Losartan Potassium 25 mg PO DAILY 03/09/18 Rosuvastatin Calcium [Crestor] 10 mg PO DAILY 03/09/18 Tamsulosin HCl [Flomax] 0.4 mg PO DAILY 03/09/18 ASSESSMENT AND PLAN: This is a 77 year old man with a history of anemia, hematuria, BPH, HTN, hyperlipidemia, HIV, recent TURP who presented to the ED with hematuria. 1. Acute blood loss anemia secondary to hematuria 2. Hyperkalemia - Secondary to medication, dehydration - IV fluid - Hold Cozaar 3. Dehydration - IV fluid - Monitor BUN, creatinine 4. BPH - s/p TURP 03/11 - Continue Flomax 5. Stage 3 CKD 6. HIV - Continue Atripla 7. HTN - Hold Cozaar secondary to hyperkalemia, mild hypotension - Hold Norvasc secondary to mild hypotension 8. Hyperlipidemia - Continue Crestor
[2018-04-24 13:02] LABS: HEMATOCRIT 25.5 % (35.4-49); HEMOGLOBIN 8.1 GM/dL (11.7-16.9); MCH 25.5 pg (25.7-33.7); MCHC 31.6 g/dl (32.0-35.9); MEAN CELL VOLUME 80.7 fl (80-96); PLATELET COUNT 272 K/MM3 (134-434); RBC 3.17 M/mm3 (4.00-5.60); RDW 19.9 % (11.9-15.9); WHITE BLOOD COUNT 5.8 K/mm3 (4.0-10.0)
--- NOTE | 2018-04-24 16:07 | PN ---
Progress Note (short form) - Note Progress Note: ID Consult dictated Recurrent gross hematuria HIV + Urology consult pending Observe off antibiotics Continue ART
--- NOTE | 2018-04-24 17:30 | CONS ---
DATE OF CONSULTATION: DATE OF DICTATION: 04/24/2018 HISTORY OF PRESENT ILLNESS: The patient is a 77-year-old male who was evaluated for HIV medication. He was readmitted now with recurrent, painless gross hematuria for 1 day. He was recently hospitalized for the same condition. Urology was consulted and an evaluation is pending. He denies any pain. Denies any dysuria or hematuria, no suprapubic or flank pain, no fever or chills. PAST MEDICAL HISTORY: Positive for HIV, last viral load less than 20 copies, CD4 count 256. History of BPH, COPD, hypertension, hyperlipidemia, goiter, Hepatitis B. PAST SURGICAL HISTORY: Status post TURP. ALLERGIES: SULFA. MEDICATION: Amlodipine, Atripla, losartan, Crestor. SOCIAL HISTORY: Former smoker. SYSTEMS REVIEW: Neurologic: No loss of consciousness, seizure activity, or focal weakness. Cardiac: Negative chest pain or palpitations. Respiratory: Negative cough or sputum production. Gastrointestinal: Negative vomiting or diarrhea. Genitourinary: As per HPI. LABORATORY DATA: White count 5.8, hematocrit 25.5, platelets 272, BUN 29, creatinine 1.3. Urinalysis greater than 100 red cells, 8 to 10 white cells. PHYSICAL EXAMINATION: General: Patient is awake, in no acute distress. Vital signs: Temperature 97.4, blood pressure 99/59, pulse 90 regular, respirations 20 per minute. HEENT: Sclerae anicteric. Cardiovascular: Heart sounds S1, S2. Respiratory: Lungs clear. Abdomen: Soft. Nontender. Extremities: Negative for edema. IMPRESSION: 1. Recurrent gross hematuria. 2. Human immunodeficiency virus disease. 3. No urinary tract symptoms to suggest urinary tract infection. Patient denies dysuria. No suprapubic or flank pain. No fevers or chills. White blood cell count normal. Observe off antibiotic therapy, continue antiretroviral therapy, urology evaluation. Thank you for the kind referral. MARY LINO M.D. [id number]
[2018-04-24 21:02] VITALS: BMI 19.5
[2018-04-25] MEDS: SODIUM CHLORIDE 1,000 ML IV SCH (01:02)
[2018-04-25 08:07] LABS: BASO % 0.5 % (0-2.0); EOS % 2.1 % (0-4.5); HEMATOCRIT 22.2 % (35.4-49); HEMOGLOBIN 7.2 GM/dL (11.7-16.9); LYMPH % 25.5 % (8-40); MCH 26.3 pg (25.7-33.7); MCHC 32.5 g/dl (32.0-35.9); MEAN CELL VOLUME 80.8 fl (80-96); MEAN PLT VOLUME 7.4 fl (7.5-11.1); MONO % 4.7 % (3.8-10.2); NEUT % 67.2 % (42.8-82.8); PLATELET COUNT 219 K/MM3 (134-434); RBC 2.75 M/mm3 (4.00-5.60); RDW 19.4 % (11.9-15.9); WHITE BLOOD COUNT 5.2 K/mm3 (4.0-10.0)
[2018-04-25 08:14] LABS: CHLORIDE 114 mmol/L (98-107); POTASSIUM 4.8 mmol/L (3.5-5.1); SODIUM 143 mmol/L (136-145)
[2018-04-25 08:27] LABS: ANION GAP 7 (8-16); BLOOD UREA NITROGEN 21 mg/dL (7-18); CALCIUM 7.2 mg/dL (8.5-10.1); CO2 22 mmol/L (21-32); CREATININE 1.1 mg/dL (0.7-1.3); GLUCOSE,RANDOM 111 mg/dL (74-106)
--- NOTE | 2018-04-25 09:21 | CON.GU ---
Consult Consult Specialty:: Referred by:: Medicine Reason for Consultation:: gross hematuria - History of Present Illness Chief Complaint: gross hematuria History of Present Illness: 77 year old male with BPH with recurrent gross hematuria. He underwent a TURP earlier this year. He comes in with recurrent hematuria. Painless, no obstruction, blood is dark - History Source History Provided By: Patient, Medical Record Limitations to Obtaining History: No Limitations - Past Medical History Cardio/Vascular: Yes: HTN, Hyperlipdemia Pulmonary: Yes: COPD Renal/: Yes: BPH, Hematuria, UTI Infectious Disease: Yes: HIV Musculoskeletal: Yes: Other (patella fracture) Endocrine: Yes: Other (thyroid goiter s/p needle aspiration) - Past Surgical History Past Surgical History: Yes: TURP - Alcohol/Substance Use Hx Alcohol Use: Yes (beer once in a while) History of Substance Use: reports: None - Smoking History Smoking history: Current every day smoker Have you smoked in the past 12 months: Yes Aproximately how many cigarettes per day: 1 If you are a former smoker, when did you quit?: 1 MONTH - Social History Usual Living Arrangement: Other (with sister) ADL: Independent History of Recent Travel: No Home Medications - Allergies Allergies/Adverse Reactions: Allergies Allergy/AdvReac Type Severity Reaction Status Date / Time Sulfa (Sulfonamide Allergy Intermediate Nausea Verified 04/24/18 04:53 Antibiotics) sulfamethoxazole Allergy Intermediate Nausea Verified 04/24/18 04:53 [From Bactrim] trimethoprim [From Bactrim] AdvReac Intermediate Nausea Verified 04/24/18 04:53 - Home Medications Home Medications: Ambulatory Orders Amlodipine Besylate [Norvasc -] 10 mg PO DAILY 03/09/18 Cholecalciferol (Vitamin D3) [Vitamin D3] 2,000 unit PO DAILY 03/09/18 Cyanocobalamin (Vitamin B-12) [Vitamin B12] 1,000 mcg PO DAILY 03/09/18 Efavirenz/Emtricitab/Tenofovir [Atripla Tablet -] 1 tab PO DAILY 03/09/18 Losartan Potassium 25 mg PO DAILY 03/09/18 Rosuvastatin Calcium [Crestor] 10 mg PO DAILY 03/09/18 Tamsulosin HCl [Flomax] 0.4 mg PO DAILY 03/09/18 Review of Systems - Review of Systems Genitourinary: reports: Hematuria Physical Exam- Vital Signs: Vital Signs Temperature 97.9 F 04/25/18 06:00 Pulse Rate 83 04/25/18 06:00 Respiratory Rate 20 04/25/18 06:00 Blood Pressure 99/47 04/25/18 06:00 O2 Sat by Pulse Oximetry (%) 96 04/24/18 21:00 Constitutional: Yes: Calm Gastrointestinal: Yes: Soft Renal/: Yes: Hematuria. No: Bladder Distention, CVA Tenderness - Left, CVA Tenderness - Right, Pang Present Labs: CBC, BMP 04/25/18 07:00 04/25/18 07:00 Problem List - Problems (1) Hematuria Assessment/Plan: appear to be old blood as it is dark. Patient is not having any other urinary symptoms. CBI cath placed and bladder irrigated., lots of small clots returned. Start CBI/. will follow Code(s): R31.9 - HEMATURIA, UNSPECIFIED Qualifiers: Hematuria type: gross Qualified Code(s): R31.0 - Gross hematuria
[2018-04-25] MEDS ORDERED: LOSARTAN POTASSIUM 25 MG TABLET PO SCH (10:00)
[2018-04-25] MEDS ORDERED: PATIENT'S OWN MEDICATION (NON-FORMULARY) (Efavirenz/Emtricitab/Tenofovir 1 TAB) PO SCH (10:00)
--- NOTE | 2018-04-25 10:14 | PN ---
Progress Note (short form) - Note Progress Note: admitted again for hematuria he is miserable now with salas placed by urology for CBI gross hematuria- dark blood anemic Vital Signs Period Temp Pulse Resp BP Sys/Nunez Pulse Ox Last 24 Hr 97.4 F-98.2 F 80-90 16-20 91-113/42-62 94-96 cor-rrr lungs clear abd soft, nt ext no edema salas CBC, BMP 04/25/18 07:00 04/25/18 07:00 a/p recurrent hematuria- s/p TURP- management per urology- this is now his fifth admission BPH- s/p TURP anemia- secondary to hematuria HIV stable-on atripla HTN-meds on hold will try to contact urologist
[2018-04-25] MEDS: CHOLECALCIFEROL (VITAMIN D3) 1,000 UNIT TABLET (FP) PO SCH (10:20)
[2018-04-25] MEDS: TAMSULOSIN HCL 0.4 MG CAP.ER.24H (FP) PO SCH (10:20)
[2018-04-25] MEDS: amLODIPine BESYLATE 10 MG TABLET (FP) PO SCH (10:20)
[2018-04-25] MEDS: CYANOCOBALAMIN 1,000 MCG TABLET (FP) PO SCH (10:21)
[2018-04-25] MEDS: EMTRICITABINE 200MG/TENOFOVIR 300MG PO SCH (10:57)
[2018-04-25] MEDS: EFAVIRENZ 600 MG TABLET PO SCH (10:57)
--- NOTE | 2018-04-25 14:08 | PN ---
Physical Exam: SUBJECTIVE: Patient seen and examined. Came in with painless hematuria. Still without pain in the am, no fever, no chills. Was initially on diaper then salas with CBI put in by urologist. OBJECTIVE: Vital Signs Period Temp Pulse Resp BP Sys/Nunez Pulse Ox Last 24 Hr 97.4 F-98.2 F 80-90 16-20 91-113/42-62 94-96 Vital Signs Temp 97.9 F 04/25/18 14:28 Pulse 53 L 04/25/18 14:28 Resp 18 04/25/18 14:28 BP 106/53 04/25/18 14:28 Pulse Ox 96 04/24/18 21:00 Intake & Output 04/24/18 04/25/18 04/25/18 23:59 11:59 23:59 Intake Total 920 1200 3400 Output Total 650 3700 Balance 920 550 -300 Weight 68.946 kg Intake: IV 380 1200 Normal Saline - 1,000 ml 50 1200 @ 100 mls/hr IV ASDIR ELVIS Rx#:[id number] Normal Saline - 1,000 ml 330 @ 83 mls/hr IV ASDIR ELVIS Rx#:[id number] Oral 540 600 CBI Intake 2800 Output: Urine 650 3700 Salas 3700 Void 650 Other: Voiding Method Incontinent Indwelling Catheter Urinal # Unmeasured Voids Void 1 Bowel Movement No No Height 1.88 m Body Mass Index (BMI) 19.5 Weight Measurement Method Standing Scale Intake & Output 04/22/18 04/23/18 04/24/18 04/25/18 23:59 23:59 23:59 23:59 Intake Total 920 4600 Output Total 4350 Balance 920 250 Weight 68.946 kg GENERAL: The patient is awake, alert, and fully oriented, in no acute distress. LUNGS: Breath sounds equal, clear to auscultation bilaterally HEART: Regular rate and rhythm, S1, S2 . ABDOMEN: Soft, non tender suprapubic regions, non distended, normoactive bowel sounds. Diaper with spotting on diaper, no serene bleeding EXTREMITIES: 2+ pulses, warm, well-perfused, no edema. NEUROLOGICAL: AAOx3. No facial droop, no lateralizing signs. Normal tone and muscle strength. Normal speech, gait not observed. CBC, BMP 04/25/18 07:00 06/08/18 07:00 Laboratory Results - last 24 hr 04/24/18 04/25/18 04/25/18 12:50 07:00 07:00 WBC 5.2 RBC 2.75 L Hgb 7.2 L D Hct 22.2 L MCV 80.8 MCH 26.3 MCHC 32.5 RDW 19.4 H Plt Count 219 MPV 7.4 L Absolute Neuts (auto) 3.5 Neutrophils % 67.2 Lymphocytes % 25.5 D Monocytes % 4.7 Eosinophils % 2.1 D Basophils % 0.5 Nucleated RBC % 0 Sodium 143 Potassium 4.8 Chloride 114 H Carbon Dioxide 22 Anion Gap 7 L BUN 21 H D Creatinine 1.1 Random Glucose 111 H Calcium 7.2 L Blood Type B POSITIVE Antibody Screen Negative Crossmatch See Detail Active Medications Generic Name Dose Route Start Last Admin Trade Name Freq PRN Reason Stop Dose Admin Cholecalciferol 2,000 unit 04/25/18 10:00 04/25/18 10:20 Vitamin D3 - PO 2,000 unit DAILY ELVIS Administration Cyanocobalamin 1,000 mcg 04/25/18 10:00 04/25/18 10:21 Vitamin B12 - PO 1,000 mcg DAILY ELVIS Administration Efavirenz 600 mg 04/25/18 10:00 04/25/18 10:57 Sustiva - PO 600 mg DAILY ELVIS Administration Emtricitabine/Tenofovir 1 tab 04/25/18 10:00 04/25/18 10:57 Truvada PO 1 tab DAILY ELVIS Administration Dextrose/Sodium Chloride 1,000 mls @ 100 mls/hr 04/25/18 07:30 D5-Ns - IV ASDIR [facility] Rosuvastatin Calcium 10 mg 04/25/18 10:00 Crestor - PO DAILY ELVIS Tamsulosin HCl 0.4 mg 04/25/18 08:30 04/25/18 10:20 Flomax - PO 0.4 mg DAILY@0830 ELVIS Administration ASSESSMENT/PLAN: The patient is a 77 year old male with significant PMH of BPH s/p TURP 02/2018; previous episodes of hematuria s/p flugration of the prostate; Anemia requiring Blood transfusion, HIV on HAART, HTN, HLD, Goitre who presented to the ED with serene painless hematuria. # Painless Hematuria likely due to BPH Recurrent hematuria with blood clots, recent procedure 03/05 Recent discharge 04/21 UA 4 + blood IV NS @ 100 mls/hr Dr. Lobato consult requested- put in salas, 3 way with CBI which was leaking urine profusely and salas had to be removed. Pt now on diaper cystoscopy not likely at this time- pt may be transferred for embolectomy Watch for urinary retention- bladder scan Q6H post void Continue Flomax # Acute blood loss normocytic anemia likely secondary to hematuria H/H 7.2 this am (baseline Hb 12). 1u PRBCs ordered- running Last admission required Blood transfusion and Aminocaproic acid Will repeat CBC after transfusion Hemonc- Consulted- Dr Jones- 2g aminocaproic acid Q6H for taper #Hypotension 1 unit of blood Cont N/saline @100 as needed # Hyperkalemia without EKG changes K- 5.7, resolved Hold Losartan # Hypertension Currently not hypertensive Has been o iv normal saline @100/hr Will hold Losartan and Amlodipine # HIV on HAART therapy Takes Atripla substituted with Tenofovir/Emtricitabine and Efavirenz ID consult-Dr. Holland apprec. recs # Hyperlipidemia continue home Crestor # FEN IV NS @ 100 mls/hr following transfusion, as needed Electrolytes WNL Sodium controlled diet, # Prophylaxis For DVT: On SCD's no anticogulants due to anemia and hematuria For GI: Not indicated # Code Status: Full Code # Dispo Admit to Med-Surg. For possible transfer for embolectomy Visit type - Emergency Visit Emergency Visit: Yes ED Registration Date: 04/24/18 Care time: The patient presented to the Emergency Department on the above date and was hospitalized for further evaluation of their emergent condition. - New Patient This patient is new to me today: Yes Date on this admission: 04/25/18 - Critical Care Critical Care patient: No - Discharge Referral Referred to [facility] Med P.C.: No
--- NOTE | 2018-04-25 15:26 | PN ---
Teaching Attending Note Name of Resident: Felecia Londono ATTENDING PHYSICIAN STATEMENT I saw and evaluated the patient. I reviewed the resident's note and discussed the case with the resident. I agree with the resident's findings and plan as documented with exceptions below. SUBJECTIVE: Patient seen and examined. salas placed by urology, denies any pain, dizziness or urinary symptoms. No fevers/chills. OBJECTIVE: Vital Signs Period Temp Pulse Resp BP Sys/Nunez Pulse Ox Last 24 Hr 97.9 F-98.2 F 80-88 16-20 91-116/42-62 96 Intake & Output 04/22/18 04/23/18 04/24/18 04/25/18 23:59 23:59 23:59 23:59 Intake Total 920 4000 Output Total 4350 Balance 920 -350 Weight 152 lb General: sitting in bed, no acute distress Abdomen:soft, NT, ND, no CVA tenderness Home Medications Medication Instructions Recorded Amlodipine Besylate [Norvasc -] 10 mg PO DAILY 03/09/18 Cholecalciferol (Vitamin D3) 2,000 unit PO DAILY 03/09/18 [Vitamin D3] Cyanocobalamin (Vitamin B-12) 1,000 mcg PO DAILY 03/09/18 [Vitamin B12] Efavirenz/Emtricitab/Tenofovir 1 tab PO DAILY 03/09/18 [Atripla Tablet -] Losartan Potassium 25 mg PO DAILY 03/09/18 Rosuvastatin Calcium [Crestor] 10 mg PO DAILY 03/09/18 Tamsulosin HCl [Flomax] 0.4 mg PO DAILY 03/09/18 Active Medications Cholecalciferol (Vitamin D3 -) 2,000 unit PO DAILY [facility] Last Admin: 04/25/18 10:20 Dose: 2,000 unit Cyanocobalamin (Vitamin B12 -) 1,000 mcg PO DAILY [facility] Last Admin: 04/25/18 10:21 Dose: 1,000 mcg Efavirenz (Sustiva -) 600 mg PO DAILY [facility] Last Admin: 04/25/18 10:57 Dose: 600 mg Emtricitabine/Tenofovir (Truvada) 1 tab PO DAILY [facility] Last Admin: 04/25/18 10:57 Dose: 1 tab Dextrose/Sodium Chloride (D5-Ns -) 1,000 mls @ 100 mls/hr IV ASDIR [facility] Rosuvastatin Calcium (Crestor -) 10 mg PO DAILY [facility] Tamsulosin HCl (Flomax -) 0.4 mg PO DAILY@0830 [facility] Last Admin: 04/25/18 10:20 Dose: 0.4 mg Abnormal Lab Results 04/24/18 04/25/18 04/25/18 12:50 07:00 07:00 RBC 2.75 L Hgb 7.2 L D Hct 22.2 L RDW 19.4 H MPV 7.4 L Chloride 114 H Anion Gap 7 L BUN 21 H D Random Glucose 111 H Calcium 7.2 L Crossmatch See Detail Microbiology 04/24/18 06:40 Urine - Urine Clean Catch Urine Culture - Preliminary Pending Organism ASSESSMENT AND PLAN: 77 yom with PMHx of BPH, s/p shaving prostate 02/2018, fulguration, recurrent hematuria with anemia requiring PRBCs, HIV on HAART, HTN, HLD, goiter admitted with recurrent hematuria and anemia -Recurrent hematuria with BPH -Acute blood loss anemia, from above -HIV on HAART -HTN -HLD -Goiter Plan: Urology input noted. Salas with irrigation of clots and CBI. Nursing input noted, catheter removed given leak. Discussed with Dr. Yung, will follow up. Discuss ?intervention. Transfuse 1 unit PRBC. ID input noted, follow up urine cultures. Continue HAART Hold amlodipine/losartan, resume based on BP DVTPPx with SCDs dispo pending resolution of symptoms Plan discussed with patient.
[2018-04-25] MEDS: DEXTROSE 5%-NORMAL SALINE 1,000 ML IV SCH (16:20)
--- NOTE | 2018-04-25 17:19 | PN ---
Progress Note (short form) - Note Progress Note: re-admitted for hematuria Pt seen and examined Cor: RSR, No murmurs, No gallops Lungs: Clear to P&A Abd: Soft, Normal bowel sounds, No organomegaly Ext:No significant edema Last Vital Signs Temp Pulse Resp BP Pulse Ox 98.2 F 88 18 106/52 96 04/25/18 16:30 04/25/18 16:30 04/25/18 16:30 04/25/18 16:30 04/24/18 21:00 CBC, BMP 04/25/18 07:00 04/25/18 07:00 Current Medications Generic Name Dose Route Start Last Admin Trade Name Shaina PRN Reason Stop Dose Admin Aminocaproic Acid 2,000 mg 04/25/18 17:15 Amicar - PO Q6H ELVIS Cholecalciferol 2,000 unit 04/25/18 10:00 04/25/18 10:20 Vitamin D3 - PO 2,000 unit DAILY ELVIS Administration Cyanocobalamin 1,000 mcg 04/25/18 10:00 04/25/18 10:21 Vitamin B12 - PO 1,000 mcg DAILY ELVIS Administration Efavirenz 600 mg 04/25/18 10:00 04/25/18 10:57 Sustiva - PO 600 mg DAILY ELVIS Administration Emtricitabine/Tenofovir 1 tab 04/25/18 10:00 04/25/18 10:57 Truvada PO 1 tab DAILY ELVIS Administration Dextrose/Sodium Chloride 1,000 mls @ 100 mls/hr 04/25/18 07:30 D5-Ns - IV ASDIR ELVIS Rosuvastatin Calcium 10 mg 04/25/18 10:00 Crestor - PO DAILY ELVIS Tamsulosin HCl 0.4 mg 04/25/18 08:30 04/25/18 10:20 Flomax - PO 0.4 mg DAILY@0830 ELVIS Administration recurrent hematuria--third admission HIV Severely enlarged BPH (benign biopsy in the past) normal Transfusion threshold Normal coags/fibrinogen, will send VW panel and also Factor XIII start amicar 2mg PO z3h--qotu taper as per symptom direction. f/u noted
[2018-04-25] MEDS: AMINOCAPROIC ACID 500 MG TABLET PO SCH ×2 (17:57→22:22)
[2018-04-25] MEDS: ROSUVASTATIN CA 10 MG TABLET (FP) PO SCH (17:57)
[2018-04-25 19:09] LABS: HEMATOCRIT 27.7 % (35.4-49); HEMOGLOBIN 8.7 GM/dL (11.7-16.9); MCH 25.8 pg (25.7-33.7); MCHC 31.2 g/dl (32.0-35.9); MEAN CELL VOLUME 82.6 fl (80-96); MEAN PLT VOLUME 7.2 fl (7.5-11.1); PLATELET COUNT 250 K/MM3 (134-434); RBC 3.36 M/mm3 (4.00-5.60); RDW 18.9 % (11.9-15.9)
[2018-04-26] MEDS: DEXTROSE 5%-NORMAL SALINE 1,000 ML IV SCH ×3 (00:53→20:05)
[2018-04-26] MEDS: AMINOCAPROIC ACID 500 MG TABLET PO SCH ×4 (05:26→23:19)
[2018-04-26 08:27] LABS: BASO % 0.9 % (0-2.0); EOS % 1.8 % (0-4.5); HEMATOCRIT 24.9 % (35.4-49); MCH 26.5 pg (25.7-33.7); MCHC 32.3 g/dl (32.0-35.9); MEAN PLT VOLUME 7.3 fl (7.5-11.1); MONO % 6.5 % (3.8-10.2); NEUT % 62.8 % (42.8-82.8); PLATELET COUNT 221 K/MM3 (134-434); RBC 3.03 M/mm3 (4.00-5.60); RDW 18.4 % (11.9-15.9); WHITE BLOOD COUNT 5.3 K/mm3 (4.0-10.0)
[2018-04-26] MEDS: TAMSULOSIN HCL 0.4 MG CAP.ER.24H (FP) PO SCH (08:44)
[2018-04-26 08:47] LABS: CHLORIDE 112 mmol/L (98-107); POTASSIUM 4.7 mmol/L (3.5-5.1); SODIUM 141 mmol/L (136-145)
[2018-04-26 08:57] LABS: INR 1.06 (0.82-1.09)
[2018-04-26 09:00] LABS: ACTIVATED PTT 25.1 SECONDS (26.9-34.4); ALK PHOS 73 U/L (45-117); ANION GAP 7 (8-16); BILIRUBIN,TOTAL 0.2 mg/dL (0.2-1.0); BLOOD UREA NITROGEN 14 mg/dL (7-18); CALCIUM 7.1 mg/dL (8.5-10.1); CO2 22 mmol/L (21-32); CREATININE 0.9 mg/dL (0.7-1.3); GLUCOSE,RANDOM 91 mg/dL (74-106); PHOSPHOROUS 2.1 mg/dL (2.5-4.9); SGOT/AST 23 U/L (15-37); SGPT/ALT 18 U/L (12-78); TOT PROT 4.7 g/dl (6.4-8.2)
--- NOTE | 2018-04-26 09:24 | PN ---
Teaching Attending Note Name of Resident: Brian Palma ATTENDING PHYSICIAN STATEMENT I saw and evaluated the patient. I reviewed the resident's note and discussed the case with the resident. I agree with the resident's findings and plan as documented with exceptions below. SUBJECTIVE: Patient seen and examined. No nausea, vomiting, abdominal or back pain. Able to urinate without concerns. no fevers/chills. OBJECTIVE: Vital Signs Period Temp Pulse Resp BP Sys/Nunez Pulse Ox Last 24 Hr 97.5 F-98.4 F 53-96 16-20 98-116/43-56 96 Intake & Output 04/23/18 04/24/18 04/25/18 04/26/18 23:59 23:59 23:59 23:59 Intake Total 920 5850 1400 Output Total 5050 400 Balance 915 263 7192 Weight 152 lb General: sitting in bed in no acute distress Chest: CTAB, no rales or wheezing Abdomen:soft, NT throughout, no suprapubic fullness or tenderness, no CVA tenderness, positive bowel sounds Extremities: no edema Home Medications Medication Instructions Recorded Amlodipine Besylate [Norvasc -] 10 mg PO DAILY 03/09/18 Cholecalciferol (Vitamin D3) 2,000 unit PO DAILY 03/09/18 [Vitamin D3] Cyanocobalamin (Vitamin B-12) 1,000 mcg PO DAILY 03/09/18 [Vitamin B12] Efavirenz/Emtricitab/Tenofovir 1 tab PO DAILY 03/09/18 [Atripla Tablet -] Losartan Potassium 25 mg PO DAILY 03/09/18 Rosuvastatin Calcium [Crestor] 10 mg PO DAILY 03/09/18 Tamsulosin HCl [Flomax] 0.4 mg PO DAILY 03/09/18 Active Medications Aminocaproic Acid (Amicar -) 2,000 mg PO Q6HPO [facility] Last Admin: 04/26/18 05:26 Dose: 2,000 mg Cholecalciferol (Vitamin D3 -) 2,000 unit PO DAILY [facility] Last Admin: 04/25/18 10:20 Dose: 2,000 unit Cyanocobalamin (Vitamin B12 -) 1,000 mcg PO DAILY [facility] Last Admin: 04/25/18 10:21 Dose: 1,000 mcg Efavirenz (Sustiva -) 600 mg PO DAILY [facility] Last Admin: 04/25/18 10:57 Dose: 600 mg Emtricitabine/Tenofovir (Truvada) 1 tab PO DAILY [facility] Last Admin: 04/25/18 10:57 Dose: 1 tab Dextrose/Sodium Chloride (D5-Ns -) 1,000 mls @ 100 mls/hr IV ASDIR [facility] Last Admin: 04/26/18 08:45 Dose: 100 mls/hr Rosuvastatin Calcium (Crestor -) 10 mg PO DAILY [facility] Last Admin: 04/25/18 17:57 Dose: 10 mg Tamsulosin HCl (Flomax -) 0.4 mg PO DAILY@0830 [facility] Last Admin: 04/26/18 08:44 Dose: 0.4 mg Laboratory Results - last 24 hr 04/24/18 04/25/18 04/26/18 12:50 18:53 07:00 WBC 6.0 5.3 RBC 3.36 L D 3.03 L Hgb 8.7 L D 8.0 L Hct 27.7 L D 24.9 L MCV 82.6 82.0 MCH 25.8 26.5 MCHC 31.2 L 32.3 RDW 18.9 H 18.4 H Plt Count 250 221 MPV 7.2 L 7.3 L Absolute Neuts (auto) 3.3 Neutrophils % 62.8 Lymphocytes % 28.0 Monocytes % 6.5 Eosinophils % 1.8 Basophils % 0.9 Nucleated RBC % 0 PT with INR INR PTT (Actin FS) Fibrinogen Sodium Potassium Chloride Carbon Dioxide Anion Gap BUN Creatinine Creat Clearance w eGFR Random Glucose Calcium Phosphorus Magnesium Total Bilirubin AST ALT Alkaline Phosphatase Total Protein Albumin Blood Type B POSITIVE Antibody Screen Negative Crossmatch See Detail 04/26/18 04/26/18 07:00 07:00 WBC RBC Hgb Hct MCV MCH MCHC RDW Plt Count MPV Absolute Neuts (auto) Neutrophils % Lymphocytes % Monocytes % Eosinophils % Basophils % Nucleated RBC % PT with INR 12.00 INR 1.06 PTT (Actin FS) 25.1 L Fibrinogen 316.0 Sodium 141 Potassium 4.7 Chloride 112 H Carbon Dioxide 22 Anion Gap 7 L BUN 14 D Creatinine 0.9 Creat Clearance w eGFR > 60 Random Glucose 91 Calcium 7.1 L Phosphorus 2.1 L D Magnesium 2.0 Total Bilirubin 0.2 D AST 23 D ALT 18 Alkaline Phosphatase 73 Total Protein 4.7 L Albumin 2.0 L Blood Type Antibody Screen Crossmatch Microbiology 04/24/18 06:40 Urine - Urine Clean Catch Urine Culture - Preliminary Pending Organism ASSESSMENT AND PLAN: 77 yom with PMHx of BPH, s/p shaving prostate 02/2018, fulguration, recurrent hematuria with anemia requiring PRBCs, HIV on HAART, HTN, HLD, goiter admitted with recurrent hematuria and anemia -Recurrent hematuria with BPH -Acute blood loss anemia, from above -HIV on HAART -HTN -HLD -Goiter Plan: Discussed with Dr. Yung, monitor off salas, re-insertion if concerns of acute obstruction. Bladder scan q6h. s/p 1 unit pRBC, Hb drifting down, likely from ongoing hematuria and hemodiluation. Hematology input noted. Aminocaproic acid. ID input noted, follow up urine cultures. Continue HAART Hold amlodipine/losartan, resume based on BP DVTPPx with SCDs dispo discussed with Dr. Yung, possible transfer to [facility] on Saturday of IR guided embolization given recurrent hematuria with anema. Plan discussed with patient and nursing.
[2018-04-26] MEDS ORDERED: PT OWN MED DRAWER 7, Y5N ONE ×3 (09:38→20:53)
[2018-04-26] MEDS: ROSUVASTATIN CA 10 MG TABLET (FP) PO SCH (09:45)
[2018-04-26] MEDS: CHOLECALCIFEROL (VITAMIN D3) 1,000 UNIT TABLET (FP) PO SCH (09:45)
[2018-04-26] MEDS: EFAVIRENZ 600 MG TABLET PO SCH (09:46)
[2018-04-26] MEDS: EMTRICITABINE 200MG/TENOFOVIR 300MG PO SCH (09:46)
[2018-04-26] MEDS: CYANOCOBALAMIN 1,000 MCG TABLET (FP) PO SCH (09:46)
--- NOTE | 2018-04-26 11:43 | PN ---
Physical Exam: SUBJECTIVE: No complaint and feeling better. Salas was discontinued. Still passing clots per nurse. Denies fever chills n/v. OBJECTIVE: Vital Signs Period Temp Pulse Resp BP Sys/Nunez Pulse Ox Last 24 Hr 97.5 F-98.4 F 53-96 16-20 98-112/43-53 96 GENERAL: The patient is awake, alert, and fully oriented, in no acute distress. LUNGS: Breath sounds equal, clear to auscultation bilaterally, no wheezes, no crackles, no accessory muscle use. HEART: Regular rate and rhythm, S1, S2 without murmur, rub or gallop. ABDOMEN: Soft, nontender, nondistended, normoactive bowel sounds, no guarding, no rebound, no hepatosplenomegaly, no masses. EXTREMITIES: 2+ pulses, warm, well-perfused, no edema. CBCD WBC 5.3 K/mm3 (4.0-10.0) 04/26/18 07:00 RBC 3.03 M/mm3 (4.00-5.60) L 04/26/18 07:00 Hgb 8.0 GM/dL (11.7-16.9) L 04/26/18 07:00 Hct 24.9 % (35.4-49) L 04/26/18 07:00 MCV 82.0 fl (80-96) 04/26/18 07:00 MCHC 32.3 g/dl (32.0-35.9) 04/26/18 07:00 RDW 18.4 % (11.9-15.9) H 04/26/18 07:00 Plt Count 221 K/MM3 (134-434) 04/26/18 07:00 MPV 7.3 fl (7.5-11.1) L 04/26/18 07:00 CMP Sodium 141 mmol/L (136-145) 04/26/18 07:00 Potassium 4.7 mmol/L (3.5-5.1) 04/26/18 07:00 Chloride 112 mmol/L (98-107) H 04/26/18 07:00 Carbon Dioxide 22 mmol/L (21-32) 04/26/18 07:00 Anion Gap 7 (8-16) L 04/26/18 07:00 BUN 14 mg/dL (7-18) D 04/26/18 07:00 Creatinine 0.9 mg/dL (0.7-1.3) 04/26/18 07:00 Creat Clearance w eGFR > 60 (>60) 04/26/18 07:00 Calcium 7.1 mg/dL (8.5-10.1) L 04/26/18 07:00 Total Bilirubin 0.2 mg/dL (0.2-1.0) D 04/26/18 07:00 AST 23 U/L (15-37) D 04/26/18 07:00 ALT 18 U/L (12-78) 04/26/18 07:00 Alkaline Phosphatase 73 U/L (45-117) 04/26/18 07:00 Total Protein 4.7 g/dl (6.4-8.2) L 04/26/18 07:00 Albumin 2.0 g/dl (3.4-5.0) L 04/26/18 07:00 ASSESSMENT/PLAN: 77 yo M h/o BPH s/p TURP, hematuria, anemia, HIV on HAART, htn, hld admitted to the hospital for hematuria. 1. hematuria: in the setting of BPH s/p TURP. observe off salas and bladder scan q6h monitor for retention. reinsert in needed. 2. normocytic anemia: from blood loss and hemodilution. s/p 1 unit of prbc. hematology started amicar 3. hiv on haart: cont. current haart meds 4. htn and hld: hypotensive now so hold norvasc and losartan dvt ppx: scds diet: regular Brian Palma PGY2 [phone] Visit type - Emergency Visit Emergency Visit: No - New Patient This patient is new to me today: No - Critical Care Critical Care patient: No
--- NOTE | 2018-04-26 12:22 | PN ---
Progress Note (short form) - Note Progress Note: urine is clear this morning. Patient has no pain. patient is on amicar. had considered transfer to [facility] for angioembolization of the prostate if bleeding continued. can observe and consider discharge home on oral amicar. Problem List - Problems (1) Hematuria Code(s): R31.9 - HEMATURIA, UNSPECIFIED Qualifiers: Hematuria type: gross Qualified Code(s): R31.0 - Gross hematuria
--- NOTE | 2018-04-26 12:43 | PN ---
Progress Note (short form) - Note Progress Note: Hematology/Oncology follow-up Note S: Patient feels well today with no symptoms, no pain. His salas was removed and he is voiding clear yellow urine since this am. Last Vital Signs Temp Pulse Resp BP Pulse Ox 97.5 F L 73 20 112/50 96 04/26/18 10:00 04/26/18 10:00 04/26/18 10:00 04/26/18 10:00 04/25/18 21:00 PE AOx3, pleasant cachectic CTA(BL) Soft abdomen, No TTP Nonfocal neuro exam CBC, BMP 04/26/18 07:00 04/26/18 07:00 Current Medications Generic Name Dose Route Start Last Admin Trade Name Freq PRN Reason Stop Dose Admin Aminocaproic Acid 2,000 mg 04/26/18 06:00 04/26/18 05:26 Amicar - PO 2,000 mg Q6HPO ELVIS Administration Cholecalciferol 2,000 unit 04/25/18 10:00 04/26/18 09:45 Vitamin D3 - PO 2,000 unit DAILY ELVIS Administration Cyanocobalamin 1,000 mcg 04/25/18 10:00 04/26/18 09:46 Vitamin B12 - PO 1,000 mcg DAILY ELVIS Administration Efavirenz 600 mg 04/25/18 10:00 04/26/18 09:46 Sustiva - PO 600 mg DAILY ELVIS Administration Emtricitabine/Tenofovir 1 tab 04/25/18 10:00 04/26/18 09:46 Truvada PO 1 tab DAILY ELVIS Administration Dextrose/Sodium Chloride 1,000 mls @ 100 mls/hr 04/25/18 07:30 04/26/18 08:45 D5-Ns - IV 100 mls/hr ASDIR ELVIS Administration Rosuvastatin Calcium 10 mg 04/25/18 10:00 04/26/18 09:45 Crestor - PO 10 mg DAILY ELVIS Administration Tamsulosin HCl 0.4 mg 04/25/18 08:30 04/26/18 08:44 Flomax - PO 0.4 mg DAILY@0830 ELVIS Administration A/P : 77 y/o male with HIV on HAART, BPH, admitted with recurrent hematuria -symptoms much improved, off salas and CBI -continue current dose of Amicar, can start to taper off from tomorrow if he continues to have clear urine -Normal coags/fibrinogen, sent VW panel and also Factor XIII, awaiting results -CBC stable today, mild drop in Hgb, monitor daily -Will continue to follow
[2018-04-27] MEDS: DEXTROSE 5%-NORMAL SALINE 1,000 ML IV SCH ×2 (06:15→08:42)
[2018-04-27] MEDS: AMINOCAPROIC ACID 500 MG TABLET PO SCH ×2 (06:15→13:52)
[2018-04-27 07:59] LABS: HEMATOCRIT 25.4 % (35.4-49); HEMOGLOBIN 8.2 GM/dL (11.7-16.9); MCH 26.3 pg (25.7-33.7); MCHC 32.1 g/dl (32.0-35.9); MEAN CELL VOLUME 81.9 fl (80-96); MEAN PLT VOLUME 7.1 fl (7.5-11.1); PLATELET COUNT 217 K/MM3 (134-434); RDW 18.8 % (11.9-15.9); WHITE BLOOD COUNT 5.5 K/mm3 (4.0-10.0)
[2018-04-27 08:31] LABS: CHLORIDE 112 mmol/L (98-107); POTASSIUM 4.7 mmol/L (3.5-5.1); SODIUM 140 mmol/L (136-145)
--- NOTE | 2018-04-27 08:37 | PN ---
Physical Exam: SUBJECTIVE: Patient seen and examined, no hematuria, abdominal pain, fevers, chills or new concerns. OBJECTIVE: Vital Signs Period Temp Pulse Resp BP Sys/Nunez Pulse Ox Last 24 Hr 97.5 F-98.4 F 69-76 18-22 103-119/50-64 96-96 General: sitting in bed in no acute distress Chest: CTAB, no rales or wheezing Abdomen: soft, NT throughout, ND, no CVA tenderness Extremities: no edema Laboratory Results - last 24 hr 04/27/18 04/27/18 07:00 07:00 WBC 5.5 RBC 3.10 L Hgb 8.2 L Hct 25.4 L MCV 81.9 MCH 26.3 MCHC 32.1 RDW 18.8 H Plt Count 217 MPV 7.1 L Sodium 140 Potassium 4.7 Chloride 112 H Carbon Dioxide 22 Anion Gap 6 L BUN 11 D Creatinine 0.9 Random Glucose 91 Calcium 7.2 L Magnesium 1.8 Active Medications Generic Name Dose Route Start Last Admin Trade Name Freq PRN Reason Stop Dose Admin Aminocaproic Acid 2,000 mg 04/26/18 06:00 04/27/18 06:15 Amicar - PO 2,000 mg Q6HPO ELVIS Administration Cholecalciferol 2,000 unit 04/25/18 10:00 04/26/18 09:45 Vitamin D3 - PO 2,000 unit DAILY ELVIS Administration Cyanocobalamin 1,000 mcg 04/25/18 10:00 04/26/18 09:46 Vitamin B12 - PO 1,000 mcg DAILY ELVIS Administration Efavirenz 600 mg 04/25/18 10:00 04/26/18 09:46 Sustiva - PO 600 mg DAILY ELVIS Administration Emtricitabine/Tenofovir 1 tab 04/25/18 10:00 04/26/18 09:46 Truvada PO 1 tab DAILY ELVIS Administration Dextrose/Sodium Chloride 1,000 mls @ 100 mls/hr 04/25/18 07:30 04/27/18 06:15 D5-Ns - IV 100 mls/hr ASDIR ELVIS Administration Rosuvastatin Calcium 10 mg 04/25/18 10:00 04/26/18 09:45 Crestor - PO 10 mg DAILY ELVIS Administration Tamsulosin HCl 0.4 mg 04/25/18 08:30 04/26/18 08:44 Flomax - PO 0.4 mg DAILY@0830 [facility] Administration Microbiology 04/24/18 06:40 Urine - Urine Clean Catch Urine Culture - Final Enterococcus Raffinosus ASSESSMENT/PLAN: 77 yom with PMHx of BPH, s/p shaving prostate 02/2018, fulguration, recurrent hematuria with anemia requiring PRBCs, HIV on HAART, HTN, HLD, goiter admitted with recurrent hematuria and anemia -Recurrent hematuria with BPH -Acute blood loss anemia, from above -HIV on HAART -HTN -HLD -Goiter Plan: hematuria resolved, voiding well with no concerns. h/h stable s/p 1 unit PRBC and aminocaproic acid. Discussed with Dr. Yung, yvonne for d/c, his office with call patient, will need follow up on Saturday Discussed with Dr. William, ANA LILIA taper recs provided. Urine cultures noted, discussed with Dr. Boogie, no need for antibiotics. Renal function stable. Patient lives with sister, ambulating well, does not want home VNS or services. D/c home today with outpatient follow up. Plan discussed with patient and nursing in detail, all questions answered. Visit type - Emergency Visit Emergency Visit: No - New Patient This patient is new to me today: No - Critical Care Critical Care patient: No
[2018-04-27 08:38] LABS: ANION GAP 6 (8-16); BLOOD UREA NITROGEN 11 mg/dL (7-18); CALCIUM 7.2 mg/dL (8.5-10.1); CO2 22 mmol/L (21-32); CREATININE 0.9 mg/dL (0.7-1.3); GLUCOSE,RANDOM 91 mg/dL (74-106); MAGNESIUM 1.8 mg/dL (1.8-2.4)
[2018-04-27] MEDS: TAMSULOSIN HCL 0.4 MG CAP.ER.24H (FP) PO SCH (08:42)
[2018-04-27] MEDS ORDERED: PT OWN MED DRAWER 7, Y5N ONE (09:48)
[2018-04-27] MEDS: EMTRICITABINE 200MG/TENOFOVIR 300MG PO SCH (09:54)
[2018-04-27] MEDS: CHOLECALCIFEROL (VITAMIN D3) 1,000 UNIT TABLET (FP) PO SCH (09:54)
[2018-04-27] MEDS: ROSUVASTATIN CA 10 MG TABLET (FP) PO SCH (09:54)
[2018-04-27] MEDS: CYANOCOBALAMIN 1,000 MCG TABLET (FP) PO SCH (09:54)
[2018-04-27] MEDS: EFAVIRENZ 600 MG TABLET PO SCH (09:54)
[2018-04-27 09:57] VITALS: BP 132/50; PULSE 70; TEMP 97.6
--- NOTE | 2018-04-27 13:43 | DS ---
Physical Exam: SUBJECTIVE: Patient seen and examined OBJECTIVE: Vital Signs Period Temp Pulse Resp BP Sys/Nunez Pulse Ox Last 24 Hr 97.5 F-98.4 F 69-76 18-22 103-132/50-64 96-96 PHYSICAL EXAM GENERAL: The patient is awake, alert, and fully oriented, in no acute distress. HEAD: Normal with no signs of trauma. EYES: PERRL, extraocular movements intact, sclera anicteric, conjunctiva clear. ENT: Ears normal, nares patent, oropharynx clear without exudates, moist mucous membranes. NECK: Trachea midline, full range of motion, supple. LUNGS: Breath sounds equal, clear to auscultation bilaterally, no wheezes, no crackles, no accessory muscle use. HEART: Regular rate and rhythm, S1, S2 without murmur, rub or gallop. ABDOMEN: Soft, nontender, nondistended, normoactive bowel sounds, no guarding, no rebound, no hepatosplenomegaly, no masses. EXTREMITIES: 2+ pulses, warm, well-perfused, no edema. NEUROLOGICAL: Cranial nerves II through XII grossly intact. Normal speech, gait not observed. PSYCH: Normal mood, normal affect. SKIN: Warm, dry, normal turgor, no rashes or lesions noted. LABS Laboratory Results - last 24 hr 04/27/18 04/27/18 07:00 07:00 WBC 5.5 RBC 3.10 L Hgb 8.2 L Hct 25.4 L MCV 81.9 MCH 26.3 MCHC 32.1 RDW 18.8 H Plt Count 217 MPV 7.1 L Sodium 140 Potassium 4.7 Chloride 112 H Carbon Dioxide 22 Anion Gap 6 L BUN 11 D Creatinine 0.9 Random Glucose 91 Calcium 7.2 L Magnesium 1.8 HOSPITAL COURSE: Date of Admission:04/24/18 Date of Discharge: 04/27/18 Minutes to complete discharge: 40 Discharge Summary Reason For Visit: HEMATURIA,ANEMIA Current Active Problems Hematuria (Acute) Hospital Course: patient was seen by urology and place on continuous bladder irrigation with old clots noted. His salas was noted leaking, was discontinued within 24 hours, he was maintained off salas per urology recommendations. His hematuria cleared with no concerns of new infection or retention. He received one unit of PRBC with appropriate response. He was seen by hematology and started on aminocaproid acid and will be continued outpatient as a taper. He was initially hypotensive and his BP meds were held. He was also seen by infectious disease and his HAART was continued. His urine cultures grew enterococcus raffinosus, per discussion with Infectious disease, no antibiotics were recommended. He declined need for home VNS or services. Condition: Good - Instructions Diet, Activity, Other Instructions: Please take all your home medications as before. The following new medication has been added and prescription sent to [facility] pharmacy. Aminocaproid acid. It is to be take as follows starting tomorrow: 1000 mg 3 times daily for 3 days, (on 04/28/2018, 04/29/2018 and 04/30/2018) then 500 mg 3 times daily for next 3 days (on 05/01/2018, 05/02/2018, 05/03/2018) then 500 mg twice daily for next days (on 05/04/2018, 05/05/2018, 05/06/2018) then 500 mg once daily for the next 3 days, then off. (on 05/07/2018, 05/08/2018, 05/09/2018) You will need to follow up with Dr. Yung's office on Saturday05/02/2018. His office will call to arrange the same. If you do not hear from them, please call his office to confirm. Recommend follow up with blood specialist Dr. Jones's office in 1 week. Please call her office on discharge. CBC (blood test to monitor you counts) with your doctor in 1 week. If you notice any recurrent belly pain, fevers, chills, blood in urine, back pain or any new concerns, call 911 or come to emergency department. Referrals: Natalia Jones MD [Staff Physician] - 1 Week ON STAFF,NOT [Primary Care Provider] - Sergio Yung MD [Staff Physician] - 05/02/18 Disposition: HOME - Home Medications Comprehensive Discharge Medication List: Ambulatory Orders Amlodipine Besylate [Norvasc -] 10 mg PO DAILY 03/09/18 Cholecalciferol (Vitamin D3) [Vitamin D3] 2,000 unit PO DAILY 03/09/18 Cyanocobalamin (Vitamin B-12) [Vitamin B12] 1,000 mcg PO DAILY 03/09/18 Efavirenz/Emtricitab/Tenofovir [Atripla Tablet -] 1 tab PO DAILY 03/09/18 Losartan Potassium 25 mg PO DAILY 03/09/18 Rosuvastatin Calcium [Crestor] 10 mg PO DAILY 03/09/18 Tamsulosin HCl [Flomax] 0.4 mg PO DAILY 03/09/18 Aminocaproic Acid [Amicar -] 500 mg PO ASDIR #36 tablet 04/27/18 This patient is new to me today: No Emergency Visit: No Critical Care patient: No - Discharge Referral Referred to [facility] No
== END 2018-04-27 14:21 | disposition home or self-care (01) | DRG 696 ==
LOC: JER 04:47 → JERBED 09:56 → J5S 13:35
PROVIDERS: ADMIT Hospitalist; ATTEND Hospitalist
PROC: 30233N1 Transfusion of Nonautologous Red Blood Cells into Peripheral Vein, Percutaneous Approach (ICD-10-PCS; principal; 2018-04-25)
DX: R31.0 Gross hematuria (principal); B19.10 Unspecified viral hepatitis B without hepatic coma; D62 Acute posthemorrhagic anemia; N40.0 Benign prostatic hyperplasia without lower urinary tract symptoms; J44.9 Chronic obstructive pulmonary disease, unspecified; E78.5 Hyperlipidemia, unspecified; D64.9 Anemia, unspecified; F17.210 Nicotine dependence, cigarettes, uncomplicated; E87.5 Hyperkalemia; Z21 Asymptomatic human immunodeficiency virus [HIV] infection status; E86.0 Dehydration; I12.9 Hypertensive chronic kidney disease with stage 1 through stage 4 chronic kidney disease, or unspecified chronic kidney disease; N18.3 Chronic kidney disease, stage 3 (moderate)
CPT/HCPCS: 36415; 36430; 80048; 80053; 81003; 81015; 83735; 84100; 84132; 85025; 85027; 85044; 85246; 85247; 85291; 85384; 85610; 85730; 86850; 86900; 86901; 86922; 87086; 87186; 93005; 93010; 99283-25; J7030; P9038; P9058

== ENCOUNTER → 2019-07-15 | Outpatient (CLI) | payer OTHER | LOC: YHH 10:36 ==

== ENCOUNTER 2019-11-26 10:54 | Inpatient (IN) | payer OTHER ==
--- NOTE | 2019-11-26 12:17 | PDOC ---
History of Present Illness - General Chief Complaint: Hematuria Stated Complaint: BLOOD IN URINE Time Seen by Provider: 11/26/19 11:48 History Source: Patient Exam Limitations: No Limitations - History of Present Illness Initial Comments: 11/26/19 12:07 Patient is 78M with history of BPH (s/p TURP 03/11/18 and repeat procedure one week prior), hepatitis B, COPD, anemia, HTN, hyperlipidemia, HIV (last viral load undetectable, compliant with medication) here today complaining of hematuria that started last night. Patient reports orange colored urine with clots being passed. Denies a sensation of not being able to urinate. Denies fevers, chills, nausea, vomiting. Denies abdominal distention. Patient does endorse some left lower back pain that started 2 days ago. Pain is not exacerbated with movement. Past History - Past Medical History Allergies/Adverse Reactions: Allergies Allergy/AdvReac Type Severity Reaction Status Date / Time Sulfa (Sulfonamide Allergy Intermediate Nausea Verified 11/26/19 11:04 Antibiotics) sulfamethoxazole Allergy Intermediate Nausea Verified 11/26/19 11:04 [From Bactrim] trimethoprim [From Bactrim] AdvReac Intermediate Nausea Verified 11/26/19 11:04 Home Medications: Ambulatory Orders Bictegrav/Emtricit/Tenofov Ala [Biktarvy 50-200-25 mg Tablet] 1 each PO DAILY # 30 tablet 09/17/19 Cholecalciferol (Vitamin D3) [Vitamin D3] 2,000 unit PO DAILY #30 capsule Cyanocobalamin (Vitamin B-12) [Vitamin B12] 1,000 mcg PO DAILY #30 tab.chew Rosuvastatin Calcium [Crestor] 10 mg PO DAILY #30 tablet 09/17/19 Tamsulosin HCl [Flomax] 0.4 mg PO DAILY #30 capsule 09/17/19 Anemia: Yes Asthma: No Cancer: No Cardiac Disorders: No CVA: No COPD: No CHF: No Dementia: No Diabetes: No GI Disorders: No Disorders: Yes (UTI) HTN: Yes Hypercholesterolemia: Yes Liver Disease: (HEP B) Seizures: No Thyroid Disease: Yes (Thyroid goiter) - Surgical History Abdominal Surgery: No Appendectomy: No Cardiac Surgery: No Cholecystectomy: No Lung Surgery: No Neurologic Surgery: No Orthopedic Surgery: Yes (KNEE ARTHROSCOPY, patella fracture- right 2013) - Immunization History Immunization Up to Date: Yes - Psycho Social/Smoking Cessation Hx Smoking History: Current every day smoker Have you smoked in the past 12 months: Yes Number of Cigarettes Smoked Daily: 4 If you are a former smoker, when did you quit?: 1 MONTH Cigars Per Day: 1 Information on smoking cessation initiated: Yes 'Breaking Loose' booklet given: 05/18/18 Hx Alcohol Use: No Drug/Substance Use Hx: No Substance Use Type: None Hx Substance Use Treatment: No Review of Systems - Review of Systems Able to Perform ROS?: Yes Comments:: 11/26/19 12:17 GENERAL/CONSTITUTIONAL: No fever or chills. No weakness. HEAD, EYES, EARS, NOSE AND THROAT: No change in vision. No sore throat. CARDIOVASCULAR: No chest pain or shortness of breath RESPIRATORY: No cough, wheezing, or hemoptysis. GASTROINTESTINAL: No nausea, vomiting, diarrhea or constipation. GENITOURINARY: No dysuria, frequency, +hematuria. MUSCULOSKELETAL: No joint or muscle swelling or pain. No neck or back pain. SKIN: No rash NEUROLOGIC: No headache, vertigo, loss of consciousness, or change in strength/ sensation. ENDOCRINE: No increased thirst. No abnormal weight change HEMATOLOGIC/LYMPHATIC: No anemia, easy bleeding, or history of blood clots. ALLERGIC/IMMUNOLOGIC: No hives or skin allergy. *Physical Exam - Vital Signs Last Vital Signs Temp Pulse Resp BP Pulse Ox 97.7 F 92 H 17 102/46 L 98 11/26/19 11:00 11/26/19 11:00 11/26/19 11:00 11/26/19 11:00 11/26/19 11:00 - Physical Exam 11/26/19 12:18 GENERAL: Awake, alert, and fully oriented, in no acute distress HEAD: No signs of trauma, normocephalic, atraumatic EYES: PERRLA, EOMI, sclera anicteric, conjunctiva clear ENT: Auricles normal inspection, hearing grossly normal, nares patent, oropharynx clear without exudates. Moist mucosa NECK: Normal ROM, supple, no lymphadenopathy, JVD, or masses LUNGS: No distress, speaks full sentences, clear to auscultation bilaterally HEART: Regular rate and rhythm, normal S1 and S2, no murmurs, rubs or gallops, peripheral pulses normal and equal bilaterally. ABDOMEN: Soft, nontender, normoactive bowel sounds. No guarding, no rebound. No masses EXTREMITIES: Normal inspection, Normal range of motion, no edema. No clubbing or cyanosis. NEUROLOGICAL: Cranial nerves II through XII grossly intact. Normal speech, no focal sensorimotor deficits SKIN: Warm, Dry, normal turgor, no rashes or lesions noted. ED Treatment Course - LABORATORY CBC & Chemistry Diagram: 11/26/19 12:50 11/26/19 12:50 Medical Decision Making - Medical Decision Making 11/26/19 12:18 Patient is 78M with history of HIV here today for hematuria. Vitals stable. Patient appears well. Will evaluate with cbc, cmp, bedside ultrasound for retention. 11/26/19 15:43 Bedside ultrasound showed 700cc, indicating retention. Bloody discharge at tip of penis. Three way salas placed, CBI initiated with good return. Urine clearing, but not cleared detention through. CBC stable. CMP normal. Cr elevated to 2.0, about at baseline. Unable for UA to be done due to redness of urine, culture sent, pending urology reqs for antibiotics Urology, Dr Miller paged. Hospitalist paged. 11/26/19 17:32 Sign out to hospitalist complete. Multiple attempts to contact Dr Miller unsuccessful. Discharge - Discharge Information Problems reviewed: Yes Clinical Impression/Diagnosis: Hematuria, Urinary retention Condition: Stable - Admission Yes - Follow up/Referral - Patient Discharge Instructions - Post Discharge Activity
--- NOTE | 2019-11-26 12:43 | PDOC ---
Attending Attestation - Resident Resident Name: Sergio Grace - ED Attending Attestation I have performed the following: I have examined & evaluated the patient, The case was reviewed & discussed with the resident, I agree w/resident's findings & plan - HPI HPI: 11/26/19 12:40 78-year-old male with history of well-controlled HIV, hepatitis B, COPD, BPH with history of TURP in [address] Yung with history of recurring gross hematuria sometimes complicated by retention, most recently requiring CBI in 2018, presents now with progressively gross hematuria since last night. Initially pink urine with normal flow that was painless, overnight with increasing redness with clots and sensation of incomplete emptying with frequency and suprapubic fullness and low back pain. No fevers or chills, does not take anticoagulants, presents for evaluation. - Physicial Exam PE: 11/26/19 12:41 Vitals as noted, afebrile Well-appearing, conversant Heart is regular, lungs are clear Abdomen is soft/nondistended. Suprapubic discomfort to palpation with some distention of the bladder palpable above the symphysis, no CVA tenderness. Normal anatomy with clear meatus, positive gross red blood overflow incontinence - Medical Decision Making 11/26/19 12:42 78-year-old male with history of BPH/TURP presents with progressive gross hematuria and early retention symptoms with overflow incontinence. Check labs, urinalysis [id number] ultrasound to assess kidneys and bladder If evidence of retention, will place Salas in anticipation of CBI Patient is followed by Dr. Yung, will disposition in conjunction with him 11/26/19 16:16 POCUS reveals 600cc retention and hyperechoic, likely hematoma. salas placed, CBI initiated. Cr baseline of 2. Dr. Yung consulted pt admitted Heart Score/ECG Review #1 ECG reviewed & interpreted by me at: 16:32 General ECG Interpretation: Sinus Rhythm, Normal Rate (67), Normal Intervals ( qtc 456), No acute ischemic changes (q in III/AVF)
[2019-11-26 14:33] LABS: URINE APPEARANCE BLOODY; URINE COLOR RED
[2019-11-26 14:34] LABS: HEMATOCRIT 35.7 % (35.4-49); HEMOGLOBIN 10.8 GM/dL (11.7-16.9); MCH 23.6 pg (25.7-33.7); MCHC 30.4 g/dl (32.0-35.9); MEAN CELL VOLUME 77.5 fl (80-96); PLATELET COUNT 176 K/MM3 (134-434); RDW 18.2 % (11.9-15.9); WHITE BLOOD COUNT 7.9 K/mm3 (4.0-10.0)
[2019-11-26 14:59] LABS: ALBUMIN 2.9 g/dl (3.4-5.0); BILIRUBIN,TOTAL 0.4 mg/dL (0.2-1); BLOOD UREA NITROGEN 24.1 mg/dL (7-18); CALCIUM 8.6 mg/dL (8.5-10.1); POTASSIUM 4.9 mmol/L (3.5-5.1); TOT PROT 6.7 g/dl (6.4-8.2)
[2019-11-26 15:00] LABS: URINE RBC >100 /hpf (0-4)
--- NOTE | 2019-11-26 16:43 | HP ---
CHIEF COMPLAINT: hematuria, inability to urinate PCP: Dr. Holland HISTORY OF PRESENT ILLNESS: Patient is a 78 year old male with a significant past medical history of HIV ( on HAART therapy), hepatitis B, COPD, BPH with history of TURP in 2018. Patient presents to the ED for urinary retention and hematuria that worsened last night. His urine was initially pink tinged, then noted to be red in color with passing of some clots. He has had recurrent gross hematuria and retention and has had CBI in 2018. He denies any pain, no fevers, but having suprapubic tenderness and sensation of incomplete emptying prompting an ED visit. No fever or chills, takes ASA 81mg daily. Urology consult pending. ER course was notable for: (1) bun 24/creat 2.0 (2) gross hematuria, 3 way salas with cbi (3) kidney u/s pending (4) urine cultures pending Recent Travel: none PAST MEDICAL/SURGICAL HISTORY: HIV (on HAART therapy), hepatitis B, COPD, BPH with history of TURP in 2018 Social History: Smokin cigarettes per day Alcohol: denies Drugs: denies Allergies Sulfa (Sulfonamide Antibiotics) Allergy (Intermediate, Verified 11/26/19 11:04) Nausea sulfamethoxazole [From Bactrim] Allergy (Intermediate, Verified 11/26/19 11:04) Nausea trimethoprim [From Bactrim] Adverse Reaction (Intermediate, Verified 11/26/19 11 :04) Nausea VOMITING HOME MEDICATIONS: Home Medications Medication Instructions Recorded Bictegrav/Emtricit/Tenofov Ala 1 each PO DAILY #30 tablet 09/17/19 [Biktarvy 50-200-25 mg Tablet] Cholecalciferol (Vitamin D3) 2,000 unit PO DAILY #30 capsule 09/17/19 [Vitamin D3] Cyanocobalamin (Vitamin B-12) 1,000 mcg PO DAILY #30 tab.chew 09/17/19 [Vitamin B12] Rosuvastatin Calcium [Crestor] 10 mg PO DAILY #30 tablet 09/17/19 Tamsulosin HCl [Flomax] 0.4 mg PO DAILY #30 capsule 09/17/19 PHYSICAL EXAMINATION Vital Signs - 24 hr 11/26/19 11:00 Temperature 97.7 F Pulse Rate 92 H Respiratory 17 Rate Blood Pressure 102/46 L O2 Sat by Pulse 98 Oximetry (%) GENERAL: Awake, alert, and fully oriented, in no acute distress. HEAD: Normal with no signs of trauma. EYES: Pupils equal, round and reactive to light, extraocular movements intact, sclera anicteric, conjunctiva clear. No lid lag. EARS, NOSE, THROAT: Ears normal, nares patent, oropharynx clear without exudates. Moist mucous membranes. NECK: Normal range of motion, supple without lymphadenopathy, JVD, or masses. LUNGS: Breath sounds equal, clear to auscultation bilaterally. No wheezes, and no crackles. No accessory muscle use. HEART: Regular rate and rhythm, normal S1 and S2 without murmur, rub or gallop. ABDOMEN: soft, non distended, + suprapubic tenderness MUSCULOSKELETAL: Normal range of motion at all joints. No bony deformities or tenderness. No CVA tenderness. UPPER EXTREMITIES: No peripheral edema. LOWER EXTREMITIES: 2+ bilaterally, has home compression stocking, skin scaly and dry PSYCHIATRIC: Cooperative. Good eye contact. Appropriate mood and affect. SKIN: dry Laboratory Results - last 24 hr 11/26/19 11/26/19 11/26/19 12:50 12:50 12:50 WBC 7.9 RBC 4.60 Hgb 10.8 L Hct 35.7 MCV 77.5 L MCH 23.6 L MCHC 30.4 L RDW 18.2 H Plt Count 176 MPV 9.0 Sodium 143 Potassium 4.9 Chloride 110 H Carbon Dioxide 28 Anion Gap 5 L BUN 24.1 H Creatinine 2.0 H Est GFR (CKD-EPI)AfAm 36.49 Est GFR (CKD-EPI)NonAf 31.48 Random Glucose 81 Calcium 8.6 Total Bilirubin 0.4 AST 13 L ALT 18 Alkaline Phosphatase 63 Total Protein 6.7 Albumin 2.9 L Urine Color Red Urine Appearance Bloody Urine pH No Result Required. Ur Specific [place] No Result Required. Urine Protein No Result Required. Urine Glucose (UA) No Result Required. Urine Ketones No Result Required. Urine Blood No Result Required. Urine Nitrite No Result Required. Urine Bilirubin No Result Required. Urine Urobilinogen No Result Required. Ur Leukocyte Esterase No Result Required. Urine RBC (Auto) >100 ASSESSMENT/PLAN: Problem List - Problem (1) Hematuria Assessment/Plan: patient with difficulty urinating and with clots, 3 way salas inserted and placed on CBI on admission. monitor cbc and transfuse if hmg <8. Monitor intake and output renal ultrasound ordered urology consulted for possible cystoscopy npo at midnight Code(s): R31.9 - HEMATURIA, UNSPECIFIED (2) Urinary retention Assessment/Plan: 3 way salas inserted with close monitoring of urinary output Code(s): R33.9 - RETENTION OF URINE, UNSPECIFIED (3) Acute blood loss anemia Assessment/Plan: secondary to hematuria repeat cbc this evening to monitor Code(s): D62 - ACUTE POSTHEMORRHAGIC ANEMIA (4) COPD (chronic obstructive pulmonary disease) Assessment/Plan: not in acute exacerbation duonebs prn Code(s): J44.9 - CHRONIC OBSTRUCTIVE PULMONARY DISEASE, UNSPECIFIED (5) PING (acute kidney injury) Assessment/Plan: creatinine 2.0 on admission, has been seen by renal in the past for PING avoid all nephrotoxin medications on NS @ 100cc/hr monitor creat daily Code(s): N17.9 - ACUTE KIDNEY FAILURE, UNSPECIFIED (6) HIV (human immunodeficiency virus infection) Assessment/Plan: continue home HAART therapy follows with Dr. Holland at the [facility] Code(s): Z21 - ASYMPTOMATIC HUMAN IMMUNODEFICIENCY VIRUS INFECTION STATUS (7) HTN (hypertension) Assessment/Plan: continue home medications. hold HCTZ for PING Code(s): I10 - ESSENTIAL (PRIMARY) HYPERTENSION (8) DVT prophylaxis Assessment/Plan: no chemical prophylaxis secondary to hematuria SCDs/TEDs Code(s): Z29.9 - ENCOUNTER FOR PROPHYLACTIC MEASURES, UNSPECIFIED (9) Prophylactic measure Assessment/Plan: fen ns @ 100cc/hr monitor electrolytes low salt diet full code Code(s): Z29.9 - ENCOUNTER FOR PROPHYLACTIC MEASURES, UNSPECIFIED Visit type - Emergency Visit Emergency Visit: Yes ED Registration Date: 11/26/19 Care time: The patient presented to the Emergency Department on the above date and was hospitalized for further evaluation of their emergent condition. - New Patient This patient is new to me today: Yes Date on this admission: 11/27/19 - Critical Care Critical Care patient: No
[2019-11-26] MEDS: CEFAZOLIN 1 GM in DEXTROSE 5%-WATER - 50 ML IVPB SCH (20:33)
[2019-11-26] MEDS ORDERED: ceFAZolin SODIUM 1 GM VIAL ONE (21:25)
[2019-11-26] MEDS ORDERED: DEXTROSE 5%-WATER - 50 ML IVPB ONE (21:26)
[2019-11-26 22:06] LABS: BASO % 0.4 % (0-2.0); EOS % 1.6 % (0-4.5); HEMATOCRIT 33.8 % (35.4-49); HEMOGLOBIN 10.4 GM/dL (11.7-16.9); LYMPH % 24.9 % (8-40); MCH 23.7 pg (25.7-33.7); MCHC 30.7 g/dl (32.0-35.9); MEAN CELL VOLUME 77.1 fl (80-96); MEAN PLT VOLUME 9.1 fl (7.5-11.1); MONO % 8.8 % (3.8-10.2); NEUT % 64.3 % (42.8-82.8); PLATELET COUNT 172 K/MM3 (134-434); RBC 4.39 M/mm3 (4.00-5.60); RDW 18.6 % (11.9-15.9); WHITE BLOOD COUNT 6.8 K/mm3 (4.0-10.0)
[2019-11-27 00:56] VITALS: BMI 24.2
[2019-11-27] MEDS ORDERED: ceFAZolin SODIUM 1 GM VIAL ONE ×3 (02:33→17:08)
[2019-11-27] MEDS ORDERED: DEXTROSE 5%-WATER - 50 ML IVPB ONE ×3 (02:33→17:08)
[2019-11-27] MEDS: CEFAZOLIN 1 GM in DEXTROSE 5%-WATER - 50 ML IVPB SCH ×3 (02:59→17:42)
[2019-11-27 07:16] LABS: INR 1.26 (0.83-1.09); PROTHROMBIN TIME (PATIENT) 14.9 SEC (9.7-13.0)
[2019-11-27 07:18] LABS: BASO % 0.3 % (0-2.0); EOS % 1.7 % (0-4.5); HEMATOCRIT 32.1 % (35.4-49); HEMOGLOBIN 9.9 GM/dL (11.7-16.9); LYMPH % 24.8 % (8-40); MCH 23.8 pg (25.7-33.7); MCHC 30.9 g/dl (32.0-35.9); MEAN CELL VOLUME 76.8 fl (80-96); MEAN PLT VOLUME 8.8 fl (7.5-11.1); MONO % 6.5 % (3.8-10.2); NEUT % 66.7 % (42.8-82.8); PLATELET COUNT 159 K/MM3 (134-434); RBC 4.17 M/mm3 (4.00-5.60); RDW 18.6 % (11.9-15.9); WHITE BLOOD COUNT 5.3 K/mm3 (4.0-10.0)
[2019-11-27 07:39] LABS: ALBUMIN 2.7 g/dl (3.4-5.0); BILIRUBIN,TOTAL 0.6 mg/dL (0.2-1); BLOOD UREA NITROGEN 20.7 mg/dL (7-18); CALCIUM 8.5 mg/dL (8.5-10.1); CREATININE 1.7 mg/dL (0.55-1.3); MAGNESIUM 2.2 mg/dL (1.8-2.4); POTASSIUM 4.5 mmol/L (3.5-5.1); TOT PROT 6.3 g/dl (6.4-8.2)
[2019-11-27] MEDS ORDERED: SODIUM CHLORIDE 1,000 ML IV SCH (07:45)
--- NOTE | 2019-11-27 08:19 | PN ---
Progress Note (short form) - Note Progress Note: 79 yo male with a history of BPH and TURP presents with gross hematuria will take to OR later today for cystoscopy
[2019-11-27] MEDS ORDERED: TAMSULOSIN HCL 0.4 MG CAP PO SCH (08:30)
[2019-11-27] MEDS ORDERED: CYANOCOBALAMIN 1,000 MCG TABLET (FP) PO SCH (10:00)
[2019-11-27] MEDS ORDERED: BICTEGRAV/EMTRICIT/TENOFOV (BIKTARVY) 50-200-25 MG TABLET PO SCH (10:00)
[2019-11-27] MEDS ORDERED: CHOLECALCIFEROL (VIT D3) 1,000 UNIT (25 MCG) TABLET PO SCH (10:00)
[2019-11-27] MEDS ORDERED: PT OWN MED DRAWER 7, Y5N ONE (11:03)
[2019-11-27] MEDS ORDERED: PROPOFOL 20 ML ONE (12:14)
--- NOTE | 2019-11-27 13:52 | EKG ---
Test Reason : Blood Pressure : / mmHG Vent. Rate : 067 BPM Atrial Rate : 067 BPM P-R Int : 234 ms QRS Dur : 092 ms QT Int : 432 ms P-R-T Axes : 001 -24 007 degrees QTc Int : 456 ms SINUS RHYTHM WITH 1ST DEGREE A-V BLOCK INFERIOR INFARCT , AGE UNDETERMINED CANNOT RULE OUT ANTERIOR INFARCT (CITED ON OR BEFORE 26-MAY-2018) ABNORMAL ECG WHEN COMPARED WITH ECG OF 26-MAY-2018 19:26, [place] INTERVAL HAS INCREASED INFERIOR INFARCT IS NOW PRESENT NONSPECIFIC T WAVE ABNORMALITY NOW EVIDENT IN INFERIOR LEADS Confirmed by MARY BA MD ([id number]) on 11/27/2019 1:52:08 PM Referred By: Confirmed By:MARY BA MD
--- NOTE | 2019-11-27 14:55 | PN ---
Progress Note (short form) - Note Progress Note: ID consult dictated imp/reccd 79 yo man with stable HIV- history of BPH with prior TURP prior hematuria now with acute onset of hematuria that started yesterday no fevers or chills no abdominal or flank pain no prior history of UTIs does have prior history of admission to [facility] when he had a prolonged episode of recurrent hematuria no recent antibiotics hematuria/uti would continue cefazolin, f/u urine culture for cystoscopy today stable HIV- continue biktarvy ckd- at baseline Problem List - Problems (1) Hematuria Code(s): R31.9 - HEMATURIA, UNSPECIFIED (2) Urinary tract infection Code(s): N39.0 - URINARY TRACT INFECTION, SITE NOT SPECIFIED Qualifiers: Urinary tract infection type: acute cystitis Hematuria presence: with hematuria Qualified Code(s): N30.01 - Acute cystitis with hematuria (3) BPH with elevated PSA Code(s): N40.0 - BENIGN PROSTATIC HYPERPLASIA WITHOUT LOWER URINRY TRACT SYMP; R97.2 - ELEVATED PROSTATE SPECIFIC ANTIGEN [PSA] * DO NOT USE * (4) CKD (chronic kidney disease) Code(s): N18.9 - CHRONIC KIDNEY DISEASE, UNSPECIFIED (5) HIV (human immunodeficiency virus infection) Code(s): Z21 - ASYMPTOMATIC HUMAN IMMUNODEFICIENCY VIRUS INFECTION STATUS
[2019-11-27] MEDS ORDERED: LACTATED RINGERS SOLUTION 1,000 ML IV SCH ×2 (15:15→16:28)
[2019-11-27] MEDS ORDERED: ONDANSETRON 4 MG/2 ML VIAL IVPUSH PRN ×2 (15:15→16:28)
[2019-11-27] MEDS ORDERED: ACETAMINOPHEN 1000 MG/100 ML VIAL (NON FORMULARY) IVPB ONE (16:12)
--- NOTE | 2019-11-27 16:17 | OP ---
Operative Note - Note: Operative Date: 11/27/19 Pre-Operative Diagnosis: gross hematuria Operation: cysto, evac of clot, fulguration Post-Operative Diagnosis: Same as Pre-op Surgeon: Sergio Yung Anesthesia: General Operative Report Dictated: Yes
[2019-11-27] MEDS ORDERED: ACETAMINOPHEN INJECTION 100 ML IVPB ONE (16:35)
--- NOTE | 2019-11-27 17:17 | OP ---
DATE OF OPERATION: 11/27/2019 PREOPERATIVE DIAGNOSIS: Gross hematuria and urinary retention. POSTOPERATIVE DIAGNOSIS: Gross hematuria and urinary retention. PROCEDURE: Cystoscopy, fulguration of prostate, evacuation of clot. FINDINGS: Some bleeding from the prostate, some blood clots. No other tumors seen. DRAINS: Pang catheter. PREOPERATIVE INDICATION: The patient is a 79-year-old male with long history of BPH. He has a TURP in the recent past. He comes to the hospital with gross hematuria and difficulty urinating. Brought to the OR for cystoscopy. DESCRIPTION OF PROCEDURE: The patient was brought to the OR, placed on the table in the supine position. Given general anesthesia and IV antibiotics and placed in the modified lithotomy position. The groin was prepped and draped sterilely. Cystoscopy was performed. The urethra appeared to be normal. The prostate for the most part was open due to previous TURP. There was no evidence of obstruction. A small area on the right side that was bleeding, this was fulgurated with a bipolar loop. The bladder itself had some erythema, but no tumors were seen. Some clots were seen; these were evacuated out. No bleeding was seen at the end of the case. The scope was removed. A 24-[place] catheter was left in place for postoperative drainage. Patient was woken up. Janis [id number]
--- NOTE | 2019-11-27 17:25 | PN ---
Physical Exam: SUBJECTIVE: Patient seen and examined, offers no complaints. feels well. denies and suprapubic pain. OBJECTIVE: Patient is a 78 year old male with a significant past medical history of HIV ( on HAART therapy), hepatitis B, COPD, BPH with history of TURP in 2018. Patient presents to the ED for urinary retention and hematuria. At home, his urine was initially pink tinged, then noted to be red in color with passing of some clots. He has had recurrent gross hematuria and retention and has had CBI in 2018. He denies any pain, no fevers, but having suprapubic tenderness and sensation of incomplete emptying prompting an ED visit. No fever or chills , takes ASA 81mg daily at home. he has been evaluated by urology and currently on a CBI, and prophylactic antibiotics of cefazolin. He is for a cystoscopy today. urine remains with gross hematuria, no clots seen. CBC trended down slightly. Vital Signs Period Temp Pulse Resp BP Sys/Nunez Pulse Ox Last 24 Hr 97.2 F-98.5 F 67-75 14-20 108-160/53-72 97-100 GENERAL: Awake, alert, and fully oriented, in no acute distress. HEAD: Normal with no signs of trauma. EYES: Pupils equal, round and reactive to light, extraocular movements intact, sclera anicteric, conjunctiva clear. No lid lag. EARS, NOSE, THROAT: Ears normal, nares patent, oropharynx clear without exudates. Moist mucous membranes. NECK: Normal range of motion, supple without lymphadenopathy, JVD, or masses. LUNGS: Breath sounds equal, clear to auscultation bilaterally. No wheezes, and no crackles. No accessory muscle use. HEART: Regular rate and rhythm, normal S1 and S2 without murmur, rub or gallop. ABDOMEN: soft, non distended, salas draining gross hematuria, on CBI MUSCULOSKELETAL: Normal range of motion at all joints. No bony deformities or tenderness. No CVA tenderness. UPPER EXTREMITIES: No peripheral edema. LOWER EXTREMITIES: 2+ bilaterally, has home compression stocking, skin scaly and dry PSYCHIATRIC: Cooperative. Good eye contact. Appropriate mood and affect. SKIN: dry Laboratory Results - last 24 hr 11/26/19 11/26/19 11/27/19 21:00 21:00 06:40 WBC 6.8 5.3 RBC 4.39 4.17 Hgb 10.4 L 9.9 L Hct 33.8 L 32.1 L MCV 77.1 L 76.8 L MCH 23.7 L 23.8 L MCHC 30.7 L 30.9 L RDW 18.6 H 18.6 H Plt Count 172 159 MPV 9.1 8.8 Absolute Neuts (auto) 4.4 3.5 Neutrophils % 64.3 66.7 Lymphocytes % 24.9 D 24.8 Monocytes % 8.8 6.5 Eosinophils % 1.6 1.7 Basophils % 0.4 0.3 Nucleated RBC % 0 0 PT with INR INR Sodium Potassium Chloride Carbon Dioxide Anion Gap BUN Creatinine Est GFR (CKD-EPI)AfAm Est GFR (CKD-EPI)NonAf Random Glucose Calcium Magnesium Total Bilirubin AST ALT Alkaline Phosphatase Total Protein Albumin Blood Type B POSITIVE Antibody Screen Negative 11/27/19 11/27/19 06:40 06:40 WBC RBC Hgb Hct MCV MCH MCHC RDW Plt Count MPV Absolute Neuts (auto) Neutrophils % Lymphocytes % Monocytes % Eosinophils % Basophils % Nucleated RBC % PT with INR 14.90 H INR 1.26 H Sodium 141 Potassium 4.5 Chloride 111 H Carbon Dioxide 26 Anion Gap 4 L BUN 20.7 H Creatinine 1.7 H Est GFR (CKD-EPI)AfAm 44.10 Est GFR (CKD-EPI)NonAf 38.05 Random Glucose 85 Calcium 8.5 Magnesium 2.2 Total Bilirubin 0.6 AST 19 ALT 15 Alkaline Phosphatase 59 Total Protein 6.3 L Albumin 2.7 L Blood Type Antibody Screen Active Medications Generic Name Dose Route Start Last Admin Trade Name Freq PRN Reason Stop Dose Admin Bictegravir/Emtricitabine/Tenofovir 1 each 11/28/19 10:00 Biktarvy 50-200-25 Mg Tablet PO DAILY ELVIS Cholecalciferol 2,000 unit 11/28/19 10:00 Vitamin D3 - PO DAILY ELVIS Cyanocobalamin 1,000 mcg 11/28/19 10:00 Vitamin B12 - PO DAILY ELVIS Cefazolin Sodium 1 gm/ 50 mls @ 100 mls/hr 11/27/19 18:00 Dextrose IVPB Q8H-IV ELVIS Lactated Ringer's 1,000 mls @ 75 mls/hr 11/27/19 16:28 Lactated Ringers Solution IV ASDIR ELVIS Sodium Chloride 1,000 mls @ 100 mls/hr 11/27/19 16:28 Normal Saline - IV ASDIR ELVIS Ondansetron HCl 4 mg 11/27/19 16:28 Zofran Injection IVPUSH Q6H PRN NAUSEA AND/OR VOMITING Rosuvastatin Calcium 10 mg 11/27/19 22:00 Crestor - PO HS ELVIS Tamsulosin HCl 0.4 mg 11/28/19 08:30 Flomax - PO DAILY@0830 [facility] ASSESSMENT/PLAN: Problem List - Problems (1) Hematuria Assessment/Plan: patient with difficulty urinating and with clots, 3 way salas inserted and placed on CBI on admission. monitor cbc and transfuse if hmg <8. Monitor intake and output renal ultrasound shows mildly atrophic kidneys. abd/pelvis ct: no urinary calculr or obstructive uropathy, irregular distended thick walled urinary bladder with hyperdense material that may represent blood. right lobe liver lesions consisting with hemangioma. for cystoscopy today Code(s): R31.9 - HEMATURIA, UNSPECIFIED (2) Liver lesion, right lobe Assessment/Plan: lobe liver lesions consisting with hemangioma seen on ct/abdomen/pelvis GI outpatient follow up once acute issues are resolved Code(s): K76.9 - LIVER DISEASE, UNSPECIFIED (3) Urinary retention Assessment/Plan: 3 way salas inserted with close monitoring of urinary output on CBI Code(s): R33.9 - RETENTION OF URINE, UNSPECIFIED (4) Acute blood loss anemia Assessment/Plan: secondary to hematuria repeat cbc in a.m Code(s): D62 - ACUTE POSTHEMORRHAGIC ANEMIA (5) COPD (chronic obstructive pulmonary disease) Assessment/Plan: not in acute exacerbation duonebs prn Code(s): J44.9 - CHRONIC OBSTRUCTIVE PULMONARY DISEASE, UNSPECIFIED (6) PING (acute kidney injury) Assessment/Plan: creatinine 2.0 on admission, now trending down avoid all nephrotoxin medications on NS @ 100cc/hr monitor creat daily Code(s): N17.9 - ACUTE KIDNEY FAILURE, UNSPECIFIED (7) HIV (human immunodeficiency virus infection) Assessment/Plan: continue home HAART therapy follows with Dr. Holland at the [facility] Code(s): Z21 - ASYMPTOMATIC HUMAN IMMUNODEFICIENCY VIRUS INFECTION STATUS (8) HTN (hypertension) Assessment/Plan: continue home medications. hold HCTZ for PING Code(s): I10 - ESSENTIAL (PRIMARY) HYPERTENSION (9) DVT prophylaxis Assessment/Plan: no chemical prophylaxis secondary to hematuria SCDs/TEDs Code(s): Z29.9 - ENCOUNTER FOR PROPHYLACTIC MEASURES, UNSPECIFIED (10) Prophylactic measure Assessment/Plan: fen ns @ 100cc/hr monitor electrolytes low salt diet full code Code(s): Z29.9 - ENCOUNTER FOR PROPHYLACTIC MEASURES, UNSPECIFIED Visit type - Emergency Visit Emergency Visit: Yes ED Registration Date: 11/26/19 Care time: The patient presented to the Emergency Department on the above date and was hospitalized for further evaluation of their emergent condition. - New Patient This patient is new to me today: No - Critical Care Critical Care patient: No - Discharge Referral Referred to [facility] Med P.C.: No
[2019-11-27] MEDS: SODIUM CHLORIDE 1,000 ML IV SCH (17:42)
--- NOTE | 2019-11-27 18:58 | CONS ---
DATE OF CONSULTATION: 11/27/2019 CONSULTATION REQUESTED BY: Hospitalist Service HISTORY OF PRESENT ILLNESS: The patient is a 79-year-old man who I follow at the [facility]. He has a history of stable HIV, BPH with hematuria in the past. He was last hospitalized several times in 2018 for recurrent hematuria. He underwent cystoscopy with fulguration with no improvement and ultimately, in March 2018, he had a TURP. He has subsequently been doing well at home. He lives with his family. Yesterday, he again developed painless gross hematuria with clots. He had no fevers or chills, no flank pain or abdominal pain. He has not had any recent urinary tract infections and has not been on any antibiotics. PAST MEDICAL HISTORY: Notable for benign prostatic hypertrophy. He has had multiple prostate biopsies. He has a history of B-12 deficiency, COPD, hypertension, hypercholesterolemia, multinodular goiter, knee arthroscopy. He had a TURP in 2014 and in 2017. He has had upper and lower endoscopy. He has vitamin D deficiency. He is status post fracture of his patella after he fell off a ladder several years ago. He has a history of chronic kidney disease. SOCIAL HISTORY: He is an occasional smoker. He lives with his sister. There is no history of any recent substance use. ALLERGIES: BACTRIM. OUTPATIENT MEDICATIONS: Tamsulosin, Crestor, vitamin B-12, vitamin D3 and BIKTARVY. REVIEW OF SYSTEMS: As per HPI. LABS: Notable for a white count of 5.3, hemoglobin of 9.9, platelets of 159. Of note, he has had anemia requiring transfusion in the past from the hematuria. BUN and creatinine are 20 and 1.7. His urinalysis showed greater than 100 red cells. Urine culture is growing lactose-fermenting gram-negative bacilli. His last T-cells done as an outpatient in August were 434 with an undetectable viral load. He had a CT of his abdomen and pelvis done in the emergency room that was notable for an irregular, distended, thick-walled urinary bladder. He has hemangiomas of the right lobe of his liver. He has no evidence of urinary tract calculi or obstructive uropathy. He had a renal sonogram done as well that showed mildly atrophic kidneys. PHYSICAL EXAMINATION: Vital Signs: He is afebrile. Temperature is 97.4, pulse is 75, respiratory rate is normal at 14, blood pressure is 108/53. He is saturating at 97% on room air. HEENT: Normocephalic. His eyes are anicteric. Neck: Supple. Lungs: Clear to auscultation. Heart: Regular rate and rhythm. Abdomen: Soft, nontender. : His Pnag has dark blood. Extremities: No edema. LABORATORY DATA: Notable for a white count yesterday of 12.3. Today, it is 9. Hemoglobin is 10.7, platelets are 189. His BUN and creatinine are 18 and 0.9. Urinalysis is negative and cultures are pending. In summary, this is a 79-year-old man with BPH, CKD and stable HIV admitted for gross hematuria. He is scheduled for cystoscopy today. Would continue cefazolin and follow up his urine culture. He has stable HIV. Would continue BIKTARVY. His CKD is currently at baseline. Further recommendations to follow based on his clinical course. INDIGO KINCAID M.D. [id number]
[2019-11-27] MEDS: ROSUVASTATIN CA 10 MG TABLET (FP) PO SCH (21:20)
[2019-11-27] MEDS ORDERED: ROSUVASTATIN CA 10 MG TABLET (FP) PO SCH (22:00)
[2019-11-28] MEDS: CEFAZOLIN 1 GM in DEXTROSE 5%-WATER - 50 ML IVPB SCH ×3 (02:01→17:46)
[2019-11-28] MEDS ORDERED: DEXTROSE 5%-WATER - 50 ML IVPB ONE ×3 (02:22→15:21)
[2019-11-28] MEDS ORDERED: ceFAZolin SODIUM 1 GM VIAL ONE ×3 (02:22→15:21)
[2019-11-28] MEDS: SODIUM CHLORIDE 1,000 ML IV SCH ×2 (06:14→13:40)
[2019-11-28 06:32] LABS: BASO % 0.3 % (0-2.0); EOS % 3.2 % (0-4.5); HEMATOCRIT 30.5 % (35.4-49); HEMOGLOBIN 9.4 GM/dL (11.7-16.9); LYMPH % 24.9 % (8-40); MCH 23.7 pg (25.7-33.7); MCHC 30.9 g/dl (32.0-35.9); MEAN CELL VOLUME 76.7 fl (80-96); NEUT % 64.6 % (42.8-82.8); PLATELET COUNT 149 K/MM3 (134-434); RBC 3.98 M/mm3 (4.00-5.60); RDW 18.3 % (11.9-15.9); WHITE BLOOD COUNT 5.7 K/mm3 (4.0-10.0)
[2019-11-28 06:53] LABS: ALBUMIN 2.4 g/dl (3.4-5.0); BILIRUBIN,TOTAL 0.2 mg/dL (0.2-1); BLOOD UREA NITROGEN 20.2 mg/dL (7-18); CALCIUM 7.7 mg/dL (8.5-10.1); CREATININE 1.7 mg/dL (0.55-1.3); MAGNESIUM 1.9 mg/dL (1.8-2.4); POTASSIUM 4.2 mmol/L (3.5-5.1); TOT PROT 5.6 g/dl (6.4-8.2)
[2019-11-28] MEDS: CYANOCOBALAMIN 1,000 MCG TABLET (FP) PO SCH (09:03)
[2019-11-28] MEDS: CHOLECALCIFEROL (VIT D3) 1,000 UNIT (25 MCG) TABLET PO SCH (09:03)
[2019-11-28] MEDS: TAMSULOSIN HCL 0.4 MG CAP PO SCH (09:03)
[2019-11-28] MEDS: BICTEGRAV/EMTRICIT/TENOFOV (BIKTARVY) 50-200-25 MG TABLET PO SCH (09:04)
--- NOTE | 2019-11-28 10:42 | PN ---
Progress Note (short form) - Note Progress Note: feels well s/p cystoscopoy- some bleeding from prostate noted still with salas and hematuria no fevers no pain Vital Signs Period Temp Pulse Resp BP Sys/Nunez Pulse Ox Last 24 Hr 97.4 F-99.6 F 67-75 14-18 93-149/47-77 96-98 cor-rrr llungs clear abd soft,nt ext no edema +salas CBC, BMP 11/28/19 05:40 11/28/19 05:40 Microbiology 11/26/19 12:50 Urine - Urine Clean Catch Urine Culture - Preliminary Lactose Fermenting Neg Bacilli a/p hemaaturia UTI s/p cystoscop continue cefazolin f/u urine culture stable HIV- continue biktarvy ckd- at baseline Problem List - Problems (1) Hematuria Code(s): R31.9 - HEMATURIA, UNSPECIFIED (2) Urinary tract infection Code(s): N39.0 - URINARY TRACT INFECTION, SITE NOT SPECIFIED Qualifiers: Urinary tract infection type: acute cystitis Hematuria presence: with hematuria Qualified Code(s): N30.01 - Acute cystitis with hematuria (3) BPH with elevated PSA Code(s): N40.0 - BENIGN PROSTATIC HYPERPLASIA WITHOUT LOWER URINRY TRACT SYMP; R97.2 - ELEVATED PROSTATE SPECIFIC ANTIGEN [PSA] * DO NOT USE * (4) CKD (chronic kidney disease) Code(s): N18.9 - CHRONIC KIDNEY DISEASE, UNSPECIFIED (5) HIV (human immunodeficiency virus infection) Code(s): Z21 - ASYMPTOMATIC HUMAN IMMUNODEFICIENCY VIRUS INFECTION STATUS
--- NOTE | 2019-11-28 11:45 | PN ---
Physical Exam: SUBJECTIVE: Patient seen and examined at the bedside. in no acute distress, feels well overall, eating well. denies lower abdominal pain or discomfort. OBJECTIVE: Patient is a 78 year old male with a significant past medical history of HIV ( on HAART therapy), hepatitis B, COPD, BPH with history of TURP in 2018. Patient presents to the ED on 11/26/2019 for urinary retention and hematuria. At home, his urine was initially pink tinged, then noted to be red in color with passing of some clots. He has had recurrent gross hematuria and retention and has had CBI in 2018. A [address] way salas was placed on admission and CBI started. He is s/p cystoscopy on 11/27/2019. His urine culture is + for UTI (e coli) with sensitivities of Cefepime. He has a salas catheter that is draining gross hematuria, no clots seen. CBC trended down slightly with daily monitoring. Vital Signs Period Temp Pulse Resp BP Sys/Nunez Pulse Ox Last 24 Hr 97.4 F-99.6 F 67-75 14-18 93-149/47-77 96-98 GENERAL: Awake, alert, and fully oriented, in no acute distress. HEAD: Normal with no signs of trauma. EYES: Pupils equal, round and reactive to light, extraocular movements intact, sclera anicteric, conjunctiva clear. No lid lag. EARS, NOSE, THROAT: Ears normal, nares patent, oropharynx clear without exudates. Moist mucous membranes. NECK: Normal range of motion, supple without lymphadenopathy, JVD, or masses. LUNGS: Breath sounds equal, clear to auscultation bilaterally. No wheezes, and no crackles. No accessory muscle use. HEART: Regular rate and rhythm, normal S1 and S2 without murmur, rub or gallop. ABDOMEN: soft, non distended, salas draining gross hematuria MUSCULOSKELETAL: Normal range of motion at all joints. No bony deformities or tenderness. No CVA tenderness. UPPER EXTREMITIES: No peripheral edema. LOWER EXTREMITIES: 2+ bilaterally, has home compression stocking, skin scaly and dry PSYCHIATRIC: Cooperative. Good eye contact. Appropriate mood and affect. SKIN: dry Laboratory Results - last 24 hr 11/28/19 11/28/19 05:40 05:40 WBC 5.7 RBC 3.98 L Hgb 9.4 L Hct 30.5 L MCV 76.7 L MCH 23.7 L MCHC 30.9 L RDW 18.3 H Plt Count 149 MPV 9.0 Absolute Neuts (auto) 3.7 Neutrophils % 64.6 Lymphocytes % 24.9 Monocytes % 7.0 Eosinophils % 3.2 D Basophils % 0.3 Nucleated RBC % 0 Sodium 140 Potassium 4.2 Chloride 110 H Carbon Dioxide 26 Anion Gap 5 L BUN 20.2 H Creatinine 1.7 H Est GFR (CKD-EPI)AfAm 44.10 Est GFR (CKD-EPI)NonAf 38.05 Random Glucose 101 Calcium 7.7 L Magnesium 1.9 Total Bilirubin 0.2 AST 20 ALT 14 Alkaline Phosphatase 59 Total Protein 5.6 L Albumin 2.4 L Active Medications Generic Name Dose Route Start Last Admin Trade Name Freq PRN Reason Stop Dose Admin Bictegravir/Emtricitabine/Tenofovir 1 each 11/28/19 10:00 11/28/19 09:04 Biktarvy 50-200-25 Mg Tablet PO 1 each DAILY ELVIS Administration Cholecalciferol 2,000 unit 11/28/19 10:00 11/28/19 09:03 Vitamin D3 - PO 2,000 unit DAILY ELVIS Administration Cyanocobalamin 1,000 mcg 11/28/19 10:00 11/28/19 09:03 Vitamin B12 - PO 1,000 mcg DAILY ELVIS Administration Cefazolin Sodium 1 gm/ 50 mls @ 100 mls/hr 11/27/19 18:00 11/28/19 09:03 Dextrose IVPB 100 mls/hr Q8H-IV ELVIS Administration Sodium Chloride 1,000 mls @ 100 mls/hr 11/27/19 16:28 11/28/19 06:14 Normal Saline - IV 100 mls/hr ASDIR ELVIS Administration Ondansetron HCl 4 mg 11/27/19 16:28 Zofran Injection IVPUSH Q6H PRN NAUSEA AND/OR VOMITING Rosuvastatin Calcium 10 mg 11/27/19 22:00 11/27/19 21:20 Crestor - PO 10 mg HS ELVIS Administration Tamsulosin HCl 0.4 mg 11/28/19 08:30 11/28/19 09:03 Flomax - PO 0.4 mg DAILY@0830 ELVIS Administration ASSESSMENT/PLAN: Problem List - Problems (1) Urinary tract infection Assessment/Plan: ecoli on urine culture with 70-80 colony count, with sensitivities to cefazolin Code(s): N39.0 - URINARY TRACT INFECTION, SITE NOT SPECIFIED Qualifiers: Urinary tract infection type: acute cystitis Hematuria presence: with hematuria Qualified Code(s): N30.01 - Acute cystitis with hematuria (2) S/P cystoscopy Assessment/Plan: results of cystoscopy pending CBI discontinued and salas catheter draining gross hematuria, monitoring cbc closely urology following Code(s): Z98.890 - OTHER SPECIFIED POSTPROCEDURAL STATES (3) Hematuria Assessment/Plan: patient with difficulty urinating and with clots on admission, 3 way salas inserted and placed on CBI on admission. renal ultrasound shows mildly atrophic kidneys. abd/pelvis ct: no urinary calculi or obstructive uropathy, irregular distended thick walled urinary bladder with hyperdense material that may represent blood. right lobe liver lesions consisting with hemangioma. had cystoscopy 11/27/2019, now with salas catheter, CBI discontinued. Code(s): R31.9 - HEMATURIA, UNSPECIFIED (4) Liver lesion, right lobe Assessment/Plan: lobe liver lesions consisting with hemangioma seen on ct/abdomen/pelvis GI outpatient follow up once acute issues are resolved Code(s): K76.9 - LIVER DISEASE, UNSPECIFIED (5) Urinary retention Assessment/Plan: 3 way salas inserted with close monitoring of urinary output on CBI Code(s): R33.9 - RETENTION OF URINE, UNSPECIFIED (6) Acute blood loss anemia Assessment/Plan: secondary to hematuria repeat cbc in a.m Code(s): D62 - ACUTE POSTHEMORRHAGIC ANEMIA (7) COPD (chronic obstructive pulmonary disease) Assessment/Plan: not in acute exacerbation duonebs prn Code(s): J44.9 - CHRONIC OBSTRUCTIVE PULMONARY DISEASE, UNSPECIFIED (8) PING (acute kidney injury) Assessment/Plan: creatinine 2.0 on admission, now trending down avoid all nephrotoxin medications on NS @ 100cc/hr monitor creat daily Code(s): N17.9 - ACUTE KIDNEY FAILURE, UNSPECIFIED (9) HIV (human immunodeficiency virus infection) Assessment/Plan: continue home HAART therapy follows with Dr. Holland at the [facility] Code(s): Z21 - ASYMPTOMATIC HUMAN IMMUNODEFICIENCY VIRUS INFECTION STATUS (10) HTN (hypertension) Assessment/Plan: continue home medications. hold HCTZ for PING Code(s): I10 - ESSENTIAL (PRIMARY) HYPERTENSION (11) DVT prophylaxis Assessment/Plan: no chemical prophylaxis secondary to hematuria SCDs/TEDs Code(s): Z29.9 - ENCOUNTER FOR PROPHYLACTIC MEASURES, UNSPECIFIED (12) Prophylactic measure Assessment/Plan: fen ns @ 100cc/hr monitor electrolytes low salt diet full code Code(s): Z29.9 - ENCOUNTER FOR PROPHYLACTIC MEASURES, UNSPECIFIED Visit type - Emergency Visit Emergency Visit: Yes ED Registration Date: 11/26/19 Care time: The patient presented to the Emergency Department on the above date and was hospitalized for further evaluation of their emergent condition. - New Patient This patient is new to me today: No - Critical Care Critical Care patient: No - Discharge Referral Referred to [facility] Med P.C.: No
--- NOTE | 2019-11-28 19:46 | PN ---
Progress Note (short form) - Note Progress Note: Anesthesiology post-op POD#1 s/p cystoscopic evacuation of clot under GA. Pt. doing well, no acute issues. VSS. No apparent anesthesia-related issues. 79 y.o. man with stable post-operative course. Continue care as per primary team.
[2019-11-28] MEDS: ROSUVASTATIN CA 10 MG TABLET (FP) PO SCH (22:03)
[2019-11-29] MEDS: SODIUM CHLORIDE 1,000 ML IV SCH ×2 (00:21→17:02)
[2019-11-29] MEDS ORDERED: DEXTROSE 5%-WATER - 50 ML IVPB ONE ×3 (01:19→16:56)
[2019-11-29] MEDS ORDERED: ceFAZolin SODIUM 1 GM VIAL ONE ×4 (01:19→16:56)
[2019-11-29] MEDS: CEFAZOLIN 1 GM in DEXTROSE 5%-WATER - 50 ML IVPB SCH ×3 (01:41→17:01)
[2019-11-29 06:43] LABS: BASO % 0.4 % (0-2.0); HEMATOCRIT 30.3 % (35.4-49); HEMOGLOBIN 9.4 GM/dL (11.7-16.9); LYMPH % 30.6 % (8-40); MCH 23.9 pg (25.7-33.7); MCHC 31.2 g/dl (32.0-35.9); MEAN CELL VOLUME 76.6 fl (80-96); MEAN PLT VOLUME 8.5 fl (7.5-11.1); MONO % 6.6 % (3.8-10.2); NEUT % 58.4 % (42.8-82.8); PLATELET COUNT 142 K/MM3 (134-434); RBC 3.95 M/mm3 (4.00-5.60); RDW 18.1 % (11.9-15.9); WHITE BLOOD COUNT 5.7 K/mm3 (4.0-10.0)
[2019-11-29 07:01] LABS: ALBUMIN 2.4 g/dl (3.4-5.0); BILIRUBIN,TOTAL 0.4 mg/dL (0.2-1); BLOOD UREA NITROGEN 17.1 mg/dL (7-18); CALCIUM 7.9 mg/dL (8.5-10.1); CREATININE 1.5 mg/dL (0.55-1.3); MAGNESIUM 2.1 mg/dL (1.8-2.4); POTASSIUM 4.3 mmol/L (3.5-5.1); TOT PROT 5.6 g/dl (6.4-8.2)
[2019-11-29] MEDS: CYANOCOBALAMIN 1,000 MCG TABLET (FP) PO SCH (09:02)
[2019-11-29] MEDS: TAMSULOSIN HCL 0.4 MG CAP PO SCH (09:02)
[2019-11-29] MEDS: CHOLECALCIFEROL (VIT D3) 1,000 UNIT (25 MCG) TABLET PO SCH (09:02)
[2019-11-29] MEDS ORDERED: PT OWN MED DRAWER 7, Y5N ONE (09:06)
[2019-11-29] MEDS: BICTEGRAV/EMTRICIT/TENOFOV (BIKTARVY) 50-200-25 MG TABLET PO SCH (09:07)
--- NOTE | 2019-11-29 13:51 | PN ---
Physical Exam: SUBJECTIVE: Patient seen and examined, offers no complaints. feels well. OBJECTIVE: Patient is a 78 year old male with a significant past medical history of HIV ( on HAART therapy), hepatitis B, COPD, BPH with history of TURP in 2018. Patient presents to the ED on 11/26/2019 for urinary retention and hematuria. At home, his urine was initially pink tinged, then noted to be red in color with passing of some clots. He has had recurrent gross hematuria and retention and has had CBI in 2018. A 3 way salas was placed on admission and CBI started. He is s/p cystoscopy on 11/27/2019. His urine culture is + for UTI (e coli) with sensitivities of Cefepime. He has a salas catheter that is now draining clear yellow urine. Vital Signs Period Temp Pulse Resp BP Sys/Nunez Pulse Ox Last 24 Hr 98 F-99.0 F 67-70 18-18 107-128/54-76 96-96 GENERAL: Awake, alert, and fully oriented, in no acute distress. HEAD: Normal with no signs of trauma. EYES: Pupils equal, round and reactive to light, extraocular movements intact, sclera anicteric, conjunctiva clear. No lid lag. EARS, NOSE, THROAT: Ears normal, nares patent, oropharynx clear without exudates. Moist mucous membranes. NECK: Normal range of motion, supple without lymphadenopathy, JVD, or masses. LUNGS: Breath sounds equal, clear to auscultation bilaterally. No wheezes, and no crackles. No accessory muscle use. HEART: Regular rate and rhythm, normal S1 and S2 without murmur, rub or gallop. ABDOMEN: soft, non distended, salas draining clear yellow urine MUSCULOSKELETAL: Normal range of motion at all joints. No bony deformities or tenderness. No CVA tenderness. UPPER EXTREMITIES: No peripheral edema. LOWER EXTREMITIES: 2+ bilaterally, has home compression stocking, skin scaly and dry PSYCHIATRIC: Cooperative. Good eye contact. Appropriate mood and affect. SKIN: dry Laboratory Results - last 24 hr 11/29/19 11/29/19 05:58 05:58 WBC 5.7 RBC 3.95 L Hgb 9.4 L Hct 30.3 L MCV 76.6 L MCH 23.9 L MCHC 31.2 L RDW 18.1 H Plt Count 142 MPV 8.5 Absolute Neuts (auto) 3.4 Neutrophils % 58.4 Lymphocytes % 30.6 D Monocytes % 6.6 Eosinophils % 4.0 Basophils % 0.4 Nucleated RBC % 0 Sodium 143 Potassium 4.3 Chloride 113 H Carbon Dioxide 25 Anion Gap 5 L BUN 17.1 Creatinine 1.5 H Est GFR (CKD-EPI)AfAm 51.31 Est GFR (CKD-EPI)NonAf 44.27 Random Glucose 87 Calcium 7.9 L Magnesium 2.1 Total Bilirubin 0.4 AST 21 ALT 11 L Alkaline Phosphatase 53 Total Protein 5.6 L Albumin 2.4 L Active Medications Generic Name Dose Route Start Last Admin Trade Name Freq PRN Reason Stop Dose Admin Bictegravir/Emtricitabine/Tenofovir 1 each 11/28/19 10:00 11/29/19 09:07 Biktarvy 50-200-25 Mg Tablet PO 1 each DAILY ELVIS Administration Cholecalciferol 2,000 unit 11/28/19 10:00 11/29/19 09:02 Vitamin D3 - PO 2,000 unit DAILY ELVIS Administration Cyanocobalamin 1,000 mcg 11/28/19 10:00 11/29/19 09:02 Vitamin B12 - PO 1,000 mcg DAILY ELVIS Administration Cefazolin Sodium 1 gm/ 50 mls @ 100 mls/hr 11/27/19 18:00 11/29/19 09:01 Dextrose IVPB 100 mls/hr Q8H-IV ELVIS Administration Sodium Chloride 1,000 mls @ 100 mls/hr 11/27/19 16:28 11/29/19 00:21 Normal Saline - IV 100 mls/hr ASDIR ELVIS Administration Ondansetron HCl 4 mg 11/27/19 16:28 Zofran Injection IVPUSH Q6H PRN NAUSEA AND/OR VOMITING Rosuvastatin Calcium 10 mg 11/27/19 22:00 11/28/19 22:03 Crestor - PO 10 mg HS ELVIS Administration Tamsulosin HCl 0.4 mg 11/28/19 08:30 11/29/19 09:02 Flomax - PO 0.4 mg DAILY@0830 ELVIS Administration ASSESSMENT/PLAN: Problem List - Problems (1) Hematuria Assessment/Plan: patient with difficulty urinating and with clots on admission, 3 way salas inserted and placed on CBI on admission. renal ultrasound shows mildly atrophic kidneys. abd/pelvis ct: no urinary calculi or obstructive uropathy, irregular distended thick walled urinary bladder with hyperdense material that may represent blood. right lobe liver lesions consisting with hemangioma. had cystoscopy 11/27/2019, salas draining clear yellow urine Code(s): R31.9 - HEMATURIA, UNSPECIFIED (2) Urinary tract infection Assessment/Plan: ecoli on urine culture with 70-80 colony count, with sensitivities to cefazolin Code(s): N39.0 - URINARY TRACT INFECTION, SITE NOT SPECIFIED Qualifiers: Urinary tract infection type: acute cystitis Hematuria presence: with hematuria Qualified Code(s): N30.01 - Acute cystitis with hematuria (3) S/P cystoscopy Assessment/Plan: results of cystoscopy pending CBI discontinued and salas catheter draining clear yellow urine Code(s): Z98.890 - OTHER SPECIFIED POSTPROCEDURAL STATES (4) Liver lesion, right lobe Assessment/Plan: lobe liver lesions consisting with hemangioma seen on ct/abdomen/pelvis. will need outpatient follow up. Code(s): K76.9 - LIVER DISEASE, UNSPECIFIED (5) Urinary retention Assessment/Plan: s/p cystoscopy, now with clear yellow urine Code(s): R33.9 - RETENTION OF URINE, UNSPECIFIED (6) Acute blood loss anemia Assessment/Plan: secondary to hematuria, but now resolved. repeat cbc in a.m Code(s): D62 - ACUTE POSTHEMORRHAGIC ANEMIA (7) COPD (chronic obstructive pulmonary disease) Assessment/Plan: not in acute exacerbation duonebs prn Code(s): J44.9 - CHRONIC OBSTRUCTIVE PULMONARY DISEASE, UNSPECIFIED (8) PING (acute kidney injury) Assessment/Plan: ckd at baseline Code(s): N17.9 - ACUTE KIDNEY FAILURE, UNSPECIFIED (9) HIV (human immunodeficiency virus infection) Assessment/Plan: continue home HAART therapy follows with Dr. Holland at the [facility] Code(s): Z21 - ASYMPTOMATIC HUMAN IMMUNODEFICIENCY VIRUS INFECTION STATUS (10) HTN (hypertension) Assessment/Plan: continue home medications. hold HCTZ for PING Code(s): I10 - ESSENTIAL (PRIMARY) HYPERTENSION (11) DVT prophylaxis Assessment/Plan: no chemical prophylaxis secondary to hematuria SCDs/TEDs Code(s): Z29.9 - ENCOUNTER FOR PROPHYLACTIC MEASURES, UNSPECIFIED (12) Prophylactic measure Assessment/Plan: fen ns @ 100cc/hr monitor electrolytes low salt diet full code Code(s): Z29.9 - ENCOUNTER FOR PROPHYLACTIC MEASURES, UNSPECIFIED Visit type - Emergency Visit Emergency Visit: Yes ED Registration Date: 11/26/19 Care time: The patient presented to the Emergency Department on the above date and was hospitalized for further evaluation of their emergent condition. - New Patient This patient is new to me today: No - Critical Care Critical Care patient: No - Discharge Referral Referred to [facility] Med P.C.: No
[2019-11-29] MEDS: ROSUVASTATIN CA 10 MG TABLET (FP) PO SCH (21:30)
[2019-11-30] MEDS ORDERED: DEXTROSE 5%-WATER - 50 ML IVPB ONE ×3 (02:48→16:53)
[2019-11-30] MEDS ORDERED: ceFAZolin SODIUM 1 GM VIAL ONE ×3 (02:48→16:53)
[2019-11-30] MEDS: CEFAZOLIN 1 GM in DEXTROSE 5%-WATER - 50 ML IVPB SCH ×3 (02:51→16:59)
[2019-11-30] MEDS: SODIUM CHLORIDE 1,000 ML IV SCH ×2 (04:02→17:00)
[2019-11-30 07:43] LABS: BASO % 0.5 % (0-2.0); EOS % 3.7 % (0-4.5); HEMATOCRIT 30.6 % (35.4-49); HEMOGLOBIN 9.7 GM/dL (11.7-16.9); LYMPH % 29.2 % (8-40); MCHC 31.6 g/dl (32.0-35.9); MEAN CELL VOLUME 76.1 fl (80-96); MEAN PLT VOLUME 9.2 fl (7.5-11.1); MONO % 5.8 % (3.8-10.2); NEUT % 60.8 % (42.8-82.8); PLATELET COUNT 156 K/MM3 (134-434); RBC 4.03 M/mm3 (4.00-5.60); RDW 18.1 % (11.9-15.9); WHITE BLOOD COUNT 6.9 K/mm3 (4.0-10.0)
[2019-11-30 08:55] LABS: ALBUMIN 2.5 g/dl (3.4-5.0); BILIRUBIN,TOTAL 0.4 mg/dL (0.2-1); BLOOD UREA NITROGEN 14.4 mg/dL (7-18); CREATININE 1.5 mg/dL (0.55-1.3); MAGNESIUM 1.9 mg/dL (1.8-2.4); POTASSIUM 4.4 mmol/L (3.5-5.1); TOT PROT 5.8 g/dl (6.4-8.2)
[2019-11-30] MEDS: CHOLECALCIFEROL (VIT D3) 1,000 UNIT (25 MCG) TABLET PO SCH (09:54)
[2019-11-30] MEDS: CYANOCOBALAMIN 1,000 MCG TABLET (FP) PO SCH (09:54)
[2019-11-30] MEDS: TAMSULOSIN HCL 0.4 MG CAP PO SCH (09:54)
[2019-11-30] MEDS: BICTEGRAV/EMTRICIT/TENOFOV (BIKTARVY) 50-200-25 MG TABLET PO SCH (09:55)
--- NOTE | 2019-11-30 14:48 | PN ---
Progress Note (short form) - Note Progress Note: s/p cystoscopy-still with salas and hematuria Vital Signs Period Temp Pulse Resp BP Sys/Nunez Pulse Ox Last 24 Hr 97.3 F-99.0 F 69-70 18-20 119-159/57-78 96-99 cor-rrr lungs clear abd soft,nt salas ext no edema CBC, BMP 11/30/19 06:12 11/30/19 06:12 Microbiology 11/26/19 12:50 Urine - Urine Clean Catch Urine Culture - Final Escherichia Coli a/p hematuria/uti would continue cefazolin, f/u urine culture can switch to keflex 500 bid when ready for d/c per urology stable HIV- continue biktarvy ckd- at baseline please have patient f/u with me at the [facility] Problem List - Problems (1) Hematuria Code(s): R31.9 - HEMATURIA, UNSPECIFIED (2) Urinary tract infection Code(s): N39.0 - URINARY TRACT INFECTION, SITE NOT SPECIFIED Qualifiers: Urinary tract infection type: acute cystitis Hematuria presence: with hematuria Qualified Code(s): N30.01 - Acute cystitis with hematuria (3) BPH with elevated PSA Code(s): N40.0 - BENIGN PROSTATIC HYPERPLASIA WITHOUT LOWER URINRY TRACT SYMP; R97.2 - ELEVATED PROSTATE SPECIFIC ANTIGEN [PSA] * DO NOT USE * (4) CKD (chronic kidney disease) Code(s): N18.9 - CHRONIC KIDNEY DISEASE, UNSPECIFIED (5) HIV (human immunodeficiency virus infection) Code(s): Z21 - ASYMPTOMATIC HUMAN IMMUNODEFICIENCY VIRUS INFECTION STATUS
--- NOTE | 2019-11-30 17:14 | PN ---
Physical Exam: SUBJECTIVE: Patient seen and examined. sitting in chair in no acute distress. denies any suprapubic pressure. feels well. OBJECTIVE: Patient is a 78 year old male with a significant past medical history of HIV ( on HAART therapy), hepatitis B, COPD, BPH with history of TURP in 2018. Patient presents to the ED on 11/26/2019 for urinary retention and hematuria. At home, his urine was initially pink tinged, then noted to be red in color with passing of some clots. A 3 way salas was placed on admission and CBI started. He is s/p cystoscopy on 11/27/2019. His urine culture is + for UTI (e coli) with sensitivities of Cefepime. He has a salas catheter that was initially clear yellow urine, now again having hematuria without clots. Vital Signs Period Temp Pulse Resp BP Sys/Nunez Pulse Ox Last 24 Hr 97.3 F-99.0 F 69-70 18-20 119-159/57-78 96-99 GENERAL: Awake, alert, and fully oriented, in no acute distress. HEAD: Normal with no signs of trauma. EYES: Pupils equal, round and reactive to light, extraocular movements intact, sclera anicteric, conjunctiva clear. No lid lag. EARS, NOSE, THROAT: Ears normal, nares patent, oropharynx clear without exudates. Moist mucous membranes. NECK: Normal range of motion, supple without lymphadenopathy, JVD, or masses. LUNGS: Breath sounds equal, clear to auscultation bilaterally. No wheezes, and no crackles. No accessory muscle use. HEART: Regular rate and rhythm, normal S1 and S2 without murmur, rub or gallop. ABDOMEN: soft, non distended, salas draining clear yellow urine MUSCULOSKELETAL: Normal range of motion at all joints. No bony deformities or tenderness. No CVA tenderness. UPPER EXTREMITIES: No peripheral edema. LOWER EXTREMITIES: 2+ bilaterally, has home compression stocking, skin scaly and dry PSYCHIATRIC: Cooperative. Good eye contact. Appropriate mood and affect. SKIN: dry Laboratory Results - last 24 hr 11/30/19 11/30/19 06:12 06:12 WBC 6.9 RBC 4.03 Hgb 9.7 L Hct 30.6 L MCV 76.1 L MCH 24.0 L MCHC 31.6 L RDW 18.1 H Plt Count 156 MPV 9.2 Absolute Neuts (auto) 4.2 Neutrophils % 60.8 Lymphocytes % 29.2 Monocytes % 5.8 Eosinophils % 3.7 Basophils % 0.5 Nucleated RBC % 0 Sodium 141 Potassium 4.4 Chloride 112 H Carbon Dioxide 23 Anion Gap 5 L BUN 14.4 Creatinine 1.5 H Est GFR (CKD-EPI)AfAm 51.31 Est GFR (CKD-EPI)NonAf 44.27 Random Glucose 81 Calcium 8.0 L Magnesium 1.9 Total Bilirubin 0.4 AST 23 ALT 12 L Alkaline Phosphatase 55 Total Protein 5.8 L Albumin 2.5 L Active Medications Generic Name Dose Route Start Last Admin Trade Name Freq PRN Reason Stop Dose Admin Bictegravir/Emtricitabine/Tenofovir 1 each 11/28/19 10:00 11/30/19 09:55 Biktarvy 50-200-25 Mg Tablet PO 1 each DAILY ELVIS Administration Cholecalciferol 2,000 unit 11/28/19 10:00 11/30/19 09:54 Vitamin D3 - PO 2,000 unit DAILY ELVIS Administration Cyanocobalamin 1,000 mcg 11/28/19 10:00 11/30/19 09:54 Vitamin B12 - PO 1,000 mcg DAILY ELVIS Administration Cefazolin Sodium 1 gm/ 50 mls @ 100 mls/hr 11/27/19 18:00 11/30/19 16:59 Dextrose IVPB 100 mls/hr Q8H-IV ELVIS Administration Sodium Chloride 1,000 mls @ 100 mls/hr 11/27/19 16:28 11/30/19 17:00 Normal Saline - IV Not Given ASDIR ELVIS Ondansetron HCl 4 mg 11/27/19 16:28 Zofran Injection IVPUSH Q6H PRN NAUSEA AND/OR VOMITING Rosuvastatin Calcium 10 mg 11/27/19 22:00 11/29/19 21:30 Crestor - PO 10 mg HS ELVIS Administration Tamsulosin HCl 0.4 mg 11/28/19 08:30 11/30/19 09:54 Flomax - PO 0.4 mg DAILY@0830 ELVIS Administration ASSESSMENT/PLAN: Problem List - Problems (1) Hematuria Assessment/Plan: patient with difficulty urinating and with clots on admission, 3 way salas inserted and placed on CBI on admission. renal ultrasound shows mildly atrophic kidneys. abd/pelvis ct: no urinary calculi or obstructive uropathy, irregular distended thick walled urinary bladder with hyperdense material that may represent blood. right lobe liver lesions consisting with hemangioma. had cystoscopy 11/27/2019, salas draining yellow urine yesterday, now with gross hematuria. urology follow up. Code(s): R31.9 - HEMATURIA, UNSPECIFIED (2) Urinary tract infection Assessment/Plan: ecoli on urine culture with 70-80 colony count, with sensitivities to cefazolin Code(s): N39.0 - URINARY TRACT INFECTION, SITE NOT SPECIFIED Qualifiers: Urinary tract infection type: acute cystitis Hematuria presence: with hematuria Qualified Code(s): N30.01 - Acute cystitis with hematuria (3) S/P cystoscopy Assessment/Plan: results of cystoscopy pending CBI discontinued and salas catheter draining clear yellow urine Code(s): Z98.890 - OTHER SPECIFIED POSTPROCEDURAL STATES (4) Liver lesion, right lobe Assessment/Plan: lobe liver lesions consisting with hemangioma seen on ct/abdomen/pelvis. will need outpatient follow up. Code(s): K76.9 - LIVER DISEASE, UNSPECIFIED (5) Urinary retention Assessment/Plan: s/p cystoscopy, now with clear yellow urine Code(s): R33.9 - RETENTION OF URINE, UNSPECIFIED (6) Acute blood loss anemia Assessment/Plan: secondary to hematuria, but now resolved. repeat cbc in a.m Code(s): D62 - ACUTE POSTHEMORRHAGIC ANEMIA (7) COPD (chronic obstructive pulmonary disease) Assessment/Plan: not in acute exacerbation duonebs prn Code(s): J44.9 - CHRONIC OBSTRUCTIVE PULMONARY DISEASE, UNSPECIFIED (8) PING (acute kidney injury) Assessment/Plan: ckd at baseline Code(s): N17.9 - ACUTE KIDNEY FAILURE, UNSPECIFIED (9) HIV (human immunodeficiency virus infection) Assessment/Plan: continue home HAART therapy follows with Dr. Holland at the [facility] Code(s): Z21 - ASYMPTOMATIC HUMAN IMMUNODEFICIENCY VIRUS INFECTION STATUS (10) HTN (hypertension) Assessment/Plan: continue home medications. hold HCTZ for PING Code(s): I10 - ESSENTIAL (PRIMARY) HYPERTENSION (11) DVT prophylaxis Assessment/Plan: no chemical prophylaxis secondary to hematuria SCDs/TEDs Code(s): Z29.9 - ENCOUNTER FOR PROPHYLACTIC MEASURES, UNSPECIFIED (12) Prophylactic measure Assessment/Plan: fen ns @ 100cc/hr monitor electrolytes low salt diet full code Code(s): Z29.9 - ENCOUNTER FOR PROPHYLACTIC MEASURES, UNSPECIFIED Visit type - Emergency Visit Emergency Visit: Yes ED Registration Date: 11/26/19 Care time: The patient presented to the Emergency Department on the above date and was hospitalized for further evaluation of their emergent condition. - New Patient This patient is new to me today: No - Critical Care Critical Care patient: No - Discharge Referral Referred to [facility] Med P.C.: No
[2019-11-30] MEDS: ROSUVASTATIN CA 10 MG TABLET (FP) PO SCH (21:11)
[2019-12-01] MEDS ORDERED: ceFAZolin SODIUM 1 GM VIAL ONE ×4 (01:32→17:44)
[2019-12-01] MEDS ORDERED: DEXTROSE 5%-WATER - 50 ML IVPB ONE ×4 (01:32→17:45)
[2019-12-01] MEDS: CEFAZOLIN 1 GM in DEXTROSE 5%-WATER - 50 ML IVPB SCH ×3 (01:38→17:48)
[2019-12-01 08:43] LABS: BASO % 0.5 % (0-2.0); EOS % 4.1 % (0-4.5); HEMATOCRIT 30.5 % (35.4-49); HEMOGLOBIN 9.6 GM/dL (11.7-16.9); LYMPH % 28.1 % (8-40); MCHC 31.6 g/dl (32.0-35.9); MEAN CELL VOLUME 76.2 fl (80-96); MEAN PLT VOLUME 8.8 fl (7.5-11.1); MONO % 6.9 % (3.8-10.2); NEUT % 60.4 % (42.8-82.8); PLATELET COUNT 169 K/MM3 (134-434); RDW 18.2 % (11.9-15.9); WHITE BLOOD COUNT 6.2 K/mm3 (4.0-10.0)
[2019-12-01 09:09] LABS: ALBUMIN 2.5 g/dl (3.4-5.0); BILIRUBIN,TOTAL 0.6 mg/dL (0.2-1); BLOOD UREA NITROGEN 15.8 mg/dL (7-18); CALCIUM 8.1 mg/dL (8.5-10.1); CREATININE 1.6 mg/dL (0.55-1.3); MAGNESIUM 2.1 mg/dL (1.8-2.4); POTASSIUM 4.5 mmol/L (3.5-5.1)
[2019-12-01] MEDS ORDERED: PT OWN MED DRAWER 7, Y5N ONE (09:48)
[2019-12-01] MEDS: CHOLECALCIFEROL (VIT D3) 1,000 UNIT (25 MCG) TABLET PO SCH (09:52)
[2019-12-01] MEDS: CYANOCOBALAMIN 1,000 MCG TABLET (FP) PO SCH (09:52)
[2019-12-01] MEDS: TAMSULOSIN HCL 0.4 MG CAP PO SCH (09:52)
[2019-12-01] MEDS: BICTEGRAV/EMTRICIT/TENOFOV (BIKTARVY) 50-200-25 MG TABLET PO SCH (09:54)
[2019-12-01] MEDS: SODIUM CHLORIDE 1,000 ML IV SCH ×3 (12:50→22:55)
--- NOTE | 2019-12-01 13:06 | PN ---
Physical Exam: SUBJECTIVE: Patient seen and examined at the bedside. in bed in no acute distress. denies pain. OBJECTIVE: Patient is a 78 year old male with a significant past medical history of HIV ( on HAART therapy), hepatitis B, COPD, BPH with history of TURP in 2018. Patient presents to the ED on 11/26/2019 for urinary retention and hematuria. At home, his urine was initially pink tinged, then noted to be red in color with passing of some clots. A 3 way salas was placed on admission and CBI started. He is s/p cystoscopy on 11/27/2019. His urine culture is + for UTI (e coli) with sensitivities of Cefepime. slaas catheter with clear yellow urine. Vital Signs Period Temp Pulse Resp BP Sys/Nunez Pulse Ox Last 24 Hr 97.3 F-98.6 F 68-76 18-20 119-162/65-83 99-100 GENERAL: Awake, alert, and fully oriented, in no acute distress. HEAD: Normal with no signs of trauma. EYES: Pupils equal, round and reactive to light, extraocular movements intact, sclera anicteric, conjunctiva clear. No lid lag. EARS, NOSE, THROAT: Ears normal, nares patent, oropharynx clear without exudates. Moist mucous membranes. NECK: Normal range of motion, supple without lymphadenopathy, JVD, or masses. LUNGS: Breath sounds equal, clear to auscultation bilaterally. No wheezes, and no crackles. No accessory muscle use. HEART: Regular rate and rhythm, normal S1 and S2 without murmur, rub or gallop. ABDOMEN: soft, non distended, salas draining clear yellow urine MUSCULOSKELETAL: Normal range of motion at all joints. No bony deformities or tenderness. No CVA tenderness. UPPER EXTREMITIES: No peripheral edema. LOWER EXTREMITIES: 2+ bilaterally, has home compression stocking, skin scaly and dry PSYCHIATRIC: Cooperative. Good eye contact. Appropriate mood and affect. SKIN: dry Laboratory Results - last 24 hr 12/01/19 12/01/19 07:26 07:26 WBC 6.2 RBC 4.00 Hgb 9.6 L Hct 30.5 L MCV 76.2 L MCH 24.0 L MCHC 31.6 L RDW 18.2 H Plt Count 169 MPV 8.8 Absolute Neuts (auto) 3.7 Neutrophils % 60.4 Lymphocytes % 28.1 Monocytes % 6.9 Eosinophils % 4.1 Basophils % 0.5 Nucleated RBC % 0 Sodium 140 Potassium 4.5 Chloride 111 H Carbon Dioxide 26 Anion Gap 3 L BUN 15.8 Creatinine 1.6 H Est GFR (CKD-EPI)AfAm 47.46 Est GFR (CKD-EPI)NonAf 40.95 Random Glucose 79 Calcium 8.1 L Magnesium 2.1 Total Bilirubin 0.6 AST 21 ALT 11 L Alkaline Phosphatase 56 Total Protein 6.0 L Albumin 2.5 L Active Medications Generic Name Dose Route Start Last Admin Trade Name Freq PRN Reason Stop Dose Admin Bictegravir/Emtricitabine/Tenofovir 1 each 11/28/19 10:00 12/01/19 09:54 Biktarvy 50-200-25 Mg Tablet PO 1 each DAILY ELVIS Administration Cholecalciferol 2,000 unit 11/28/19 10:00 12/01/19 09:52 Vitamin D3 - PO 2,000 unit DAILY ELVIS Administration Cyanocobalamin 1,000 mcg 11/28/19 10:00 12/01/19 09:52 Vitamin B12 - PO 1,000 mcg DAILY ELVIS Administration Cefazolin Sodium 1 gm/ 50 mls @ 100 mls/hr 11/27/19 18:00 12/01/19 09:53 Dextrose IVPB 100 mls/hr Q8H-IV ELVIS Administration Sodium Chloride 1,000 mls @ 100 mls/hr 11/27/19 16:28 11/30/19 17:00 Normal Saline - IV Not Given ASDIR ELVIS Ondansetron HCl 4 mg 11/27/19 16:28 Zofran Injection IVPUSH Q6H PRN NAUSEA AND/OR VOMITING Rosuvastatin Calcium 10 mg 11/27/19 22:00 11/30/19 21:11 Crestor - PO 10 mg HS ELVIS Administration Tamsulosin HCl 0.4 mg 11/28/19 08:30 12/01/19 09:52 Flomax - PO 0.4 mg DAILY@0830 ELVIS Administration ASSESSMENT/PLAN: Problem List - Problems (1) Hematuria Assessment/Plan: patient with difficulty urinating and with clots on admission, 3 way salas inserted and placed on CBI on admission. renal ultrasound shows mildly atrophic kidneys. abd/pelvis ct: no urinary calculi or obstructive uropathy, irregular distended thick walled urinary bladder with hyperdense material that may represent blood. right lobe liver lesions consisting with hemangioma. had cystoscopy 11/27/2019, salas draining yellow clear urine now urology follow up. Code(s): R31.9 - HEMATURIA, UNSPECIFIED (2) Urinary tract infection Assessment/Plan: ecoli on urine culture with 70-80 colony count, with sensitivities to cefazolin Code(s): N39.0 - URINARY TRACT INFECTION, SITE NOT SPECIFIED Qualifiers: Urinary tract infection type: acute cystitis Hematuria presence: with hematuria Qualified Code(s): N30.01 - Acute cystitis with hematuria (3) S/P cystoscopy Assessment/Plan: results of cystoscopy pending CBI discontinued and salas catheter draining clear yellow urine Code(s): Z98.890 - OTHER SPECIFIED POSTPROCEDURAL STATES (4) Liver lesion, right lobe Assessment/Plan: lobe liver lesions consisting with hemangioma seen on ct/abdomen/pelvis. will need outpatient follow up. Code(s): K76.9 - LIVER DISEASE, UNSPECIFIED (5) Urinary retention Assessment/Plan: s/p cystoscopy, now with clear yellow urine Code(s): R33.9 - RETENTION OF URINE, UNSPECIFIED (6) Acute blood loss anemia Assessment/Plan: secondary to hematuria, but now resolved. repeat cbc in a.m Code(s): D62 - ACUTE POSTHEMORRHAGIC ANEMIA (7) COPD (chronic obstructive pulmonary disease) Assessment/Plan: not in acute exacerbation duonebs prn Code(s): J44.9 - CHRONIC OBSTRUCTIVE PULMONARY DISEASE, UNSPECIFIED (8) PING (acute kidney injury) Assessment/Plan: ckd at baseline Code(s): N17.9 - ACUTE KIDNEY FAILURE, UNSPECIFIED (9) HIV (human immunodeficiency virus infection) Assessment/Plan: continue home HAART therapy follows with Dr. Holland at the [facility] Code(s): Z21 - ASYMPTOMATIC HUMAN IMMUNODEFICIENCY VIRUS INFECTION STATUS (10) HTN (hypertension) Assessment/Plan: continue home medications. hold HCTZ for PING Code(s): I10 - ESSENTIAL (PRIMARY) HYPERTENSION (11) DVT prophylaxis Assessment/Plan: SCDs/TEDs Code(s): Z29.9 - ENCOUNTER FOR PROPHYLACTIC MEASURES, UNSPECIFIED (12) Prophylactic measure Assessment/Plan: fen ns @ 100cc/hr monitor electrolytes low salt diet full code Code(s): Z29.9 - ENCOUNTER FOR PROPHYLACTIC MEASURES, UNSPECIFIED Visit type - Emergency Visit Emergency Visit: Yes ED Registration Date: 11/26/19 Care time: The patient presented to the Emergency Department on the above date and was hospitalized for further evaluation of their emergent condition. - New Patient This patient is new to me today: No - Critical Care Critical Care patient: No - Discharge Referral Referred to [facility] Med P.C.: No
[2019-12-01] MEDS: ROSUVASTATIN CA 10 MG TABLET (FP) PO SCH (22:54)
[2019-12-02] MEDS ORDERED: ceFAZolin SODIUM 1 GM VIAL ONE ×2 (01:33→09:14)
[2019-12-02] MEDS ORDERED: DEXTROSE 5%-WATER - 50 ML IVPB ONE ×2 (01:34→09:14)
[2019-12-02] MEDS: CEFAZOLIN 1 GM in DEXTROSE 5%-WATER - 50 ML IVPB SCH ×2 (02:10→11:29)
[2019-12-02 08:23] LABS: BASO % 0.6 % (0-2.0); EOS % 4.5 % (0-4.5); HEMATOCRIT 30.9 % (35.4-49); HEMOGLOBIN 9.7 GM/dL (11.7-16.9); LYMPH % 25.2 % (8-40); MCH 23.9 pg (25.7-33.7); MCHC 31.3 g/dl (32.0-35.9); MEAN CELL VOLUME 76.3 fl (80-96); MEAN PLT VOLUME 8.6 fl (7.5-11.1); MONO % 6.6 % (3.8-10.2); NEUT % 63.1 % (42.8-82.8); PLATELET COUNT 171 K/MM3 (134-434); RBC 4.05 M/mm3 (4.00-5.60); RDW 17.6 % (11.9-15.9); WHITE BLOOD COUNT 5.8 K/mm3 (4.0-10.0)
[2019-12-02 08:49] LABS: ALBUMIN 2.3 g/dl (3.4-5.0); BILIRUBIN,TOTAL 0.5 mg/dL (0.2-1); BLOOD UREA NITROGEN 14.3 mg/dL (7-18); CREATININE 1.5 mg/dL (0.55-1.3); MAGNESIUM 1.9 mg/dL (1.8-2.4); POTASSIUM 4.4 mmol/L (3.5-5.1); TOT PROT 5.9 g/dl (6.4-8.2)
--- NOTE | 2019-12-02 10:54 | PN ---
Progress Note (short form) - Note Progress Note: urine is clear today can discharge with the salas and come to office on 12/04/19 for cath removal [phone]
[2019-12-02] MEDS: CHOLECALCIFEROL (VIT D3) 1,000 UNIT (25 MCG) TABLET PO SCH (11:29)
[2019-12-02] MEDS: CYANOCOBALAMIN 1,000 MCG TABLET (FP) PO SCH (11:29)
[2019-12-02] MEDS: TAMSULOSIN HCL 0.4 MG CAP PO SCH (11:30)
[2019-12-02] MEDS: BICTEGRAV/EMTRICIT/TENOFOV (BIKTARVY) 50-200-25 MG TABLET PO SCH (11:31)
--- NOTE | 2019-12-02 13:24 | DS ---
Physical Exam: SUBJECTIVE: Patient seen and examined at the bedside. in bed in no acute distress. denies pain. patient to be discharged home today with a leg salas bag and to follow up with urologist on Saturday. OBJECTIVE: Patient is a 79 year old male with a significant past medical history of HIV ( on HAART therapy), hepatitis B, COPD, BPH with history of TURP in 2018. Patient presents to the ED on 11/26/2019 for urinary retention and hematuria. At home, his urine was initially pink tinged, then noted to be red in color with passing of some clots. A 3 way salas was placed on admission and CBI started. He is s/p cystoscopy on 11/27/2019. He now has a salas catheter with clear yellow urine and will be sent home with a salas leg bag with VNS referral. He will see urologist this Saturday for salas catheter removal and post op follow up. His urine culture is + for UTI (e coli) with sensitivities of Cefepime and will be sent home on Keflex 500mg twice per day for 5 more days. Vital Signs Period Temp Pulse Resp BP Sys/Nunez Pulse Ox Last 24 Hr 98.0 F-98.5 F 67-73 18-19 120-150/55-76 98 PHYSICAL EXAM GENERAL: Awake, alert, and fully oriented, in no acute distress. HEAD: Normal with no signs of trauma. EYES: Pupils equal, round and reactive to light, extraocular movements intact, sclera anicteric, conjunctiva clear. No lid lag. EARS, NOSE, THROAT: Ears normal, nares patent, oropharynx clear without exudates. Moist mucous membranes. NECK: Normal range of motion, supple without lymphadenopathy, JVD, or masses. LUNGS: Breath sounds equal, clear to auscultation bilaterally. No wheezes, and no crackles. No accessory muscle use. HEART: Regular rate and rhythm, normal S1 and S2 without murmur, rub or gallop. ABDOMEN: soft, non distended, salas draining clear yellow urine MUSCULOSKELETAL: Normal range of motion at all joints. No bony deformities or tenderness. No CVA tenderness. UPPER EXTREMITIES: No peripheral edema. LOWER EXTREMITIES: 2+ bilaterally, has home compression stocking, skin scaly and dry PSYCHIATRIC: Cooperative. Good eye contact. Appropriate mood and affect. SKIN: dry LABS Laboratory Results - last 24 hr 12/02/19 12/02/19 07:56 07:56 WBC 5.8 RBC 4.05 Hgb 9.7 L Hct 30.9 L MCV 76.3 L MCH 23.9 L MCHC 31.3 L RDW 17.6 H Plt Count 171 MPV 8.6 Absolute Neuts (auto) 3.7 Neutrophils % 63.1 Lymphocytes % 25.2 Monocytes % 6.6 Eosinophils % 4.5 Basophils % 0.6 Nucleated RBC % 0 Sodium 141 Potassium 4.4 Chloride 113 H Carbon Dioxide 25 Anion Gap 4 L BUN 14.3 Creatinine 1.5 H Est GFR (CKD-EPI)AfAm 51.31 Est GFR (CKD-EPI)NonAf 44.27 Random Glucose 86 Calcium 8.0 L Magnesium 1.9 Total Bilirubin 0.5 AST 17 ALT 11 L Alkaline Phosphatase 54 Total Protein 5.9 L Albumin 2.3 L HOSPITAL COURSE: Date of Admission:11/26/19 Date of Discharge: 12/02/19 Minutes to complete discharge: 45 Discharge Summary Problems reviewed: Yes Reason For Visit: HEMATURIA,RETENTION OF URINE Current Active Problems Acute blood loss anemia (Acute) COPD (chronic obstructive pulmonary disease) (Acute) DVT prophylaxis (Acute) Hematuria (Acute) Liver lesion, right lobe (Acute) Prophylactic measure (Acute) S/P cystoscopy (Acute) Urinary retention (Acute) Condition: Stable - Instructions Diet, Activity, Other Instructions: Mr Byers: You were admitted to [facility] for hematuria (blood in the urine). You had a cystoscopy with Dr. Yung and we will be discharging you home today with a salas leg bag. Dr. Yung would like for your to come to his office on 12/04/2019 for removal of your salas. Please call his office to confirm the time for your appointment with him [phone]. Medications: We found that you have a urinary tract infection. We treated you with antibiotics intravenously and will be sending you home on Keflex 500mg TWICE per day for 5 more days. Please continue all your other home medications as directed. Follow ups: Please follow up with Dr. Holland at the [facility] Please see Dr. Yung this Saturday12/04/2019 for a follow up appointment and to remove your salas. 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 We have sent you with a referral for a gastroentrologist followup for the liver meningioma and you may need further imaging Thank you for allowing us to care for you. Referrals: Yennifer Holland MD [Primary Care Provider] - Cecy Gibbons DO [Staff Physician] - Sergio Yung MD [Staff Physician] - Disposition: HOME - Home Medications Comprehensive Discharge Medication List: Ambulatory Orders Bictegrav/Emtricit/Tenofov Ala [Biktarvy 50-200-25 mg Tablet] 1 each PO DAILY # 30 tablet 09/17/19 Cholecalciferol (Vitamin D3) [Vitamin D3] 2,000 unit PO DAILY #30 capsule Cyanocobalamin (Vitamin B-12) [Vitamin B12] 1,000 mcg PO DAILY #30 tab.chew Rosuvastatin Calcium [Crestor] 10 mg PO DAILY #30 tablet 09/17/19 Tamsulosin HCl [Flomax] 0.4 mg PO DAILY #30 capsule 09/17/19 Cephalexin [Keflex] 500 mg PO DAILY 5 Days #10 capsule 12/02/19 Problem List - Problems (1) Hematuria Assessment/Plan: resolved. patient with difficulty urinating and with clots on admission, 3 way salas inserted and placed on CBI on admission. renal ultrasound shows mildly atrophic kidneys. abd/pelvis ct: no urinary calculi or obstructive uropathy, irregular distended thick walled urinary bladder with hyperdense material that may represent blood. right lobe liver lesions consisting with hemangioma. had cystoscopy 11/27/2019, salas draining yellow clear urine now urology follow up. Code(s): R31.9 - HEMATURIA, UNSPECIFIED (2) Urinary tract infection Assessment/Plan: ecoli on urine culture with 70-80 colony count, with sensitivities to cefazolin Code(s): N39.0 - URINARY TRACT INFECTION, SITE NOT SPECIFIED Qualifiers: Urinary tract infection type: acute cystitis Hematuria presence: with hematuria Qualified Code(s): N30.01 - Acute cystitis with hematuria (3) S/P cystoscopy Assessment/Plan: results of cystoscopy pending CBI discontinued and salas catheter draining clear yellow urine patient discharged with salas catheter and to see urologist this Saturday (Dr. Yung) Code(s): Z98.890 - OTHER SPECIFIED POSTPROCEDURAL STATES (4) Liver lesion, right lobe Assessment/Plan: lobe liver lesions consisting with hemangioma seen on ct/abdomen/pelvis. will need outpatient follow up. Code(s): K76.9 - LIVER DISEASE, UNSPECIFIED (5) Urinary retention Assessment/Plan: s/p cystoscopy, now with clear yellow urine Code(s): R33.9 - RETENTION OF URINE, UNSPECIFIED (6) Acute blood loss anemia Assessment/Plan: secondary to hematuria, but now resolved. repeat cbc in a.m Code(s): D62 - ACUTE POSTHEMORRHAGIC ANEMIA (7) COPD (chronic obstructive pulmonary disease) Assessment/Plan: not in acute exacerbation duonebs prn Code(s): J44.9 - CHRONIC OBSTRUCTIVE PULMONARY DISEASE, UNSPECIFIED (8) PING (acute kidney injury) Assessment/Plan: ckd at baseline Code(s): N17.9 - ACUTE KIDNEY FAILURE, UNSPECIFIED (9) HIV (human immunodeficiency virus infection) Assessment/Plan: continue home HAART therapy follows with Dr. Holland at the [facility] Code(s): Z21 - ASYMPTOMATIC HUMAN IMMUNODEFICIENCY VIRUS INFECTION STATUS (10) HTN (hypertension) Assessment/Plan: continue home medications. hold HCTZ for PING Code(s): I10 - ESSENTIAL (PRIMARY) HYPERTENSION (11) DVT prophylaxis Assessment/Plan: SCDs/TEDs Code(s): Z29.9 - ENCOUNTER FOR PROPHYLACTIC MEASURES, UNSPECIFIED (12) Prophylactic measure Assessment/Plan: Code(s): Z29.9 - ENCOUNTER FOR PROPHYLACTIC MEASURES, UNSPECIFIED This patient is new to me today: No Emergency Visit: Yes ED Registration Date: 11/26/19 Care time: The patient presented to the Emergency Department on the above date and was hospitalized for further evaluation of their emergent condition. Critical Care patient: No - Discharge Referral Referred to [facility] No
[2019-12-02 14:30] VITALS: BP 119/57; PULSE 74; TEMP 97.2
== END 2019-12-02 16:27 | disposition home or self-care (01) | DRG 713 ==
LOC: SUPCPDRO 10:54 → JER 10:54 → JERBED 15:57 → J7W 18:53
PROVIDERS: ADMIT Internal Medicine; ATTEND Nurse Practitioner Family
PROC: 0V508ZZ Destruction of Prostate, Via Natural or Artificial Opening Endoscopic (ICD-10-PCS; principal; 2019-11-26)
PROC: 0TCB8ZZ Extirpation of Matter from Bladder, Via Natural or Artificial Opening Endoscopic (ICD-10-PCS; 2019-11-26)
DX: N40.1 Benign prostatic hyperplasia with lower urinary tract symptoms (principal); D62 Acute posthemorrhagic anemia; N17.9 Acute kidney failure, unspecified; N39.0 Urinary tract infection, site not specified; R31.0 Gross hematuria; R33.8 Other retention of urine; J44.9 Chronic obstructive pulmonary disease, unspecified; E78.5 Hyperlipidemia, unspecified; Z21 Asymptomatic human immunodeficiency virus [HIV] infection status; I10 Essential (primary) hypertension; D64.9 Anemia, unspecified; E04.9 Nontoxic goiter, unspecified; R33.9 Retention of urine, unspecified; K76.9 Liver disease, unspecified; B96.20 Unspecified Escherichia coli [E. coli] as the cause of diseases classified elsewhere; Z98.890 Other specified postprocedural states; Z86.19 Personal history of other infectious and parasitic diseases
CPT/HCPCS: 36415; 74176-TC; 76775-TC; 80053; 81003; 83735; 85025; 85027; 85610; 86850; 86900; 86901; 87086; 87186; 93005; 93010; 94760; 99284-25; J0131; J7030

== ENCOUNTER 2020-09-18 10:30 | Inpatient (IN) | payer OTHER ==
[2020-09-18] MEDS ORDERED: SODIUM CHLORIDE 0.9% 500 ML INFUS.BAG IV ONE ×2 (10:51→12:12)
[2020-09-18 11:32] LABS: VENOUS BASE EXCESS -7.1 mmol/L (-2-2); VENOUS O2 SATURATION 43.6 % (70-80); VENOUS PCO2 34.5 mmHg (38-52); VENOUS PH 7.331 (7.310-7.410)
[2020-09-18 11:36] LABS: HEMATOCRIT 44.1 % (35.4-49); HEMOGLOBIN 13.4 GM/dL (11.7-16.9); LYMPH % 2.8 % (8-40); MCH 25.9 pg (25.7-33.7); MCHC 30.4 g/dl (32.0-35.9); MEAN CELL VOLUME 85.3 fl (80-96); MEAN PLT VOLUME 10.5 fl (7.5-11.1); MONO % 5.5 % (3.8-10.2); NEUT % 91.7 % (42.8-82.8); PLATELET COUNT 268 K/MM3 (134-434); RBC 5.17 M/mm3 (4.00-5.60); RDW 15.4 % (11.9-15.9); WHITE BLOOD COUNT 13.2 K/mm3 (4.0-10.0)
[2020-09-18 11:39] LABS: INR 1.52 (0.83-1.09); PROTHROMBIN TIME (PATIENT) 18.5 SEC (9.7-13.0)
[2020-09-18 11:42] LABS: ACTIVATED PTT 30.4 SECONDS (25.2-36.5)
[2020-09-18 11:49] LABS: ALBUMIN 2.5 g/dl (3.4-5.0); CALCIUM 9.9 mg/dL (8.5-10.1)
[2020-09-18 11:55] LABS: BILIRUBIN,TOTAL 1.1 mg/dL (0.2-1)
[2020-09-18 12:02] LABS: BLOOD UREA NITROGEN 165.6 mg/dL (7-18); CREATININE 11.9 mg/dL (0.55-1.3); POTASSIUM 6.1 mmol/L (3.5-5.1)
[2020-09-18] MEDS ORDERED: INSULIN REGULAR HUMAN 100 UNITS/ML *VIAL IVPUSH ONE (12:17)
[2020-09-18] MEDS ORDERED: CALCIUM GLUCONATE 10% - 1,000 MG/10 ML VIAL IVPB ONE (12:22)
[2020-09-18] MEDS ORDERED: CALCIUM GLUCONATE 10% - 1,000 MG/10 ML VIAL ONE (12:27)
[2020-09-18] MEDS ORDERED: SODIUM BICARBONATE 8.4% - 50 ML ONE (12:27)
[2020-09-18] MEDS ORDERED: SODIUM BICARBONATE 8.4% 50 MEQ/50 ML DISP.SYRIN IVPUSH ONE (12:27)
[2020-09-18] MEDS ORDERED: DEXTROSE 50%-WATER - 25 GM/50 ML VIAL IVPUSH ONE (12:29)
[2020-09-18] MEDS ORDERED: DEXTROSE 5%-WATER - 1,000 ML IV SCH (12:30)
[2020-09-18] MEDS ORDERED: SODIUM BICARBONATE 8.4% - 150 MEQ in DEXTROSE 5%-WATER - 950 ML IVPB SCH (12:30)
[2020-09-18] MEDS ORDERED: PIPERACILLIN/TAZOB 2.25 GM 2.25 GM in DEXTROSE 5%-WATER - 50 ML IVPB ONE (13:10)
[2020-09-18] MEDS ORDERED: VANCOMYCIN 1 GM in D5W (PRE-DOCKED) 1,000 MG/250 ML IVPB ONE (13:10)
[2020-09-18] MEDS ORDERED: SODIUM CHLORIDE 1,000 ML IV SCH (13:30)
[2020-09-18] MEDS ORDERED: PIPERACILLIN/TAZOB 2.25 GM 2.25 GM/50 ML BAG IVPB ONE (13:59)
[2020-09-18] MEDS ORDERED: VANCOMYCIN 1 GRAM (PRE-DOCKED) 1,000 MG/250 ML BAG IVPB ONE (13:59)
[2020-09-18 14:46] LABS: CALCIUM 8.2 mg/dL (8.5-10.1); CHLORIDE 126 mmol/L (98-107); POTASSIUM 5.2 mmol/L (3.5-5.1); SODIUM 157 mmol/L (136-145)
[2020-09-18 14:47] LABS: ANION GAP 12 MMOL/L (8-16); CO2 19 mmol/L (21-32); GLUCOSE,RANDOM 175 mg/dL (74-106)
[2020-09-18 14:54] LABS: BLOOD UREA NITROGEN > 150.0 mg/dL (7-18); CREATININE 10.3 mg/dL (0.55-1.3)
[2020-09-18] MEDS: SODIUM CHLORIDE 0.45% 1,000 ML IV SCH (17:04)
[2020-09-18] MEDS ORDERED: PIPERACILLIN/TAZOBACTAM 2.25 GM VIAL IVPB ONE (18:26)
[2020-09-18] MEDS ORDERED: DEXTROSE 5%-WATER - 50 ML IVPB ONE (18:26)
[2020-09-18] MEDS ORDERED: LIDOCAINE HCL 2% JELLY 10 ML CARTRIDGE UR ONE (19:21)
[2020-09-18] MEDS: PIPERACILLIN/TAZOB 2.25 GM 2.25 GM in DEXTROSE 5%-WATER - 50 ML IVPB SCH (19:27)
[2020-09-18 20:47] LABS: HEMATOCRIT 36.5 % (35.4-49); HEMOGLOBIN 11.3 GM/dL (11.7-16.9); MCH 26.2 pg (25.7-33.7); MCHC 30.8 g/dl (32.0-35.9); MEAN PLT VOLUME 10.9 fl (7.5-11.1); PLATELET COUNT 198 K/MM3 (134-434); RDW 15.6 % (11.9-15.9); WHITE BLOOD COUNT 12.1 K/mm3 (4.0-10.0)
[2020-09-18] MEDS: ROSUVASTATIN CA 10 MG TABLET (FP) PO SCH (21:16)
[2020-09-18] MEDS ORDERED: SODIUM CHLORIDE 0.45% 500 ML IV SCH ×2 (22:30→23:15)
[2020-09-19] MEDS ORDERED: PIPERACILLIN/TAZOBACTAM 2.25 GM VIAL IVPB ONE ×3 (01:06→16:54)
[2020-09-19] MEDS ORDERED: DEXTROSE 5%-WATER - 50 ML IVPB ONE ×3 (01:06→16:54)
[2020-09-19] MEDS: PIPERACILLIN/TAZOB 2.25 GM 2.25 GM in DEXTROSE 5%-WATER - 50 ML IVPB SCH ×3 (01:13→17:38)
[2020-09-19] MEDS ORDERED: SODIUM CHLORIDE 0.45% 500 ML IV SCH (06:45)
[2020-09-19] MEDS ORDERED: SODIUM CHLORIDE 0.45% 1,000 ML IV SCH (06:45)
[2020-09-19 07:07] LABS: POTASSIUM 4.6 mmol/L (3.5-5.1)
[2020-09-19 07:09] LABS: CALCIUM 7.9 mg/dL (8.5-10.1)
[2020-09-19 07:10] LABS: ALBUMIN 1.6 g/dl (3.4-5.0); MAGNESIUM 2.7 mg/dL (1.8-2.4)
[2020-09-19 07:13] LABS: PHOSPHOROUS 4.8 mg/dL (2.5-4.9)
[2020-09-19 07:14] LABS: BILIRUBIN,TOTAL 0.9 mg/dL (0.2-1)
[2020-09-19 07:31] LABS: TOT PROT 5.3 g/dl (6.4-8.2)
[2020-09-19 07:32] LABS: BLOOD UREA NITROGEN 144.7 mg/dL (7-18); CREATININE 10.3 mg/dL (0.55-1.3)
[2020-09-19 09:02] LABS: BASO % 0.1 % (0-2.0); HEMATOCRIT 33.7 % (35.4-49); HEMOGLOBIN 10.2 GM/dL (11.7-16.9); LYMPH % 5.3 % (8-40); MCH 25.7 pg (25.7-33.7); MCHC 30.4 g/dl (32.0-35.9); MEAN CELL VOLUME 84.6 fl (80-96); MEAN PLT VOLUME 10.3 fl (7.5-11.1); MONO % 6.1 % (3.8-10.2); NEUT % 88.5 % (42.8-82.8); PLATELET COUNT 178 K/MM3 (134-434); RBC 3.98 M/mm3 (4.00-5.60); RDW 15.2 % (11.9-15.9); WHITE BLOOD COUNT 10.3 K/mm3 (4.0-10.0)
[2020-09-19] MEDS: TAMSULOSIN HCL 0.4 MG CAP PO SCH ×2 (09:30→10:14)
[2020-09-19] MEDS: SODIUM CHLORIDE 0.45% 1,000 ML IV SCH ×2 (10:03→16:25)
[2020-09-19] MEDS: PANTOPRAZOLE 40 MG TABLET PO SCH ×2 (10:06→10:15)
[2020-09-19] MEDS ORDERED: SODIUM ZIRCONIUM CYCLOSILICATE (LOKELMA) 5 GM PACKET PO ONE (12:26)
[2020-09-19] MEDS: ROSUVASTATIN CA 10 MG TABLET (FP) PO SCH (22:59)
[2020-09-20] MEDS ORDERED: PIPERACILLIN/TAZOBACTAM 2.25 GM VIAL IVPB ONE ×3 (01:41→16:13)
[2020-09-20] MEDS ORDERED: DEXTROSE 5%-WATER - 50 ML IVPB ONE ×3 (01:41→16:13)
[2020-09-20] MEDS: PIPERACILLIN/TAZOB 2.25 GM 2.25 GM in DEXTROSE 5%-WATER - 50 ML IVPB SCH ×3 (01:44→17:06)
[2020-09-20 06:22] LABS: BASO % 0.1 % (0-2.0); HEMATOCRIT 32.6 % (35.4-49); LYMPH % 4.3 % (8-40); MCH 25.9 pg (25.7-33.7); MCHC 30.6 g/dl (32.0-35.9); MEAN CELL VOLUME 84.8 fl (80-96); MEAN PLT VOLUME 10.3 fl (7.5-11.1); MONO % 4.3 % (3.8-10.2); NEUT % 91.3 % (42.8-82.8); PLATELET COUNT 174 K/MM3 (134-434); RBC 3.85 M/mm3 (4.00-5.60); RDW 15.4 % (11.9-15.9); WHITE BLOOD COUNT 11.8 K/mm3 (4.0-10.0)
[2020-09-20 06:46] LABS: POTASSIUM 4.4 mmol/L (3.5-5.1)
[2020-09-20 06:49] LABS: ALBUMIN 1.4 g/dl (3.4-5.0); CALCIUM 7.9 mg/dL (8.5-10.1); MAGNESIUM 2.5 mg/dL (1.8-2.4)
[2020-09-20 06:52] LABS: PHOSPHOROUS 6.2 mg/dL (2.5-4.9)
[2020-09-20 06:54] LABS: BILIRUBIN,TOTAL 0.8 mg/dL (0.2-1)
[2020-09-20 07:04] LABS: BLOOD UREA NITROGEN 136.6 mg/dL (7-18); CREATININE 9.1 mg/dL (0.55-1.3)
[2020-09-20] MEDS ORDERED: LACTATED RINGERS SOLUTION 1000 ML INFUS.BAG IV ONE (07:43)
[2020-09-20] MEDS: TAMSULOSIN HCL 0.4 MG CAP PO SCH (08:03)
[2020-09-20] MEDS: PANTOPRAZOLE 40 MG TABLET PO SCH (09:07)
[2020-09-20 12:02] LABS: ANISOCYTOSIS 0; MACROCYTOSIS 0; PLATELET ESTIMATE NORMAL
[2020-09-20] MEDS: DEXTROSE 5%-LACTATED RINGERS 1,000 ML IV SCH (14:15)
[2020-09-20] MEDS ORDERED: ACETAMINOPHEN 1000 MG/100 ML VIAL (NON FORMULARY) IVPB ONE (15:57)
[2020-09-20] MEDS ORDERED: LACTATED RINGERS SOLUTION 1,000 ML/1,000 ML INFUS.BAG IV ONE (16:01)
[2020-09-20] MEDS ORDERED: LIDOCAINE VISCOUS 2% ORAL/TOP 100 ML BOTTLE MM ONE (16:42)
[2020-09-20] MEDS ORDERED: LIDOCAINE HCL 2% JELLY (30 ML/TUBE) TP ONE (16:44)
[2020-09-20] MEDS ORDERED: LIDOCAINE HCL 1%, 10 MG/ML (20ML VIAL) ONE (17:19)
[2020-09-20] MEDS ORDERED: LACTATED RINGERS SOLUTION 1,000 ML/1,000 ML INFUS.BAG IV STA (18:48)
[2020-09-20] MEDS: ROSUVASTATIN CA 10 MG TABLET (FP) PO SCH (21:39)
[2020-09-20] MEDS: PHENYLEPHRINE 0.5% NASAL SPRAY 15 ML BOTTLE NS SCH (21:44)
[2020-09-20] MEDS ORDERED: VASOPRESSIN 20 UNITS/ML VIAL IV ONE (21:48)
[2020-09-20] MEDS: VASOPRESSIN 40 UNITS in SODIUM CHLORIDE 98 ML IVPB SCH (22:00)
[2020-09-21] MEDS ORDERED: PIPERACILLIN/TAZOBACTAM 2.25 GM VIAL IVPB ONE ×3 (01:26→16:43)
[2020-09-21] MEDS ORDERED: DEXTROSE 5%-WATER - 50 ML IVPB ONE ×3 (01:26→16:43)
[2020-09-21] MEDS: PIPERACILLIN/TAZOB 2.25 GM 2.25 GM in DEXTROSE 5%-WATER - 50 ML IVPB SCH ×3 (02:01→17:48)
[2020-09-21 06:52] LABS: INR 2.05 (0.83-1.09); PROTHROMBIN TIME (PATIENT) 24.7 SEC (9.7-13.0)
[2020-09-21 07:12] LABS: POTASSIUM 3.7 mmol/L (3.5-5.1)
[2020-09-21 07:19] LABS: ALBUMIN 1.3 g/dl (3.4-5.0); CALCIUM 7.7 mg/dL (8.5-10.1); MAGNESIUM 2.1 mg/dL (1.8-2.4)
[2020-09-21 07:21] LABS: PHOSPHOROUS 5.9 mg/dL (2.5-4.9)
[2020-09-21 07:23] LABS: TOT PROT 4.8 g/dl (6.4-8.2)
[2020-09-21 07:26] LABS: BILIRUBIN,TOTAL 0.7 mg/dL (0.2-1)
[2020-09-21 07:28] LABS: BLOOD UREA NITROGEN 119.7 mg/dL (7-18)
[2020-09-21 07:29] LABS: CREATININE 7.8 mg/dL (0.55-1.3)
[2020-09-21] MEDS: TAMSULOSIN HCL 0.4 MG CAP PO SCH (09:29)
[2020-09-21] MEDS: PANTOPRAZOLE 40 MG TABLET PO SCH (09:30)
[2020-09-21] MEDS: PANTOPRAZOLE SODIUM 40 MG VIAL IVPUSH SCH (11:00)
[2020-09-21] MEDS: PHENYLEPHRINE 0.5% NASAL SPRAY 15 ML BOTTLE NS SCH ×2 (11:21→21:58)
[2020-09-21] MEDS ORDERED: PHYTONADIONE 10 MG/1 ML AMP IVPB ONE (11:52)
[2020-09-21] MEDS: D5-1/2NS+10 MEQ KCL - 10 MEQ/1,000 ML INFUS.BAG IV SCH (13:10)
[2020-09-21 15:07] LABS: ATYPICAL pANCA <1:20 titer (Neg:<1:20); C-ANCA <1:20 titer (Neg:<1:20)
[2020-09-21] MEDS: VASOPRESSIN 40 UNITS in SODIUM CHLORIDE 98 ML IVPB SCH (21:58)
[2020-09-21] MEDS: ROSUVASTATIN CA 10 MG TABLET (FP) PO SCH (21:58)
[2020-09-22] MEDS: VASOPRESSIN 40 UNITS in SODIUM CHLORIDE 98 ML IVPB SCH (01:25)
[2020-09-22] MEDS: D5-1/2NS+10 MEQ KCL - 10 MEQ/1,000 ML INFUS.BAG IV SCH ×2 (01:25→19:33)
[2020-09-22] MEDS: DEXTROSE 5%-LACTATED RINGERS 1,000 ML IV SCH (01:26)
[2020-09-22] MEDS ORDERED: PIPERACILLIN/TAZOBACTAM 2.25 GM VIAL IVPB ONE ×3 (01:27→15:58)
[2020-09-22] MEDS ORDERED: DEXTROSE 5%-WATER - 50 ML IVPB ONE ×3 (01:27→15:59)
[2020-09-22] MEDS: PIPERACILLIN/TAZOB 2.25 GM 2.25 GM in DEXTROSE 5%-WATER - 50 ML IVPB SCH ×3 (01:59→17:27)
[2020-09-22 07:24] LABS: INR 1.49 (0.83-1.09); PROTHROMBIN TIME (PATIENT) 17.8 SEC (9.7-13.0)
[2020-09-22 07:27] LABS: BASO % 0.1 % (0-2.0); EOS % 0.4 % (0-4.5); HEMATOCRIT 29.1 % (35.4-49); LYMPH % 4.8 % (8-40); MCH 25.5 pg (25.7-33.7); MCHC 30.9 g/dl (32.0-35.9); MEAN CELL VOLUME 82.7 fl (80-96); MEAN PLT VOLUME 9.9 fl (7.5-11.1); MONO % 4.2 % (3.8-10.2); NEUT % 90.5 % (42.8-82.8); PLATELET COUNT 152 K/MM3 (134-434); RBC 3.51 M/mm3 (4.00-5.60); RDW 15.5 % (11.9-15.9); WHITE BLOOD COUNT 11.3 K/mm3 (4.0-10.0)
[2020-09-22 08:22] LABS: CALCIUM 7.8 mg/dL (8.5-10.1)
[2020-09-22 08:23] LABS: ALBUMIN 1.4 g/dl (3.4-5.0)
[2020-09-22 08:25] LABS: CREATININE 6.5 mg/dL (0.55-1.3)
[2020-09-22 08:26] LABS: PHOSPHOROUS 4.4 mg/dL (2.5-4.9)
[2020-09-22 08:27] LABS: BILIRUBIN,TOTAL 1.2 mg/dL (0.2-1); TOT PROT 4.9 g/dl (6.4-8.2)
[2020-09-22] MEDS: TAMSULOSIN HCL 0.4 MG CAP PO SCH (08:30)
[2020-09-22 08:41] LABS: BLOOD UREA NITROGEN 104.7 mg/dL (7-18)
[2020-09-22] MEDS: PHENYLEPHRINE 0.5% NASAL SPRAY 15 ML BOTTLE NS SCH ×2 (10:00→21:00)
[2020-09-22] MEDS ORDERED: MAGNESIUM 1GM/D5W 100ML - 100 ML IVPB IVPB ONE (10:00)
[2020-09-22] MEDS: PANTOPRAZOLE SODIUM 40 MG VIAL IVPUSH SCH (10:43)
[2020-09-22] MEDS ORDERED: NOREPINEPHRINE BITARTRATE 8,000 MCG/500 ML BAG IVPB ONE (10:48)
[2020-09-22] MEDS: NOREPINEPHRINE BITARTRATE 4,000 MCG in DEXTROSE 5%-WATER - 496 ML IV SCH (11:14)
[2020-09-22] MEDS: KCL 10 MEQ IVPB 10 MEQ/100 ML INFUS.BAG IVPB SCH ×2 (11:15→12:27)
[2020-09-22] MEDS ORDERED: D5-1/2NS+20 MEQ KCL - 20 MEQ/1,000 ML INFUS.BAG IV SCH (14:15)
[2020-09-22] MEDS ORDERED: DEXTROSE 5%-WATER - 1,000 ML with POTASSIUM CHLORIDE 40 MEQ IV SCH (15:00)
[2020-09-22 15:36] LABS: POTASSIUM 3.6 mmol/L (3.5-5.1)
[2020-09-22 15:38] LABS: BLOOD UREA NITROGEN 94.8 mg/dL (7-18)
[2020-09-22 15:41] LABS: CREATININE 6.3 mg/dL (0.55-1.3)
[2020-09-22] MEDS: POTASSIUM CHLORIDE 40 MEQ in DEXTROSE 5%-WATER - 1,000 ML IV SCH (18:45)
[2020-09-22] MEDS: ROSUVASTATIN CA 10 MG TABLET (FP) PO SCH (21:00)
[2020-09-23 01:54] LABS: HEMATOCRIT 32.2 % (35.4-49); HEMOGLOBIN 10.1 GM/dL (11.7-16.9); MCH 26.3 pg (25.7-33.7); MCHC 31.5 g/dl (32.0-35.9); MEAN CELL VOLUME 83.5 fl (80-96); MEAN PLT VOLUME 9.9 fl (7.5-11.1); PLATELET COUNT 183 K/MM3 (134-434); RBC 3.86 M/mm3 (4.00-5.60); RDW 15.2 % (11.9-15.9); WHITE BLOOD COUNT 13.6 K/mm3 (4.0-10.0)
[2020-09-23] MEDS ORDERED: PIPERACILLIN/TAZOBACTAM 2.25 GM VIAL IVPB ONE ×3 (02:13→16:02)
[2020-09-23] MEDS ORDERED: DEXTROSE 5%-WATER - 50 ML IVPB ONE ×3 (02:13→16:03)
[2020-09-23] MEDS: PIPERACILLIN/TAZOB 2.25 GM 2.25 GM in DEXTROSE 5%-WATER - 50 ML IVPB SCH ×3 (02:51→17:45)
[2020-09-23] MEDS: POTASSIUM CHLORIDE 40 MEQ in DEXTROSE 5%-WATER - 1,000 ML IV SCH ×2 (06:13→18:21)
[2020-09-23 07:24] LABS: BASO % 0.1 % (0-2.0); EOS % 0.8 % (0-4.5); HEMATOCRIT 32.9 % (35.4-49); HEMOGLOBIN 10.2 GM/dL (11.7-16.9); LYMPH % 7.6 % (8-40); MCH 25.7 pg (25.7-33.7); MCHC 31.1 g/dl (32.0-35.9); MEAN CELL VOLUME 82.4 fl (80-96); MEAN PLT VOLUME 9.4 fl (7.5-11.1); MONO % 3.4 % (3.8-10.2); NEUT % 88.1 % (42.8-82.8); PLATELET COUNT 197 K/MM3 (134-434); RBC 3.99 M/mm3 (4.00-5.60); RDW 15.5 % (11.9-15.9)
[2020-09-23 07:30] LABS: INR 1.35 (0.83-1.09); PROTHROMBIN TIME (PATIENT) 16.5 SEC (9.7-13.0)
[2020-09-23 07:32] LABS: ACTIVATED PTT 28.5 SECONDS (25.2-36.5)
[2020-09-23 07:48] LABS: POTASSIUM 3.3 mmol/L (3.5-5.1)
[2020-09-23 07:56] LABS: ALBUMIN 1.5 g/dl (3.4-5.0); CALCIUM 7.8 mg/dL (8.5-10.1)
[2020-09-23 07:57] LABS: BLOOD UREA NITROGEN 80.6 mg/dL (7-18); MAGNESIUM 1.8 mg/dL (1.8-2.4)
[2020-09-23 07:59] LABS: BILIRUBIN,DIRECT 0.2 mg/dL (0.0-0.2)
[2020-09-23 08:00] LABS: CREATININE 5.4 mg/dL (0.55-1.3); PHOSPHOROUS 2.8 mg/dL (2.5-4.9)
[2020-09-23 08:01] LABS: BILIRUBIN,TOTAL 0.6 mg/dL (0.2-1); TOT PROT 5.4 g/dl (6.4-8.2)
[2020-09-23] MEDS: TAMSULOSIN HCL 0.4 MG CAP PO SCH (08:30)
[2020-09-23] MEDS: PANTOPRAZOLE SODIUM 40 MG VIAL IVPUSH SCH (10:27)
[2020-09-23] MEDS ORDERED: MAGNESIUM 2GM/50ML STERILE WATER IVPB IVPB ONE (12:00)
[2020-09-23] MEDS: KCL 10 MEQ IVPB 10 MEQ/100 ML INFUS.BAG IVPB SCH ×2 (12:43→13:30)
[2020-09-23] MEDS ORDERED: PT OWN MED DRAWER 7, Y5N ONE (14:42)
[2020-09-23] MEDS: AMINO ACIDS 4.25%/D5W 1,000 ML IV SCH (18:18)
[2020-09-23] MEDS: MULTIVIT INJ. ADULT COMBO WITH VIT K 1 COMBO 10 ML VIAL IV SCH (18:19)
[2020-09-23] MEDS: ROSUVASTATIN CA 10 MG TABLET (FP) PO SCH (21:20)
[2020-09-24] MEDS ORDERED: DEXTROSE 5%-WATER - 50 ML IVPB ONE ×3 (00:52→17:21)
[2020-09-24] MEDS ORDERED: PIPERACILLIN/TAZOBACTAM 2.25 GM VIAL IVPB ONE ×3 (00:52→17:21)
[2020-09-24] MEDS: PIPERACILLIN/TAZOB 2.25 GM 2.25 GM in DEXTROSE 5%-WATER - 50 ML IVPB SCH ×3 (01:03→17:21)
[2020-09-24] MEDS: POTASSIUM CHLORIDE 40 MEQ in DEXTROSE 5%-WATER - 1,000 ML IV SCH (01:52)
[2020-09-24 07:08] LABS: BASO % 0.2 % (0-2.0); EOS % 0.7 % (0-4.5); HEMATOCRIT 31.9 % (35.4-49); HEMOGLOBIN 9.8 GM/dL (11.7-16.9); LYMPH % 7.8 % (8-40); MCH 25.8 pg (25.7-33.7); MCHC 30.8 g/dl (32.0-35.9); MEAN PLT VOLUME 9.8 fl (7.5-11.1); MONO % 4.4 % (3.8-10.2); NEUT % 86.9 % (42.8-82.8); PLATELET COUNT 175 K/MM3 (134-434); RDW 15.4 % (11.9-15.9); WHITE BLOOD COUNT 11.9 K/mm3 (4.0-10.0)
[2020-09-24 07:32] LABS: POTASSIUM 3.7 mmol/L (3.5-5.1)
[2020-09-24 07:39] LABS: CALCIUM 7.7 mg/dL (8.5-10.1)
[2020-09-24 07:40] LABS: ALBUMIN 1.5 g/dl (3.4-5.0); BLOOD UREA NITROGEN 67.6 mg/dL (7-18)
[2020-09-24 07:43] LABS: CREATININE 4.4 mg/dL (0.55-1.3); PHOSPHOROUS 2.4 mg/dL (2.5-4.9)
[2020-09-24 07:45] LABS: BILIRUBIN,TOTAL 0.7 mg/dL (0.2-1); TOT PROT 5.3 g/dl (6.4-8.2)
[2020-09-24] MEDS: AMINO ACIDS 4.25%/D5W 1,000 ML IV SCH ×2 (07:46→13:54)
[2020-09-24] MEDS: NOREPINEPHRINE BITARTRATE 4,000 MCG in DEXTROSE 5%-WATER - 496 ML IV SCH ×2 (07:46→12:55)
[2020-09-24] MEDS: TAMSULOSIN HCL 0.4 MG CAP PO SCH (08:43)
[2020-09-24] MEDS ORDERED: LACTATED RINGERS SOLUTION 1,000 ML/1,000 ML INFUS.BAG IV STA (08:54)
[2020-09-24] MEDS: PANTOPRAZOLE SODIUM 40 MG VIAL IVPUSH SCH (10:19)
[2020-09-24] MEDS ORDERED: PT OWN MED DRAWER 7, Y5N ONE (13:46)
[2020-09-24] MEDS: MULTIVIT INJ. ADULT COMBO WITH VIT K 1 COMBO 10 ML VIAL IV SCH (13:54)
[2020-09-24] MEDS: SODIUM CHLORIDE 0.45% 1,000 ML IV SCH (16:08)
[2020-09-24] MEDS: POTASSIUM CHLORIDE 40 MEQ in AMINO ACIDS 4.25%/D5W 1,000 ML IV SCH (17:22)
[2020-09-24] MEDS: ROSUVASTATIN CA 10 MG TABLET (FP) PO SCH (21:15)
[2020-09-25] MEDS ORDERED: DEXTROSE 5%-WATER - 50 ML IVPB ONE ×3 (01:25→18:31)
[2020-09-25] MEDS ORDERED: PIPERACILLIN/TAZOBACTAM 2.25 GM VIAL IVPB ONE ×3 (01:25→18:31)
[2020-09-25] MEDS: PIPERACILLIN/TAZOB 2.25 GM 2.25 GM in DEXTROSE 5%-WATER - 50 ML IVPB SCH ×3 (01:29→18:30)
[2020-09-25] MEDS: POTASSIUM CHLORIDE 40 MEQ in AMINO ACIDS 4.25%/D5W 1,000 ML IV SCH ×2 (07:00→20:05)
[2020-09-25] MEDS: MULTIVIT INJ. ADULT COMBO WITH VIT K 1 COMBO 10 ML VIAL IV SCH ×2 (07:00→13:00)
[2020-09-25 07:08] LABS: BASO % 0.1 % (0-2.0); EOS % 1.1 % (0-4.5); HEMATOCRIT 28.4 % (35.4-49); HEMOGLOBIN 8.9 GM/dL (11.7-16.9); LYMPH % 8.9 % (8-40); MCH 26.2 pg (25.7-33.7); MCHC 31.3 g/dl (32.0-35.9); MEAN CELL VOLUME 83.7 fl (80-96); MEAN PLT VOLUME 9.4 fl (7.5-11.1); NEUT % 85.9 % (42.8-82.8); PLATELET COUNT 161 K/MM3 (134-434); RBC 3.39 M/mm3 (4.00-5.60); RDW 15.1 % (11.9-15.9); WHITE BLOOD COUNT 10.9 K/mm3 (4.0-10.0)
[2020-09-25 07:31] LABS: POTASSIUM 4.4 mmol/L (3.5-5.1)
[2020-09-25 07:44] LABS: ALBUMIN 1.4 g/dl (3.4-5.0); BLOOD UREA NITROGEN 62.1 mg/dL (7-18); CALCIUM 7.4 mg/dL (8.5-10.1); MAGNESIUM 1.4 mg/dL (1.8-2.4)
[2020-09-25 07:47] LABS: CREATININE 3.4 mg/dL (0.55-1.3)
[2020-09-25 07:48] LABS: BILIRUBIN,TOTAL 0.5 mg/dL (0.2-1); TOT PROT 5.1 g/dl (6.4-8.2)
[2020-09-25] MEDS ORDERED: MAGNESIUM SULF 50% (8.12 MEQ/2 ML-1 GM VIAL) IVPB ONE (08:03)
[2020-09-25] MEDS: TAMSULOSIN HCL 0.4 MG CAP PO SCH ×2 (08:55→09:11)
[2020-09-25] MEDS: PANTOPRAZOLE SODIUM 40 MG VIAL IVPUSH SCH (09:03)
[2020-09-25] MEDS ORDERED: INSULIN (NOVOLOG) ASPART 100 UNITS/ML 10ML VIAL ONE (09:22)
[2020-09-25] MEDS ORDERED: SODIUM PHOSPHATE - 20 MM in SODIUM CHLORIDE 250 ML IVPB ONE (17:30)
[2020-09-25] MEDS: SODIUM CHLORIDE 0.45% 1,000 ML IV SCH (18:00)
[2020-09-25] MEDS ORDERED: PT OWN MED DRAWER 7, Y5N ONE ×2 (20:24→21:49)
[2020-09-25] MEDS: ROSUVASTATIN CA 10 MG TABLET (FP) PO SCH ×2 (21:38→21:47)
[2020-09-26] MEDS ORDERED: DEXTROSE 5%-WATER - 50 ML IVPB ONE ×3 (01:01→17:39)
[2020-09-26] MEDS ORDERED: PIPERACILLIN/TAZOBACTAM 2.25 GM VIAL IVPB ONE ×3 (01:01→17:39)
[2020-09-26] MEDS: SODIUM CHLORIDE 0.45% 1,000 ML IV SCH ×2 (02:06→22:08)
[2020-09-26] MEDS: PIPERACILLIN/TAZOB 2.25 GM 2.25 GM in DEXTROSE 5%-WATER - 50 ML IVPB SCH ×3 (02:09→18:35)
[2020-09-26 08:23] LABS: BASO % 0.5 % (0-2.0); EOS % 0.9 % (0-4.5); HEMATOCRIT 28.4 % (35.4-49); HEMOGLOBIN 8.9 GM/dL (11.7-16.9); LYMPH % 8.2 % (8-40); MCH 25.8 pg (25.7-33.7); MCHC 31.5 g/dl (32.0-35.9); MEAN PLT VOLUME 9.4 fl (7.5-11.1); MONO % 2.8 % (3.8-10.2); NEUT % 87.6 % (42.8-82.8); PLATELET COUNT 183 K/MM3 (134-434); RBC 3.46 M/mm3 (4.00-5.60); RDW 15.2 % (11.9-15.9); WHITE BLOOD COUNT 11.6 K/mm3 (4.0-10.0)
[2020-09-26 08:40] LABS: POTASSIUM 3.6 mmol/L (3.5-5.1)
[2020-09-26 08:43] LABS: CALCIUM 7.8 mg/dL (8.5-10.1)
[2020-09-26 08:44] LABS: ALBUMIN 1.6 g/dl (3.4-5.0); BLOOD UREA NITROGEN 59.5 mg/dL (7-18); MAGNESIUM 1.6 mg/dL (1.8-2.4)
[2020-09-26 08:47] LABS: CREATININE 3.1 mg/dL (0.55-1.3); PHOSPHOROUS 3.7 mg/dL (2.5-4.9)
[2020-09-26 08:48] LABS: BILIRUBIN,TOTAL 0.5 mg/dL (0.2-1)
[2020-09-26 08:49] LABS: TOT PROT 5.4 g/dl (6.4-8.2)
[2020-09-26] MEDS: TAMSULOSIN HCL 0.4 MG CAP PO SCH (10:39)
[2020-09-26] MEDS: PANTOPRAZOLE SODIUM 40 MG VIAL IVPUSH SCH (10:40)
[2020-09-26] MEDS ORDERED: MAGNESIUM 2GM/50ML STERILE WATER IVPB IVPB ONE ×2 (12:00→12:27)
[2020-09-26] MEDS: POTASSIUM CHLORIDE 40 MEQ in AMINO ACIDS 4.25%/D5W 1,000 ML IV SCH ×2 (14:40→15:40)
[2020-09-26] MEDS: MULTIVIT INJ. ADULT COMBO WITH VIT K 1 COMBO 10 ML VIAL IV SCH (15:40)
[2020-09-26 15:53] VITALS: BMI 20.5
[2020-09-26] MEDS: ROSUVASTATIN CA 10 MG TABLET (FP) PO SCH (21:43)
[2020-09-27] MEDS: POTASSIUM CHLORIDE 40 MEQ in AMINO ACIDS 4.25%/D5W 1,000 ML IV SCH ×3 (00:31→18:23)
[2020-09-27] MEDS ORDERED: PIPERACILLIN/TAZOBACTAM 2.25 GM VIAL IVPB ONE ×2 (02:04→10:26)
[2020-09-27] MEDS ORDERED: DEXTROSE 5%-WATER - 50 ML IVPB ONE ×2 (02:05→10:26)
[2020-09-27] MEDS: PIPERACILLIN/TAZOB 2.25 GM 2.25 GM in DEXTROSE 5%-WATER - 50 ML IVPB SCH ×2 (02:06→10:37)
[2020-09-27] MEDS: SODIUM CHLORIDE 0.45% 1,000 ML IV SCH (02:07)
[2020-09-27 08:31] LABS: BASO % 0.3 % (0-2.0); EOS % 0.6 % (0-4.5); HEMATOCRIT 27.8 % (35.4-49); HEMOGLOBIN 8.6 GM/dL (11.7-16.9); LYMPH % 8.3 % (8-40); MCH 25.8 pg (25.7-33.7); MCHC 31.1 g/dl (32.0-35.9); MEAN PLT VOLUME 8.9 fl (7.5-11.1); MONO % 3.4 % (3.8-10.2); NEUT % 87.4 % (42.8-82.8); PLATELET COUNT 224 K/MM3 (134-434); RBC 3.35 M/mm3 (4.00-5.60); RDW 15.2 % (11.9-15.9); WHITE BLOOD COUNT 12.3 K/mm3 (4.0-10.0)
[2020-09-27 08:36] LABS: POTASSIUM 4.2 mmol/L (3.5-5.1)
[2020-09-27 08:42] LABS: ALBUMIN 1.6 g/dl (3.4-5.0); BLOOD UREA NITROGEN 54.2 mg/dL (7-18); MAGNESIUM 2.7 mg/dL (1.8-2.4)
[2020-09-27 08:43] LABS: CALCIUM 7.8 mg/dL (8.5-10.1)
[2020-09-27 08:45] LABS: CREATININE 2.8 mg/dL (0.55-1.3); PHOSPHOROUS 2.3 mg/dL (2.5-4.9)
[2020-09-27 08:47] LABS: BILIRUBIN,TOTAL 0.5 mg/dL (0.2-1); TOT PROT 5.5 g/dl (6.4-8.2)
[2020-09-27] MEDS: TAMSULOSIN HCL 0.4 MG CAP PO SCH (10:33)
[2020-09-27] MEDS: PANTOPRAZOLE SODIUM 40 MG VIAL IVPUSH SCH (10:37)
[2020-09-27] MEDS: MULTIVIT INJ. ADULT COMBO WITH VIT K 1 COMBO 10 ML VIAL IV SCH (18:24)
[2020-09-27] MEDS: ROSUVASTATIN CA 10 MG TABLET (FP) PO SCH (21:34)
[2020-09-28] MEDS: POTASSIUM CHLORIDE 40 MEQ in AMINO ACIDS 4.25%/D5W 1,000 ML IV SCH ×2 (04:00→06:50)
[2020-09-28] MEDS ORDERED: PT OWN MED DRAWER 7, Y5N ONE (06:40)
[2020-09-28 08:23] LABS: BASO % 0.4 % (0-2.0); EOS % 0.9 % (0-4.5); HEMATOCRIT 27.1 % (35.4-49); HEMOGLOBIN 8.3 GM/dL (11.7-16.9); LYMPH % 11.4 % (8-40); MCH 25.9 pg (25.7-33.7); MCHC 30.6 g/dl (32.0-35.9); MEAN CELL VOLUME 84.6 fl (80-96); MEAN PLT VOLUME 8.4 fl (7.5-11.1); MONO % 4.2 % (3.8-10.2); NEUT % 83.1 % (42.8-82.8); PLATELET COUNT 237 K/MM3 (134-434); RBC 3.21 M/mm3 (4.00-5.60); RDW 15.4 % (11.9-15.9); WHITE BLOOD COUNT 9.7 K/mm3 (4.0-10.0)
[2020-09-28 08:57] LABS: CALCIUM 7.8 mg/dL (8.5-10.1)
[2020-09-28 08:58] LABS: MAGNESIUM 1.9 mg/dL (1.8-2.4)
[2020-09-28 09:01] LABS: CREATININE 2.4 mg/dL (0.55-1.3); PHOSPHOROUS 2.1 mg/dL (2.5-4.9)
[2020-09-28] MEDS: TAMSULOSIN HCL 0.4 MG CAP PO SCH (10:35)
[2020-09-28] MEDS ORDERED: POTASSIUM CHLORIDE 40 MEQ in AMINO ACIDS 4.25%/D5W 1,000 ML IV SCH (10:39)
[2020-09-28] MEDS ORDERED: NYSTATIN POWDER 100,000 UNITS/GM - 15 GM TOPICAL POWDER TP SCH (13:00)
[2020-09-28 13:07] LABS: CREATININE, URINE RANDOM 52.5 mg/dL (30-150)
[2020-09-28] MEDS ORDERED: FAT EMULSION/OLIVE/SOY (CLINOLIPID) 250 ML EMULSION IV ONE (13:12)
[2020-09-28] MEDS: PANTOPRAZOLE SODIUM 40 MG VIAL IVPUSH SCH (13:17)
[2020-09-28] MEDS: MULTIVIT INJ. ADULT COMBO WITH VIT K 1 COMBO 10 ML VIAL IV SCH (13:18)
[2020-09-28 18:17] VITALS: BP 137/57; PULSE 73; TEMP 99
[2020-09-28] MEDS ORDERED: FAT EMULSION/OLIVE/SOY/PHOSPHO 250 ML IV SCH (22:00)
== END 2020-09-28 19:38 | disposition short-term general hospital (02) | DRG 871 ==
LOC: JER 10:30 → JERBED 12:49 → JICU 15:18 → J5S 09-25 21:30
PROVIDERS: ADMIT Internal Medicine Pulmonary Disease; ATTEND Internal Medicine
PROC: 05HM33Z Insertion of Infusion Device into Right Internal Jugular Vein, Percutaneous Approach (ICD-10-PCS; principal; 2020-09-19)
PROC: B543ZZA Ultrasonography of Right Jugular Veins, Guidance (ICD-10-PCS; 2020-09-19)
PROC: 0CJS8ZZ Inspection of Larynx, Via Natural or Artificial Opening Endoscopic (ICD-10-PCS; 2020-09-19)
DX: A41.89 Other specified sepsis (principal); J18.9 Pneumonia, unspecified organism; R65.21 Severe sepsis with septic shock; N17.9 Acute kidney failure, unspecified; R64 Cachexia; E87.2 Acidosis; E87.0 Hyperosmolality and hypernatremia; C32.3 Malignant neoplasm of laryngeal cartilage; Z68.21 Body mass index [BMI] 21.0-21.9, adult; I95.9 Hypotension, unspecified; R00.0 Tachycardia, unspecified; N40.0 Benign prostatic hyperplasia without lower urinary tract symptoms; E87.5 Hyperkalemia; E78.5 Hyperlipidemia, unspecified; E04.9 Nontoxic goiter, unspecified; D72.829 Elevated white blood cell count, unspecified; I12.9 Hypertensive chronic kidney disease with stage 1 through stage 4 chronic kidney disease, or unspecified chronic kidney disease; N18.9 Chronic kidney disease, unspecified; E88.09 Other disorders of plasma-protein metabolism, not elsewhere classified; K22.9 Disease of esophagus, unspecified; E86.0 Dehydration; D51.9 Vitamin B12 deficiency anemia, unspecified; R13.10 Dysphagia, unspecified; R76.8 Other specified abnormal immunological findings in serum; K57.90 Diverticulosis of intestine, part unspecified, without perforation or abscess without bleeding; R31.0 Gross hematuria; D64.9 Anemia, unspecified; D18.09 Hemangioma of other sites; K44.9 Diaphragmatic hernia without obstruction or gangrene; N13.9 Obstructive and reflux uropathy, unspecified; R19.7 Diarrhea, unspecified; Z21 Asymptomatic human immunodeficiency virus [HIV] infection status
CPT/HCPCS: 36415; 71045-TC-FY; 71250-TC; 74176-TC; 80048; 80053; 82248; 82272; 82550; 82553; 82565; 82728; 82803; 82962; 83520; 83605; 83735; 84100; 84156; 84300; 84484; 84540; 85025; 85027; 85610; 85730; 86038; 86140; 86256; 86850; 86900; 86901; 87040; 87205; 87324; 87449; 87899; 93005; 93010; 99285-25; C9803; J0131; U0003